=== PATIENT | female | born 1965 | race Caucasian/White ===

== ENCOUNTER 2023-04-28 12:19 | Outpatient (OUT) | payer MEDICARE, MEDICAID, SELFPAY ==
--- NOTE | 2023-04-28 13:03 | PM.CN ---
Consult Note: HPI Data of Consult Patient: known to practice within the last 3 years Requesting Physician: Veronique Laird NP Primary Care Provider: Non-Staff Physician, MD Consult Narrative Reason for consult: chronic low back and left knee pain Narrative: Stephanie Nichols a pleasant 57 year old female presents for evaluation of low back and bilateral SIJ pain, as well as left knee pain. Patient rating 5/10 pain today SAULO 46%. cc:: CC: Veronique Laird NP [facility] Medical History Exam Constitutional Documenting provider has reviewed patient's vital signs: yes Common normals: no apparent distress, oriented x3, healthy appearing, alert and well nourished General appearance: cooperative Nutritional appearance: obese HENMT Common normals: normocephalic, hearing grossly normal bilaterally and moist oral mucous membranes Head and scalp: normocephalic Eye Common normals: PERRL Pupil: PERRL Neck & C-Spine Common normals: full ROM General: normal visual inspection Cervical spine: cervical ROM normal Chest Common normals: inspection of chest normal Respiratory Common normals: normal respiratory effort, no retractions and no use of accessory muscles Back & Pelvis Common normals: straight leg raise negative bilaterally Lumbar spine/lower back: ROM limited, pain with ROM (positive bilateral facet loading, right worse than left), lumbar spinal tenderness and paraspinal muscle tenderness Sacroiliac joints: SI joint(s) abnormal (bilaterally positive BARBARA, gaenslens, yeoman) SI joint details: tender to palpation Neuro Common normals: oriented x3, CN's II-XII intact bilaterally, moves all extremities, no focal motor deficits, no sensory deficits noted and deep tendon reflexes 2+ bilaterally Sensorium/orientation: alert Motor exam: strength 5/5 throughout and no movement abnormalities noted Other: intermittent bilateral leg weakness and instability Psych Common normals: mental status grossly normal, thought process normal, cooperative, affect normal, speech normal and activity/motor behavior normal Speech: normal speech Thought process: normal thought process Assessment and Plan Assessment and Plan (1) Neuritis: Assessment and Plan: bilateral LCIH neuritis not interested in injections at this time, previously discussed and discussed today bilateral LCIH nerve blocks (2) Opioid use: Assessment and Plan: continue tramadol 50mg TID update UDS today (3) Encounter for medication monitoring: Assessment and Plan: update UDS today (4) Lumbar spondylosis: Assessment and Plan: positive facet loading bilaterally, chronic low back pain declining injection therapy at this time consider MRI in the future due to intermittent bilateral leg weakness and instability (5) Left knee pain: Assessment and Plan: declining genicular nerve blocks (6) Obesity (BMI 30-39.9): Assessment and Plan: The patient was counseled that proper dietary changes and consistent participation in a home exercise plan can lead to weight loss. Weight loss can help to improve functionality in patients with chronic pain.? patient going to [facility], PT, aquatherapy Plan UDS today discussed and declining facet blocks and LCIH nerve blocks start PT and aquatherapy at [facility] continue tramadol 50mg TID PRN pain continue care director and e-stim use continue gabapentin 600mg daily f/u 3 months
== END 2023-04-28 12:20 | disposition home or self-care (01) ==
PROVIDERS: Visit Provider Nurse Practitioner
DX: M79.2 Neuralgia and neuritis, unspecified (principal); Z79.891 Long term (current) use of opiate analgesic; Z51.81 Encounter for therapeutic drug level monitoring; M47.816 Spondylosis without myelopathy or radiculopathy, lumbar region; M25.562 Pain in left knee; E66.9 Obesity, unspecified; Z68.30 Body mass index [BMI] 30.0-30.9, adult
CPT/HCPCS: G0463

== ENCOUNTER 2023-07-14 13:03 | Outpatient (OUT) | payer MEDICARE, SELFPAY ==
--- NOTE | 2023-07-14 13:48 | PM.CN ---
Consult Note: HPI Data of Consult Patient: known to practice within the last 3 years Requesting Physician: Veronique Laird NP Primary Care Provider: SANDEE FIGUEROA Consult Narrative Narrative: Stephanie Nichols a pleasant 57 year old female presents for evaluation and management of chronic low back pain with bilateral leg weakness and INC. Patient fell on july 06 and has had pain in right hip and thigh since then as well as increase in low back pain and weakness. Today rating pain 5/10 in low back and right hip. cc:: CC: Veronique Laird NP Review of Systems ROS Status of ROS 10 or more systems reviewed and unremarkable except as noted in history and below Musculoskeletal Reports: back pain and joint pain [facility] Medical History Encounter for medication monitoring ?Z51.81 - Encounter for therapeutic drug level monitoring (ICD-10) Meds Home Medications and Allergies Home Medications Medication Instructions Recorded Confirmed Type VITAMIN D DAILY 04/28/23 History buspirone 10 mg tablet 10 mg PO BID 04/28/23 04/28/23 History gabapentin 600 mg tablet 600 mg PO DAILY 04/28/23 04/28/23 History levothyroxine 150 mcg tablet 150 mcg PO DAILY 04/28/23 04/28/23 History (Synthroid) lisinopril 10 mg tablet 10 mg PO DAILY 04/28/23 04/28/23 History multivitamin 1 tab PO DAILY 04/28/23 04/28/23 History tramadol 50 mg tablet 50 mg PO TID 04/28/23 04/28/23 History trazodone 50 mg tablet 50 mg PO DAILY 04/28/23 04/28/23 History vitamin B12 0.5 mg-folic acid 1 mg 1 tab PO DAILY 04/28/23 04/28/23 History tablet Allergies Allergy/AdvReac Type Severity Reaction Status Date / Time Latex, Natural Rubber Allergy Unknown Rash Verified 04/28/23 13:53 Penicillins Allergy Unknown Verified 04/28/23 13:53 Exam Constitutional Documenting provider has reviewed patient's vital signs: yes Common normals: no apparent distress, oriented x3, healthy appearing, alert and well nourished General appearance: cooperative Nutritional appearance: obese HENMT Common normals: normocephalic, hearing grossly normal bilaterally and moist oral mucous membranes Head and scalp: normocephalic Eye Common normals: PERRL Pupil: PERRL Neck & C-Spine Common normals: full ROM General: normal visual inspection Cervical spine: cervical ROM normal Chest Common normals: inspection of chest normal Respiratory Common normals: normal respiratory effort, no retractions and no use of accessory muscles Back & Pelvis Common normals: straight leg raise negative bilaterally Lumbar spine/lower back: ROM limited, pain with ROM (positive bilateral facet loading, right worse than left), lumbar spinal tenderness and paraspinal muscle tenderness Sacroiliac joints: SI joint(s) abnormal (bilaterally positive BARBARA, gaenslens, yeoman) SI joint details: tender to palpation Extremity Right lower extremity: hip joint (no pain with internal or external rotation. non tender over GTB and IT band) Other: bruising to right posterior thigh Neuro Common normals: oriented x3, CN's II-XII intact bilaterally, moves all extremities, no focal motor deficits, no sensory deficits noted and deep tendon reflexes 2+ bilaterally Sensorium/orientation: alert Motor exam: strength 5/5 throughout and no movement abnormalities noted Other: intermittent bilateral leg weakness and instability Psych Common normals: mental status grossly normal, thought process normal, cooperative, affect normal, speech normal and activity/motor behavior normal Speech: normal speech Thought process: normal thought process Assessment and Plan Assessment and Plan (1) Acute right hip pain: (2) Lumbar stenosis without neurogenic claudication: Assessment and Plan: consider MRI (3) Opioid use: (4) Neuritis: (5) Obesity (BMI 30-39.9): (6) Lumbar spondylosis: Plan continue current medication regimen start topical lidocain 3% cream to affected areas xray of right hip and lumbar spine with flexion and extension continue HEP as tolerated f/u 1 month
--- OUTSIDE RECORDS SUMMARY | 2023-08-24 14:53 | XMS_ITS | CCD ---
Author Name Unknown Address [address] [place] [address] [address] [place] [address] Organization [facility] Care Team Providers Care Senior Scientist Name Role Phone LUCIA .PATRIA Admitting Unavailable LAKSHMIPATHY ., NARNIKKO Consulting Dasia vailable [facility] Un[facility] il[facility] HALKER .PATRIA Attending Unavailable [facility] HENRIQUEZ ., DR LUNA Lindsay Admitting Unavailable HENRIQUEZ ., DR LUNA Lindsay Attending Unavailable YAÑEZ ., JUWAN Consulting Unavailable YAÑEZ ., JUWAN Consulting Unavailable HENRIQUEZ ., DR LUNA Lindsay Attending Unavailable [facility] Unava ilable HENRIQUEZ ., DR LUNA Lindsay Admitting Unavailable YAÑEZ ., JUWAN Consulting Unavailable [facility] Unava ilable HENRIQUEZ ., DR LUNA Lindsay Attending Unavailable HENRIQUEZ ., DR LUNA Lindsay Admitting Unavailable YAÑEZ ., JUWAN Consulting Unavailable [facility] Unava ilable HENRIQUEZ ., DR LUNA Lindsay Attending Unavailable HENRIQUEZ ., DR LUNA Lindsay Admitting Unavailable YAÑEZ ., JUWAN Consulting Unavailable [facility] Unava ilable HENRIQUEZ ., DR LUNA Lindsay Attending Unavailable HENRIQUEZ ., DR LUNA Lindsay Admitting Unavailable Allergies Allergy Classification Reported Allergen(s) Allergy Type Date of Onset Reaction(s) Facility (1 source) Latex Drug allergy (disorder) [facility] (1 source) Penicillin Drug Allergy [facility] Problems Active Problems Problem Classification Problem Date Documented Date Episodic/Chronic Osteoarthritis (4 sources) Unilateral primary osteoarthritis, left knee; Translations: [UNI PRIM OSTEOARTHRITIS LT KNEE] Onset: 01-22-2022 Chronic Other connective tissue disease (1 source) Other muscle spasm; Translations: [OTHER MUSCLE SPASM] Onset: 01-14-2023 Episodic Other nervous system disorders (1 source) Other specified mononeuropathies; Translations: [OTHER SPECIFIED MONONEUROPATHIES] Onset: 01-14-2023 Chronic Other nutritional; endocrine; and metabolic disorders (1 source) Obesity, unspecified; Translations: [OBESITY UNSPECIFIED] Onset: 02-20-2022 Chronic Spondylosis; intervertebral disc disorders; other back problems (5 sources) Other spondylosis with radiculopathy, lumbar region; Translations: [Sacroiliitis, not elsewhere classified] Onset: 02-19-2022 Chronic Unclassified (2 sources) LOW BACK PAIN, UNSPECIFIED; Translations: [LOW BACK PAIN, UNSPECIFIED] Onset: 01-14-2023 Past or Other Problems Problem Classification Problem Date Documented Date Episodic/Chronic Other connective tissue disease (1 source) Muscle wasting and atrophy, not elsewhere classified, unspecified site; Translations: [MUSCLE WASTING ATROPHY NEC UNS SITE] Onset: 02-20-2022 Episodic Other connective tissue disease (1 source) Trochanteric bursitis, left hip; Translations: [TROCHANTERIC BURSITIS LEFT HIP] Onset: 01-28-2022 Episodic Spondylosis; intervertebral disc disorders; other back problems (5 sources) Intervertebral disc disorders with radiculopathy, lumbar region; Translations: [IV DISC D/O W/RADICULOPATHY LUMB] Onset: 02-20-2022 Episodic Unclassified (1 source) LOW BACK PAIN, UNSPECIFIED; Translations: [LOW BACK PAIN, UNSPECIFIED] Onset: 01-08-2023 Results Test Name Value Interpretation Reference Range [facility] Physical Therapy Noteon 08-07 Physical Therapy Note [id number]#1.00[facility] Provider Orderson 08-20-2020 Provider Orders [id number]#1.00[facility] Medication Managementon 05-08 Medication Management [id number]#1.00[facility] Coding Summaryon 05-30-2020 Coding Summary CODING DATE: 020 [facility] STATUS: PAYOR: Workers Compensation ADMIT DX: REASON FOR VISIT DX: S43.422D Sprain of left rotator cuff capsule, subsequent encounter FINAL DX: PRINCIPAL: S43.422D Sprain of left rotator cuff capsule, subsequent encounter SECONDARY: PYMT PROC APC STAT DESCRIPTION DOCTOR NAME DATE NOTE: The code number assigned matches the documented diagnosis and / or procedure in the patient's chart. However, the narrative phrase printed from the coding software may appear abbreviated, or result in slightly different terminology. Coded By: Zahra Feliciano Date Saved: 05/30/2020 02:18 pm [facility] Provider Orderson 05-27-2020 Provider Orders [id number] MAGR Intraoperative Recordon 04-08-2020 MAGR Intraoperative Record MAGR Intra-Op Record Summary Primary Physician: Warren Holliday DO Finalized Date/Time: 04/08/20 08:06:39 Pt. Name: JOSE A SINCLAIR/Sex: 1965 FEMALE Med Rec #: [id number] Physician: Warren Holliday DO Financial #: [id number] Pt. Type: D Room/Bed: / Admit/Disch: 04/01/20 07:10:00 - 04/01/20 13:45:00 Institution: Case Times MAGR Entry 1 Patient In Room Time 04/01/20 10:11:00 Out Room Time 04/01/20 11:27:00 Anesthesia Start Time 04/01/20 10:08:00 Stop Time 04/01/20 11:32:00 Surgery Start Time 04/01/20 10:42:00 Stop Time 04/01/20 11:17:00 Last Modified By: Estrellita Sanchez RN 04/01/20 11:36:13 Case Attendance MAGR Entry 1 Entry 2 Entry 3 Case Attendee Warren Holliday RN, Deyvi Nguyen MD, DO Role Performed Surgeon - Primary Director Part Anesthesiologist of Record Time In 04/01/20 10:11:00 04/01/20 10:11:00 04/01/20 10:11:00 Time Out 04/01/20 11:27:00 04/01/20 11:27:00 04/01/20 11:27:00 Procedure Arthroscopy Arthroscopy Arthroscopy Shoulder(Left) Shoulder(Left) Shoulder(Left) Last Modified By: Daniel GAY, Estrellita Sanchez RN, Estrellita Sanchez RN, Estrellita Thomas 04/01/20 11:27:54 04/01/20 11:27:54 04/01/20 11:27:54 Entry 4 Entry 5 Entry 6 Case Attendee Quan CALLES, Anastasia Licona RN, Miguelangel Alonzo CST Role Performed Scrub Personnel Director Part Control Room Tender Time In 04/01/20 10:11:00 04/01/20 10:11:00 04/01/20 10:11:00 Time Out 04/01/20 11:27:00 04/01/20 11:27:00 04/01/20 11:27:00 Procedure Arthroscopy Arthroscopy Arthroscopy Shoulder(Left) Shoulder(Left) Shoulder(Left) Last Modified By: Daniel GAY, Estrellita Sanchez RN, Estrellita Sanchez RN, Estrellita Thomas 04/01/20 11:27:54 04/01/20 11:27:54 04/01/20 11:27:54 General Comments: Hernán Bronson Rep Surgical Procedures MAGR Pre-Care Text: A.20 Verifies operative procedure, surgical site, and laterality Im.150 Develops individualized plan of care Entry 1 Procedure Arthroscopy Shoulder Primary Procedure Yes Primary Surgeon Warren Holliday DO Surgeon Comment LEFT SHOULDER SCOPE Start 04/01/20 10:42:00 WITH ROTATOR CUFF REPAIR Stop 04/01/20 11:17:00 Anesthesia Type General Surgical Service Orthopedics Wound Class Clean Technique Details Closure Technique Primary Entire procedure No was performed via laparoscope or robotic assistance Last Modified By: Estrellita Sanchez RN 04/01/20 11:18:04 Post-Care Text: O.730 The patient's care is consistent with the individualized perioperative plan of care General Case Data MAGR Pre-Care Text: A.350.1 Classifies surgical wound Entry 1 Case Information OR MAGR OR 05 Case Level Level 4 Wound Class Clean Specialty Orthopedics ASA Class 2 Diagnosis Preop Diagnosis LEFT SHOULDER ROTATOR Postop Same As Preop Yes CUFF TEAR Postop Diagnosis LEFT SHOULDER ROTATOR CUFF TEAR Blunt or No Is the procedure No penetrating injury considered occured prior to Emergent/Urgent? the start of the procedure: Last Modified By: Estrellita Sanchez RN 04/01/20 10:43:16 Post-Care Text: O.760 Patient receives consistent and comparable care regardless of the setting Time Out MAGR Entry 1 Time out date/time 04/01/20 10:40:00 All team members Yes have introduced themselves by name and role Surgeon, Yes Surgeon reviews Yes anesthesia, nurse critical or confirm patient, unexpected steps, site, procedure operative duration, anticipated blood loss Anesthesia team Yes Nursing team Yes reviews any reviews sterility patient-specific (including concerns indicator results) and equipment issues/concerns Antibiotic Antibiotic Yes Administration Time 10:10 prophylaxis given within the last 60 minutes Is essential N/A imaging displayed? Last Modified By: Estrellita Sanchez RN 04/01/20 10:44:00 Patient Positioning MAGR Pre-Care Text: A.280 Identifies baseline musculoskeletal status Im.40 Positions the patient Im.80 Applies safety devices Entry 1 Procedure Arthroscopy Body Position Lateral Shoulder(Left) Left Arm Position Extended on padded arm Right Arm Position Extended board Left Leg Position Extended Right Leg Position Extended Feet Uncrossed? Yes Press Points Checked Yes Positioning Device Arm Boards, Arm Strap, Outcome Met (O.80) Yes Pillow, Safety Strap Last Modified By: Estrellita Sanchez RN 04/01/20 10:44:12 Post-Care Text: E.290 Evaluates musculoskeletal status O.80 Patient is free from signs and symptoms of injury related to positioning Skin Prep MAGR Pre-Care Text: A.30 Verifies allergies Im.270 Performs skin preparation Im.270.1 Implements protective measures to prevent skin and tissue injury due to chemical sources Entry 1 Skin Prep Syntegrity Prep Agents (Im.270) Chlorhexidine Gluconate Prep By Estrellita Sanchez RN and Alcohol Prep Area (Im.270) Shoulder, Arm, Hand Prep Area Details Left Skin Prep Agent Dry Yes Without Pooling Hair Removal Syntegrity Hair Removal Methods No hair removal performed Outcome Met (O.100) Yes Last Modified By: Estrellita Sanchez RN 04/01/20 09:56:56 Post-Care Text: E.10 Evaluates for signs and symptoms of physical injury to skin and tissue O.100 Patient is free from signs and symptoms of chemical injury Counts Verification MAGR Pre-Care Text: A.20 Verifies operative procedure, surgical site, and laterality A.20.2 Assesses the risk for unintended retained foreign body Im.20 Performs required counts Entry 1 Procedure Arthroscopy Shoulder(Left) Counts Verification Initial Counts Items included in Sponges, Sharps Initial Counts Manual the Initial Count Method Initial Counts Estrellita Sanchez RN, Initial Count Time 04/01/20 09:31:00 Performed By Anastasia Glass CST Counts Verification Final Counts Items Included in Sponges, Sharps Final Count Status Correct Final Count Final Counts Estrellita Sanchez RN, Final Count Time 04/01/20 11:11:00 Performed By Anastasia Glass CST Surgeon notified of Yes final counts status Outcome Met (O.20) Yes Last Modified By: Estrellita Sanchez RN 04/01/20 11:12:23 Post-Care Text: E.50 Evaluates results of the surgical count O.20 Patient is free from unintended retained foreign objects Patient Care Devices MAGR Pre-Care Text: A.200 Assesses risk for normothermia regulation A.40 Verifies presence of prosthetics or corrective devices Im.280 Implements thermoregulation measures Im.60 Uses supplies and equipment within safe parameters Entry 1 Entry 2 Equipment Type Bilateral pneumatic Heated forced air compression device Serial ?# [id number] Equipment Setting default 43 degrees celecius Last Modified By: Estrellita Sanchez RN, RN, Kristin N 04/01/20 09:59:19 04/01/20 09:59:19 Post-Care Text: E.10 Evaluates signs and symptoms of physical injury to skin and tissue O.700 Patient is free from signs and symptoms of injury caused by extraneous objects Medication Administration MAGR Pre-Care Text: A.210 Identifies physiological status Im.220 Administers prescribed medications Entry 1 Time Administered 04/01/20 08:05:00 Medication epinephrine 1mg/ml added to 1000ml NS Route of Admin IRRIG Dose 9 amp Volume 9 amp By Estrellita Sanchez RN Outcome Met (O.130) Yes Last Modified By: Estrellita Sanchez RN 04/08/20 08:06:32 Post-Care Text: E.20 Evaluates response to medications O.130 Patient receives appropriately administered medication(s) Implant Log MAGR Pre-Care Text: A.20 Verifies operative procedure, surgical site, and laterality Im.350 Records implants inserted during the operative or invasive procedure Entry 1 Entry 2 Procedure Arthroscopy Arthroscopy Shoulder(Left) Shoulder(Left) Implant Action Implant Implant Description Arthrex Surture Wagner Arthrex Suture Wagner Biocomposite 4.75 x 4.75 x 24.5mm 24.5mm Implant Information Implant/Explant 04/01/20 10:55:00 04/01/20 10:59:00 Date/Time Implanted/Explanted Warren Holliday James By: Rainer BREWSTER Rainer DO Size 4.75 x 24.5mm 4.75 x 24.5mm Marketer Arthrex Arthrex Catalog # REF [id number] REF [id number] Lot Number [id number] Expiration Date 05/06/21 05/06/21 Serial Number Device Identifier Human Readable TY Machine Readable TY MR Class Implant Usage Data Site Shoulder L Shoulder L Quantity 1 1 Reason for Explant Reason Not Retained Explant Disposition Cigar Bander Hand Sterility External Indicator Result Internal Indicator Results Outcome Met (O.30) Yes Yes Last Modified By: Estrellita Sanchez RN, RN, Kristin N 04/01/20 11:01:05 04/01/20 11:01:05 Post-Care Text: E.30 Evaluates verification process for correct patient, site, side and level surgery O.30 Patient's procedure is performed on the correct site, side, and level Dressing/Packing MAGR Pre-Care Text: A.350 Assesses susceptibility for infection Im.290 Administer care to wound sites Entry 1 Skin Prep Agent Yes Site Hand Removed Prior to Dressing? Dressing Item Details Dressing Item 4x4's, ABD (Im.290) Outcome Met Yes Last Modified By: Estrellita Sanchez RN 04/01/20 10:00:06 Post-Care Text: E.200 Evaluates progress of wound healing O.200 Patient's wound perfusion is consistent with or improved from baseline levels Departure from OR MAGR Entry 1 Present on Depart Oxygen Via Stretcher Post-op Destination PACU Skin DFO Condition Dry Description Condition Intact Description Report Given To Ana Maria Welsh RN Airway Maintenance Patient Status Stable Oxygen in Use? Yes Airway Device Simple mask Flow Rate 10 Last Modified By: sEtrellita Sanchez RN 04/01/20 11:36:41 Case Comments Finalized By: Estrellita Sanchez RN Document Signatures Signed By: Estrellita Sanchez RN 04/01/20 11:46 Estrellita Sanchez RN 04/01/20 11:39 Estrellita Sanchez RN 04/08/20 08:06 Unfinalized History Date/Time Username Reason for Unfinalizing Freetext Reason for Unfinalizing 04/01/20 11:45 JESSICA Modify Pick List 04/08/20 08:04 JESSICA Finish Documentation [facility] Coding Summaryon 04-02-2020 Coding Summary CODING DATE: 020 [facility] STATUS: Home PAYOR: Workers Compensation APC DESCRIPTION 5114 Level 4 Musculoskeletal Procedures ADMIT DX: REASON FOR VISIT DX: S46.012A Strain of muscle(s) and tendon(s) of the rotator cuff of left shoulder, initial encounter FINAL DX: PRINCIPAL: S46.012A Strain of muscle(s) and tendon(s) of the rotator cuff of left shoulder, initial encounter SECONDARY: S46.112A Strain of muscle, fascia and tendon of long head of biceps, left arm, initial encounter PYMT PROC APC STAT DESCRIPTION DOCTOR NAME DATE 13529 5114 J1 Arthroscopy, shoulder, 04/01/2020 surgical; with rotator cuff repair LT Left side (used to identify procedures performed on the left side of the body) NOTE: The code number assigned matches the documented diagnosis and / or procedure in the patient's chart. However, the narrative phrase printed from the coding software may appear abbreviated, or result in slightly different terminology. Revised Coded By: Gissel Blanton Revised Date Saved: 04/02/2020 02:55 pm [facility] Consent Formson 04-02-2020 Consent Forms [id number] Instructions [id number]#[facility] and Physical[facility] 04-02 History and Physical [id number]#[facility] Medication Management[facility] 03-07 Medication Management [id number]#1.00[facility] Telemetry Stripson 0 Telemetry Strips [id number]#[facility]2020 Anesthesia Note Patient: HILARY SINCLAIR Age: 54 years Sex: FEMALE : 1965 Associated Diagnoses: None Author: Deyvi Samuels MD Preoperative Information Anesthesia history: Patient history: No difficult intubation, No malignant hyperthermia. Family history: No malignant hyperthermia. Review of Systems Constitutional: Negative. Respiratory: Negative, No shortness of breath. Cardiovascular: No chest pain. Neurologic: Alert and oriented X4. Health Status Allergies: Allergic Reactions (All) Severity Not Documented Penicillin- Yeast infection. Current medications: Home Medications (8) Active DULoxetine 30 mg oral delayed release capsule 60 mg = 2 cap(s), PO, HS levothyroxine 137 mcg (0.137 mg) oral tablet 137 mcg = 1 tab(s), PO, Daily rOPINIRole 0.25 mg oral tablet 0.5 mg = 2 tab(s), PO, HS traZODone 50 mg oral tablet 50 mg = 1 tab(s), PRN, PO, Once a day (at bedtime) Vistaril 50 mg oral capsule 50 mg = 1 cap(s), PO, HS Vitamin D3 1000 intl units oral capsule 1,000 International_Unit = 1 cap(s), PO, Daily Xanax 0.25 mg oral tablet 0.25 mg = 1 tab(s), PRN, PO, BID Zoloft 50 mg oral tablet 50 mg = 1 tab(s), PO, Daily Problem list (past medical history): All Problems Anemia / SNOMED CT 543749909 / Confirmed Hypothyroid / SNOMED CT 80079345 / Confirmed Iron deficiency / SNOMED CT 79790717 / Confirmed Histories Family History: No family history items have been selected or recorded. Procedure history: Gastric bypass (8871662590). Rotator cuff (35204887). Comments: 03/12/2020 9:17 Obdulia Corbin RN right shoulder, biceps Social History Electronic Cigarette/Vaping Assessment Electronic Cigarette Use: Never. Alcohol Assessment Use: Never. Tobacco Assessment Never (less than 100 in lifetime) Tobacco Use:. Substance Abuse Assessment Substance use: Never. . Social & Psychosocial Habits Alcohol 03/12/2020 Alcohol Use: Never Substance Abuse 03/12/2020 Substance use: Never Tobacco 03/12/2020 Smoking tobacco use: Never (less than 100 in l Electronic Cigarette/Vaping 03/12/2020 Electronic Cigarette Use: Never . Physical Examination VS/Measurements Vital Signs (last 24 hrs) Last Charted Heart Rate Peripheral 67 bpm (APR 01 07:30) Resp Rate 16 br/min (APR 01:30) SBP H 149mmHg (APR 01:35) DBP 86 mmHg (APR 01:35) SpO2 97 % (APR 01:30) Airway: Mallampati classification: II (soft palate, fauces, uvula visible). Temporomandibular joint mobility: Good. Mouth: Adequate opening, Teeth ( very poor dentition with left upper central incisor piece that is very loose ). Neck: Full range of motion. Respiratory: Lungs are clear to auscultation. Cardiovascular: Regular rhythm. Neurologic: Alert, Oriented. Review / Management Laboratory Results Plan [place] [employer]hesiologists#(ASA) physical status classification: Class II. Anesthetic Preoperative Plan Anesthesia: General. , Regional (Interscalene Block, for post op pain control). Anesthetic plan, risks, benefits, and alternatives discussed with the patient and/or family. Patient verbalized understanding. [Electronically Signed on: 04/01/2020 09:45 EDT] Deyvi Samuels MD [Verified on: 04/01/2020 09:45 EDT] Deyvi Samuels MD [facility] Coding Summaryon 04-01-2020 Coding Summary CODING DATE: 020 [facility] STATUS: Home PAYOR: [employer] ADMIT DX: REASON FOR VISIT DX: R05 Cough FINAL DX: PRINCIPAL: R05 Cough SECONDARY: PYMT PROC APC STAT DESCRIPTION DOCTOR NAME DATE NOTE: The code number assigned matches the documented diagnosis and / or procedure in the patient's chart. However, the narrative phrase printed from the coding software may appear abbreviated, or result in slightly different terminology. Coded By: Zahra Feliciano Date Saved: 04/01/2020 11:03 am Normal [facility] Inpatient Patient Summaryon 04-01-2020 Inpatient [place] [address] Patient Discharge Instructions Name: YAHIR JOSE A K : 1965 Patient Address: [address] [place] [address] Primary Care Provider: Name: Kelly Bunch DO After you are discharged if you find you have any questions, please, call [phone] ext [phone] to speak to a nurse. Discharge Diagnosis: Internal derangement of left shoulder Prescription Information: If you have been given a prescription for narcotics, seek immediate medical attention if you have any difficulty breathing or any sudden status changes such as confusion and sleepiness. If you or anyone you know is experiencing suicidal thoughts, mental health, alcohol and/or drug addiction problems; contact the [facility] 29/03 Crisis Hotline -Text 4HIMC wc 029896. If you received any narcotics, sedation, or any other medication that causes drowsiness for the next 24 hours, unless otherwise directed: ? Do not drive a car. ? Do not operate machinery such as power tools, lawn mowers, drills, sewing machines, or stoves ? Avoid alcoholic beverages and drugs for allergies, nerves, or sleep ? Do not make important personal or business decisions or sign any legal documents [facility] would like to thank you for allowing us to assist you with your healthcare needs. The following includes patient education materials and information regarding your injury/illness. JOSE A SINCLAIR has been given the following list of follow-up instructions, prescriptions, and patient education materials: Follow-up Instructions With: Address: When: MAGALIS LIMON [address], [place] [address] Business (1) 04/09/2020 10:45 AM With: Address: When: Kelly [address] [place] [address] Business (1) Medications During the course of your visit, your medication list was updated with the most current information. The details of those changes are reflected below: Medications to Continue That Have Not Changed Other Medications acetaminophen-oxycodone (Percocet 5/325 oral tablet) 1 tab(s) Oral Every 6 hours as needed for pain. ALPRAZolam (Xanax 0.25 mg oral tablet) 1 tab(s) Oral 2 times a day as needed for anxiety. cholecalciferol (Vitamin D3 1000 intl units oral capsule) 1 cap(s) Oral every day. DULoxetine (DULoxetine 30 mg oral delayed release capsule) 2 cap(s) Oral At bedtime. (do not crush or chew). hydrOXYzine (Vistaril 50 mg oral capsule) 1 cap(s) Oral At bedtime. levothyroxine (levothyroxine 137 mcg (0.137 mg) oral tablet) 1 tab(s) Oral every day. rOPINIRole (rOPINIRole 0.25 mg oral tablet) 2 tab(s) Oral At bedtime. sertraline (Zoloft 50 mg oral tablet) 1 tab(s) Oral every day. traZODone (traZODone 50 mg oral tablet) 1 tab(s) Oral once a day (at bedtime) as needed sleep. It is important to always keep an active list of medications available so that you can share with other providers and manage your medications appropriately. As an additional courtesy, we are also providing you with your final active medications list that you can keep with you. acetaminophen-oxycodone (Percocet 5/325 oral tablet) 1 tab(s) Oral Every 6 hours as needed for pain., this is a home medication per Dr. Holliday on 04/01/2020 ALPRAZolam (Xanax 0.25 mg oral tablet) 1 tab(s) Oral 2 times a day as needed for anxiety. cholecalciferol (Vitamin D3 1000 intl units oral capsule) 1 cap(s) Oral every day. DULoxetine (DULoxetine 30 mg oral delayed release capsule) 2 cap(s) Oral At bedtime. (do not crush or chew). hydrOXYzine (Vistaril 50 mg oral capsule) 1 cap(s) Oral At bedtime. levothyroxine (levothyroxine 137 mcg (0.137 mg) oral tablet) 1 tab(s) Oral every day. rOPINIRole (rOPINIRole 0.25 mg oral tablet) 2 tab(s) Oral At bedtime. sertraline (Zoloft 50 mg oral tablet) 1 tab(s) Oral every day. traZODone (traZODone 50 mg oral tablet) 1 tab(s) Oral once a day (at bedtime) as needed sleep. Take only the medications listed above. Contact your doctor prior to taking any medications not on this list. Diet & Activity Patient Activity Level: Patient Diet: Regular Patient Activity Restrictions: Comment: Patient education materials, if any, will display below Return to Work was treated at our facility. Injury or illness was: ___Work-related. ___Not work-related. ___Undetermined if work-related. Return to work ? Employee may return to work on . ? Employee may return to modified work on . Work activity restrictions This person is not able to do the following activities: ___Bend ___Sit for a prolonged time ? This person should not sit for more than ____ hours at a time. ? This person should not sit for more than ____ hours during an 8-hour workday. ___Lift more than lb ___Squat ___ Stand for a prolonged time ? ___ This person should not stand for more than ____ hours at a time. ? ___ This person should not stand for more than ____ hours during an 8-hour workday. ___Climb ___Reach ___Push and pull with the ___ right hand ___ left hand ___ Walk ? ___ This person should not walk for more than ____ hours at a time. ? ___ This person should not walk for more than ____ hours during an 8-hour workday. ___ Drive or operate a motor vehicle at work ___ Grasp with the ___ right hand ___ left hand ___Other These restrictions are effective until or until a recheck appointment on . 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 Your employer should be aware of your condition and may be able to help with the necessary work activity restrictions. Contact your health care provider if: ? You wish to return to work sooner than the date that is listed above. ? You have problems that make it difficult for you to return at that time. This information is not intended to replace advice given to you by your health care provider. Make sure you discuss any questions you have with your health care provider. Document Released: 08/23/2006 Document Revised: 08/18/2018 Document Reviewed: 08/18/2018 [employer] Interactive Patient Education ? [address] GARCIA POST OPERATIVE SHOULDER INSTRUCTIONS SURGEONS WRITTEN INSTRUTCTIONS: -If you have been given a cryo cuff after surgery you should use it as much as possible for the first 24-48 hours. After that it is optional. TIP: Many patients prefer to use it a little longer because it helps reduce pain -You should wiggle your fingers frequently -Change your dressings in 1 day. If steri-strips have been applied DO NOT remove them. When the wound is clean and dry you may leave it open to air but again DO NOT remove any steri-strips that have been applied -You may shower in 1 day but do not let the water stream directly strike the wound -Do pendulum exercises for at least 10 minutes twice a day -If you have any problems or concerns, please call the office at [phone] -Follow up as scheduled Viruses or Bacteria What?s got you sick? Antibiotics only treat bacterial infections. Viral illnesses cannot be treated with antibiotics. When an antibiotic is not prescribed, ask your healthcare professional for tips on how to relieve symptoms and feel better. Usual Cause Illness Viruses Bacteria Antibiotic Needed Cold/Runny Nose NO Bronchitis/Chest Cold (in otherwise healthy children and adults) NO Whooping Cough Yes Flu NO Strep Throat Yes Sore Throat (except strep) NO Fluid in the middle ear (otitis media with effusion) NO Urinary Tract Infection Yes Antibiotics Aren?t Always the Answer www.cdc.gov/getsmart GET SMART Know When Antibiotics Work [place] Department of Health and Human Services Centers for Disease Control and Prevention May 2014 [facility] MAGR Intraoperative Recordon 04-01-2020 MAGR Intraoperative Record MAGR Intra-Op Record Summary Primary Physician: Deyvi Samuels MD Finalized Date/Time: 04/01/20 10:15:13 Pt. Name: JOSE A SINCLAIR/Sex: 1965 FEMALE Med Rec #: [id number] Physician: Warren Holliday DO Financial #: [id number] Pt. Type: D Room/Bed: / Admit/Disch: 04/01/20 07:10:00 - Institution: Case Times MAGR Entry 1 Patient In Room Time 04/01/20 09:50:00 Out Room Time 04/01/20 10:09:00 Anesthesia Start Time 04/01/20 09:52:00 Stop Time 04/01/20 10:05:00 Surgery Start Time 04/01/20 09:59:00 Stop Time 04/01/20 10:05:00 Last Modified By: Juany Guzman RN 04/01/20 10:11:53 Case Attendance MAGR Entry 1 Entry 2 Entry 3 Case Attendee Deyvi Samuels MD RN, Juany López RN Role Performed Surgeon - Primary Director Part Director Part Time In 04/01/20 09:50:00 04/01/20 09:50:00 04/01/20 09:50:00 Time Out 04/01/20 10:09:00 04/01/20 10:09:00 04/01/20 10:09:00 Procedure Interscalene Block(Left) Interscalene Block(Left) Interscalene Block(Left) Last Modified By: Juany Guzman RN, Margaret RN Klaehn, Margaret RN 04/01/20 10:12:14 04/01/20 10:12:14 04/01/20 10:12:14 Surgical Procedures MAGR Pre-Care Text: A.20 Verifies operative procedure, surgical site, and laterality Im.150 Develops individualized plan of care Entry 1 Procedure Interscalene Block Primary Procedure Yes Primary Surgeon Deyvi Samuels MD Modifiers Left Surgeon Comment SCALENE BLOCK PRIOR TO Start 04/01/20 09:59:00 LEFT SHOULDER SCOPE WITH ROTATOR CUFF REPAIR Stop 04/01/20 10:05:00 Anesthesia Type Regional Block Surgical Service Anesthesia Wound Class Clean Technique Details Closure Technique N/A Entire procedure No was performed via laparoscope or robotic assistance Last Modified By: Juany Guzman RN 04/01/20 10:11:44 Post-Care Text: O.730 The patient's care is consistent with the individualized perioperative plan of care General Case Data MAGR Pre-Care Text: A.350.1 Classifies surgical wound Entry 1 Case Information OR MAGR Proc Room Case Level None Wound Class Clean Specialty Anesthesia ASA Class 2 Diagnosis Preop Diagnosis SCALENE BLOCK PRIOR TO Postop Same As Preop Yes LEFT SHOULDER SCOPE WITH ROTATOR CUFF REPAIR Postop Diagnosis SCALENE BLOCK PRIOR TO LEFT SHOULDER SCOPE WITH ROTATOR CUFF REPAIR Blunt or No Is the procedure No penetrating injury considered occured prior to Emergent/Urgent? the start of the procedure: Last Modified By: Juany Guzman RN 04/01/20 10:12:43 Post-Care Text: O.760 Patient receives consistent and comparable care regardless of the setting Time Out MAGR Entry 1 Time out date/time 04/01/20 09:51:00 All team members Yes have introduced themselves by name and role Surgeon, Yes Surgeon reviews Yes anesthesia, nurse critical or confirm patient, unexpected steps, site, procedure operative duration, anticipated blood loss Anesthesia team Yes Nursing team Yes reviews any reviews sterility patient-specific (including concerns indicator results) and equipment issues/concerns Antibiotic Antibiotic N/A prophylaxis given within the last 60 minutes Is essential Yes imaging displayed? Last Modified By: Juany Guzman RN 04/01/20 09:58:10 Patient Positioning MAGR Pre-Care Text: A.280 Identifies baseline musculoskeletal status Im.40 Positions the patient Im.80 Applies safety devices Entry 1 Procedure Interscalene Block(Left) Body Position Supine Left Arm Position Resting at Side Right Arm Position Resting at Side Left Leg Position Extended Right Leg Position Extended Feet Uncrossed? Yes Press Points Checked Yes Outcome Met (O.80) Yes Last Modified By: Juany Guzman RN 04/01/20 09:59:04 Post-Care Text: E.290 Evaluates musculoskeletal status O.80 Patient is free from signs and symptoms of injury related to positioning Skin Prep MAGR Pre-Care Text: A.30 Verifies allergies Im.270 Performs skin preparation Im.270.1 Implements protective measures to prevent skin and tissue injury due to chemical sources Entry 1 Skin Prep Syntegrity Prep Agents (Im.270) Chlorhexidine Gluconate Prep By Deyvi Samuels MD and Alcohol Prep Area (Im.270) Shoulder, Neck Prep Area Details Left Skin Prep Agent Dry Yes Without Pooling Hair Removal Syntegrity Hair Removal Methods No hair removal performed Outcome Met (O.100) Yes Last Modified By: Juany Guzman RN 04/01/20 10:00:27 Post-Care Text: E.10 Evaluates for signs and symptoms of physical injury to skin and tissue O.100 Patient is free from signs and symptoms of chemical injury Departure from OR MAGR Entry 1 Present on Depart Oxygen Via Stretcher Post-op Destination Little Skin DFO Condition Dry Description Condition Intact Description Report Given To Zahra Licona RN Airway Maintenance Patient Status Stable Oxygen in Use? Yes Airway Device Nasal cannula Flow Rate 3 L/min Last Modified By: Juany Guzman RN 04/01/20 10:14:14 Case Comments Finalized By: Juany Guzman RN Document Signatures Signed By: Juany Guzman RN 04/01/20 [facility]R PACU Record [facility] Primary Physician: Warren Holliday DO Finalized Date/Time: 04/01/20 12:39:27 Pt. Name: JOSE A SINCLAIR/Sex: 1965 FEMALE Med Rec #: [id number] Physician: Warren Holliday DO Financial #: [id number] Pt. Type: D Room/Bed: / Admit/Disch: 04/01/20 07:10:00 - Institution: PACU Case Times MAGR Entry 1 In PACU I 04/01/20 11:25:00 Discharge from PACU 04/01/20 12:28:00 I Last Modified By: Juany Guzman RN 04/01/20 12:39:18 Finalized By: Juany Guzman RN Document Signatures Signed By: Juany Guzman RN 04/01/20 12:39 [facility] MAGR Postoperative Recordon 04-01-2020 MAGR Postoperative Record MAGR Phase II Record Summary Primary Physician: Warren Holliday DO Finalized Date/Time: 04/01/20 13:49:00 Pt. Name: JOSE A SINCLAIR/Sex: 1965 FEMALE Med Rec #: [id number] Physician: Warren Holliday DO Financial #: [id number] Pt. Type: D Room/Bed: / Admit/Disch: 04/01/20 07:10:00 - 04/01/20 13:45:00 Institution: Phase II Case Times MAGR Pre-Care Text: Patient is free from s/s of injury. Patient remains free from compromised physical state related to surgery or anesthesia. Patient comfort maintained. Patient/family verbalize understanding of discharge instructions. Entry 1 In PACU II 04/01/20 12:29:00 Discharge from PACU 04/01/20 13:45:00 II Last Modified By: Sade Herring RN 04/01/20 13:48:54 Post-Care Text: The patient remains free from s/s of injury. Patient's vital signs stable, circulation maintained, return to preop mental and physical status, opsite/dressing intact, minimal or absent nausea and vomiting, tolerates po intake. Patient verbalizes adequate pain control. Patient/family express understanding of discharge instructions. Finalized By: Sade Herring RN Document Signatures Signed By: Sade Herring RN 04/01/20 13:48 [facility]2020 MAGR Preoperative Record MAGR Pre-Op Record Summary Primary Physician: Warren Holliday DO Finalized Date/Time: 04/01/20 10:16:27 Pt. Name: JOSE A SINCLAIR Oliver Yadav./Sex: 1965 FEMALE Med Rec #: [id number] Physician: Warren Holliday DO Financial #: [id number] Pt. Type: D Room/Bed: / Admit/Disch: 04/01/20 07:10:00 - Institution: Pre-Op Case Times MAGR Pre-Care Text: Patient will be optimally prepared for surgery. Patient is free from s/s of injury. Provide information to patient/family related to plan of care. Verify patient allergies. Confirm identity and verify consent before the operative or invasive procedure. Entry 1 Patient Arrival Time 04/01/20 07:18:00 Preop Departure 04/01/20 10:09:00 Last Modified By: Juany Guzman RN 04/01/20 10:16:18 Post-Care Text: Patient is prepared mentally and physically and is ready for surgery. The patient remains free from s/s of injury. Patient/family express understanding of plan of care and participate in decisions affecting his or her perioperrative plan of care. Allergies documented appropriately. Patient identifiers and consent correct. General Comments: Patient arrives ambulatory to PSW. Pt deniesa xander recent cold/flu symptoms, SOB, sleep apnea, diabetes, CP, or pacemaker/defibrillator. Finalized By: Juany Guzman RN Document Signatures Signed By: Juany Guzman RN 04/01/20 10:16 Normal [facility] Operative Report - Surgeon/P chanda 04-01-2020 Operative Report - Surgeon/Physician Preoperative diagnosis: Internal derange ment left shoulder suspected cuff tear Postoperative diagnosis: Full-thickness tear rotator cuff Tear biceps with chronic appearance Procedure: Arthroscopic repair of rotator cuff left shoulder Surgeon: Vidya Holliday D.O. Anesthesia: General with a preoperative interscalene block Indications for surgery: Clinical findings suggestive of a tear of the rotator cuff with failure of conservative treatment and progression of symptoms Estimated blood loss: Scant Complications: None Findings: Full-thickness retracted tear of the rotator cuff. Absence of biceps tendon within the joint Procedure summary: Patient was given a general anesthetic she was positioned in the lateral decubitus position. The left shoulder was sterilely prepped and draped in usual fashion and a timeout was taken. A posterior portal was established. Upon in clinic entering the glenohumeral joint it was immediately apparent there was a full-thickness tear of the rotator cuff I established a portal of the lateral edge of the acromium in line with the defect in the rotator cuff. I placed a grasper on the labrum and noted the labrum to be intact but noted the long head of the biceps was absent from the joint and there was just a tiny bit of fraying left at its attachment site. The articular cartilage on the head of the humerus and in the glenoid had a grossly normal appearance I repositioned the scope into the subacromial space and took down the bursa. The cuff tear was readily visible from above. It was an irregular tear with fissuring and laminar components. I used a shaver to scuff up the footprint. I repaired the rotator cuff with a single margin convergence suture and then 2 inverted mattress #2 fiber tapes anchored with two 4.75 bio swivel locks. I then took the shoulder through range of motion and noted that there was no areas of obvious impingement. The undersurface of the acromium and the acromioclavicular joint did not have spurs or impingement detected Subacromial space was irrigated and evacuated and the portals were closed with nylon sutures. Sterile dressings were applied [Electronically Signed on: 04/01/2020 11:22 EDT] Warren Holliday DO [Verified on: 04/01/2020 11:22 EDT] Warren Holliday DO [facility] Patient Handouton 04-01-[address] GARCIA POST OPERATIVE SHOULDER INSTRUCTIONS SURGEONS WRITTEN INSTRUTCTIONS: -If you have been given a cryo cuff after surgery you should use it as much as possible for the first 24-48 hours. After that it is optional. TIP: Many patients prefer to use it a little longer because it helps reduce pain -You should wiggle your fingers frequently -Change your dressings in 1 day. If steri-strips have been applied DO NOT remove them. When the wound is clean and dry you may leave it open to air but again DO NOT remove any steri-strips that have been applied -You may shower in 1 day but do not let the water stream directly strike the wound -Do pendulum exercises for at least 10 minutes twice a day -If you have any problems or concerns, please call the office at [phone] -Follow up as scheduled Forms Return to Work was treated at our facility. Injury or illness was: ___Work-related. ___Not work-related. ___Undetermined if work-related. Return to work ? Employee may return to work on . ? Employee may return to modified work on . Work activity restrictions This person is not able to do the following activities: ___Bend ___Sit for a prolonged time ? This person should not sit for more than ____ hours at a time. ? This person should not sit for more than ____ hours during an 8-hour workday. ___Lift more than lb ___Squat ___ Stand for a prolonged time ? ___ This person should not stand for more than ____ hours at a time. ? ___ This person should not stand for more than ____ hours during an 8-hour workday. ___Climb ___Reach ___Push and pull with the ___ right hand ___ left hand ___ Walk ? ___ This person should not walk for more than ____ hours at a time. ? ___ This person should not walk for more than ____ hours during an 8-hour workday. ___ Drive or operate a motor vehicle at work ___ Grasp with the ___ right hand ___ left hand ___Other These restrictions are effective until or until a recheck appointment on . 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 Your employer should be aware of your condition and may be able to help with the necessary work activity restrictions. Contact your health care provider if: ? You wish to return to work sooner than the date that is listed above. ? You have problems that make it difficult for you to return at that time. This information is not intended to replace advice given to you by your health care provider. Make sure you discuss any questions you have with your health care provider. Document Released: 08/23/2006 Document Revised: 08/18/2018 Document Reviewed: 08/18/2018 [employer] Interactive Patient Education ? 2019 [employer] [facility] SARS-CoV-2 (COVID-19) PCRon 04-01-2020 COVID-19 PCR Not Detected Normal Not Detected [facility] Comment on above: Order Comment: Done In-House Result Comment: Resu lts Called To Shu in Surg By GAUDENCIO And Read Back For Confirmation On 04/01/2020 08:20:03 EDT. Performed By: #### 6 [id number] ####[facility] (DEFAULT)[address] [place], [place] [id number] Progress Note - Nurseon 03-07 Progress Note - Nurse Spoke with pt and informed her to be her e at 0715 and NPO after MN, she verbalizes understanding. [Electronically Signed on: 03/29/2020 10:42 EDT] Obdulia Barrow RN [Verified on: 03/29/2020 10:42 EDT] Obdulia Barrow RN [facility] Coding Summaryon 03-26-2020 Coding Summary CODING DATE: 020 [facility] STATUS: Home PAYOR: Workers Compensation APC DESCRIPTION 5733 Level 3 Minor Procedures ADMIT DX: REASON FOR VISIT DX: Z01.818 Encounter for other preprocedural examination FINAL DX: PRINCIPAL: Z01.818 Encounter for other preprocedural examination SECONDARY: PYMT PROC APC STAT DESCRIPTION DOCTOR NAME DATE NOTE: The code number assigned matches the documented diagnosis and / or procedure in the patient's chart. However, the narrative phrase printed from the coding software may appear abbreviated, or result in slightly different terminology. Coded By: Marilyn Montez Date Saved: 03/26/2020 02:33 pm [facility] Lab - Immunology/Serology Re sultson 03-25-2020 Lab - Immunology/Serology Results [id number][facility]-25-2020 Provider Orders [id number][facility] SARS-CoV-2 (COVID-19) PCRon 03-23-2020 COVID-19 PCR Not Detected Normal Not Detected [facility] Comment on above: Order Comment: Sent to [facility] Performed By: #### 6 [id number] ####[facility] (DEFAULT)[address] [place] [address] Provider Orderson 03-22-2020 Provider Orders [id number] - Nurseon Progress Note - Nurse chart reviewed per Dr Jones and cleared for surgery. no furthers orders received [Electronically Signed on: 03/14/2020 14:57 EDT] Sade Herring RN [Verified on: 03/14/2020 14:57 EDT] Sade Herring RN Normal [facility] .Auto Diff 03-12-2020 Auto Kidder % 7 % Normal 1-12 [facility] Comment on above: Performed By: #### 7 [id number], [id number] ####[facility] (DEFAULT)[address] [place] [address] 79451 Baso Abs# 0.1 x10 Normal 0.0-0.2 [facility] Comment on above: Performed By: #### 7 [id number], [id number] ####[facility] (DEFAULT)[address] [place] [address] 89458 Basophils/100 WBC (Bld) 1.5 % Normal 0.2-2.0 [facility] Comment on above: Performed By: #### 7 [id number], [id number] ####[facility] (DEFAULT)[address] [place] [address] 20580 Eos Abs# 0.6 x10 High 0.0-0.4 [facility] Comment on above: Performed By: #### 7 [id number], [id number] ####[facility] (DEFAULT)[address] [place] [address] 40696 Eosinophils/100 WBC (Bld) 11.6 % High 0.9-4.0 [facility] Comment on above: Performed By: #### 7 [id number], [id number] ####[facility] (DEFAULT)[address] [place] [address] 83981 Lymphocytes (Bld) [#/Vol] 0.8 x10 Low 1.3-2.9 [facility] Comment on above: Performed By: #### 7 [id number], [id number] ####[facility] (DEFAULT)[address] [place] [address] 94568 Lymphocytes/100 WBC (Bld) 16 % Normal 14-48 [facility] Comment on above: Performed By: #### 7 [id number], [id number] ####[facility] (DEFAULT)[address] [place] [address] 51581 Kidder Abs# 0.4 x10 Normal 0.0-0.8 [facility] Comment on above: Performed By: #### 7 [id number], [id number] ####[facility] (DEFAULT)[address] [place] [address] 08282 Neut Abs# 3.0 x10 Normal 1.5-9.2 [facility] Comment on above: Performed By: #### 7 [id number], [id number] ####[facility] (DEFAULT)[address] [place] [address] 44115 Neutrophils/100 WBC (Bld) 63 % Normal 44-88 [facility] Comment on above: Performed By: #### 7 [id number], [id number] ####[facility] (DEFAULT)[address] [place] [address] 16925 CBC w/ Auto Diffon 0 Erythrocyte distribution wid th (RBC) [Ratio] 13.3 % Normal 11.5-15.0 [facility] Comment on above: Performed By: #### 7 [id number], [id number] ####[facility] (DEFAULT)[address] [place] [address] Hematocrit (Bld) [Volume fraction] 41.8 % High 3 3.7-40.4 [facility] Comment on above: Performed By: #### 7 [id number], [id number] ####[facility] (DEFAULT)[address] [place] [address] Hemoglobin (Bld) [Mass/Vol] 14.4 g/dL Normal 11.3-15. 9 [facility] Comment on above: Performed By: #### 7 [id number], [id number] ####[facility] (DEFAULT)[address] [place] [address] 44036 Man Diff? Auto Normal [facility] Comment on above: Performed By: #### 7 [id number], [id number] ####[facility] (DEFAULT)[address] [place] [address] 39972 MCH (RBC) [Entitic mass] 30 pg Normal 24-34 [facility] Comment on above: Performed By: #### 7 [id number], [id number] ####[facility] (DEFAULT)[address] [place] [address] 94382 MCHC (RBC) [Mass/Vol] 34 g/dL Normal 26-37 [facility] Comment on above: Performed By: #### 7 [id number], [id number] ####[facility] (DEFAULT)[address] [place] [address] 44600 MCV (RBC) [Entitic vol] 86 fL Normal 81-100 [facility] Comment on above: Performed By: #### 7 [id number], [id number] ####[facility] (DEFAULT)[address] [place] [address] 08443 Platelet mean volume (Bld) [Entitic vol] 9.6 fL Normal 6.3-10.2 [facility] Comment on above: Performed By: #### 7 [id number], [id number] ####[facility] (DEFAULT)[address] [place] [address] 87412 Platelets (Bld) [#/Vol] 229 x10 Normal 138-427 M [facility] Comment on above: Performed By: #### 7 [id number], [id number] ####[facility] (DEFAULT)[address] [place] [address] 83296 RBC (Bld) [#/Vol] 4.85 x10 Normal 3.70-5.30 [facility] Comment on above: Performed By: #### 7 [id number], [id number] ####[facility] (DEFAULT)[address] [place] [address] 97402 WBC (Bld) [#/Vol] 4.8 x10 [facility] Comment on above: Performed By: #### 7 [id number], [id number] ####[facility] (DEFAULT)[address] [place] [address] 39877 Encounters Encounter Date Encounter Type Care Provider Facility Start: 01-08-2023 End: 01-09-2023 ambulatory PATRIA MYERS . Facility:[facility] Start: 12-03-2022 ambulatory JUWAN YAÑEZ . Facility:[facility] Start: 07-23-2022 End: 07-24-2022 ambulatory JUWAN YAÑEZ . Facility:[facility] Start: 02-19-2022 End: 02-20-2022 ambulatory JUWAN YAÑEZ . Facility:[facility] Start: 02-05-2022 ambulatory JUWAN YAÑEZ . Facility:[facility] Start: 01-22-2022 End: 01-23-2022 [facility] Facility:[facility] Payers Date Payer Category Payer Unknown [id number] 1965 Unknown [id number] 2.16.84 [id number] 1965 Unknown [id number] 2.16.84 [id number] 1965 Unknown [id number] 2.16.84 [id number] 1965 Unknown [id number] 2.16.84 [id number] 1965 Unknown [id number] 2.16.84 [id number] 1960 Unknown [id number] 1960 Unknown [id number] Consultation note 07-23-2022 Note Date & Type Note Facility 07-23-2022 Note CONSULTATION CONSULTATION DATE: 07/23/2022 HISTORY OF PRESENT ILLNESS: This 56-year-old female is returning to the clinic for a five month follow up for chronic lower back pain. She was last seen on 02/19/2022 which, at that time, she was started on Mobic 15 mg daily along with Pepto Bismol. Patient states she was unable to tolerate that due to gastric issues, so she is no longer on any NSAIDs. She was offered SI joint injections at that time, which she declined. She did do aquatics which did benefit her. Her current medications include gabapentin 600 mg daily per her PCP and tramadol 50 mg t.i.d. from our clinic. The patient feels the tramadol is beneficial to her. She has been seeing a chiropractor and has been receiving acupuncture treatments as well as adjustments and electrical stimulation. She is comfortable with this approach and prefers to continue with this mode of care. We will discontinue to medically manage her with tramadol at our clinic. Activities that aggravate her pain are ADLs, activity, sleep, changes in the weather and prolonged standing and walking. Patient's REVIEW OF SYSTEMS / PAST MEDICAL HISTORY / ALLERGIES and IMAGES have been reviewed and they are noted on the chart. PHYSICAL EXAM: VITAL SIGNS: Blood pressure 144/73, heart rate is 81. Temperature is 97.7. She is 5' tall, weighs 105 kg. GENERAL IMPRESSION: Pleasant, appropriate, no acute distress. Does ambulate with a quad cane. FOCUSED EXAM - BACK: Range of motion is functional in lateral rotation and flexion/extension. Paravertebral muscles are non-spasmodic. Mild reproduction of spinal axial pain along L3, L4 and L5 bilaterally, right greater than left upon compression. This does reproduce her pain symptomatology. Dudley's point is mildly tender bilaterally with referral pain to her left groin. MUSCULOSKELETAL: Motor is 4/5 bilaterally. She does have a stable, antalgic gait with her cane. NEUROLOGICALLY: Patchy hypoesthesia noted along left lower extremity diffusely to her ankle. Bilateral patellar reflexes are +1. DIAGNOSIS: Chronic lower back pain, lumbar radiculitis, lumbar degenerative disc disease and lumbar spondylosis. PLAN: We will continue to medically manage her with the tramadol 50 mg t.i.d. No refills are needed today. I did educate her with the use of a menthol heat rub in addition to a heat pad twice daily, along with stretches that were demonstrated. We will continue to follow the patient in three months' time, unless otherwise indicated. Patient is in agreement with this. [facility] Consultation note 02-19-2022 Note Date & Type Note Facility 02-19-2022 Note CONSULTATION CONSULTATION DATE: 02/19/2022 HISTORY OF PRESENT ILLNESS: This is a 56-year-old female, returning to the clinic for re-evaluation of lower back, buttock and bilateral knee pain. She was last seen on 01/22/2022 and, at that time, she received a left Durolane knee injection. She had 50% relief for three days. At that time, she also received a right hip bursa injection. Patient did have an x-ray of her hip and pelvis completed which showed bilateral degenerative SI joints. She also has degeneration of her pubis symphysis. Bilateral hip joints are preserved. Her pain is 5/10 today, described as achy and sharp. It increases with standing and walking, especially at the grocery store. Left side is greater than right. Housework, lifting, bending and ADLs worsen her pain. She does use head application but she feels it worsens her pain. Current medications include gabapentin 600 mg daily, tramadol 50 mg t.i.d., trazodone and a multivitamin regimen. 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 She is inquiring about NSAID treatment at this time. Patient's REVIEW OF SYSTEMS / PAST MEDICAL HISTORY / ALLERGIES and IMAGES have been reviewed and they are noted in the chart. PHYSICAL EXAM: VITAL SIGNS: Blood pressure 147/87, heart rate is 57. Temperature is 97.8. She is 5', weighs 110.1 kg. GENERAL APPEARANCE: Pleasant, appropriate, uncomfortable in the chair, but no acute distress. FOCUSED EXAM - BACK: Range of motion is guarded in lateral rotation and flexion/extension. Reproduction of spinal axial pain noted to L4-L5 bilaterally upon compression. This is concordant with facet arthropathy, lumbar spondylosis. Dudley's point is non-tender bilaterally, left greater than right with referral pain to hips and bilateral groin. This is concurrent with bilateral sacroiliitis. Yas's, compression and thigh thrust tests positive bilaterally. MUSCULOSKELETAL: Muscle atrophy noted to bilateral lower extremities. Patient ambulates with a cane in a slow, steady gait. NEUROLOGICALLY: Generalized neuropathy to bilateral feet and toes. IMPRESSION: Bilateral sacroiliitis, lumbar degenerative disc, muscle atrophy, lumbar radiculitis and obesity. PLAN: After discussing with the patient regarding NSAIDs, she will be started on Mobic 15 mg daily and was instructed to take it with Pepto Bismol for stomach protection. Patient was offered bilateral SI joint injections which she declines at this time and would rather take a more conservative approach. She will begin aquatics 2-3 times a week for 6-8 weeks for muscle strengthening. Patient agrees with this plan of care. She will be followed up in the clinic in three months' time unless otherwise indicated. [facility] Signed and Approved by: JUWAN YAÑEZ . 03/04/2022 16:24:00 [facility] Consultation note 01-22-2022 Note Date & Type Note Facility 01-22-2022 Note CONSULTATION CONSULTATION DATE: 01/22/2022 This is a 56-year-old female who arrives at the clinic today to receive a preauthorized left hip bursa injection and left knee Durolane injection. She rates her pain today as 5 out of 10, specifically to her knee and describes it as sharp and achy. She does have paresthesia to the toes on her left lower extremity. Activities that aggravate her pain are stairs, concrete pointer hours, physical activity, changes in the weather and prolonged standing and walking. Sitting, lying and rest decreases her pain. She currently does not use any heat or ice. Current medications include gabapentin 600 mg q. day, Tramadol 50 mg t. i.d., Trazadone and a multivitamin regimen. The patient denies any new vasomotor changes or radicular pain. REVIEW OF SYSTEMS, PAST MEDICAL HISTORY, ALLERGIES AND IMAGES: Have been reviewed and noted in the chart. PHYSICAL EXAM: VITAL SIGNS: Blood pressure 156/83, heart rate is 82, temperature is 97.8. Height is 5', weighs 112.3 kg. GENERAL APPEARANCE: Pleasant and appropriate, no acute distress, sitting in the chair. FOCUSED EXAM: Left hip Dudley's point is nontender to the left. No crepitus noted with range of motion and adduction/abduction and lateral extension of her left hip. Tenderness to left greater trochanteric bursa to palpation. Edematous palpated. MUSCULOSKELETAL: Motor is intact, 4 out of 5 bilaterally, left weaker than right. Left knee crepitus palpated, no effusion. Tenderness prominently to the medial aspect with no posterior tenderness. NEUROLOGICAL: Patchy hypesthesia with neuropathic pain to left lower extremities including last four toes. DIAGNOSIS: Left knee osteoarthritis, left greater trochanteric bursitis. PLAN: She will receive left knee Durolane injection in the office today and decision to move to the right is forthcoming. She will also receive a left greater trochanteric bursa injection. She is to maintain her current vitamin regimen and to continue using heat and Voltaren gel as directed. We will follow her up in 1-2 months. [facility] Signed and Approved by: JUWAN YAÑEZ . 01/26/2022 15:08:00 [facility] Consultation note 01-22-2022 Note Date & Type Note Facility 01-22-2022 Note CONSULTATION PROCEDURE DATE: 01/22/2022 PRE AND POSTOPERATIVE DIAGNOSIS: Left greater trochanteric bursitis. PROCEDURE: Left greater trochanteric bursa injection. Subsequent to obtaining full consent the patient was placed in the upright standing forward flexion. Alcohol prep was used to sterilize the site. A 22-guage spinal needle with 0.125% Marcaine and 40 mg of Kenalog was used and placed to rest inside the bursa. Medication was slowly injected. Negative heme. The patient tolerated the procedure well. [facility] Signed and Approved by: JUWAN YAÑEZ . 01/26/2022 15:08:00 [facility] Consultation note 01-22-2022 Note Date & Type Note Facility 01-22-2022 Note CONSULTATION PROCEDURE DATE: 01/22/2022 PRE AND POSTOPERATIVE DIAGNOSIS: Left knee osteoarthritis. PROCEDURE: Left knee Durolane injections. Subsequent to obtaining informed consent the patient was placed in an upright sitting position with knees dangling at a 90-degree angle. A 22-gauge, 1-1/2 inch needle was used for the Durolane injection. Alcohol prep was used to sterilize the site. The needle was placed to rest inside the knee joint. Durolane was injected slowly into the joint. The patient reported increased pain to the point of non-tolerance and the needle was withdrawn after 50% injected. The patient did not tolerate the procedure well. The patient up and ambulatory post-procedure with subsequent relief and improvement of the left knee. [facility] Signed and Approved by: JUWAN YAÑEZ . 01/26/2022 15:08:00 [facility] Summary Purpose Family History No Family History Records FoundNo Family History Records Found Advance Directives No Advanced Directives Records FoundNo Advanced Directives Records Found Hospital Course Note [facility] SURGERY Clinical Discharge Summary PERSON INFORMATION Name JOSE A SINCLAIR Age 54 Years 1965 Sex FEMALE Language Hebrew PCP Kelly Bunch DO Marital Status Med Service Ambulatory Surgery Acct# Arrival 04/01/2020 07:10:00 Visit Reason SURGERY - LEFT SHOULDER SCOPE WITH ROTATOR CUFF REPAIR Acuity LOS 026 02:33 Address: [address] [facility] [address] Comment: PROVIDER INFORMATION VITALS INFORMATION Vital Sign Triage Latest Temp Oral Temp Temporal Temp Intravascular Temp Axillary Temp Rectal 02 Sat 97 % 95 % Respiratory Rate Peripheral Pulse Rate Apical Heart Rate Blood Pressure / 87 mmHg / 76 mmHg Comment: MEDICAL INFORMATION Allergy Info: penicillin Prescriptions Given: acetaminophen-oxycodone (Percocet 5/325 oral tablet) 1 tab(s) Oral Every 6 hours as needed for pain., this is a home medication per Dr. Holliday on 04/01/2020 ALPRAZolam (Xanax 0.25 mg oral tablet) 1 tab(s) Oral 2 times a day as needed for anxie (more content not included)... Note Patient: JOSE A SINCLAIR MR N: Age: 54 years Sex: FEMALE : 1965 Associated Diagnoses: None Author: Deyvi Samuels MD Postoperative Information Post Operative Note: Operative Day. Anesthetic utilized: General. Health Status Allergies: Allergic Reactions (All) Severity Not Documented Penicillin- Yeast infection. Problem list (past medical history): All Problems Anemia / SNOMED CT 158290705 / Confirmed Hypothyroid / SNOMED CT 49122523 / Confirmed Iron deficiency / SNOMED CT 56550384 / Confirmed Physical Examination VS/Measurements Vital Signs (last 24 hrs) Last Charted Heart Rate Peripheral 69 bpm (APR 01 10:06) Resp Rate 16 br/min (APR 01 10:) SBP H 153mmHg (APR 01 10:06) DBP 82 mmHg (APR 01 10:) SpO2 99 % (APR 01:) Review / Management Condition: Stable. Assessment Anesthetic outcome No anesthetic complications noted. pt having discomfort in pacu. Block does not appear to be working well. Will treat with IV meds Plan Transfer/ Dis (more content not included)... Procedure Findings Note Patient: JOSE A SINCLAIR MR N: Age: 54 years Sex: FEMALE : 1965 Associated Diagnoses: None Author: Deyvi Samuels MD Postoperative Information Post Operative Note: Operative Day. Anesthetic utilized: General. Health Status Allergies: Allergic Reactions (All) Severity Not Documented Penicillin- Yeast infection. Problem list (past medical history): All Problems Anemia / SNOMED CT 386354953 / Confirmed Hypothyroid / SNOMED CT 17391133 / Confirmed Iron deficiency / SNOMED CT 99652225 / Confirmed Physical Examination VS/Measurements Vital Signs (last 24 hrs) Last Charted Heart Rate Peripheral 69 bpm (APR 01 10:) Resp Rate 16 br/min (APR 01:) SBP H 153mmHg (APR 01:) DBP 82 mmHg (APR 01:) SpO2 99 % (APR 01:) Review / Management Condition: Stable. Assessment Anesthetic outcome No anesthetic complications noted. pt having discomfort in pacu. Block does not appear to be working well. Will treat with IV meds Plan Transfer/ Dis (more content not included)... Additional Source Comments INFORMATION SOURCE (unrecogn ized section and content) DATE CREATED AUTHOR 08/28/2020 [facility] DATE CREATED AUTHOR AUTHOR'S ORGANIZ ATION 01/15/2023 [facility] FOR RECORDS PERTAINING TO PATIENTS WHO ARE OR HAVE BEEN ENROLLED IN A CHEMICAL DEPENDENCY/SUBSTANCEABUSE PROGRAM, SOME INFORMATION MAY BE OMITTED. This clinical summary was aggregated from multiple sources. Caution should be exercised in using it in the provision of clinical care. This summary normalizes information from multiple sources, and as a consequence, information in this document may materially change the coding, format and clinical context of patient data. In addition, data may be omitted in some cases. CLINICAL DECISIONS SHOULD BE BASED ON THE PRIMARY CLINICAL RECORDS. [employer] provides no warranty or guarantee of the accuracy or completeness of information in this document.
== END 2023-07-14 13:04 | disposition home or self-care (01) ==
PROVIDERS: Visit Provider Nurse Practitioner
DX: M25.551 Pain in right hip (principal); M48.061 Spinal stenosis, lumbar region without neurogenic claudication; Z79.891 Long term (current) use of opiate analgesic; M79.2 Neuralgia and neuritis, unspecified; E66.9 Obesity, unspecified; M47.816 Spondylosis without myelopathy or radiculopathy, lumbar region; Z68.30 Body mass index [BMI] 30.0-30.9, adult
CPT/HCPCS: G0463

== ENCOUNTER 2023-07-19 13:45 | Outpatient (OUT) | payer MEDICARE, SELFPAY ==
--- NOTE | 2023-07-19 13:53 | XR_ITS ---
The [place] [id number] Patient Name: JOSE A SINCLAIR MRN: [id number] date: 1965 Sex: F Assigned Patient Location: [facility] Current Patient Location: Accession/Order Number: [id number] Exam Date: 07/19/2023 14:02 Report Date: 07/20/2023 06:58 At the request of: KIMBERLY CABRERA Procedure: XR lumbar spine 6V w bending EXAMINATION: XR lumbar spine 6V w bending HISTORY: Right Hip Pain, Low Back Pain , chronic COMPARISON: No relevant comparison available. FINDINGS: BONES: Mild degenerative facet arthropathy L4-5, L5-S1; no disruption or abnormal widening. Normal height and alignment of vertebral bodies; no fracture, spondylolisthesis, or bone lesion. No change in alignment during flexion and extension. DISC SPACES: Moderate-marked narrowing L4-5, L5-S1. PARASPINOUS: Negative. No paraspinous abnormality is seen. OTHER: Negative. XR/XR lumbar spine 6V w bending IMPRESSION: 1. Moderate marked degenerative disc disease L4-5, L5-S1 with associated mild-moderate degenerative facet arthropathy. Consider MRI for further evaluation. Electronically authenticated by: JOSELINE LEONARD Date: 07/20/2023 06:58
--- NOTE | 2023-07-19 13:53 | XR_ITS ---
The [address] [address] Patient Name: JOSE A SINCLAIR MRN: [id number] date: 1965 Sex: F Assigned Patient Location: [facility] Current Patient Location: [facility] Accession/Order Number: [id number] Exam Date: 07/19/2023 14:02 Report Date: 07/19/2023 23:13 At the request of: KIMBERLY CABRERA Procedure: XR hip RT min 2V EXAM: XR hip RT min 2V HISTORY: Right hip pain COMPARISON: None. TECHNIQUE: 2 views FINDINGS: IMPRESSION: No osseous lesion, fracture, dislocation or subluxation. The right hip joint is unremarkable. No visualized joint effusion. Moderate degenerative changes of the pubic symphysis and mild degenerative changes of the visualized right sacroiliac joint. Small enthesophytes off the tendinous insertions. Electronically authenticated by: MAEVE RICHARDS Date: 07/19/2023 23:13
== END 2023-07-19 13:46 | disposition home or self-care (01) ==
LOC: RAD 13:48
PROVIDERS: Visit Provider Nurse Practitioner
DX: M25.551 Pain in right hip (principal); M54.50 Low back pain, unspecified; M51.36 Other intervertebral disc degeneration, lumbar region
CPT/HCPCS: 72114; 73502

== ENCOUNTER 2023-07-20 13:09 | Outpatient (OUT) | payer MEDICARE, MEDICAID, SELFPAY ==
--- NOTE | 2023-07-20 13:12 | XR_ITS ---
[address] [address] Patient Name: JOSE A SINCLAIR MRN: [id number] date: 1965 Sex: F Assigned Patient Location: [facility] Current Patient Location: [facility] Accession/Order Number: [id number] Exam Date: 07/20/2023 13:35 Report Date: 07/20/2023 14:26 At the request of: SANDEE FIGUEROA Procedure: XR DEXA axial skeleton EXAMINATION: XR DEXA axial skeleton HISTORY: Post Menopausal Z78.0 COMPARISON: Bone densitometry 11/15/2020 TECHNIQUE: Dual-energy X-ray absorptiometry (DXA) was performed. FINDINGS: SPINE ANALYSIS: Average bone mineral density is 1.447 g/cm2. T-score (standard deviation relative to young adult mean): 2.2 . +3.3% change since prior study. HIP ANALYSIS: Lowest bone mineral density is within the right femoral neck, 0.957 g/cm2. T-score (standard deviation relative to young adult mean): -0.6 . +7.3% change since prior study. XR/XR DEXA axial skeleton IMPRESSION: World Nick Organization Classification: Normal - Low Fracture Risk Electronically authenticated by: JOSELINE LEONARD Date: 07/20/2023 14:26
--- NOTE | 2023-07-20 13:12 | MM_ITS ---
Patient Name: JOSE A SINCLAIR MR#: [id number] : 1965 Exam Date: 07/20/2023 Ordering Doctor: SANDEE FIGUEROA RADIOLOGY REPORT PROCEDURE: MM TOMOSYNTHESIS SCREENING BI COMPARISON: None. INDICATIONS: Screening Calculator Name NCI Breast Cancer Risk Assessment Tool 5 Year Breast Cancer Risk 2.60% Lifetime Breast Cancer Risk 14.20% Personal Breast Cancer No Personal Ovarian Cancer No Treatments None Family Cancers Mother with breast cancer at age 40; Mother with ovarian cancer at age 76. LOCATION: [facility] BREAST COMPOSITION: Scattered areas fibroglandular density. FINDINGS: DIAGNOSTIC CATEGORY 0--INCOMPLETE: NEED ADDITIONAL IMAGING EVALUATION. The breasts are medium in size. Scattered benign-appearing microcalcifications. Benign-appearing bilateral axillary lymph nodes. RIGHT BREAST: Subcentimeter well-circumscribed nodule 12 o'clock anterior. Spot imaging and ultrasound recommended LEFT BREAST: Subcentimeter well-circumscribed nodule 6 o'clock anterior. Spot imaging and ultrasound recommend follow-up recommended RECOMMENDATIONS: ADDITIONAL MAMMOGRAPHIC VIEWS REQUIRED: BILATERAL BREASTS - spot compression ULTRASOUND: BILATERAL BREASTS PLEASE NOTE: A NORMAL MAMMOGRAM DOES NOT EXCLUDE THE POSSIBILITY OF BREAST CANCER. A CLINICALLY SUSPICIOUS PALPABLE LUMP SHOULD BE BIOPSIED. Dictated by: Etienne Garcia MD on 07/21/2023 at 07:51 Approved by: Etienne Garcia MD on 07/21/2023 at 07:54
== END 2023-07-20 13:10 | disposition home or self-care (01) ==
LOC: MAMMO 13:09
DX: Z78.0 Asymptomatic menopausal state (principal); Z12.31 Encounter for screening mammogram for malignant neoplasm of breast; Z80.3 Family history of malignant neoplasm of breast; Z80.41 Family history of malignant neoplasm of ovary; N63.25 Unspecified lump in the left breast, overlapping quadrants; N63.15 Unspecified lump in the right breast, overlapping quadrants
CPT/HCPCS: 77063; 77067; 77080

== ENCOUNTER 2023-09-09 10:06 | Outpatient (OUT) | payer MEDICARE, SELFPAY ==
--- OUTSIDE RECORDS SUMMARY | 2023-09-09 10:09 | XMS_ITS | CCD ---
Author Name Unknown Address [address] [place] [address] [address] [place] [address] Organization [facility] Care Team Providers Care Manager Web Name Role Phone LUCIA .PATRIA Admitting Unavailable LAKSHMIPATHY ., NARNIKKO Consulting Dasia vailable [facility] Unava il[facility] HALKER .PATRIA Attending Unavailable [facility] HENRIQUEZ ., DR LUNA Lindsay Admitting Unavailable HENRIQUEZ ., DR LUNA Lindsay Attending Unavailable YAÑEZ ., JUWAN Consulting Unavailable YAÑEZ ., JUWAN Consulting Unavailable HENRIQUEZ ., DR LUNA Lindsay Attending Unavailable [facility] Unava il[facility] HENRIQUEZ ., DR LUNA Lindsay Admitting Unavailable YAÑEZ ., JUWAN Consulting Unavailable [facility] Unava ilable HENRIQUEZ ., DR LUNA Lindsay Attending Unavailable HENRIQUEZ ., DR LUNA Lindsay Admitting Unavailable YAÑEZ ., JUWAN Consulting Unavailable [facility] Unava il[facility] HENRIQUEZ ., DR LUNA Lindsay Attending Unavailable HENRIQUEZ ., DR LUNA Lindsay Admitting Unavailable YAÑEZ ., JUWAN Consulting Unavailable [facility] Unava ilable HENRIQUEZ ., DR LUNA Lindsay Attending Unavailable HENRIQUEZ ., DR LUNA Lindsay Admitting Unavailable Allergies Allergy Classification Reported Allergen(s) Allergy Type Date of Onset Reaction(s) Facility (1 source) Latex Drug allergy (disorder) [facility] Repository (1 source) Penicillin Drug Allergy [facility] Problems Active Problems Problem Classification Problem [...] Results Test Name Value Interpretation Reference Range Facility Physical Therapy Noteon 08-07 Physical Therapy Note [id number]#1.00O [facility] Provider [place] 08-20-2020 Provider Orders [id number]#1.00O [facility] Medication Managementon 05-08 Medication Management [id number]#1.00O [facility] Coding Summaryon 05-30-2020 Coding Summary CODING DATE: [address] [place] [address] STATUS: PAYOR: Workers Compensation ADMIT DX: REASON [...] Zahra Feliciano Date Saved: 05/30/2020 02:18 pm [facility] Provider [place] 05-27-2020 Provider Orders [id number]#1.00O [facility] MAGR Intraoperative Recordon 04-08-2020 MAGR Intraoperative Record MAGR Intra-Op Record Summary Primary Physician: [place] Holliday DO Finalized Date/Time: 04/08/20 08:06:39 Pt. Name: JOSE A SINCLAIR/Sex: 1965 FEMALE Med Rec #: [id number] Physician: [place] Holliday DO Financial #: [id number] Pt. Type: D Room/Bed: / Admit/Disch: 04/01/20 [...] MD, DO Role Performed Surgeon - Primary Technical Maintenance Technician Anesthesiologist of Record Time In 04/01/20 10:11:00 [...] Miguelangel Alonzo CST Role Performed Scrub Personnel Technical Maintenance Technician Property Management Assistant Time In 04/01/20 10:11:00 04/01/20 10:11:00 04/01/20 [...] Implant Action Implant Implant Description Arthrex Surture [place] Arthrex Suture [place] Biocomposite 4.75 x 4.75 x 24.5mm 24.5mm Implant Information Implant/Explant 04/01/20 10:55:00 04/01/20 10:59:00 Date/Time Implanted/Explanted [place] Holliday James By: Rainer BREWSTER Rainer DO Size 4.75 x 24.5mm 4.75 x 24.5mm Claim Clinician Arthrex Arthrex Catalog # REF [id number] REF [id number] Lot Number [id number] Expiration Date 05/06/21 05/06/21 Serial Number Device Identifier Human Readable TY Machine Readable TY MR Class Implant Usage Data Site Shoulder L Shoulder L Quantity 1 1 Reason for Explant Reason Not Retained Explant Disposition 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 Sterility External Indicator Result Internal Indicator Results [...] mask Flow Rate 10 Last Modified By: Estrellita Sanchez RN 04/01/20 11:36:41 Case Comments Finalized By: Estrellita Sanchez RN Document Signatures Signed By: Estrellita Sanchez RN 04/01/20 11:46 Estrellita Sanchez RN 04/01/20 11:39 Estrellita Sanchez RN 04/08/20 08:06 Unfinalized History Date/Time Username Reason for Unfinalizing Freetext Reason for Unfinalizing 04/01/20 11:45 JESSICA Modify Pick List 04/08/20 08:04 JESSICA Finish Documentation [facility] Coding Summaryon 04-02-2020 Coding Summary CODING DATE: [address] [facility] STATUS: Home PAYOR: Workers Compensation APC [...] PROC APC STAT DESCRIPTION DOCTOR NAME DATE 72125 5114 J1 Arthroscopy, shoulder, 04/01/2020 surgical; with [...] Blanton Revised Date Saved: 04/02/2020 02:55 pm [facility] Consent Formson 04-02-2020 Consent Forms [id number] [facility] Discharge Instructionson Discharge Instructions [id number]#1.00O [facility] History and Physicalon 04-02 History and Physical [id number]#1.00O [facility] Medication Managementon 03-07 Medication Management [id number] [facility] Telemetry Stripson 0 Telemetry Strips [id number]#1.00O [facility] Anesthesia Noteon 04-01-2020 Anesthesia Note Patient: HILARY [...] history): All Problems Anemia / SNOMED CT 756060340 / Confirmed Hypothyroid / SNOMED CT 47585278 / Confirmed Iron deficiency / SNOMED CT 85185780 / Confirmed Histories Family History: No family history items have been selected or recorded. Procedure history: Gastric bypass (8553041617). Rotator cuff (20770448). Comments: 03/12/2020 9:17 Obdulia Corbin RN right [...] Oriented. Review / Management Laboratory Results Plan [place] [employer] Anesthesiologists#(ASA) physical status classification: Class II. Anesthetic Preoperative Plan Anesthesia: General. , Regional (Interscalene Block, for post op pain control). Anesthetic plan, risks, benefits, and alternatives discussed with the patient and/or family. Patient verbalized understanding. [Electronically Signed on: 04/01/2020 09:45 EDT] Deyvi Samuels MD [Verified on: 04/01/2020 09:45 EDT] Deyvi Samuels MD [facility] Coding Summaryon 04-01-2020 Coding Summary CODING DATE: [address] [facility] STATUS: Home PAYOR: Shady Salazar ADMIT DX: REASON FOR VISIT DX: [id number] [...] Feliciano Date Saved: 04/01/2020 11:[address] [facility] Inpatient Patient Summaryon 04-01-2020 [place] [address] Patient Discharge Instructions Name: JOSE A SINCLAIR : 1965 Patient Address: [address] [place] [address] Primary Care Provider: Name: Kelly Bunch DO After you are discharged if you find you have any questions, please, call [phone] ext [phone] to speak to a nurse. Discharge Diagnosis: Internal derangement of left shoulder Prescription Information: If you have been given a prescription for narcotics, seek immediate medical attention if you have any difficulty breathing or any sudden status changes such as confusion and sleepiness. If you or anyone you know is experiencing suicidal thoughts, mental health, alcohol and/or drug addiction problems; contact the [facility] 29/03 Crisis Hotline -Text 4HLSK pw 105005. If you received any narcotics, sedation, or [...] business decisions or sign any legal documents [facility] would like to thank you for allowing us to assist you with your healthcare needs. The following includes patient education materials and information regarding your injury/illness. JOSE A SINCLAIR has been given the following list of follow-up instructions, prescriptions, and patient education materials: Follow-up Instructions With: Address: When: MAGALIS LIMON [address] [facility], [place] [address] Business (1) 04/09/2020 10:45 AM With: Address: When: Kelly [address] [place] [address] Business (1) Medications During the course of [...] this Return to Work statement to your spring up supervisor at work as soon as possible. [...] 08/23/2006 Document Revised: 08/18/2018 Document Reviewed: 08/18/2018 [employer] Interactive Patient Education ? 2019 Elsearianna Henderson. [...] or concerns, please call the office at [phone] -Follow up as scheduled Viruses or Bacteria [...] for Disease Control and Prevention May 2014 [facility] MAGR Intraoperative Recordon 04-01-2020 MAGR Intraoperative Record MAGR Intra-Op Record Summary Primary Physician: Deyvi Samuels MD Finalized Date/Time: 04/01/20 10:15:13 Pt. Name: JOSE A SINCLAIR/Sex: 1965 FEMALE Med Rec #: [id number] Physician: [place] Holliday DO Financial #: [id number] Pt. Type: D Room/Bed: / Admit/Disch: 04/01/20 [...] López RN Role Performed Surgeon - Primary Technical Maintenance Technician Technical Maintenance Technician Time In 04/01/20 09:50:00 04/01/20 09:50:00 04/01/20 [...] Signed By: Juany Guzman RN 04/01/20 10:15 [facility] MAGR PACU Recordon 0 MAGR PACU Record MAGR PACU Record Summary Primary Physician: [place] Holliday DO Finalized Date/Time: 04/01/20 12:39:27 Pt. Name: JOSE A SINCLAIR/Sex: 1965 FEMALE Med Rec #: [id number] Physician: [place] Holliday DO Financial #: [id number] Pt. Type: D Room/Bed: / Admit/Disch: 04/01/20 07:10:00 - Institution: PACU Case Times MAGR Entry 1 In PACU I 04/01/20 11:25:00 Discharge from PACU 04/01/20 12:28:00 I Last Modified By: Juany Guzman RN 04/01/20 12:39:18 Finalized By: Juany Guzman RN Document Signatures Signed By: Juany Guzman RN 04/01/20 12:39 [facility] MAGR Postoperative Recordon 04-01-2020 MAGR Postoperative Record MAGR Phase II Record Summary Primary Physician: [place] Holliday DO Finalized Date/Time: 04/01/20 13:49:00 Pt. Name: JOSE A SINCLAIR/Sex: 1965 FEMALE Med Rec #: [id number] Physician: [place] Holliday DO Financial #: [id number] Pt. Type: D Room/Bed: / Admit/Disch: 04/01/20 [...] Signed By: Sade Herring RN 04/01/20 [facility]:48 [facility]-01-2020 MAGR Preoperative Record MAGR Pre-Op Record Summary Primary Physician: [place] Holliday DO Finalized Date/Time: 04/01/20 10:16:27 Pt. Name: JOSE A SINCLAIR Oliver Yadav./Sex: 1965 FEMALE Med Rec #: [id number] Physician: [place] Holliday DO Financial #: [id number] Pt. Type: D Room/Bed: / Admit/Disch: 04/01/20 [...] symptoms, SOB, sleep apnea, diabetes, CP, or pacemaker/defibrillator . Finalized By: Juany Guzman RN Document Signatures Signed By: Juany Guzman RN 04/01/20 10:[address] [facility] Operative Report - Surgeon/P chanda 04-01-2020 Operative Report - Surgeon/Physician Preoperative diagnosis: Internal derangement left shoulder suspected cuff tear Postoperative diagnosis: [...] on: 04/01/2020 11:22 EDT] [place] Holliday DO [facility] Patient Handouton 04-01-[address] GARCIA [...] or concerns, please call the office at [phone] -Follow up as scheduled Forms Return to [...] this Return to Work statement to your spring up supervisor at work as soon as possible. [...] 08/23/2006 Document Revised: 08/18/2018 Document Reviewed: 08/18/2018 [employer] Interactive Patient Education ? 2019 [employer] [facility] SARS-CoV-2 (COVID-19) PCRon 04-01-2020 COVID-19 PCR Not Detected Normal Not Detected [facility] Comment on above: Order Comment: Done In-House Result Comment: Resu lts Called To Shu in Surg By GAUDENCIO And Read Back For Confirmation On 04/01/2020 08:20:03 EDT. Performed By: #### 6 [id number] ####[facility] (DEFAULT)[address] [place] [address] Progress Note - Nurseon 03-07 Progress Note - Nurse Spoke with pt and informed her to be here at 0715 and NPO after MN, she verbalizes understanding. [Electronically Signed on: 03/29/2020 10:42 EDT] Obdulia Barrow RN [Verified on: 03/29/2020 10:42 EDT] Obdulia Barrow RN [facility] Coding Summaryon 03-26-2020 Coding Summary CODING DATE: [address] [facility] STATUS: Home PAYOR: Workers Compensation APC [...] Marilyn Montez Date Saved: 03/26/2020 02:33 pm [facility] Lab - Immunology/Serology Re sultson 03-25-2020 Lab - Immunology/Serology Results [id number]#1.00O [facility] Provider [place] 03-25-2020 Provider Orders [id number]#1.00O [facility] SARS-CoV-2 (COVID-19) PCRon 03-23-2020 COVID-19 PCR Not Detected Normal Not Detected [facility] Comment on above: Order Comment: Sent to [facility] Performed By: #### 6 [id number] ####[facility] (DEFAULT)[address] [place] [address] Provider [place] 03-22-2020 Provider Orders [id number]#1.00O [facility] Progress Note - Nurseon Progress Note - Nurse chart reviewed per Dr Jones and cleared for surgery. no furthers orders received [Electronically Signed on: 03/14/2020 14:57 EDT] Sade Herring RN [Verified on: 03/14/2020 14:57 EDT] Sade Herring RN Normal [facility] .Auto Diff 1on 03-12-2020 Auto Fergus % 7 % Normal 1-12 [facility] Comment on above: Performed By: #### 7 [id number], [id number] ####[facility] (DEFAULT)[address] [place] [address] Baso Abs# 0.1 x10 Normal 0.0-0.2 [facility] Comment on above: Performed By: #### 7 [id number], [id number] ####[facility] (DEFAULT)[address] [place] [address] 79216 Basophils/100 WBC (Bld) 1.5 % Normal 0.2-2.0 [facility] Comment on above: Performed By: #### 7 [id number], [id number] ####[facility] (DEFAULT)[address] [place] [address] Eos Abs# 0.6 x10 High 0.0-0.4 [facility] Comment on above: Performed By: #### 7 [id number], [id number] ####[facility] (DEFAULT)[address] [place] [address] 596[address] Eosinophils/100 WBC (Bld) 11.6 % High 0.9-4.0 [facility] Comment on above: Performed By: #### 7 [id number], [id number] ####[facility] (DEFAULT)[address] [place] [address] 98227 Lymphocytes (Bld) [#/Vol] 0.8 x10 Low 1.3-2.9 [facility] Comment on above: Performed By: #### 7 [id number], [id number] ####[facility] (DEFAULT)[address] [place] [address] 70534 Lymphocytes/100 WBC (Bld) 16 % Normal 14-48 [facility] Comment on above: Performed By: #### 7 [id number], [id number] ####[facility] (DEFAULT)[address] [place] [address] 50462 Fergus Abs# 0.4 x10 Normal 0.0-0.8 [facility] Comment on above: Performed By: #### 7 [id number], [id number] ####[facility] (DEFAULT)[address] [place] [address] 61714 Neut Abs# 3.0 x10 Normal 1.5-9.2 [facility] Comment on above: Performed By: #### 7 [id number], [id number] ####[facility] (DEFAULT)[address] [place] [address] Neutrophils/100 WBC (Bld) 63 % Normal 44-88 [facility] Comment on above: Performed By: #### 7 [id number], [id number] ####[facility] (DEFAULT)[address] [place] [address] CBC w/ Auto Diffon 0 Erythrocyte distribution width (RBC) [Ratio] 13.3 % Normal 11.5-15.0 [facility] Comment on above: Performed By: #### 7 [id number], [id number] ####[facility] (DEFAULT)[address] [place] [address] Hematocrit (Bld) [Volume fraction] 41.8 % High 33.7-40.4 [facility] Comment on above: Performed By: #### 7 972943, [id number] ####[facility] (DEFAULT)[address] [place] [address] Hemoglobin (Bld) [Mass/Vol] 14.4 g/dL Normal 11.3-15.9 [facility] Comment on above: Performed By: #### 7 [id number], [id number] ####[facility] (DEFAULT)[address] [place] [address] Man Diff? Auto Normal [facility] Comment on above: Performed By: #### 7 [id number], [id number] ####[facility] (DEFAULT)[address] [place] [address] 80634 MCH (RBC) [Entitic mass] 30 pg Normal 24-34 [facility] Comment on above: Performed By: #### 7 [id number], [id number] ####[facility] (DEFAULT)[address] [place] [address] 12220 MCHC (RBC) [Mass/Vol] 34 g/dL Normal 26-37 [facility] Comment on above: Performed By: #### 7 [id number], [id number] ####[facility] (DEFAULT)[address] [place] [address] 60530 MCV (RBC) [Entitic vol] 86 fL Normal 81-100 [facility] Comment on above: Performed By: #### 7 [id number], [id number] ####[facility] (DEFAULT)[address] [place] [address] 05486 Platelet mean volume (Bld) [Entitic vol] 9.6 fL Normal 6.3-10.2 [facility] Comment on above: Performed By: #### 7 [id number], [id number] ####[facility] (DEFAULT)[address] [place] [address] 62482 Platelets (Bld) [#/Vol] 229 x10 Normal 138-427 [facility] Comment on above: Performed By: #### 7 [id number], [id number] ####[facility] (DEFAULT)[address] [place] [address] 47318 RBC (Bld) [#/Vol] 4.85 x10 Normal 3.70-5.30 [facility] Comment on above: Performed By: #### 7 [id number], [id number] ####[facility] (DEFAULT)[address] [place] [address] 77572 WBC (Bld) [#/Vol] 4.8 x10 [facility] Comment on above: Performed By: #### 7 [id number], [id number] ####[facility] (DEFAULT)[address] [place] [address] Encounters Encounter Date Encounter Type Care Provider Facility Start: 01-08-2023 End: 01-09-2023 ambulatory PATRIA MYERS . Facility:[facility] Start: 12-03-2022 ambulatory JUWAN YAÑEZ . Facility:[facility] Start: 07-23-2022 End: 07-24-2022 ambulatory JUWAN YAÑEZ . Facility:[facility] Start: 02-19-2022 End: 02-20-2022 ambulatory JUWAN YAÑEZ . Facility:[facility] Start: 02-05-2022 ambulatory JUWAN YAÑEZ . Facility:[facility] Start: 01-22-2022 End: 01-23-2022 [facility] Facility:[facility] Payers Date Payer Category Payer Unknown [id number] 2.16.84 [id number] 1965 Unknown [id number] 2.16.84 [id number] 1965 Unknown [id number] 2.16.84 [id number] 1965 Unknown [id number] 2.16.84 [id number] 1965 Unknown [id number] 2.16.84 [id number] 1965 Unknown [id number] 2.16.84 [id number] 1960 Unknown [id number] 1960 Unknown [id number] Consultation note 07-23-2022 Note Date & Type [...] Patient is in agreement with this. [facility] Consultation note 02-19-2022 Note Date & Type [...] in three months' time unless otherwise indicated. [facility] Signed and Approved by: JUWAN YAÑEZ . 03/04/2022 16:24:00 [facility] Consultation note 01-22-2022 Note Date & Type [...] Activities that aggravate her pain are stairs, nike athlete hours, physical activity, changes in the weather [...] will follow her up in 1-2 months. [facility] Signed and Approved by: JUWAN YAÑEZ . 01/26/2022 15:08:00 [facility] Consultation note 01-22-2022 Note Date & Type [...] heme. The patient tolerated the procedure well. [facility] Signed and Approved by: JUWAN YAÑEZ . 01/26/2022 15:08:00 [facility] Consultation note 01-22-2022 Note Date & Type [...] relief and improvement of the left knee. [facility] Signed and Approved by: JUWAN YAÑEZ . 01/26/2022 15:08:00 [facility] Summary Purpose Family History No Family History Records FoundNo Family History Records Found Advance Directives No Advanced Directives Records FoundNo Advanced Directives Records Found Hospital Course Note [facility] SURGERY Clinical Discharge Summary PERSON INFORMATION Name JOSE A SINCLAIR Age 54 Years 1965 Sex FEMALE Language Scottish Kelly Raygoza DO Marital Status Med Service Ambulatory Surgery Acct# Arrival 04/01/2020 07:10:00 Visit Reason SURGERY - LEFT SHOULDER SCOPE WITH ROTATOR CUFF REPAIR Acuity LOS 026 02:33 Address: [facility] [address] Comment: PROVIDER INFORMATION VITALS INFORMATION Vital Sign [...] history): All Problems Anemia / SNOMED CT 025822707 / Confirmed Hypothyroid / SNOMED CT 79253116 / Confirmed Iron deficiency / SNOMED CT 87067661 / Confirmed Physical Examination VS/Measurements Vital Signs (last 24 hrs) Last Charted Heart Rate Peripheral 69 bpm (APR 01 10:06) Resp Rate 16 br/min (APR 01 10:06) SBP H 153mmHg (APR 01 10:06) DBP 82 mmHg (APR 01 10:06) SpO2 99 % (APR 01 10:) Review / Management Condition: Stable. Assessment Anesthetic [...] history): All Problems Anemia / SNOMED CT 263446393 / Confirmed Hypothyroid / SNOMED CT 81282008 / Confirmed Iron deficiency / SNOMED CT 27080573 / Confirmed Physical Examination VS/Measurements Vital Signs (last 24 hrs) Last Charted Heart Rate Peripheral 69 bpm (APR 01:) Resp Rate 16 br/min (APR 01:) SBP [...] section and content) DATE CREATED AUTHOR 08/28/2020 [facility] DATE CREATED AUTHOR AUTHOR'S ORGANIZ ATION 01/15/2023 [facility] FOR RECORDS PERTAINING TO PATIENTS WHO ARE [...] BE BASED ON THE PRIMARY CLINICAL RECORDS. [employer] [facility]. provides no warranty or guarantee of the accuracy or completeness of information in this document.
--- NOTE | 2023-09-09 10:27 | P.CN_ITS ---
Consult Note: HPI Data of Consult Patient: known to practice within the last 3 years Requesting Physician: Veronique Laird NP Primary Care Provider: SANDEE FIGUEROA Consult Narrative Reason for consult: f/u Narrative: Stephanie Nichols a pleasant 57 year old female presents for evaluation and management of chronic low back pain with bilateral leg weakness and NC. Pain today 5/10 in low back radiating into bilateral hips/thighs, as well as bilateral knee. Pain described as a constant ache with intermittent shooting pain and weakness to bilateral legs. Patient reports numbness/tingling/weakness worse in right leg than left. Patient underwent xrays from previous appointment which reveals arthritis and lumbar spondylosis in lumbar spine and mild to moderate OA in right hip. cc:: CC: Veronique Laird NP Review of Systems ROS Status of ROS 10 or more systems reviewed and unremark able except as noted in history and below Musculoskeletal Reports: back pain, extremity pain, joint pain and muscle weakness PFSH PFSH Medical History Encounter for medication monitoring ?Z51.81 - Encounter for therapeutic drug level monitoring (ICD-10) Meds Home Medications and Allergies Home Medications Medication Instructions Recorded Confirmed Type VITAMIN D DAILY 04/28/23 History buspirone 10 mg tablet 10 mg PO BID 04/28/23 04/28/23 History gabapentin 600 mg tablet 600 mg PO DAILY 04/28/23 04/28/23 History levothyroxine 150 mcg tablet 150 mcg PO DAILY 04/28/23 04/28/23 History (Synthroid) lisinopril 10 mg tablet 10 mg PO DAILY 04/28/23 04/28/23 History multivitamin 1 tab PO DAILY 04/28/23 04/28/23 History tramadol 50 mg tablet 50 mg PO TID 04/28/23 04/28/23 History trazodone 50 mg tablet 50 mg PO DAILY 04/28/23 04/28/23 History vitamin B12 0.5 mg-folic acid 1 mg 1 tab PO DAILY 04/28/23 04/28/23 History tablet lidocaine 4 % topical cream 1 applic topical BID #30 grams 07/14/23 Rx tramadol 50 mg tablet 50 mg PO TID PRN pain #90 tabs 07/14/23 Rx lidocaine 5 % topical cream 1 applic topical BID PRN pain #30 08/12/23 Rx grams Allergies Allergy/AdvReac Type Severity Reaction Status Date / Time Latex, Natural Rubber Allergy Unknown Rash Verified 04/28/23 13:53 Penicillins Allergy Unknown Verified 04/28/23 13:53 Exam Constitutional Documenting provider has reviewed patient's vital signs: yes Common normals: no apparent distress, oriented x3, healthy appearing, alert and well nourished General appearance: cooperative Nutritional appearance: obese HENMT Common normals: normocephalic, hearing grossly normal bilaterally and moist oral mucous membranes Head and scalp: normocephalic Eye Common normals: PERRL Pupil: PERRL Neck & C-Spine Common normals: full ROM General: normal visual inspection Cervical spine: cervical ROM normal Chest Common normals: inspection of chest normal Respiratory Common normals: normal respiratory effort, no retractions and no use of accessory muscles Back & Pelvis Common normals: straight leg raise negative bilaterally Lumbar spine/lower back: ROM limited, pain with ROM (positive bilateral facet loading, right worse than left), lumbar spinal tenderness and paraspinal muscle tenderness Sacroiliac joints: SI joint(s) abnormal (bilaterally positive BARBARA, gaenslens, yeoman) SI joint details: tender to palpation Other: weakness to BLE diminished sensation in right L3,4 dermatomal pattern Extremity Common normals: normal to inspection and full ROM Neuro Common normals: oriented x3, CN's II-XII intact bilaterally, moves all extremities, no focal motor deficits, no sensory deficits noted and deep tendon reflexes 2+ bilaterally Sensorium/orientation: alert Gait (neuro): antalgic Motor exam: no movement abnormalities noted and strength abnormal (4/5 in BLE) Other: intermittent bilateral leg weakness and instability Psych Common normals: mental status grossly normal, thought process normal, cooperative, affect normal, speech normal and activity/motor behavior normal Speech: normal speech Thought process: normal thought process Assessment and Plan Assessment and Plan (1) Lumbar stenosis without neurogenic claudication: (2) Lumbar spondylosis: (3) Bilateral primary osteoarthritis of knee: (4) Obesity (BMI 30-39.9): Assessment and Plan: The patient was counseled that proper dietary changes and consistent participation in a home exercise plan can lead to weight loss. Weight loss can help to improve functionality in patients with chronic pain.? (5) Opioid use: (6) Depression: Assessment and Plan: PHQ positive, hx of depression and currently on medication through PCP. Denies SI/SH. Continue to f/u with PCP Plan update MRI of lumbar spine due to weakness in BLE, diminished L3,4 sensation in RLE, chronic low back pain with radiculopathy and neurogenic claudication unrepsonsive to PT/HEP and medication therapy. Essential to obtain to discuss injection therapy vs surgical referral update xray of bilateral knees continue current medications f/u 1 month to review imaging
== END 2023-09-09 10:07 | disposition home or self-care (01) ==
PROVIDERS: Visit Provider Nurse Practitioner
DX: M48.062 Spinal stenosis, lumbar region with neurogenic claudication (principal); M47.816 Spondylosis without myelopathy or radiculopathy, lumbar region; M17.0 Bilateral primary osteoarthritis of knee; E66.9 Obesity, unspecified; Z68.30 Body mass index [BMI] 30.0-30.9, adult; Z79.891 Long term (current) use of opiate analgesic; F32.A Depression, unspecified
CPT/HCPCS: G0463

== ENCOUNTER 2023-10-07 12:22 | Outpatient (OUT) | payer MEDICARE, SELFPAY ==
--- OUTSIDE RECORDS SUMMARY | 2023-10-07 12:38 | XMS_ITS | CCD ---
Author Name Unknown Address [address] [place] [address] [address] [place] [address] Organization [facility] Care Team Providers Care Finish Specialist Name Role Phone LUCIA .PATRIA Admitting Unavailable LAKSHMIPATHY ., NARNIKKO Consulting Dasia vailable [facility] Un[facility] HALKER .PATRIA Attending Unavailable [facility] HENRIQUEZ ., DR LUNA Lindsay Admitting Unavailable HENRIQUEZ ., DR LUNA Lindsay Attending Unavailable YAÑEZ ., JUWAN Consulting Unavailable YAÑEZ ., JUWAN Consulting Unavailable HENRIQUEZ ., DR LUNA Lindsay Attending Unavailable [facility] HENRIQUEZ ., DR LUNA Lindsay Admitting Unavailable YAÑEZ ., JUWAN Consulting Unavailable [facility] HENRIQUEZ ., DR LUNA Lindsay Attending Unavailable HENRIQUEZ ., DR LUNA Lindsay Admitting Unavailable YAÑEZ ., JUWAN Consulting Unavailable [facility] Un[facility] il[facility] HENRIQUEZ ., DR LUNA Lindsay Attending Unavailable HENRIQUEZ ., DR LUNA Lindsay Admitting Unavailable YAÑEZ ., JUWAN Consulting Unavailable [facility] Un[facility] il[facility] HENRIQUEZ ., DR LUNA Lindsay Attending Unavailable HENRIQUEZ ., DR LUNA Lnidsay Admitting Unavailable Allergies Allergy Classification Reported Allergen(s) Allergy Type Date of Onset Reaction(s) Facility (1 source) Latex Drug allergy (disorder) [facility] Repository (1 source) Penicillin Drug Allergy [facility] Repository Problems Active Problems Problem Classification [...] Physical Therapy Noteon 08-07 Physical Therapy Note [id number] [facility] Provider [place] 08-20-2020 Provider Orders [id number]#1.00O [facility] Medication Managementon 05-08 Medication Management [id number]#1.00O [facility] Coding Summaryon 05-30-2020 Coding Summary CODING DATE: [address] [place] [address] STATUS: PAYOR: Workers Compensation ADMIT DX: REASON [...] Zahra Feliciano Date Saved: 05/30/2020 02:18 pm [facility] Provider [place] 05-27-2020 Provider Orders [id number] TGTIFF [facility] MAGR Intraoperative Recordon 04-08-2020 MAGR Intraoperative Record MAGR Intra-Op Record Summary Primary Physician: Warren Holliday DO Finalized Date/Time: 04/08/20 08:06:39 Pt. Name: JOSE A SINCLAIR/Sex: 1965 FEMALE Med Rec #: [id number] Physician: Warren Holliday DO Financial #: [id number] Pt. Type: D Room/Bed: / Admit/Disch: 04/01/20 [...] MD, DO Role Performed Surgeon - Primary Med Peds Anesthesiologist of Record Time In 04/01/20 10:11:00 04/01/20 10:11:00 04/01/20 10:11:00 Time Out 04/01/20 11:27:00 04/01/20 11:27:00 04/01/20 11:27:00 Procedure Arthroscopy Arthroscopy Arthroscopy Shoulder(Left) Shoulder(Left) Shoulder(Left) Last Modified By: Daniel GAY, Estrellita Sanchez RN, Estrellita Sanchez RN, Estrellita Thomas 04/01/20 11:27:54 04/01/20 11:27:54 04/01/20 11:27:54 Entry 4 Entry 5 Entry 6 Case Attendee Quan CALLES, Anastasia Licona RN, Miguelangel Aolnzo CST Role Performed Scrub Personnel Med Peds Personnel Associate Time In 04/01/20 10:11:00 04/01/20 10:11:00 04/01/20 [...] Implant Action Implant Implant Description Arthrex Surture Beardsley Arthrex Suture Beardsley Biocomposite 4.75 x 4.75 x 24.5mm 24.5mm Implant Information Implant/Explant 04/01/20 10:55:00 04/01/20 10:59:00 Date/Time Implanted/Explanted Warren Holliday James By: Rainer BREWSTER Rainer DO Size 4.75 x 24.5mm 4.75 x 24.5mm Dealer Support Technician Arthrex Arthrex Catalog # REF [id number] REF [id number] Lot Number [id number] Expiration Date 05/06/21 05/06/21 Serial Number Device Identifier Human Readable TY Machine Readable TY MR Class Implant Usage Data Site Shoulder L Shoulder L Quantity 1 1 Reason for Explant Reason Not Retained Explant Disposition Salt Manager Sterility External Indicator Result Internal Indicator Results [...] Pick List 04/08/20 08:04 JESSICA Finish Documentation [facility] Coding Summaryon 04-02-2020 Coding Summary CODING DATE: 020 [facility] STATUS: Home PAYOR: Workers Compensation APC [...] PROC APC STAT DESCRIPTION DOCTOR NAME DATE 98256 5114 J1 Arthroscopy, shoulder, 04/01/2020 surgical; with [...] Blanton Revised Date Saved: 04/02/2020 02:55 pm [facility] Consent Formson 04-02-2020 Consent Forms [id number] [facility] Discharge Instructionson Discharge Instructions [id number]#1.00O [facility] History and Physicalon 04-02 History and Physical [id number]#1.00O [facility] Medication Managementon 03-07 Medication Management [id number]#1.00O [facility] Telemetry Stripson 0 Telemetry Strips [id number]#1.00O [facility] Anesthesia Noteon 04-01-2020 Anesthesia Note [...] history): All Problems Anemia / SNOMED CT 508565367 / Confirmed Hypothyroid / SNOMED CT 67947887 / Confirmed Iron deficiency / SNOMED CT 48235331 / Confirmed Histories Family History: No family history items have been selected or recorded. Procedure history: Gastric bypass ([id number]). Rotator cuff (06114021). Comments: 03/12/2020 9:17 Obdulia Corbin RN right [...] Oriented. Review / Management Laboratory Results Plan [place] [employer] Anesthesiologists#(ASA) physical status classification: Class II. Anesthetic Preoperative Plan Anesthesia: General. , Regional (Interscalene Block, for post op pain control). Anesthetic plan, risks, benefits, and alternatives discussed with the patient and/or family. Patient verbalized understanding. [Electronically Signed on: 04/01/2020 09:45 EDT] Deyvi Samuels MD [Verified on: 04/01/2020 09:45 EDT] Deyvi Samuels MD [facility] Coding Summaryon 04-01-2020 Coding Summary CODING DATE: 020 [facility] STATUS: Home PAYOR: Shady Salazar ADMIT [...] Feliciano Date Saved: 04/01/2020 11:03 am Normal [facility] Inpatient Patient Summaryon 04-01-2020 In[place] [address] Patient Discharge Instructions Name: JOSE A SINCLAIR : 1965 Patient Address: [address] [place] [address] Primary Care Provider: Name: Kelly Bunch DO After you are discharged if you find you have any questions, please, call [phone] ext [phone] to speak to a nurse. Discharge Diagnosis: Internal derangement of left shoulder Prescription Information: If you have been given a prescription for narcotics, seek immediate medical attention if you have any difficulty breathing or any sudden status changes such as confusion and sleepiness. If you or anyone you know is experiencing suicidal thoughts, mental health, alcohol and/or drug addiction problems; contact the [facility] 29/03 Crisis Hotline -Text 4HKXJ oj 802244. If you received any narcotics, sedation, or [...] business decisions or sign any legal documents [facility] would like to thank you for allowing us to assist you with your healthcare needs. The following includes patient education materials and information regarding your injury/illness. 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 Your [...] 08/23/2006 Document Revised: 08/18/2018 Document Reviewed: 08/18/2018 [employer] Patient Education ? 2019 Elsearianna Henderson. [...] or concerns, please call the office at [phone] -Follow up as scheduled Viruses or Bacteria [...] for Disease Control and Prevention May 2014 [facility] MAGR Intraoperative Recordon 04-01-2020 MAGR Intraoperative Record MAGR Intra-Op Record Summary Primary Physician: Deyvi Samuels MD Finalized Date/Time: 04/01/20 10:15:13 Pt. Name: JOSE A SINCLAIR/Sex: 1965 FEMALE Med Rec #: [id number] Physician: Warren Holliday DO Financial #: [id number] Pt. Type: D Room/Bed: / Admit/Disch: 04/01/20 [...] López RN Role Performed Surgeon - Primary Med Peds Med Peds Time In 04/01/20 09:50:00 04/01/20 09:50:00 04/01/20 [...] Signed By: Juany Guzman RN 04/01/20 10:15 [facility] MAGR PACU Recordon 0 MAGR PACU Record MAGR PACU Record Summary Primary Physician: Warren Holliday DO Finalized Date/Time: 04/01/20 12:39:27 Pt. Name: JOSE A SINCLAIR/Sex: 1965 FEMALE Med Rec #: [id number] Physician: Warren Holliday DO Financial #: [id number] Pt. Type: D Room/Bed: / Admit/Disch: 04/01/20 07:10:00 - Institution: PACU Case Times MAGR Entry 1 In PACU I 04/01/20 11:25:00 Discharge from PACU 04/01/20 12:28:00 I Last Modified By: Juany Guzman RN 04/01/20 12:39:18 Finalized By: Juany Guzman RN Document Signatures Signed By: Juany Guzman RN 04/01/20 12:39 [facility] MAGR Postoperative Recordon 04-01-2020 MAGR Postoperative Record MAGR Phase II Record Summary Primary Physician: Warren Holliday DO Finalized Date/Time: 04/01/20 13:49:00 Pt. Name: JOSE A SINCLAIR/Sex: 1965 FEMALE Med Rec #: [id number] Physician: Warren Holliday DO Financial #: [id number] Pt. Type: D Room/Bed: / Admit/Disch: 04/01/20 [...] Signed By: Sade Herring RN 04/01/20 13:48 [facility] 04-01-2020 MAGR Preoperative Record MAGR Pre-Op Record Summary Primary Physician: Warren Holliday DO Finalized Date/Time: 04/01/20 10:16:27 Pt. Name: JOSE A SINCLAIR Oliver Yadav./Sex: 1965 FEMALE Med Rec #: [id number] Physician: Warren Holliday DO Financial #: [id number] Pt. Type: D Room/Bed: / Admit/Disch: 04/01/20 [...] By: Juany Guzman RN 04/01/20 10:16 Normal [facility] Operative Report - Surgeon/P chanda 04-01-2020 Operative [...] on: 04/01/2020 11:22 EDT] Warren Holliday DO [facility] Patient Handouton 04-01-[address] 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 Your [...] 08/23/2006 Document Revised: 08/18/2018 Document Reviewed: 08/18/2018 Else[employer] by [employer] Interactive Patient Education ? 2019 [employer] [facility] SARS-CoV-2 (COVID-19) PCRon 04-01-2020 COVID-19 PCR Not Detected Normal Not Detected [facility] Comment on above: Order Comment: Done In-House Result Comment: Resu lts Called To Shu in Surg By GAUDENCIO And Read Back For Confirmation On 04/01/2020 08:20:03 EDT. Performed By: #### 6 [id number] ####[facility] (DEFAULT)[address] [place] [address] Progress Note - Nurseon 03-07 Progress Note - Nurse Spoke with pt and informed her to be here at 0715 and NPO after MN, she verbalizes understanding. [Electronically Signed on: 03/29/2020 10:42 EDT] Obdulia Barrow RN [Verified on: 03/29/2020 10:42 EDT] Obdulia Barrow RN [facility] Coding Summaryon 03-26-2020 Coding Summary CODING DATE: 020 [facility] STATUS: Home PAYOR: Workers Compensation APC [...] Marilyn Montez Date Saved: 03/26/2020 02:33 pm [facility] Lab - Immunology/Serology Re sultson 03-25-2020 Lab - Immunology/Serology Results [id number] [facility] Provider [place] 03-25-2020 Provider Orders [id number]#1.00O [facility] SARS-CoV-2 (COVID-19) PCRon 03-23-2020 COVID-19 PCR Not Detected Normal Not Detected [facility] Comment on above: Order Comment: Sent to [facility] Performed By: #### 6 [id number] ####[facility] (DEFAULT)[address] [place] [address] Provider [place] 03-22-2020 Provider Orders [id number] [facility] Progress Note - Nurseon Progress Note - Nurse chart reviewed per Dr Jones and cleared for surgery. no furthers orders received [Electronically Signed on: 03/14/2020 14:57 EDT] Sade Herring RN [Verified on: 03/14/2020 14:57 EDT] Sade Herring RN Normal [facility] .Auto Diff 1on 03-12-2020 Auto Schleicher % 7 % Normal 1-12 [facility] Comment on above: Performed By: #### 7 [id number], [id number] ####[facility] (DEFAULT)[address] [place] [address] 06193 Baso Abs# 0.1 x10 Normal 0.0-0.2 [facility] Comment on above: Performed By: #### 7 [id number], [id number] ####[facility] (DEFAULT)[address] [place] [address] 84579 Basophils/100 WBC (Bld) 1.5 % Normal 0.2-2.0 [facility] Comment on above: Performed By: #### 7 [id number], [id number] ####[facility] (DEFAULT)[address] [place] [address] Eos Abs# 0.6 x10 High 0.0-0.4 [facility] Comment on above: Performed By: #### 7 [id number], [id number] ####[facility] (DEFAULT)[address] [place] [address] 22285 Eosinophils/100 WBC (Bld) 11.6 % High 0.9-4.0 [facility] Comment on above: Performed By: #### 7 [id number], [id number] ####[facility] (DEFAULT)[address] [place] [address] 86247 Lymphocytes (Bld) [#/Vol] 0.8 x10 Low 1.3-2.9 [facility] Comment on above: Performed By: #### 7 [id number], [id number] ####[facility] (DEFAULT)[address] [place] [address] 19863 Lymphocytes/100 WBC (Bld) 16 % Normal 14-48 [facility] Comment on above: Performed By: #### 7 [id number], [id number] ####[facility] (DEFAULT)[address] [place] [address] 59632 Schleicher Abs# 0.4 x10 Normal 0.0-0.8 [facility] Comment on above: Performed By: #### 7 [id number], [id number] ####[facility] (DEFAULT)[address] [place] [address] 09624 Neut Abs# 3.0 x10 Normal 1.5-9.2 [facility] Comment on above: Performed By: #### 7 [id number], [id number] ####[facility] (DEFAULT)[address] [place] [address] Neutrophils/100 WBC (Bld) 63 % Normal 44-88 [facility] Comment on above: Performed By: #### 7 [id number], [id number] ####[facility] (DEFAULT)[address] [place] [address] CBC w/ Auto Diffon 0 Erythrocyte distribution width (RBC) [Ratio] 13.3 % Normal 11.5-15.0 [facility] Comment on above: Performed By: #### 7 [id number], [id number] ####[facility] (DEFAULT)[address] [place] [address] Hematocrit (Bld) [Volume fraction] 41.8 % High 33.7-40.4 [facility] Comment on above: Performed By: #### 7 [id number], [id number] ####[facility] (DEFAULT)[address] [place] [address] Hemoglobin (Bld) [Mass/Vol] 14.4 g/dL Normal 11.3-15.9 [facility] Comment on above: Performed By: #### 7 [id number], [id number] ####[facility] (DEFAULT)[address] [place] [address] Man Diff? Auto Normal [facility] Comment on above: Performed By: #### 7 [id number], [id number] ####[facility] (DEFAULT)[address] [place] [address] 01921 MCH (RBC) [Entitic mass] 30 pg Normal 24-34 [facility] Comment on above: Performed By: #### 7 [id number], [id number] ####[facility] (DEFAULT)[address] [place] [address] 36586 MCHC (RBC) [Mass/Vol] 34 g/dL Normal 26-37 [facility] Comment on above: Performed By: #### 7 [id number], [id number] ####[facility] (DEFAULT)[address] [place] [address] 41183 MCV (RBC) [Entitic vol] 86 fL Normal 81-100 [facility] Comment on above: Performed By: #### 7 [id number], [id number] ####[facility] (DEFAULT)[address] [place] [address] 58368 Platelet mean volume (Bld) [Entitic vol] 9.6 fL Normal 6.3-10.2 [facility] Comment on above: Performed By: #### 7 [id number], [id number] ####[facility] (DEFAULT)[address] [place] [address] 28792 Platelets (Bld) [#/Vol] 229 x10 Normal 138-427 [facility] Comment on above: Performed By: #### 7 [id number], [id number] ####[facility] (DEFAULT)[address] [place] [address] 72037 RBC (Bld) [#/Vol] 4.85 x10 Normal 3.70-5.30 [facility] Comment on above: Performed By: #### 7 [id number], [id number] ####[facility] (DEFAULT)[address] [place] [address] 24870 WBC (Bld) [#/Vol] 4.8 x10 [facility] Comment on above: Performed By: #### 7 [id number], [id number] ####[facility] (DEFAULT)[address] [place] [address] 63019 Encounters Encounter Date Encounter Type Care Provider Facility Start: 01-08-2023 End: 01-09-2023 ambulatory PATRIA MYERS . Facility:[facility] Start: 12-03-2022 ambulatory JUWAN YAÑEZ . Facility:[facility] Start: 07-23-2022 End: 07-24-2022 ambulatory JUWAN YAÑEZ . Facility:[facility] Start: 02-19-2022 End: 02-20-2022 ambulatory JUWAN YAÑEZ . Facility:[facility] Start: 02-05-2022 ambulatory JUWAN YAÑEZ . Facility:[facility] Start: 01-22-2022 End: 01-23-2022 [facility] Facility:[facility] Payers Date Payer Category Payer Unknown [id number] 2.16.84 [id number] 1965 Unknown [id number] 2.16.84 [id number] 1965 Unknown [id number] 2.16.84 [id number] 1965 Unknown [id number] 2.16.84 [id number] 1965 Unknown [id number] 2.16.84 [id number] 1965 Unknown [id number] 2.16.84 [id number] 1960 Unknown [id number] 1960 Unknown [id number] Consultation note 07-23-2022 Note Date & Type [...] Patient is in agreement with this. [facility] Consultation note 02-19-2022 Note Date & [...] in three months' time unless otherwise indicated. [facility] Signed and Approved by: JUWAN YAÑEZ . 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 [facility] Signed and Approved by: JUWAN YAÑEZ . 01/26/2022 15:08:00 [facility] Consultation note 01-22-2022 Note Date & [...] heme. The patient tolerated the procedure well. [facility] Signed and Approved by: JUWAN YAÑEZ . 01/26/2022 15:08:00 [facility] Consultation note 01-22-2022 Note Date & Type [...] relief and improvement of the left knee. [facility] Signed and Approved by: JUWAN YAÑEZ . 01/26/2022 15:08:00 [facility] Summary Purpose Family History No Family History Records FoundNo Family History Records Found Advance Directives No Advanced Directives Records FoundNo Advanced Directives Records Found Hospital Course Note [facility] SURGERY Clinical Discharge Summary PERSON INFORMATION Name JOSE A SINCLAIR Age 54 Years 1965 Sex FEMALE Language Uzbek Kelly Raygoza DO Marital Status Med Service Ambulatory Surgery Acct# Arrival 04/01/2020 07:10:00 Visit Reason SURGERY - LEFT SHOULDER SCOPE WITH ROTATOR CUFF REPAIR Acuity LOS 026 02:33 Address: [facility] [address] Comment: PROVIDER INFORMATION VITALS INFORMATION Vital Sign [...] history): All Problems Anemia / SNOMED CT 485426211 / Confirmed Hypothyroid / SNOMED CT 10647114 / Confirmed Iron deficiency / SNOMED CT 67091115 / Confirmed Physical Examination VS/Measurements Vital Signs [...] history): All Problems Anemia / SNOMED CT 855417001 / Confirmed Hypothyroid / SNOMED CT 30958635 / Confirmed Iron deficiency / SNOMED CT 50757416 / Confirmed Physical Examination VS/Measurements Vital Signs [...] section and content) DATE CREATED AUTHOR 08/28/2020 [facility] l DATE CREATED AUTHOR AUTHOR'S ORGANIZ ATION 01/15/2023 [facility] FOR RECORDS PERTAINING TO PATIENTS WHO ARE [...] BE BASED ON THE PRIMARY CLINICAL RECORDS. [employer] [facility]. provides no warranty or guarantee of the accuracy or completeness of information in this document.
--- NOTE | 2023-10-07 12:42 | XR_ITS ---
The [address] [address] Patient Name: JOSE A SINCLAIR MRN: [id number] date: 1965 Sex: F Assigned Patient Location: MRI Current Patient Location: MRI Accession/Order Number: [id number] Exam Date: 10/07/2023 13:30 Report Date: 10/07/2023 14:59 At the request of: IKMBERLY CABRERA Procedure: XR knee ROBBY 4V EXAM: XR knee ROBBY 4V HISTORY: bilat knee osteoarthritis COMPARISON: None. TECHNIQUE: Routine views of the bilateral knees were obtained. FINDINGS: There is moderate bilateral medial compartment joint space narrowing. There is marginal tricompartmental spurring along with spurring of the tibial spines. There are bilateral small joint effusions. XR/XR knee ROBBY 4V IMPRESSION: Moderate bilateral knee joint osteoarthritis. Electronically authenticated by: NATHAN SEGURA Date: 10/07/2023 14:59
--- NOTE | 2023-10-07 12:43 | MR_ITS ---
[address] [address] Patient Name: JOSE A SINCLAIR MRN: [facility]:[id number] date: 1965 Sex: F Assigned Patient Location: MRI Current Patient Location: MRI Accession/Order Number: [id number] Exam Date: 10/07/2023 12:50 Report Date: 10/07/2023 13:44 At the request of: KIMBERLY CABRERA Procedure: MR lumbar spine wo con EXAM: MR lumbar spine wo con HISTORY: Lumbar stenosis COMPARISON: None. TECHNIQUE: [Multiplanar multisequence imaging of the lumbar spine was performed without intravenous contrast. FINDINGS: Alignment: No substantial subluxation. Vertebrae: Vertebral body heights are maintained. No marrow signal abnormalities to suggest neoplasm. Subcentimeter probable benign vertebral body hemangioma involving L4. Conus medullaris: Conus terminates in normal position at L1. There is prominence of the central and minimal canal of the distal spinal cord extending superiorly outside the [id number] terminating just proximal to the conus. This measures less than 1.5 mm. No mass within the [id number]. Degenerative changes: T12-L1: Minimal disc bulge. No substantial canal or foraminal stenosis. L1-L2: No substantial canal or foraminal stenosis. L2-L3: Disc desiccation without substantial disc height loss. No substantial canal or foraminal stenosis. L3-L4: Disc desiccation without substantial disc height loss. Minimal eccentric left disc bulge. Tiny central protrusion. No substantial canal or foraminal stenosis. L4-L5: Moderate anterior disc height loss. Diffuse disc bulge with left central protrusion. Minimal facet arthropathy. Mild canal stenosis. Moderate bilateral foraminal stenosis. L5-S1: Minimal disc bulge. Fatty degenerative endplate change surrounds the disc space with moderate anterior predominant disc height loss. Moderate to advanced right greater than left foraminal stenosis. Upper Sacrum: No focal lesion identified. Additional comments: Visualized soft tissues of the abdomen appear grossly unremarkable. MR/MR lumbar spine wo con IMPRESSION: 1. Prominence of central minimal canal and distal spinal cord measuring less than 1.5 mm in transverse diameter. 2. Mild degenerative changes of the lower lumbar spine as detailed above. There is moderate to advanced right greater than left foraminal stenosis at L5-S1 and moderate bilateral foraminal stenosis at L4-L5. Electronically authenticated by: DEMETRIO ROMO Date: 10/07/2023 13:44
== END 2023-10-07 12:23 | disposition home or self-care (01) ==
LOC: MRI 12:22
PROVIDERS: Visit Provider Nurse Practitioner
DX: R92.8 Other abnormal and inconclusive findings on diagnostic imaging of breast (principal); N63.41 Unspecified lump in right breast, subareolar; N63.20 Unspecified lump in the left breast, unspecified quadrant; M48.061 Spinal stenosis, lumbar region without neurogenic claudication; M17.0 Bilateral primary osteoarthritis of knee
CPT/HCPCS: 72148; 73564; 76642; 77066

== ENCOUNTER 2023-10-07 12:28 | Outpatient (OUT) | payer MEDICARE, SELFPAY ==
--- NOTE | 2023-10-07 12:47 | MM_ITS ---
Patient Name: JOSE A SINCLAIR MR#: [id number] : 1965 Exam Date: 10/07/2023 Ordering Doctor: SANDEE FIGUEROA RADIOLOGY REPORT PROCEDURE: MM DIAGNOSTIC MAMMO BI, 10/07/2023, 13:54 US BREAST BI LIMITED, 10/07/2023, 14:43 COMPARISON: MM TOMOSYNTHESIS SCREENING BI, 07/20/2023. INDICATIONS: abnormal mammogram of both breasts R92.8 Calculator Name NCI Breast Cancer Risk Assessment Tool 5 Year Breast Cancer Risk 2.70% Lifetime Breast Cancer Risk 13.90% Personal Breast Cancer No Personal Ovarian Cancer No Treatments None Family Cancers Mother with breast cancer at age 40; Mother with ovarian cancer at age 76. LOCATION: [facility] BREAST COMPOSITION: Scattered areas fibroglandular density. FINDINGS: DIAGNOSTIC CATEGORY 3--PROBABLY BENIGN FINDING. THE FOLLOWING FINDING(S) HAS A HIGH PROBABILITY OF A BENIGN ETIOLOGY: RIGHT BREAST: Spot magnification views demonstrate an 8 mm partially circumscribed mass within the subareolar region. Ultrasound evaluation demonstrates a 6 x 6 x 3 mm smoothly circumscribed hypoechoic mass at the 12 o'clock subareolar position. No appreciable internal blood flow on color Doppler. Follow-up mammography and ultrasound evaluation in 6 months is recommended to document stability. LEFT BREAST: Spot magnification views demonstrate and 8 mm partially circumscribed mass within the anterior breast slightly deeper than the subareolar region. No appreciable abnormal findings on today's ultrasound study. Follow-up mammography and ultrasound evaluation in 6 months is recommended to document stability. RECOMMENDATIONS: SHORT TERM FOLLOW-UP DIAGNOSTIC MAMMOGRAM BILATERAL BREASTS IN 6 MONTHS. SHORT TERM FOLLOW-UP ULTRASOUND BILATERAL BREASTS IN 6 MONTHS. PLEASE NOTE: A NORMAL MAMMOGRAM DOES NOT EXCLUDE THE POSSIBILITY OF BREAST CANCER. A CLINICALLY SUSPICIOUS PALPABLE LUMP SHOULD BE BIOPSIED. Dictated by: Vinicius Alexander M.D. on 10/07/2023 at 15:17 Approved by: Vinicius Alexander M.D. on 10/07/2023 at 15:26
--- OUTSIDE RECORDS SUMMARY | 2023-10-07 12:48 | XMS_ITS | CCD ---
Author Name Unknown Address [address] [place] [address] [address] [place] [address] Organization [facility] Care Team Providers Care Bee Keeper Name Role Phone LUCIA .PATRIA Admitting Unavailable LAKSHMIPATHY ., NARNIKKO Consulting Dasia vailable [facility] HALKER .PATRIA Attending Unavailable [facility] HENRIQUEZ ., DR LUNA Lindsay Admitting Unavailable HENRIQUEZ ., DR LUNA Lindsay Attending Unavailable YAEÑZ ., JUWAN Consulting Unavailable YAÑEZ ., JUWAN Consulting Unavailable HENRIQUEZ ., DR LUNA Lindsay Attending Unavailable [facility] HENIRQUEZ ., DR LUNA Lindsay Admitting Unavailable YAÑEZ ., JUWAN Consulting Unavailable [facility] HENRIQUEZ ., DR LUNA Lindsay Attending Unavailable HENRIQUEZ ., DR LUNA Lindsay Admitting Unavailable YAÑEZ ., JUWAN Consulting Unavailable [facility] HENRIQUEZ ., DR LUNA Lindsay Attending Unavailable HENRIQUEZ ., DR LUNA Lindsay Admitting Unavailable YAÑEZ ., JUWAN Consulting Unavailable [facility] HENRIQUEZ ., DR LUNA Lindsay Attending Unavailable HENRIQUEZ ., DR LUNA Lindsay Admitting Unavailable Allergies Allergy Classification Reported Allergen(s) Allergy Type Date of Onset Reaction(s) Facility (1 source) Latex Drug allergy (disorder) [facility] Repository (1 source) Penicillin Drug Allergy [facility] Repository Problems Active Problems Problem [...] Physical Therapy Noteon 08-07 Physical Therapy Note [id number] [facility] Provider [place] 08-20-2020 Provider Orders [id number]#[address]00[address] [facility] Medication Managementon 05-08 Medication Management [id number]#1.00O [facility] Coding Summaryon 05-30-2020 Coding Summary CODING DATE: [address] [place] [address] STATUS: PAYOR: Workers Compensation ADMIT DX: REASON [...] Zahra Feliciano Date Saved: 05/30/2020 02:18 pm [facility] Provider [place] 05-27-2020 Provider Orders [id number]#1.00O TGTIFF [facility] MAGR Intraoperative Recordon 04-08-2020 MAGR Intraoperative Record MAGR Intra-Op Record Summary Primary Physician: Warren Holliday DO Finalized Date/Time: 04/08/20 08:06:39 Pt. Name: JOSE A SINCLAIR/Sex: 1965 FEMALE Med Rec #: [id number] Physician: Warren Holliday DO Financial #: [id number] Pt. Type: D Room/Bed: / Admit/Disch: 04/01/20 [...] MD, DO Role Performed Surgeon - Primary Sciences Dean Anesthesiologist of Record Time In 04/01/20 10:11:00 [...] Miguelangel Alonzo CST Role Performed Scrub Personnel Sciences Dean Tank Refinisher Time In 04/01/20 10:11:00 04/01/20 10:11:00 04/01/20 [...] Implant Action Implant Implant Description Arthrex Surture [place] Arthrex Suture [place] Biocomposite 4.75 x 4.75 x 24.5mm 24.5mm Implant Information Implant/Explant 04/01/20 10:55:00 04/01/20 10:59:00 Date/Time Implanted/Explanted Warren Holliday James By: Rainer BREWSTER Rainer DO Size 4.75 x 24.5mm 4.75 x 24.5mm Farrowing Worker Arthrex Arthrex Catalog # REF [id number] REF [id number] Lot Number [id number] Expiration Date 05/06/21 05/06/21 Serial Number Device Identifier Human Readable TY Machine Readable TY MR Class Implant Usage Data Site Shoulder L Shoulder L Quantity 1 1 Reason for Explant Reason Not Retained Explant Disposition Shoe Repairer Helper Sterility External Indicator Result Internal Indicator Results [...] Pick List 04/08/20 08:04 JESSICA Finish Documentation [facility] Coding Summaryon 04-02-2020 Coding Summary CODING DATE: [address] [facility] STATUS: Home PAYOR: Workers Compensation APC [...] PROC APC STAT DESCRIPTION DOCTOR NAME DATE 42443 5114 J1 Arthroscopy, shoulder, 04/01/2020 surgical; with [...] Blanton Revised Date Saved: 04/02/2020 02:55 pm [facility] Consent Formson 04-02-2020 Consent Forms [id number] [facility] Discharge Instructionson Discharge Instructions [id number]#1.00O [facility] History and Physicalon 04-02 History and Physical [id number]#[address] [facility] Medication Managementon 03-07 Medication Management [id number]#1.00O [facility] Telemetry Stripson 0 Telemetry Strips [id number]#1.00O [facility] Anesthesia Noteon 04-01-2020 Anesthesia Note Patient: [...] history): All Problems Anemia / SNOMED CT 568899168 / Confirmed Hypothyroid / SNOMED CT 65405470 / Confirmed Iron deficiency / SNOMED CT 96805509 / Confirmed Histories Family History: No family history items have been selected or recorded. Procedure history: Gastric bypass (9045690671). Rotator cuff (66362549). Comments: 03/12/2020 9:17 Obdulia Corbin RN right [...] Oriented. Review / Management Laboratory Results Plan [place] [employer] Anesthesiologists#(ASA) physical status classification: Class II. Anesthetic Preoperative Plan Anesthesia: General. , Regional (Interscalene Block, for post op pain control). Anesthetic plan, risks, benefits, and alternatives discussed with the patient and/or family. Patient verbalized understanding. [Electronically Signed on: 04/01/2020 09:45 EDT] Deyvi Samuels MD [Verified on: 04/01/2020 09:45 EDT] Deyvi Samuels MD [facility] Coding Summaryon 04-01-2020 Coding Summary CODING DATE: [address] [facility] STATUS: Home PAYOR: Shady Salazar ADMIT [...] Feliciano Date Saved: 04/01/2020 11:03 am Normal [facility] Inpatient Patient Summaryon 04-01-2020 Inpatient [place] [address] Patient Discharge Instructions Name: JOSE A SINCLAIR : 1965 Patient Address: [address] [place] [address] Primary Care Provider: Name: Kelly Bunch DO After you are discharged if you find you have any questions, please, call [phone] ext [phone] to speak to a nurse. Discharge Diagnosis: Internal derangement of left shoulder Prescription Information: If you have been given a prescription for narcotics, seek immediate medical attention if you have any difficulty breathing or any sudden status changes such as confusion and sleepiness. If you or anyone you know is experiencing suicidal thoughts, mental health, alcohol and/or drug addiction problems; contact the [facility] 29/03 Crisis Hotline -Text 4HZSW xq 112145. If you received any narcotics, sedation, or [...] business decisions or sign any legal documents [facility] would like to thank you for allowing us to assist you with your healthcare needs. The following includes patient education materials and information regarding your injury/illness. 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 Your [...] 08/23/2006 Document Revised: 08/18/2018 Document Reviewed: 08/18/2018 [employer] Patient Education ? 2019 Elsearianna Henderson. [...] or concerns, please call the office at [phone] -Follow up as scheduled Viruses or Bacteria [...] for Disease Control and Prevention May 2014 [facility] MAGR Intraoperative Recordon 04-01-2020 MAGR Intraoperative Record MAGR Intra-Op Record Summary Primary Physician: Deyvi Samuels MD Finalized Date/Time: 04/01/20 10:15:13 Pt. Name: JOSE A SINCLAIR/Sex: 1965 FEMALE Med Rec #: [id number] Physician: Warren Holliday DO Financial #: [id number] Pt. Type: D Room/Bed: / Admit/Disch: 04/01/20 [...] López RN Role Performed Surgeon - Primary Sciences Dean Sciences Dean Time In 04/01/20 09:50:00 04/01/20 09:50:00 04/01/20 [...] Signed By: Juany Guzman RN 04/01/20 10:15 [facility] MAGR PACU Recordon 0 MAGR PACU Record MAGR PACU Record Summary Primary Physician: Warren Holliday DO Finalized Date/Time: 04/01/20 12:39:27 Pt. Name: JOSE A SINCLAIR/Sex: 1965 FEMALE Med Rec #: [id number] Physician: Warren Holliday DO Financial #: [id number] Pt. Type: D Room/Bed: / Admit/Disch: 04/01/20 07:10:00 - Institution: PACU Case Times MAGR Entry 1 In PACU I 04/01/20 11:25:00 Discharge from PACU 04/01/20 12:28:00 I Last Modified By: Juany Guzman RN 04/01/20 12:39:18 Finalized By: Juany Guzman RN Document Signatures Signed By: Juany Guzman RN 04/01/20 12:39 [facility] MAGR Postoperative Recordon 04-01-2020 MAGR Postoperative Record MAGR Phase II Record Summary Primary Physician: Warren Holliday DO Finalized Date/Time: 04/01/20 13:49:00 Pt. Name: JOSE A SINCLAIR/Sex: 1965 FEMALE Med Rec #: [id number] Physician: Warren Holliday DO Financial #: [id number] Pt. Type: D Room/Bed: / Admit/Disch: 04/01/20 [...] Signed By: Sade Herring RN 04/01/20 [facility]:48 [facility] 04-01-2020 MAGR Preoperative Record MAGR Pre-Op Record Summary Primary Physician: Warren Holliday DO Finalized Date/Time: 04/01/20 10:16:27 Pt. Name: JOSE A SINCLAIR Oliver Yadav./Sex: 1965 FEMALE Med Rec #: [id number] Physician: Warren Holliday DO Financial #: [id number] Pt. Type: D Room/Bed: / Admit/Disch: 04/01/20 [...] By: Juany Guzman RN 04/01/20 10:16 Normal [facility] Operative Report - Surgeon/P chanda 04-01-2020 [...] on: 04/01/2020 11:22 EDT] Warren Holliday DO [facility] Patient Handouton 04-01-[address] 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 Your [...] 08/23/2006 Document Revised: 08/18/2018 Document Reviewed: 08/18/2018 [employer] Interactive Patient Education ? 2019 [employer] [facility] SARS-CoV-2 (COVID-19) PCRon 04-01-2020 COVID-19 PCR Not Detected Normal Not Detected [facility] Comment on above: Order Comment: Done In-House Result Comment: Resu lts Called To Shu in Surg By GAUDENCIO And Read Back For Confirmation On 04/01/2020 08:20:03 EDT. Performed By: #### 6 [id number] ####[facility] (DEFAULT)[address] [place] [address] Progress Note - Nurseon 03-07 Progress Note - Nurse Spoke with pt and informed her to be here at 0715 and NPO after MN, she verbalizes understanding. [Electronically Signed on: 03/29/2020 10:42 EDT] Obdulia Barrow RN [Verified on: 03/29/2020 10:42 EDT] Obdulia Barrow RN [facility] Coding Summaryon 03-26-2020 Coding Summary CODING DATE: [address] [facility] STATUS: Home PAYOR: Workers Compensation APC [...] Marilyn Montez Date Saved: 03/26/2020 02:33 pm [facility] Lab - Immunology/Serology Re sultson 03-25-2020 Lab - Immunology/Serology Results [id number]#1.00O [facility] Provider [place] 03-25-2020 Provider Orders [id number]#[address]00O [facility] SARS-CoV-2 (COVID-19) PCRon 03-23-2020 COVID-19 PCR Not Detected Normal Not Detected [facility] Comment on above: Order Comment: Sent to [facility] Performed By: #### 6 [id number] ####[facility] (DEFAULT)[address] [place] [address] Provider [place] 03-22-2020 Provider Orders [id number] [facility] Progress Note - Nurseon Progress Note - Nurse chart reviewed per Dr Jones and cleared for surgery. no furthers orders received [Electronically Signed on: 03/14/2020 14:57 EDT] Sade Herring RN [Verified on: 03/14/2020 14:57 EDT] Sade Herring RN Normal [facility] .Auto Diff 1on 03-12-2020 Auto Alcorn % 7 % Normal 1-12 [facility] Comment on above: Performed By: #### 7 [id number], [id number] ####[facility] (DEFAULT)[address] [place] [address] 21602 Baso Abs# 0.1 x10 Normal 0.0-0.2 [facility] Comment on above: Performed By: #### 7 [id number], [id number] ####[facility] (DEFAULT)[address] [place] [address] 88921 Basophils/100 WBC (Bld) 1.5 % Normal 0.2-2.0 [facility] Comment on above: Performed By: #### 7 [id number], [id number] ####[facility] (DEFAULT)[address] [place] [address] Eos Abs# 0.6 x10 High 0.0-0.4 [facility] Comment on above: Performed By: #### 7 [id number], [id number] ####[facility] (DEFAULT)[address] [place] [address] 65903 Eosinophils/100 WBC (Bld) 11.6 % High 0.9-4.0 [facility] Comment on above: Performed By: #### 7 [id number], [id number] ####[facility] (DEFAULT)[address] [place] [address] 26434 Lymphocytes (Bld) [#/Vol] 0.8 x10 Low 1.3-2.9 [facility] Comment on above: Performed By: #### 7 [id number], [id number] ####[facility] (DEFAULT)[address] [place] [address] 27196 Lymphocytes/100 WBC (Bld) 16 % Normal 14-48 [facility] Comment on above: Performed By: #### 7 [id number], [id number] ####[facility] (DEFAULT)[address] [place] [address] 71121 Alcorn Abs# 0.4 x10 Normal 0.0-0.8 [facility] Comment on above: Performed By: #### 7 [id number], [id number] ####[facility] (DEFAULT)[address] [place] [address] 97609 Neut Abs# 3.0 x10 Normal 1.5-9.2 [facility] Comment on above: Performed By: #### 7 [id number], [id number] ####[facility] (DEFAULT)[address] [place] [address] Neutrophils/100 WBC (Bld) 63 % Normal 44-88 [facility] Comment on above: Performed By: #### 7 [id number], [id number] ####[facility] (DEFAULT)[address] [place] [address] CBC w/ Auto Diffon 0 Erythrocyte distribution width (RBC) [Ratio] 13.3 % Normal 11.5-15.0 [facility] Comment on above: Performed By: #### 7 [id number], [id number] ####[facility] (DEFAULT)[address] [place] [address] Hematocrit (Bld) [Volume fraction] 41.8 % High 33.7-40.4 [facility] Comment on above: Performed By: #### 7 [id number], [id number] ####[facility] (DEFAULT)[address] [place] [address] Hemoglobin (Bld) [Mass/Vol] 14.4 g/dL Normal 11.3-15.9 [facility] Comment on above: Performed By: #### 7 [id number], [id number] ####[facility] (DEFAULT)[address] [place] [address] Man Diff? Auto Normal [facility] Comment on above: Performed By: #### 7 [id number], [id number] ####[facility] (DEFAULT)[address] [place] [address] 49469 MCH (RBC) [Entitic mass] 30 pg Normal 24-34 [facility] Comment on above: Performed By: #### 7 [id number], [id number] ####[facility] (DEFAULT)[address] [place] [address] 46565 MCHC (RBC) [Mass/Vol] 34 g/dL Normal 26-37 [facility] Comment on above: Performed By: #### 7 [id number], [id number] ####[facility] (DEFAULT)[address] [place] [address] 21040 MCV (RBC) [Entitic vol] 86 fL Normal 81-100 [facility] Comment on above: Performed By: #### 7 [id number], [id number] ####[facility] (DEFAULT)[address] [place] [address] 49750 Platelet mean volume (Bld) [Entitic vol] 9.6 fL Normal 6.3-10.2 [facility] Comment on above: Performed By: #### 7 [id number], [id number] ####[facility] (DEFAULT)[address] [place] [address] 23050 Platelets (Bld) [#/Vol] 229 x10 Normal 138-427 [facility] Comment on above: Performed By: #### 7 514149, [id number] ####[facility] (DEFAULT)[address] [place] [address] 64905 RBC (Bld) [#/Vol] 4.85 x10 Normal 3.70-5.30 [facility] Comment on above: Performed By: #### 7 [id number], [id number] ####[facility] (DEFAULT)[address] [place] [address] 73101 WBC (Bld) [#/Vol] 4.8 x10 [facility] Comment on above: Performed By: #### 7 [id number], [id number] ####[facility] (DEFAULT)[address] [place] [address] 71193 Encounters Encounter Date Encounter Type Care Provider Facility Start: 01-08-2023 End: 01-09-2023 ambulatory PATRIA MYERS . Facility:[facility] Start: 12-03-2022 ambulatory JUWAN YAÑEZ . Facility:[facility] Start: 07-23-2022 End: 07-24-2022 ambulatory JUWAN YAÑEZ . Facility:[facility] Start: 02-19-2022 End: 02-20-2022 ambulatory JUWAN YAÑEZ . Facility:[facility] Start: 02-05-2022 ambulatory JUWAN YAÑEZ . Facility:[facility] Start: 01-22-2022 End: 01-23-2022 [facility] Facility:[facility] Payers Date Payer Category Payer Unknown [id number] 2.16.84 [id number] 1965 Unknown [id number] 2.16.84 [id number] 1965 Unknown [id number] 2.16.84 [id number] 1965 Unknown [id number] 2.16.84 [id number] 1965 Unknown [id number] 2.16.84 [id number] 1965 Unknown [id number] 2.16.84 [id number] 1960 Unknown [id number] 1960 Unknown [id number] Consultation note 07-23-2022 Note Date & Type [...] Patient is in agreement with this. [facility] Consultation note 02-19-2022 Note Date [...] in three months' time unless otherwise indicated. [facility] Signed and Approved by: JUWAN YAÑEZ . 03/04/2022 16:24:00 [facility] Consultation note 01-22-2022 Note Date [...] Activities that aggravate her pain are stairs, exchange consultant hours, physical activity, changes in the weather [...] will follow her up in 1-2 months. [facility] Signed and Approved by: JUWAN YAÑEZ . 01/26/2022 15:08:00 [facility] Consultation note 01-22-2022 Note Date [...] heme. The patient tolerated the procedure well. [facility] Signed and Approved by: JUWAN YAÑEZ . 01/26/2022 15:08:00 [facility] Consultation note 01-22-2022 Note Date [...] relief and improvement of the left knee. [facility] Signed and Approved by: JUWAN YAÑEZ . 01/26/2022 15:08:00 [facility] Summary Purpose Family History No Family History Records FoundNo Family History Records Found Advance Directives No Advanced Directives Records FoundNo Advanced Directives Records Found Hospital Course Note [facility] SURGERY Clinical Discharge Summary PERSON INFORMATION Name JOSE A SINCLAIR Age 54 Years 1965 Sex FEMALE Language Yoruba Kelly Raygoza DO Marital Status Med Service Ambulatory Surgery Acct# Arrival 04/01/2020 07:10:00 Visit Reason SURGERY - LEFT SHOULDER SCOPE WITH ROTATOR CUFF REPAIR Acuity LOS 026 02:33 Address[facility] [address] Comment: PROVIDER INFORMATION VITALS INFORMATION Vital Sign [...] history): All Problems Anemia / SNOMED CT 902137335 / Confirmed Hypothyroid / SNOMED CT 07295751 / Confirmed Iron deficiency / SNOMED CT 86632836 / Confirmed Physical Examination VS/Measurements Vital Signs [...] history): All Problems Anemia / SNOMED CT 570899231 / Confirmed Hypothyroid / SNOMED CT 43022227 / Confirmed Iron deficiency / SNOMED CT 34756415 / Confirmed Physical Examination VS/Measurements Vital Signs [...] section and content) DATE CREATED AUTHOR 08/28/2020 [facility] DATE CREATED AUTHOR AUTHOR'S ORGANIZ ATION 01/15/2023 [facility] FOR RECORDS PERTAINING TO PATIENTS WHO [...] BE BASED ON THE PRIMARY CLINICAL RECORDS. [employer] [facility]. provides no warranty or guarantee of the accuracy or completeness of information in this document.
== END 2023-10-07 12:29 | disposition home or self-care (01) ==
LOC: MAMMO 12:28
DX: R92.8 Other abnormal and inconclusive findings on diagnostic imaging of breast (principal); N63.41 Unspecified lump in right breast, subareolar
CPT/HCPCS: 76642; 77066

== ENCOUNTER 2023-11-03 13:21 | Outpatient (OUT) | payer MEDICARE, SELFPAY ==
--- NOTE | 2023-11-03 16:09 | P.CN_ITS ---
Consult Note: HPI Data of Consult Patient: known to practice within the last 3 years Requesting Physician: Veronique Laird NP Primary Care Provider: SANDEE FIGUEROA Consult Narrative Reason for consult: f/u Narrative: Stephanie Nichols a pleasant 58 year old female presents for evaluation and management of chronic low back and hip pain, pain today 7/10 increasing to 10/10 with activity, standing, walking, twisting, bending, decreased with massage/heat/ice. Patient reports numbness tingling weakness of right leg, pain following L4-S1 dermatomal pattern. Patient finds mild benefit to gabapentin, tramadol, and trazadone. Patient here to review lumbar MRI and bilateral knee xray. MRI consistent with lumbar stenosis with NC, lumbar radiculopathy, lumbar facet arthropathy, lx spondylosis. Bilateral knee xrays consistent with moderate OA. cc:: CC: Veronique Laird NP Review of Systems ROS Status of ROS 10 or more systems reviewed and unremark able except as noted in history and below Musculoskeletal Reports: back pain, extremity pain, joint pain and muscle weakness PFSH PFSH Medical History Encounter for medication monitoring ?Z51.81 - Encounter for therapeutic drug level monitoring (ICD-10) Meds Home Medications and Allergies Home Medications Medication Instructions Recorded Confirmed Type VITAMIN D DAILY 04/28/23 History buspirone 10 mg tablet 10 mg PO BID 04/28/23 04/28/23 History gabapentin 600 mg tablet 600 mg PO DAILY 04/28/23 04/28/23 History levothyroxine 150 mcg tablet 150 mcg PO DAILY 04/28/23 04/28/23 History (Synthroid) lisinopril 10 mg tablet 10 mg PO DAILY 04/28/23 04/28/23 History multivitamin 1 tab PO DAILY 04/28/23 04/28/23 History tramadol 50 mg tablet 50 mg PO TID 04/28/23 04/28/23 History trazodone 50 mg tablet 50 mg PO DAILY 04/28/23 04/28/23 History vitamin B12 0.5 mg-folic acid 1 mg 1 tab PO DAILY 04/28/23 04/28/23 History tablet lidocaine 4 % topical cream 1 applic topical BID #30 grams 07/14/23 Rx tramadol 50 mg tablet 50 mg PO TID PRN pain #90 tabs 07/14/23 Rx lidocaine 5 % topical cream 1 applic topical BID PRN pain #30 08/12/23 Rx grams tramadol 50 mg tablet 50 mg PO TID PRN pain #90 tabs 09/13/23 Rx tramadol 50 mg tablet 50 mg PO TID PRN pain #90 tabs 10/14/23 Rx Allergies Allergy/AdvReac Type Severity Reaction Status Date / Time Latex, Natural Rubber Allergy Unknown Rash Verified 04/28/23 13:53 Penicillins Allergy Unknown Verified 04/28/23 13:53 Exam Constitutional Documenting provider has reviewed patient's vital signs: yes Common normals: no apparent distress, oriented x3, healthy appearing, alert and well nourished General appearance: cooperative Nutritional appearance: obese HENMT Common normals: normocephalic, hearing grossly normal bilaterally and moist oral mucous membranes Head and scalp: normocephalic Eye Common normals: PERRL Pupil: PERRL Neck & C-Spine Common normals: full ROM General: normal visual inspection Cervical spine: cervical ROM normal Chest Common normals: inspection of chest normal Respiratory Common normals: normal respiratory effort, no retractions and no use of accessory muscles Back & Pelvis Common normals: straight leg raise negative bilaterally Lumbar spine/lower back: ROM limited, pain with ROM (positive bilateral facet loading, right worse than left), lumbar spinal tenderness and paraspinal muscle tenderness Sacroiliac joints: SI joint(s) abnormal (bilaterally positive BARBARA, gaenslens, yeoman) SI joint details: tender to palpation Other: weakness to BLE diminished sensation in right L4,5 dermatomal pattern Extremity Common normals: normal to inspection and full ROM Neuro Common normals: oriented x3, CN's II-XII intact bilaterally, moves all extremities, no focal motor deficits, no sensory deficits noted and deep tendon reflexes 2+ bilaterally Sensorium/orientation: alert Gait (neuro): antalgic Motor exam: no movement abnormalities noted and strength abnormal Other: intermittent bilateral leg weakness and instability Psych Common normals: mental status grossly normal, thought process normal, cooperative, affect normal, speech normal and activity/motor behavior normal Speech: normal speech Thought process: normal thought process Results Additional Findings Additional findings: I have checked an [place] report on this patient today and there are no aberrancies noted in the prescribing history.?? A drug screen was completed and reviewed within the last year, and if there has not been a drug screen completed we ordered one today to monitor higher risk, state monitored pain medication use. As part of providing excellent, safe, comprehensive care, the following was completed at our patient's visit: 1. A medication reconciliation and review to ensure accurate knowledge of current/active medications, including asking our patients to inform us about any [id number] medications or herbal remedies/nutritional supplements/alternative remedies. 2. A review to specifically ensure our patients have had annual screening for: elevated body mass index (BMI), tobacco use, screening for depression, and screening for unhealthy alcohol use. When screening is concerning, patients are provided with education and the specific recommendation to discuss the concerning health issue and treatment options with their primary care provider. Assessment and Plan Assessment and Plan (1) Lumbar stenosis without neurogenic claudication: (2) Bilateral primary osteoarthritis of knee: (3) Opioid use: Assessment and Plan: I feel these medications are improving the patient's quality of life and allow them to tolerate activities of daily living as well as participate in recreational activity.? The patient does not report intolerable side effects. The patient is NOT opioid naive and non-pharmacologic and non-opioid treatment has failed to significantly relieve the patient's pain and improve functionality. The patient has a diagnosis that is related to a somatic or vi sceral pain etiology. ? ?? I reviewed with the patient the potential risks and side effects with the use of? opioid medications including but not limited to respiratory depression,? sedation, and even . I verified the patient has access to naloxone should? these effects occur. I advised the patient to avoid the use of any other? sedation substances including alcohol, THC, and benzodiazepines while? taking opioid medications due to the risk of compounding side effects and? detrimental outcomes. I reviewed the CARDIOLOGY PHYSICIAN, pain treatment agreement, urine? drug screen, and opioid start talking forms. The patient was advised to let? their family know they had Naloxone in case they would need to administer? the medication.? ?? A drug screen was completed within the last year, and no aberrancies were noted regarding their use of controlled substances. The patient understands they are subject to the terms and conditions of the pain contract that they have signed. ? ?? I have checked an [place] report on this patient today and there are no aberrancies noted in the prescribing history.? The patient was advised that U.[place]. Food and Drug Administration (FDA) is warning that respiratory depression may occur in patients using gabapentin (Neurontin, Gralise, Horizant) or pregabalin (Lyrica, Lyrica CR) who have respiratory risk factors. These include the use of opioid pain medicines and other drugs that depress the central nervous system, and conditions such as chronic obstructive pulmonary disease (COPD) that reduce lung function. The elderly are also at higher risk.? (4) Lumbar spondylosis: Plan discussed ESIs and facet blocks working towards lumbar RFA. Patient would like to think over her options. Would recommend right L4-5 L5-S1 TFESI or L4-5 DILIP, in the future bilateral L4-5 L5-S1 facet medial branch block x2 working towards RFA. continue current medications, tolerating well without side effects f/u for injection therapy if patient calls, otherwise 3 months for medication management
== END 2023-11-03 13:22 | disposition home or self-care (01) ==
LOC: PM 13:23
PROVIDERS: Visit Provider Nurse Practitioner
DX: M48.061 Spinal stenosis, lumbar region without neurogenic claudication (principal); M17.0 Bilateral primary osteoarthritis of knee; Z79.891 Long term (current) use of opiate analgesic
CPT/HCPCS: G0463

== ENCOUNTER 2024-01-13 14:04 | Outpatient (OUT) | payer MEDICARE, SELFPAY ==
--- OUTSIDE RECORDS SUMMARY | 2024-01-13 14:26 | XMS_ITS | CCD ---
Author Organization [facility] Care Team Providers Care Department Chairperson Name Role Phone LUCIA .PATRIA Admitting Unavailable LAKSHMIPATHY ., NARENDRANATH Consulting Dasia vailable [facility] Unava il[facility] HALKER .PATRIA Attending Unavailable [facility] HENRIQUEZ ., DR LNUA Lindsay Admitting Unavailable HENRIQUEZ ., DR LUNA Lindsay Attending Unavailable YAÑEZ ., JUWAN Consulting Unavailable YAÑEZ ., JUWAN Consulting Unavailable HENRIQUEZ ., DR LUNA Lindsay Attending Unavailable [facility] Un[facility] il[facility] HENRIQUEZ ., DR LUNA Lindsay Admitting Unavailable YAÑEZ ., JUWAN Consulting Unavailable [facility] Un[facility] il[facility] HENRIQUEZ ., DR LUNA Lindsay Attending Unavailable HENRIQUEZ ., DR LUNA Lindsay Admitting Unavailable YAÑEZ ., JUWAN Consulting Unavailable [facility] Un[facility] il[facility] HENRIQUEZ ., DR LUNA Lindsay Attending Unavailable HENRIQUEZ ., DR LUNA Lindsay Admitting Unavailable YAÑEZ ., JUWAN Consulting Unavailable [facility] Unava il[facility] HENRIQUEZ ., DR LUNA Lindsay Attending Unavailable HENRIQUEZ ., DR LUNA Lindsay Admitting Unavailable Allergies Allergy Classification Reported Allergen(s) Allergy Type Date of Onset Reaction(s) Facility (1 source) Latex Drug allergy (disorder) [facility] Repository (1 source) Penicillin Drug Allergy [facility] Repository Problems Active Problems Problem Classification [...] Physical Therapy Noteon 08-07 Physical Therapy Note [id number]#1.[facility] Provider [place] 08-20-2020 Provider Orders [id number]#1.[facility] Medication Managementon 05-08 Medication Management [id number]#1.[facility] Coding Summaryon 05-30-2020 Coding Summary CODING DATE: 020 [facility] STATUS: PAYOR: Workers Compensation ADMIT DX: REASON [...] Zahra Feliciano Date Saved: 05/30/2020 02:18 pm [facility] Provider [place] 05-27-2020 Provider Orders [id number] TGTIFF [facility] MAGR Intraoperative Recordon 04-08-2020 MAGR Intraoperative Record MAGR Intra-Op Record Summary Primary Physician: Warren Holliday DO Finalized Date/Time: 04/08/20 08:06:39 Pt. Name: JOSE A SINCLAIR Oliver Yadav./Sex: 1965 FEMALE Med Rec #: [id number] Physician: Warren Holliday DO Financial #: [id number] Pt. Type: D Room/Bed: / Admit/Disch: 04/01/20 [...] MD, DO Role Performed Surgeon - Primary Spark Tester Anesthesiologist of Record Time In 04/01/20 10:11:00 [...] Miguelangel Alonzo CST Role Performed Scrub Personnel Spark Tester Electron Gun Assembler Time In 04/01/20 10:11:00 04/01/20 10:11:00 04/01/20 [...] Implant Action Implant Implant Description Arthrex Surture Bomoseen Arthrex Suture Bomoseen Biocomposite 4.75 x 4.75 x 24.5mm 24.5mm Implant Information Implant/Explant 04/01/20 10:55:00 04/01/20 10:59:00 Date/Time Implanted/Explanted Warren Holliday James By: Rainer BREWSTER Rainer DO Size 4.75 x 24.5mm 4.75 x 24.5mm Health Information Administrator Arthrex Arthrex Catalog # REF [id number] REF [id number] Lot Number [id number] Expiration Date 05/06/21 05/06/21 Serial Number Device Identifier Human Readable TY Machine Readable TY MR Class Implant Usage Data Site Shoulder L Shoulder L Quantity 1 1 Reason for Explant Reason Not Retained Explant Disposition Purchasing Buyer Sterility External Indicator Result Internal Indicator Results [...] Pick List 04/08/20 08:04 JESSICA Finish Documentation [facility] Coding Summaryon 04-02-2020 Coding Summary CODING DATE: 020 [facility] STATUS: Home PAYOR: Workers Compensation APC DESCRIPTION [...] PROC APC STAT DESCRIPTION DOCTOR NAME DATE 28085 5114 J1 Arthroscopy, shoulder, 04/01/2020 surgical; with [...] Blanton Revised Date Saved: 04/02/2020 02:55 pm [facility] Consent Formson 04-02-2020 Consent Forms [id number] Discharge Instructionson Discharge Instructions [id number] History and Physicalon 04-02 History and Physical [id number]#1.[facility] Medication Managementon 03-07 Medication Management [id number]#1.00[facility] Telemetry Stripson 0 Telemetry Strips [id number]#1.00O TGTIFF Normal [facility] Anesthesia Noteon 04-01-2020 Anesthesia Note Patient: [...] history): All Problems Anemia / SNOMED CT 676062546 / Confirmed Hypothyroid / SNOMED CT 01742224 / Confirmed Iron deficiency / SNOMED CT 40599019 / Confirmed Histories Family History: No family history items have been selected or recorded. Procedure history: Gastric bypass (0172089351). Rotator cuff (18832288). Comments: 03/12/2020 9:17 Obdulia Corbin RN right [...] Charted Heart Rate Peripheral 67 bpm (APR 01:30) Resp Rate 16 br/min (APR 01:) SBP H 149mmHg (APR 01:35) DBP 86 mmHg (APR 01:35) SpO2 97 % (APR 01:) Airway: Mallampati classification: II (soft palate, fauces, [...] on: 04/01/2020 09:45 EDT] Deyvi Samuels MD [facility] Coding Summaryon 04-01-2020 Coding Summary CODING DATE: 020 [facility] STATUS: Home PAYOR: [employer] ADMIT DX: [...] Feliciano Date Saved: 04/01/2020 11:03 am Normal [facility] Inpatient Patient Summaryon 04-01-2020 Inpatient Patient Summary [facility] [address] [place], [place] [id number] Patient Discharge Instructions Name: JOSE A SINCLAIR : 1965 Patient Address: [address] [place], [place] [address] Primary Care Provider: Name: Kelly Bunch DO After you are discharged if you find you have any questions, please, call [phone] ext [phone] to speak to a nurse. Discharge Diagnosis: Internal derangement of left shoulder Prescription Information: If you have been given a prescription for narcotics, seek immediate medical attention if you have any difficulty breathing or any sudden status changes such as confusion and sleepiness. If you or anyone you know is experiencing suicidal thoughts, mental health, alcohol and/or drug addiction problems; contact the [facility] 29/03 Crisis Hotline -Text 4HFUC cj 909456. If you received any narcotics, sedation, or [...] business decisions or sign any legal documents [facility] would like to thank you for allowing us to assist you with your healthcare needs. The following includes patient education materials and information regarding your injury/illness. 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 [...] 08/23/2006 Document Revised: 08/18/2018 Document Reviewed: 08/18/2018 Elsevier Interactive Patient Education ? [address] GARCIA POST OPERATIVE SHOULDER INSTRUCTIONS SURGEONS [...] or concerns, please call the office at [phone] -Follow up as scheduled Viruses or Bacteria [...] for Disease Control and Prevention May 2014 [facility] MAGR Intraoperative Recordon 04-01-2020 MAGR Intraoperative Record MAGR Intra-Op Record Summary Primary Physician: Deyvi Samuels MD Finalized Date/Time: 04/01/20 10:15:13 Pt. Name: JOSE A SINCLAIR/Sex: 1965 FEMALE Med Rec #: [id number] Physician: Warren Holliday DO Financial #: [id number] Pt. Type: D Room/Bed: / Admit/Disch: 04/01/20 [...] López RN Role Performed Surgeon - Primary Spark Tester Spark Tester Time In 04/01/20 09:50:00 04/01/20 09:50:00 04/01/20 [...] Description Condition Intact Description Report Given To Livan GAY, Zahra Airway Maintenance Patient Status Stable Oxygen in Use? Yes Airway Device Nasal cannula Flow Rate 3 L/min Last Modified By: Juany Guzman RN 04/01/20 10:14:14 Case Comments Finalized By: Juany Guzman RN Document Signatures Signed By: Juany Guzman RN 04/01/20 10:15 [facility] MAGR PACU Recordon 0 MAGR PACU Record MAGR PACU Record Summary Primary Physician: Warren Holliday DO Finalized Date/Time: 04/01/20 12:39:27 Pt. Name: JOSE A SINCLAIR/Sex: 1965 FEMALE Med Rec #: [id number] Physician: Warren Holliday DO Financial #: [id number] Pt. Type: D Room/Bed: / Admit/Disch: 04/01/20 07:10:00 - Institution: PACU Case Times MAGR Entry 1 In PACU I 04/01/20 11:25:00 Discharge from PACU 04/01/20 12:28:00 I Last Modified By: Juany Guzman RN 04/01/20 12:39:18 Finalized By: Juany Guzman RN Document Signatures Signed By: Juany Guzman RN 04/01/20 12:39 [facility] MAGR Postoperative Recordon 04-01-2020 MAGR Postoperative Record MAGR Phase II Record Summary Primary Physician: Warren Holliday DO Finalized Date/Time: 04/01/20 13:49:00 Pt. Name: JOSE A SINCLAIR/Sex: 1965 FEMALE Med Rec #: [id number] Physician: Warren Holliday DO Financial #: [id number] Pt. Type: D Room/Bed: / Admit/Disch: 04/01/20 [...] Signed By: Sade Herring RN 04/01/20 13:48 [facility] Preoperative Recordon 0 04-01-2020 MAGR Preoperative Record MAGR Pre-Op Record Summary Primary Physician: Warren Holliday DO Finalized Date/Time: 04/01/20 10:16:27 Pt. Name: JOSE A SINCLAIR Oliver Yadav./Sex: 1965 FEMALE Med Rec #: [id number] Physician: Warren Holliday DO Financial #: [id number] Pt. Type: D Room/Bed: / Admit/Disch: 04/01/20 [...] By: Juany Guzman RN 04/01/20 10:16 Normal [facility] Operative Report - Surgeon/P [email or web address] 04-01-2020 Operative Report - Surgeon/Physician Preoperative diagnosis: [...] on: 04/01/2020 11:22 EDT] Warren Holliday DO [facility] Patient Handouton 04-01-[address] 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 [...] 08/23/2006 Document Revised: 08/18/2018 Document Reviewed: 08/18/2018 ElseP[employer] Interactive Patient Education ? 2019 [employer] [facility] SARS-CoV-2 (COVID-19) PCRon 04-01-2020 COVID-19 PCR Not Detected Normal Not Detected [facility] Comment on above: Order Comment: Done In-House Result Comment: Resu lts Called To Shu in Surg By GAUDENCIO And Read Back For Confirmation On 04/01/2020 08:20:03 EDT. Performed By: #### 6 [id number] ####[facility] (DEFAULT)[address] [place] [address] Progress Note - Nurseon 03-07 Progress Note - Nurse Spoke with pt and informed her to be here at 0715 and NPO after MN, she verbalizes understanding. [Electronically Signed on: 03/29/2020 10:42 EDT] Obdulia Barrow RN [Verified on: 03/29/2020 10:42 EDT] Obdulia Barrow RN [facility] Coding Summaryon 03-26-2020 Coding Summary CODING DATE: 020 [facility] STATUS: Home PAYOR: Workers Compensation APC DESCRIPTION [...] Marilyn Montez Date Saved: 03/26/2020 02:33 pm Normal [facility] Lab - Immunology/Serology Re sultson 03-25-2020 Lab - Immunology/Serology Results [id number] Provider [place] 03-25-2020 Provider Orders [id number] SARS-CoV-2 (COVID-19) PCRon 03-23-2020 COVID-19 PCR Not Detected Normal Not Detected [facility] Comment on above: Order Comment: Sent to [facility] Performed By: #### 6 [id number] ####[facility] (DEFAULT)[address] [place] [address] Provider [place] 03-22-2020 Provider Orders [id number] [facility] Progress Note - Nurseon Progress Note - Nurse chart reviewed per Dr Jones and cleared for surgery. no furthers orders received [Electronically Signed on: 03/14/2020 14:57 EDT] Sade Herring RN [Verified on: 03/14/2020 14:57 EDT] Sade Herring RN [facility] .Auto Diff 1on 03-12-2020 Auto [place] % 7 % Normal -12 [facility] Comment on above: Performed By: #### 7 [id number], [id number] ####[facility] (DEFAULT)[address] [place] [address] Baso Abs# 0.1 x10 Normal 0.0-0.2 [facility] Comment on above: Performed By: #### 7 [id number], [id number] ####[facility] (DEFAULT)[address] [place] [address] Basophils/100 WBC (Bld) 1.5 % Normal 0.2-2.0 [facility] Comment on above: Performed By: #### 7 [id number], [id number] ####[facility] (DEFAULT)[address] [place] [address] Eos Abs# 0.6 x10 High 0.0-0.4 [facility] Comment on above: Performed By: #### 7 [id number], [id number] ####[facility] (DEFAULT)[address] [place] [address] Eosinophils/100 WBC (Bld) 11.6 % High 0.9-4.0 [facility] Comment on above: Performed By: #### 7 [id number], [id number] ####[facility] (DEFAULT)[address] [place] [address] Lymphocytes (Bld) [#/Vol] 0.8 x10 Low 1.3-2.9 [facility] Comment on above: Performed By: #### 7 [id number], [id number] ####[facility] (DEFAULT)[address] [place] [address] Lymphocytes/100 WBC (Bld) 16 % Normal 14-48 [facility] Comment on above: Performed By: #### 7 [id number], [id number] ####[facility] (DEFAULT)[address] [place] [address] [place] Abs# 0.4 x10 Normal 0.0-0.8 [facility] Comment on above: Performed By: #### 7 [id number], [id number] ####[facility] (DEFAULT)[address] [place] [address] Neut Abs# 3.0 x10 Normal 1.5-9.2 [facility] Comment on above: Performed By: #### 7 [id number], [id number] ####[facility] (DEFAULT)[address] [place] [address] Neutrophils/100 WBC (Bld) 63 % Normal 44-88 [facility] Comment on above: Performed By: #### 7 [id number], [id number] ####[facility] (DEFAULT)[address] [place] [address] CBC w/ Auto Diffon 0 Erythrocyte distribution width (RBC) [Ratio] 13.3 % Normal 11.5-15.0 [facility] Comment on above: Performed By: #### 7 [id number], [id number] ####[facility] (DEFAULT)[address] [place] [address] Hematocrit (Bld) [Volume fraction] 41.8 % High 33.7-40.4 [facility] Comment on above: Performed By: #### 7 [id number], [id number] ####[facility] (DEFAULT)[address] [place] [address] Hemoglobin (Bld) [Mass/Vol] 14.4 g/dL Normal 11.3-15.9 [facility] Comment on above: Performed By: #### 7 [id number], [id number] ####[facility] (DEFAULT)[address] [place] [address] Man Diff? Auto Normal [facility] Comment on above: Performed By: #### 7 [id number], [id number] ####[facility] (DEFAULT)[address] [place] [address] MCH (RBC) [Entitic mass] 30 pg Normal 24-34 [facility] Comment on above: Performed By: #### 7 [id number], [id number] ####[facility] (DEFAULT)[address] [place] [address] MCHC (RBC) [Mass/Vol] 34 g/dL Normal 26-37 [facility] Comment on above: Performed By: #### 7 [id number], [id number] ####[facility] (DEFAULT)[address] [place] [address] MCV (RBC) [Entitic vol] 86 fL Normal 81-100 [facility] Comment on above: Performed By: #### 7 [id number], [id number] ####[facility] (DEFAULT)[address] [place] [address] 16094 Platelet mean volume (Bld) [Entitic vol] 9.6 fL Normal 6.3-10.2 [facility] Comment on above: Performed By: #### 7 [id number], [id number] ####[facility] (DEFAULT)[address] [place] [address] 97[address] Platelets (Bld) [#/Vol] 229 x10 Normal 138-427 [facility] Comment on above: Performed By: #### 7 [id number], [id number] ####[facility] (DEFAULT)[address] [place] [address] 20044 RBC (Bld) [#/Vol] 4.85 x10 Normal 3.70-5.30 [facility] Comment on above: Performed By: #### 7 [id number], [id number] ####[facility] (DEFAULT)[address] [place] [address]18 WBC (Bld) [#/Vol] 4.8 x10 [facility] Comment on above: Performed By: #### 7 [id number], [id number] ####[facility] (DEFAULT)[address] [place] [address] Encounters Encounter Date Encounter Type Care Provider Facility Start: 01-08-2023 End: 01-09-2023 ambulatory PATRIA MYERS . Facility:[facility] Start: 12-03-2022 ambulatory JUWAN YAÑEZ . Facility:[facility] Start: 07-23-2022 End: 07-24-2022 ambulatory JUWAN YAÑEZ . Facility:[facility] Start: 02-19-2022 End: 02-20-2022 ambulatory JUWAN YAÑEZ . Facility:[facility] Start: 02-05-2022 ambulatory JUWAN YAÑEZ . Facility:[facility] Start: 01-22-2022 End: 01-23-2022 ambulatory [facility] Facility:[facility] Payers Date Payer Category Payer Unknown [id number] 2.16.84 [id number] 1965 Unknown [id number] 2.16.84 [id number] 1965 Unknown [id number] 2.16.84 [id number] 1965 Unknown [id number] 2.16.84 [id number] 1965 Unknown [id number] 2.16.84 [id number] 1965 Unknown [id number] 2.16.84 [id number] 1960 Unknown [id number] 1960 Unknown [id number] Consultation note 07-23-2022 Note Date & Type [...] Patient is in agreement with this. [facility] Consultation note 02-19-2022 Note Date & [...] in three months' time unless otherwise indicated. [facility] Signed and Approved by: JUWAN YAÑEZ . 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 [facility] Signed and Approved by: JUWAN YAÑEZ . 01/26/2022 15:08:00 [facility] Consultation note 01-22-2022 Note Date & [...] heme. The patient tolerated the procedure well. [facility] Signed and Approved by: JUWAN YAÑEZ . 01/26/2022 15:08:00 [facility] Consultation note 01-22-2022 Note Date [...] relief and improvement of the left knee. [facility] Signed and Approved by: JUWAN YAÑEZ . 01/26/2022 15:08:00 [facility] Summary Purpose Family History No Family History Records FoundNo Family History Records Found Advance Directives No Advanced Directives Records FoundNo Advanced Directives Records Found Hospital Course Note [facility] SURGERY Clinical Discharge Summary PERSON INFORMATION Name JOSE A SINCLAIR Age 54 Years 1965 Sex FEMALE Language Korean PCP Kelly Bunch DO Marital Status [facility] Service Ambulatory Surgery Acct# Arrival 04/01/2020 07:10:00 Visit Reason SURGERY - LEFT SHOULDER SCOPE WITH ROTATOR CUFF REPAIR Acuity LOS 026 02:33 Address: [address] [place], [place] [address] Comment: PROVIDER INFORMATION VITALS INFORMATION Vital Sign [...] history): All Problems Anemia / SNOMED CT 128086268 / Confirmed Hypothyroid / SNOMED CT 48904778 / Confirmed Iron deficiency / SNOMED CT 22563782 / Confirmed Physical Examination VS/Measurements Vital Signs (last 24 hrs) Last Charted Heart Rate Peripheral 69 bpm (APR 01 10:06) Resp Rate 16 br/min (APR 01 10:06) SBP H 153mmHg (APR 01 10:06) DBP 82 mmHg (APR 01 10:) SpO2 99 % (APR 01 10:) Review [...] history): All Problems Anemia / SNOMED CT 737324847 / Confirmed Hypothyroid / SNOMED CT 92124775 / Confirmed Iron deficiency / SNOMED CT 60732231 / Confirmed Physical Examination VS/Measurements Vital Signs (last 24 hrs) Last Charted Heart Rate Peripheral 69 bpm (APR 01 10:06) Resp Rate 16 br/min (APR 01 10:06) SBP H 153mmHg (APR 01 10:) DBP 82 mmHg (APR 01 10:) SpO2 99 % (APR 01 10:) Review / Management Condition: Stable. Assessment Anesthetic outcome No anesthetic complications noted. pt having discomfort in pacu. Block does not appear to be working well. Will treat with IV meds Plan Transfer/ Dis (more content not included)... Additional Source Comments INFORMATION SOURCE (unrecogn ized section and content) DATE CREATED AUTHOR 08/28/2020 [facility] DATE CREATED AUTHOR AUTHOR'S ORGANIZ ATION 01/15/[address] [facility] FOR RECORDS PERTAINING TO PATIENTS WHO [...] BE BASED ON THE PRIMARY CLINICAL RECORDS. [facility] [employer] provides no warranty or guarantee of the accuracy or completeness of information in this document.
--- NOTE | 2024-01-13 14:32 | P.CN_ITS ---
Consult Note: HPI Data of Consult Patient: known to practice within the last 3 years Requesting Physician: Veronique Laird NP Primary Care Provider: SANDEE FIGUEROA Consult Narrative Reason for consult: f/u Narrative: Stephanie Nichols a pleasant 58 year old female presents for evaluation and management of chronic low back and hip pain, pain today 4/10 increasing to 7/10 with activity, standing, walking, twisting, bending, decreased with massage/heat/ice. Patient reports numbness tingling weakness of right leg, pain following L4-S1 dermatomal pattern. Patient finds mild benefit to gabapentin, tramadol, and trazadone. Patient here to review lumbar MRI and bilateral knee xray. MRI consistent with lumbar stenosis with NC, lumbar radiculopathy, lumbar facet arthropathy, lx spondylosis. Bilateral knee xrays consistent with moderate OA. cc:: CC: Veronique Laird NP Review of Systems ROS Status of ROS 10 or more systems reviewed and unremark able except as noted in history and below Musculoskeletal Reports: back pain and extremity pain PFSH PFSH Medical History Encounter for medication monitoring ?Z51.81 - Encounter for therapeutic drug level monitoring (ICD-10) Meds Home Medications and Allergies Home Medications ?Medication ?Instructions ?Recorded ?Confirmed ?Type VITAMIN D DAILY 04/28/23 History buspirone 10 mg tablet 10 mg PO BID 04/28/23 04/28/23 History gabapentin 600 mg tablet 600 mg PO DAILY 04/28/23 04/28/23 History levothyroxine 150 mcg tablet 150 mcg PO DAILY 04/28/23 04/28/23 History (Synthroid) lisinopril 10 mg tablet 10 mg PO DAILY 04/28/23 04/28/23 History multivitamin 1 tab PO DAILY 04/28/23 04/28/23 History tramadol 50 mg tablet 50 mg PO TID 04/28/23 04/28/23 History trazodone 50 mg tablet 50 mg PO DAILY 04/28/23 04/28/23 History vitamin B12 0.5 mg-folic acid 1 mg 1 tab PO DAILY 04/28/23 04/28/23 History tablet lidocaine 4 % topical cream 1 applic topical BID #30 grams 07/14/23 Rx tramadol 50 mg tablet 50 mg PO TID PRN pain #90 tabs 07/14/23 Rx lidocaine 5 % topical cream 1 applic topical BID PRN pain #30 08/12/23 Rx grams tramadol 50 mg tablet 50 mg PO TID PRN pain #90 tabs 09/13/23 Rx tramadol 50 mg tablet 50 mg PO TID PRN pain #90 tabs 10/14/23 Rx tramadol 50 mg tablet 50 mg PO TID PRN pain #90 tabs 11/12/23 Rx tramadol 50 mg tablet 50 mg PO TID PRN pain #90 tabs 12/14/23 Rx Allergies Allergy/AdvReac Type Severity Reaction Status Date / Time Latex, Natural Rubber Allergy Unknown Rash Verified 04/28/23 13:53 Penicillins Allergy Unknown Verified 04/28/23 13:53 Exam Constitutional Documenting provider has reviewed patient's vital signs: yes Common normals: no apparent distress, oriented x3, healthy appearing, alert and well nourished General appearance: cooperative Nutritional appearance: obese HENMT Common normals: normocephalic, hearing grossly normal bilaterally and moist oral mucous membranes Head and scalp: normocephalic Eye Common normals: PERRL Pupil: PERRL Neck & C-Spine Common normals: full ROM General: normal visual inspection Cervical spine: cervical ROM normal Chest Common normals: inspection of chest normal Respiratory Common normals: normal respiratory effort, no retractions and no use of accessory muscles Back & Pelvis Common normals: straight leg raise negative bilaterally Lumbar spine/lower back: ROM limited, pain with ROM (positive bilateral facet loading, right worse than left), lumbar spinal tenderness and paraspinal muscle tenderness Sacroiliac joints: SI joint(s) abnormal (bilaterally positive BARBARA, gaenslens, yeoman) SI joint details: tender to palpation Other: weakness to BLE diminished sensation in right L4,5 dermatomal pattern Extremity Common normals: normal to inspection and full ROM Right lower extremity: knee joint Left lower extremity: knee joint Other: bilateral knees enlarged diameter Neuro Common normals: oriented x3, CN's II-XII intact bilaterally, moves all extremities, no focal motor deficits, no sensory deficits noted and deep tendon reflexes 2+ bilaterally Sensorium/orientation: alert Gait (neuro): antalgic Motor exam: strength 5/5 throughout and no movement abnormalities noted Other: intermittent bilateral leg weakness and instability Psych Common normals: mental status grossly normal, thought process normal, cooperative, affect normal, speech normal and activity/motor behavior normal Speech: normal speech Thought process: normal thought process Results Additional Findings Additional findings: If on a controlled substance or opioids, I have checked an [place] report on this patient and there are no aberrancies noted in the prescribing history.??If on a controlled substance or opioid a drug screen was completed and reviewed within the last year, and if there has not been a drug screen completed we ordered one today to monitor higher risk, state monitored pain medication use. As part of providing excellent, safe, comprehensive care, the following was completed at our patient's visit: 1. A medication reconciliation and review to ensure accurate knowledge of current/active medications, including asking our patients to inform us about any gcjl-ruy-cjbyosp medications or herbal remedies/nutritional supplements/alternative remedies. 2. A review to specifically ensure our patients have had annual screening for screening for depression, screening for tobacco use, and screening for unhealthy alcohol use. For concerning screenings had a discussion with the patient, provided patient education, and recommended follow-up with primary care provider when appropriate. If patient noted with a risk of falling, they received education on strength, gait, and balance training to prevent future risk of falling. Assessment and Plan Assessment and Plan (1) Lumbar stenosis without neurogenic claudication: (2) Bilateral primary osteoarthritis of knee: (3) Opioid use: Assessment and Plan: I feel these medications are improving the patient's quality of life and allow them to tolerate activities of daily living as well as participate in recreational activity.? The patient does not report intolerable side effects. The patient is NOT opioid naive and non-pharmacologic and non-opioid treatment has failed to significantly relieve the patient's pain and improve functionality. The patient has a diagnosis that is related to a somatic or visceral pain etiology. ? ?? I reviewed with the patient the potential risks and side effects with the use of? opioid medications including but not limited to respiratory depression,? sedation, and even . I verified the patient has access to naloxone should? these effects occur. I advised the patient to avoid the use of any other? sedation substances including alcohol, THC, and benzodiazepines while? taking opioid medications due to the risk of compounding side effects and? detrimental outcomes. I reviewed the PROGRAM DEVELOPMENT SPECIALIST, pain treatment agreement, urine? drug screen, and opioid start talking forms. The patient was advised to let? their family know they had Naloxone in case they would need to administer? the medication.? ?? A drug screen was completed within the last year, and no aberrancies were noted regarding their use of controlled substances. The patient understands they are subject to the terms and conditions of the pain contract that they have signed. ? ?? I have checked an [place]AR[place] report on this patient today and there are no aberrancies noted in the prescribing history.? The patient was advised that U.S. Food and Drug Administration (FDA) is warning that respiratory depression may occur in patients using gabapentin (Neurontin, Gralise, Horizant) or pregabalin (Lyrica, Lyrica CR) who have respiratory risk factors. These include the use of opioid pain medicines and other drugs that depress the central nervous system, and conditions such as chronic obstructive pulmonary disease (COPD) that reduce lung function. The elderly are also at higher risk.? (4) Lumbar spondylosis: (5) Myofascial pain: Plan continue current medications, tolerating well without side effects start baclofen 10mg TID PRN risks vs benefits and potential side effects discussed [employer] reviewed and signed pain well controlled, defer injection therapy f/u 3 months for medication management
== END 2024-01-13 14:05 | disposition home or self-care (01) ==
PROVIDERS: Visit Provider Nurse Practitioner
DX: M48.062 Spinal stenosis, lumbar region with neurogenic claudication (principal); M17.0 Bilateral primary osteoarthritis of knee; Z79.891 Long term (current) use of opiate analgesic; M47.816 Spondylosis without myelopathy or radiculopathy, lumbar region; M79.18 Myalgia, other site
CPT/HCPCS: G0463

== ENCOUNTER 2024-05-01 13:23 | Outpatient (OUT) | payer MEDICARE, SELFPAY ==
--- NOTE | 2024-05-01 13:25 | US_ITS ---
Patient Name: JOSE A SINCLAIR MR#: [id number] : 1965 Exam Date: 05/01/2024 Ordering Doctor: SANDEE FIGUEROA RADIOLOGY REPORT PROCEDURE: MM TOMOSYNTHESIS DIAGNOSTIC BI, 05/01/2024, 13:26 US BREAST BI LIMITED, 05/01/2024, 13:37 COMPARISON: US BREAST BI LIMITED, 10/07/2023. MM TOMOSYNTHESIS SCREENING BI, 07/20/2023. MM DIAGNOSTIC MAMMO BI, 10/07/2023. INDICATIONS: Abnormal Mammogram Calculator Name NCI Breast Cancer Risk Assessment Tool 5 Year Breast Cancer Risk 2.70% Lifetime Breast Cancer Risk 13.90% Personal Breast Cancer No Personal Ovarian Cancer No Treatments None Family Cancers Mother with breast cancer at age 40; Mother with ovarian cancer at age 76. LOCATION: [facility] BREAST COMPOSITION: There are scattered areas of fibroglandular density. FINDINGS: DIAGNOSTIC CATEGORY 2--BENIGN FINDING. NO CHANGE FROM COMPARISON. Scattered benign-appearing nodules are present. Scattered benign-appearing calcifications are present. Scattered benign-appearing lymph nodes are present. RIGHT BREAST: Stable retroareolar nodule. 6.2 x 3.1 x 6.3 mm oval nodule right 12:00, hypoechoic and stable from the prior exam. The lack of change favors a benign process. LEFT BREAST: No significant suspicious finding. RECOMMENDATIONS: ROUTINE MAMMOGRAM AND CLINICAL EVALUATION IN 12 MONTHS. PLEASE NOTE: A NORMAL MAMMOGRAM DOES NOT EXCLUDE THE POSSIBILITY OF BREAST CANCER. A CLINICALLY SUSPICIOUS PALPABLE LUMP SHOULD BE BIOPSIED. Dictated by: Etienne Garcia MD on 05/01/2024 at 13:57 Approved by: Etienne Garcia MD on 05/01/2024 at 14:01
--- OUTSIDE RECORDS SUMMARY | 2024-05-01 13:26 | XMS_ITS | CCD ---
Author Organization [facility] Care Team Providers Care Swatch Paster Name Role Phone LUCIA .PATRIA Admitting Unavailable LAKSHMIPATHY ., NARENDRANATH Consulting Dasia vailable [facility] Unava ilable HALKER ., PATRIA Attending Unavailable [facility] Unava ilable [...] HENRIQUEZ ., DR LUNA Lindsay Admitting Unavailable YUSUF WYMAN Attending Unavailable Allergies Allergy Classification Reported Allergen(s) Allergy Type Date of Onset Reaction(s) Facility (1 source) Latex Drug allergy (disorder) [facility] Repository (1 source) Penicillin Drug Allergy [facility] Repository Problems Active Problems Problem [...] Physical Therapy Noteon 08-07 Physical Therapy Note [id number]#1.00O [facility] Provider [place] 08-20-2020 Provider Orders [id number]#1.00O [facility] Medication Managementon 05-08 Medication Management [id number]#1.00O [facility] Coding Summaryon 05-30-2020 Coding Summary CODING DATE: 020 [facility] STATUS: PAYOR: Workers Compensation ADMIT DX: [...] Zahra Feliciano Date Saved: 05/30/2020 02:18 pm [facility] Provider Orderson 05-27-2020 Provider Orders [id number]#1.00O TGTIFF [facility] MAGR Intraoperative Recordon 04-08-2020 MAGR Intraoperative Record MAGR Intra-Op Record Summary Primary Physician: Warren Holliday DO Finalized Date/Time: 04/08/20 08:06:39 Pt. Name: JOSE A SINCLAIR/Sex: 1965 FEMALE Med Rec #: [id number] Physician: Warren Holliday DO Financial #: [id number] Pt. Type: D Room/Bed: / Admit/Disch: 04/01/20 [...] DO Role Performed Surgeon - Primary Director Of Sustainability Anesthesiologist of Record Time In 04/01/20 10:11:00 [...] Alonzo CST Role Performed Scrub Personnel Director Of Sustainability Psychiatric Secretary Time In 04/01/20 10:11:00 04/01/20 10:11:00 04/01/20 [...] Implant Action Implant Implant Description Arthrex Surture Tolar Arthrex Suture Tolar Biocomposite 4.75 x 4.75 x 24.5mm 24.5mm Implant Information Implant/Explant 04/01/20 10:55:00 04/01/20 10:59:00 Date/Time Implanted/Explanted Warren Holliday James By: Rainer BREWSTER Rainer DO Size 4.75 x 24.5mm 4.75 x 24.5mm Commercial Mortgage Broker Arthrex Arthrex Catalog # REF [id number] REF [id number] Lot Number [id number] Expiration Date 05/06/21 05/06/21 Serial Number Device Identifier Human Readable TY Machine Readable TY MR Class Implant Usage Data Site Shoulder L Shoulder L Quantity 1 1 Reason for Explant Reason Not Retained Explant Disposition Psych Nurse Sterility External Indicator Result Internal Indicator Results [...] Signed By: Estrellita Sanchez RN 04/01/20 11:46 Daniel GAY, Estrellita N 04/01/20 11:39 Daniel GAY, Estrellita N 04/08/20 08:06 Unfinalized History Date/Time Username Reason for Unfinalizing Freetext Reason for Unfinalizing 04/01/20 11:45 JESSICA Modify Pick List 04/08/20 08:04 JESSICA Finish Documentation [facility] Coding Summaryon 04-02-2020 Coding Summary CODING DATE: 020 [facility] STATUS: Home PAYOR: Workers Compensation APC [...] PROC APC STAT DESCRIPTION DOCTOR NAME DATE [id number] 5114 J1 Arthroscopy, shoulder, 04/01/2020 surgical; with [...] Blanton Revised Date Saved: 04/02/2020 02:55 pm [facility] Consent Formson 04-02-2020 Consent Forms [id number] [facility] Discharge Instructionson Discharge Instructions [id number]#1.00O [facility] History and Physicalon 04-02 History and Physical [id number]#1.00O [facility] Medication Managementon 03-07 Medication Management [id number]#1.00O [facility] Telemetry Stripson 0 Telemetry Strips [id number]#1.00O [facility] Anesthesia Noteon 04-01-2020 Anesthesia Note Patient: [...] history): All Problems Anemia / SNOMED CT 480257404 / Confirmed Hypothyroid / SNOMED CT 92085934 / Confirmed Iron deficiency / SNOMED CT 90955888 / Confirmed Histories Family History: No family history items have been selected or recorded. Procedure history: Gastric bypass (2552441669). Rotator cuff (97998047). Comments: 03/12/2020 9:17 EDT - Halblaub, Sidsel RN right shoulder, biceps Social History Electronic [...] Oriented. Review / Management Laboratory Results Plan [place] [employer] Anesthesiologists#(ASA) physical status classification: Class II. Anesthetic Preoperative Plan Anesthesia: General. , Regional (Interscalene Block, for post op pain control). Anesthetic plan, risks, benefits, and alternatives discussed with the patient and/or family. Patient verbalized understanding. [Electronically Signed on: 04/01/2020 09:45 EDT] Deyvi Samuels MD [Verified on: 04/01/2020 09:45 EDT] Deyvi Samuels MD [facility] Coding Summaryon 04-01-2020 Coding Summary CODING DATE: 020 [facility] STATUS: Home PAYOR: [employer] ADMIT DX: [...] Feliciano Date Saved: 04/01/2020 11:03 am Normal [facility] Inpatient Patient Summaryon 04-01-2020 Inpatient [place] [address] Patient Discharge Instructions Name: PRIETO SINCLAIRAngel Boyd : 1965 Patient Address: [address] [place] [address] Primary Care Provider: Name: Kelly Bunch DO After you are discharged if you find you have any questions, please, call [phone] ext [phone] to speak to a nurse. Discharge Diagnosis: Internal derangement of left shoulder Prescription Information: If you have been given a prescription for narcotics, seek immediate medical attention if you have any difficulty breathing or any sudden status changes such as confusion and sleepiness. If you or anyone you know is experiencing suicidal thoughts, mental health, alcohol and/or drug addiction problems; contact the [facility] 29/03 Crisis Hotline -text 4hope to 741741. If you received any narcotics, sedation, or [...] business decisions or sign any legal documents [facility] would like to thank you for allowing us to assist you with your healthcare needs. The following includes patient education materials and information regarding your injury/illness. 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 [...] 08/23/2006 Document Revised: 08/18/2018 Document Reviewed: 08/18/2018 [employer] Patient Education ? [address] GARCIA POST OPERATIVE SHOULDER INSTRUCTIONS [...] or concerns, please call the office at [phone] -Follow up as scheduled Viruses or Bacteria [...] for Disease Control and Prevention May 2014 [facility] MAGR Intraoperative Recordon 04-01-2020 MAGR Intraoperative Record MAGR Intra-Op Record Summary Primary Physician: Deyvi Samuels MD Finalized Date/Time: 04/01/20 10:15:13 Pt. Name: JOSE A SINCLAIR/Sex: 1965 FEMALE Med Rec #: [id number] Physician: Warren Holliday DO Financial #: [id number] Pt. Type: D Room/Bed: / Admit/Disch: 04/01/20 [...] RN Role Performed Surgeon - Primary Director Of Sustainability Director Of Sustainability Time In 04/01/20 09:50:00 04/01/20 09:50:00 04/01/20 [...] Signed By: Juany Guzman RN 04/01/20 10:15 [facility] MAGR PACU Recordon 0 MAGR PACU Record MAGR PACU Record Summary Primary Physician: Warren Holliday DO Finalized Date/Time: 04/01/20 12:39:27 Pt. Name: JOSE A SINCLAIR/Sex: 1965 FEMALE Med Rec #: [id number] Physician: Warren Holliday DO Financial #: [id number] Pt. Type: D Room/Bed: / Admit/Disch: 04/01/20 07:10:00 - Institution: PACU Case Times MAGR Entry 1 In PACU I 04/01/20 11:25:00 Discharge from PACU 04/01/20 12:28:00 I Last Modified By: Juany Guzman RN 04/01/20 12:39:18 Finalized By: Juany Guzman RN Document Signatures Signed By: Juany Guzman RN 04/01/20 12:39 [facility] MAGR Postoperative Recordon 04-01-2020 MAGR Postoperative Record MAGR Phase II Record Summary Primary Physician: Warren Holliday DO Finalized Date/Time: 04/01/20 13:49:00 Pt. Name: JOSE A SINCLAIR/Sex: 1965 FEMALE Med Rec #: [id number] Physician: Warren Holliday DO Financial #: [id number] Pt. Type: D Room/Bed: / Admit/Disch: 04/01/20 [...] Signed By: Sade Herring RN 04/01/20 13:48 [facility] MAGR Preoperative Recordon 0 04-01-2020 MAGR Preoperative Record MAGR Pre-Op Record Summary Primary Physician: Warren Holliday DO Finalized Date/Time: 04/01/20 10:16:27 Pt. Name: JOSE A SINCLAIR Oliver Yadav./Sex: 1965 FEMALE Med Rec #: [id number] Physician: Warren Holliday DO Financial #: [id number] Pt. Type: D Room/Bed: / Admit/Disch: 04/01/20 [...] By: Juany Guzman RN 04/01/20 10:16 Normal [facility] Operative Report - Surgeon/P chanda 04-01-2020 Operative [...] on: 04/01/2020 11:22 EDT] Warren Holliday DO [facility] Patient Handouton 04-01-[address] 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 [...] 08/23/2006 Document Revised: 08/18/2018 Document Reviewed: 08/18/2018 [employer] Interactive Patient Education ? 2019 [employer] [facility] SARS-CoV-2 (COVID-19) PCRon 04-01-2020 COVID-19 PCR Not Detected Normal Not Detected [facility] Comment on above: Order Comment: Done In-House Result Comment: Resu lts Called To Shu in Surg By GAUDENCIO And Read Back For Confirmation On 04/01/2020 08:20:03 EDT. Performed By: #### 6 [id number] ####[facility] (DEFAULT)[address] [place] [address] Progress Note - Nurseon 03-07 Progress Note - Nurse Spoke with pt and informed her to be here at 0715 and NPO after MN, she verbalizes understanding. [Electronically Signed on: 03/29/2020 10:42 EDT] Obdulia Barrow RN [Verified on: 03/29/2020 10:42 EDT] Obdulia Barrow RN [facility] Coding Summaryon 03-26-2020 Coding Summary CODING DATE: 020 [facility] STATUS: Home PAYOR: Workers Compensation APC [...] Marilyn Montez Date Saved: 03/26/2020 02:33 pm [facility] Lab - Immunology/Serology Re sultson 03-25-2020 Lab - Immunology/Serology Results [id number] [facility] Provider [place] 03-25-2020 Provider Orders [id number]#1.00O [facility] SARS-CoV-2 (COVID-19) PCRon 03-23-2020 COVID-19 PCR Not Detected Normal Not Detected [facility] Comment on above: Order Comment: Sent to [facility] Performed By: #### 6 [id number] ####[facility] (DEFAULT)[address] [place] [address] Provider [place] 03-22-2020 Provider Orders [id number]#1.00O [facility] Progress Note - Nurseon Progress Note - Nurse chart reviewed per Dr Jones and cleared for surgery. no furthers orders received [Electronically Signed on: 03/14/2020 14:57 EDT] Sade Herring RN [Verified on: 03/14/2020 14:57 EDT] Sade Herring RN [facility] .Auto Diff 03-12-2020 Auto [place] % 7 % Normal 1-12 [facility] Comment on above: Performed By: #### 7 [id number], [id number] ####[facility] (DEFAULT)[address] [place] [address] 13707 Baso Abs# 0.1 x10 Normal 0.0-0.2 [facility] Comment on above: Performed By: #### 7 [id number], [id number] ####[facility] (DEFAULT)[address] [place] [address] 90386 Basophils/100 WBC (Bld) 1.5 % Normal 0.2-2.0 [facility] Comment on above: Performed By: #### 7 [id number], [id number] ####[facility] (DEFAULT)[address] [place] [address] 05462 Eos Abs# 0.6 x10 High 0.0-0.4 [facility] Comment on above: Performed By: #### 7 [id number], [id number] ####[facility] (DEFAULT)[address] [place] [address] 06452 Eosinophils/100 WBC (Bld) 11.6 % High 0.9-4.0 [facility] Comment on above: Performed By: #### 7 [id number], [id number] ####[facility] (DEFAULT)[address] [place] [address] 96246 Lymphocytes (Bld) [#/Vol] 0.8 x10 Low 1.3-2.9 [facility] Comment on above: Performed By: #### 7 [id number], [id number] ####[facility] (DEFAULT)[address] [place] [address] 53462 Lymphocytes/100 WBC (Bld) 16 % Normal 14-48 [facility] Comment on above: Performed By: #### 7 [id number], [id number] ####[facility] (DEFAULT)[address] [place] [address] 25514 [place] Abs# 0.4 x10 Normal 0.0-0.8 [facility] Comment on above: Performed By: #### 7 [id number], [id number] ####[facility] (DEFAULT)[address] [place] [address] Neut Abs# 3.0 x10 Normal 1.5-9.2 [facility] Comment on above: Performed By: #### 7 [id number], [id number] ####[facility] (DEFAULT)[address] [place] [address] 22793 Neutrophils/100 WBC (Bld) 63 % Normal 44-88 [facility] Comment on above: Performed By: #### 7 [id number], [id number] ####[facility] (DEFAULT)[address] [place] [address] 01450 CBC w/ Auto Diffon 0 Erythrocyte distribution width (RBC) [Ratio] 13.3 % Normal 11.5-15.0 [facility] Comment on above: Performed By: #### 7 [id number], [id number] ####[facility] (DEFAULT)[address] [place] [address] Hematocrit (Bld) [Volume fraction] 41.8 % High 33.7-40.4 [facility] Comment on above: Performed By: #### 7 [id number], [id number] ####[facility] (DEFAULT)[address] [place] [address] Hemoglobin (Bld) [Mass/Vol] 14.4 g/dL Normal 11.3-15.9 [facility] Comment on above: Performed By: #### 7 [id number], [id number] ####[facility] (DEFAULT)[address] [place] [address] 26991 Man Diff? Auto Normal [facility] Comment on above: Performed By: #### 7 [id number], [id number] ####[facility] (DEFAULT)[address] [place] [address] 20677 MCH (RBC) [Entitic mass] 30 pg Normal 24-34 [facility] Comment on above: Performed By: #### 7 [id number], [id number] ####[facility] (DEFAULT)[address] [place] [address] 20757 MCHC (RBC) [Mass/Vol] 34 g/dL Normal 26-37 [facility] Comment on above: Performed By: #### 7 [id number], [id number] ####[facility] (DEFAULT)[address] [place] [address] 45734 MCV (RBC) [Entitic vol] 86 fL Normal 81-100 [facility] Comment on above: Performed By: #### 7 [id number], [id number] ####[facility] (DEFAULT)[address] [place] [address] 08465 Platelet mean volume (Bld) [Entitic vol] 9.6 fL Normal 6.3-10.2 [facility] Comment on above: Performed By: #### 7 [id number], [id number] ####[facility] (DEFAULT)[address] [place] [address] 40322 Platelets (Bld) [#/Vol] 229 x10 Normal 138-427 [facility] Comment on above: Performed By: #### 7 [id number], [id number] ####[facility] (DEFAULT)[address] [place] [address] 31190 RBC (Bld) [#/Vol] 4.85 x10 Normal 3.70-5.30 [facility] Comment on above: Performed By: #### 7 [id number], [id number] ####[facility] (DEFAULT)[address] [place] [address] 29753 WBC (Bld) [#/Vol] 4.8 x10 [facility] Comment on above: Performed By: #### 7 [id number], [id number] ####[facility] (DEFAULT)[address] [place] [address] Encounters Encounter Date Encounter Type Care Provider Facility Start: 02-02-2024 End: 02-02-2024 ambulatory YUSUF GARO Not Available Start: 01-08-2023 End: 01-09-2023 ambulatory PATRIA MYERS . Facility:[facility] Start: 12-03-2022 ambulatory JUWAN YAÑEZ . Facility:[facility] Start: 07-23-2022 End: 07-24-2022 ambulatory JUWAN YAÑEZ . Facility:[facility] Start: 02-19-2022 End: 02-20-2022 ambulatory JUWAN YAÑEZ . Facility:[facility] Start: 02-05-2022 ambulatory JUWAN YAÑEZ . Facility:[facility] Start: 01-22-2022 End: 01-23-2022 [facility] Facility:[facility] Payers Date Payer Category Payer Medicare [id number] 1965 Unknown [id number] 2.16.84 [id number] 1965 Unknown [id number] 2.16.84 [id number] 1965 Unknown [id number] 2.16.84 [id number] 1965 Unknown [id number] 2.16.84 [id number] 1965 Unknown [id number] 2.16.84 [id number] 1965 Unknown [id number] 2.16.84 [id number] 1965 Unknown [id number] 2.16.84 [id number] 1960 Unknown [id number] 1960 Unknown [id number] Consultation note 07-23-2022 Note Date & Type [...] Patient is in agreement with this. [facility] Consultation note 02-19-2022 Note Date [...] by: JUWAN YAÑEZ . 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 01/26/2022 15:08:00 [facility] Consultation note 01-22-2022 Note Date [...] heme. The patient tolerated the procedure well. IF Signed and Approved by: JUWAN YAÑEZ . 01/26/2022 15:08:00 [facility] Consultation note 01-22-2022 Note Date [...] relief and improvement of the left knee. IF Signed and Approved by: JUWAN YAÑEZ . 01/26/2022 15:08:00 [facility] Summary Purpose Family History No Family History Records FoundNo Family History Records FoundNo Family History Records Found Advance Directives No Advanced Directives Records FoundNo Advanced Directives Records FoundNo Advanced Directives Records Found Hospital Course Note [facility] SURGERY Clinical Discharge Summary PERSON INFORMATION Name JOSE A SINCLAIR Age 54 Years 1965 Sex FEMALE Language Faroese PCP Kelly Bunch DO Marital Status [facility] Service Ambulatory Surgery Acct# Arrival 04/01/2020 07:10:00 Visit Reason SURGERY - LEFT SHOULDER SCOPE WITH ROTATOR CUFF REPAIR Acuity LOS 026 02:33 Address: [address] [place] [address] Comment: PROVIDER INFORMATION VITALS INFORMATION Vital Sign [...] history): All Problems Anemia / SNOMED CT 221668854 / Confirmed Hypothyroid / SNOMED CT 72653991 / Confirmed Iron deficiency / SNOMED CT 74110452 / Confirmed Physical Examination VS/Measurements Vital Signs (last 24 hrs) Last Charted Heart Rate Peripheral 69 bpm (APR 01 10:06) Resp Rate 16 br/min (APR 01 10:06) SBP H 153mmHg (APR 01 10:06) DBP 82 mmHg (APR 01 10:06) SpO2 99 % (APR 01 10:06) Review / Management Condition: Stable. Assessment Anesthetic [...] history): All Problems Anemia / SNOMED CT 187191942 / Confirmed Hypothyroid / SNOMED CT 63820184 / Confirmed Iron deficiency / SNOMED CT 37538663 / Confirmed Physical Examination VS/Measurements Vital Signs (last 24 hrs) Last Charted Heart Rate Peripheral 69 bpm (APR 01 10:06) Resp Rate 16 br/min (APR 01:) SBP [...] and content) DATE CREATED AUTHOR 08/28/2020 [facility] DATE CREATED AUTHOR AUTHOR'S ORGANIZ ATION 01/15/2023 [facility] DATE CREATED AUTHOR AUTHOR'S ORGANIZ ATION 02/03/2024 [facility] FOR RECORDS PERTAINING TO PATIENTS WHO ARE [...] BE BASED ON THE PRIMARY CLINICAL RECORDS. [employer] provides no warranty or guarantee of the accuracy or completeness of information in this document.
== END 2024-05-01 13:24 | disposition home or self-care (01) ==
LOC: MAMMO 13:23
PROVIDERS: PCP Nurse Practitioner
DX: R92.8 Other abnormal and inconclusive findings on diagnostic imaging of breast (principal); Z80.3 Family history of malignant neoplasm of breast; Z80.41 Family history of malignant neoplasm of ovary
CPT/HCPCS: 76642; 77066; G0279

== ENCOUNTER 2024-05-03 12:50 | Outpatient (OUT) | payer MEDICARE, SELFPAY ==
--- NOTE | 2024-05-03 12:53 | PM.CN ---
Consult Note: HPI Data of Consult Patient: known to practice within the last 3 years Requesting Physician: Veronique Laird NP Primary Care Provider: Dinorah Schulte NP Consult Narrative Reason for consult: f/u Narrative: Stephanie Nichols a pleasant 58 year old female presents for evaluation and management of chronic low back and hip pain, pain today 3/10 increasing to 7/10 with activity, standing, walking, twisting, bending, decreased with massage/heat/ice. Patient finds moderate benefit to baclofen, gabapentin, tramadol, and trazadone. Previous lumbar MRI consistent with lumbar stenosis with NC, lumbar radiculopathy, lumbar facet arthropathy, lx spondylosis. Bilateral knee xrays consistent with moderate OA. Patient doing well since last visit, pain well controlled with current medication regimen without side effects. cc:: CC: Veronique Laird NP Review of Systems ROS Status of ROS 10 or more systems reviewed and unremarkable except as noted in history and below Musculoskeletal Reports: back pain and joint pain; Denies: neck pain or extremity pain [facility] Medical History Encounter for medication monitoring ?Z51.81 - Encounter for therapeutic drug level monitoring (ICD-10) Meds Home Medications and Allergies Home Medications ?Medication ?Instructions ?Recorded ?Confirmed ?Type VITAMIN D DAILY 04/28/23 History buspirone 10 mg tablet 10 mg PO BID 04/28/23 04/28/23 History gabapentin 600 mg tablet 600 mg PO DAILY 04/28/23 04/28/23 History levothyroxine 150 mcg tablet 150 mcg PO DAILY 04/28/23 04/28/23 History (Synthroid) lisinopril 10 mg tablet 10 mg PO DAILY 04/28/23 04/28/23 History multivitamin 1 tab PO DAILY 04/28/23 04/28/23 History tramadol 50 mg tablet 50 mg PO TID 04/28/23 04/28/23 History trazodone 50 mg tablet 50 mg PO DAILY 04/28/23 04/28/23 History vitamin B12 0.5 mg-folic acid 1 mg 1 tab PO DAILY 04/28/23 04/28/23 History tablet lidocaine 4 % topical cream 1 applic topical BID #30 grams 07/14/23 Rx lidocaine 5 % topical cream 1 applic topical BID PRN pain #30 08/12/23 Rx grams baclofen 10 mg tablet 10 mg PO TID #90 tabs 01/13/24 Rx tramadol 50 mg tablet 50 mg PO TID PRN pain #90 tabs 01/13/24 Rx tramadol 50 mg tablet 50 mg PO TID PRN pain #90 tabs 02/10/24 Rx tramadol 50 mg tablet 50 mg PO TID PRN pain #90 tabs 03/08/24 Rx Allergies Allergy/AdvReac Type Severity Reaction Status Date / Time Latex, Natural Rubber Allergy Unknown Rash Verified 04/28/23 13:53 Penicillins Allergy Unknown Verified 04/28/23 13:53 Exam Constitutional Documenting provider has reviewed patient's vital signs: yes Common normals: no apparent distress, oriented x3, healthy appearing, alert and well nourished General appearance: cooperative Nutritional appearance: obese HENMT Common normals: normocephalic, hearing grossly normal bilaterally and moist oral mucous membranes Head and scalp: normocephalic Eye Common normals: PERRL Pupil: PERRL Neck & C-Spine Common normals: full ROM General: normal visual inspection Cervical spine: cervical ROM normal Chest Common normals: inspection of chest normal Respiratory Common normals: normal respiratory effort, no retractions and no use of accessory muscles Back & Pelvis Common normals: straight leg raise negative bilaterally Lumbar spine/lower back: ROM limited, pain with ROM (positive bilateral facet loading, right worse than left), lumbar spinal tenderness and paraspinal muscle tenderness Sacroiliac joints: SI joint(s) abnormal (bilaterally positive BARBARA, gaenslens, yeoman) SI joint details: tender to palpation Other: weakness to BLE diminished sensation in right L4,5 dermatomal pattern Extremity Common normals: normal to inspection and full ROM Right lower extremity: knee joint Left lower extremity: knee joint Other: bilateral knees enlarged diameter Neuro Common normals: oriented x3, CN's II-XII intact bilaterally, moves all extremities, no focal motor deficits, no sensory deficits noted and deep tendon reflexes 2+ bilaterally Sensorium/orientation: alert Gait (neuro): antalgic Motor exam: strength 5/5 throughout and no movement abnormalities noted Other: intermittent bilateral leg weakness and instability Psych Common normals: mental status grossly normal, thought process normal, cooperative, affect normal, speech normal and activity/motor behavior normal Speech: normal speech Thought process: normal thought process Results Additional Findings Additional findings: If on a controlled substance or opioids, I have checked an [place] report on this patient and there are no aberrancies noted in the prescribing history.??If on a controlled substance or opioid a drug screen was completed and reviewed within the last year, and if there has not been a drug screen completed we ordered one today to monitor higher risk, state monitored pain medication use. As part of providing excellent, safe, comprehensive care, the following was completed at our patient's visit: 1. A medication reconciliation and review to ensure accurate knowledge of current/active medications, including asking our patients to inform us about any [id number] medications or herbal remedies/nutritional supplements/alternative remedies. 2. A review to specifically ensure our patients have had annual screening for screening for depression, screening for tobacco use, and screening for unhealthy alcohol use. For concerning screenings had a discussion with the patient, provided patient education, and recommended follow-up with primary care provider when appropriate. If patient noted with a risk of falling, they received education on strength, gait, and balance training to prevent future risk of falling. Assessment and Plan Assessment and Plan (1) Lumbar stenosis without neurogenic claudication: (2) Bilateral primary osteoarthritis of knee: (3) Chronic prescription opiate use: Assessment and Plan: I feel these medications are improving the patient's quality of life and allow them to tolerate activities of daily living as well as participate in recreational activity.? The patient does not report intolerable side effects. The patient is NOT opioid naive and non-pharmacologic and non-opioid treatment has failed to significantly relieve the patient's pain and improve functionality. The patient has a diagnosis that is related to a somatic or visceral pain etiology. ? ?? I reviewed with the patient the potential risks and side effects with the use of? opioid medications including but not limited to respiratory depression,? sedation, and even . I verified the patient has access to naloxone should? these effects occur. I advised the patient to avoid the use of any other? sedation substances including alcohol, THC, and benzodiazepines while? taking opioid medications due to the risk of compounding side effects and? detrimental outcomes. I reviewed the [employer], pain treatment agreement, urine? drug screen, and opioid start talking forms. The patient was advised to let? their family know they had Naloxone in case they would need to administer? the medication.? ?? A drug screen was completed within the last year, and no aberrancies were noted regarding their use of controlled substances. The patient understands they are subject to the terms and conditions of the pain contract that they have signed. ? ?? I have checked an [place] report on this patient today and there are no aberrancies noted in the prescribing history.? (4) Lumbar spondylosis: (5) Myofascial pain: Plan continue current medications, tolerating well without side effects pain well controlled, defer injection therapy narcan and UDS today f/u 3 months for medication management, sooner if needed
--- OUTSIDE RECORDS SUMMARY | 2024-05-03 13:05 | XMS_ITS | CCD ---
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 Name Role Phone LUCIA .PATRIA Admitting Unavailable LAKSHMIPATHY ., NARENDRANATH Consulting Dasia vailable [facility] Unava ilable HALKER ., PATRIA Attending Unavailable [facility] Unava ilable HENRIQUEZ ., DR LUNA Lindsay Admitting Unavailable HENRIQUEZ ., DR LUNA Lindsay Attending Unavailable YAÑEZ ., JUWAN Consulting Unavailable YAÑEZ ., JUWAN Consulting Unavailable HENRIQUEZ ., DR LUNA Lindsay Attending Unavailable [facility] Unava ilable HENRIQUEZ ., DR LUNA Lindsay Admitting Unavailable YAÑEZ ., JUWAN Consulting Unavailable [facility] Unava ilable HENRIQUEZ ., DR LUNA Lindsay Attending Unavailable HENRIQUEZ ., DR LUNA Lindsay Admitting Unavailable YAÑEZ ., JUWAN Consulting Unavailable [facility] Unava ilable HENRIQUEZ ., DR LUNA Lindsay Attending Unavailable HENRIQUEZ ., DR LUNA Lindsay Admitting Unavailable YAÑEZ ., JUWAN Consulting Unavailable [facility] Unava ilable HENRIQUEZ ., DR LUNA Lindsay Attending Unavailable HENRIQUEZ ., DR LUNA Lindsay Admitting Unavailable YUSUF WYMAN Attending Unavailable Allergies Allergy Classification Reported Allergen(s) Allergy Type Date of Onset Reaction(s) Facility (1 source) Latex Drug allergy (disorder) [facility] Repository (1 source) Penicillin Drug Allergy [facility] Repository Problems Active Problems Problem Classification Problem [...] Physical Therapy Noteon 08-07 Physical Therapy Note [id number]#1.00O [facility] Provider Orderson 08-20-2020 Provider Orders [id number]#1.00O [facility] Medication Managementon 05-08 Medication Management [id number]#1.00O [facility] Coding Summaryon 05-30-2020 Coding Summary CODING DATE: 020 [facility] STATUS: PAYOR: Workers Compensation ADMIT DX: [...] Zahra Feliciano Date Saved: 05/30/2020 02:18 pm [facility] Provider Orderson 05-27-2020 Provider Orders [id number]#1.00O TGTIFF [facility] MAGR Intraoperative Recordon 04-08-2020 MAGR Intraoperative Record MAGR Intra-Op Record Summary Primary Physician: Warren Holliday DO Finalized Date/Time: 04/08/20 08:06:39 Pt. Name: JOSE A SINCLAIR/Sex: 1965 FEMALE Med Rec #: [id number] Physician: Warren Holliday DO Financial #: [id number] Pt. Type: D Room/Bed: / Admit/Disch: 04/01/20 [...] MD, DO Role Performed Surgeon - Primary Credit Collections Rep Anesthesiologist of Record Time In 04/01/20 10:11:00 [...] Miguelangel Alonzo CST Role Performed Scrub Personnel Credit Collections Rep Pipe Bowl Paint Trimmer Time In 04/01/20 10:11:00 04/01/20 10:11:00 04/01/20 [...] Implant Action Implant Implant Description Arthrex Surture Huffman Arthrex Suture Huffman Biocomposite 4.75 x 4.75 x 24.5mm 24.5mm Implant Information Implant/Explant 04/01/20 10:55:00 04/01/20 10:59:00 Date/Time Implanted/Explanted Warren Holliday James By: Rainer BREWSTER Rainer DO Size 4.75 x 24.5mm 4.75 x 24.5mm Claims Correspondence Clerk Arthrex Arthrex Catalog # REF [id number] REF [id number] Lot Number [id number] Expiration Date 05/06/21 05/06/21 Serial Number Device Identifier Human Readable TY Machine Readable TY MR Class Implant Usage Data Site Shoulder L Shoulder L Quantity 1 1 Reason for Explant Reason Not Retained Explant 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 STATUS: Home PAYOR: Workers Compensation APC [...] PROC APC STAT DESCRIPTION DOCTOR NAME DATE 21104 5114 J1 Arthroscopy, shoulder, 04/01/2020 surgical; with [...] Blanton Revised Date Saved: 04/02/2020 02:55 pm [facility] Consent Formson 04-02-2020 Consent Forms [id number]#1.00O [facility] Discharge Instructionson Discharge Instructions [id number]#1.00O [facility] History and Physicalon 04-02 History and Physical [id number]#1.00O [facility] Medication Managementon 03-07 Medication Management [id number]#1.00O [facility] Telemetry Stripson 0 Telemetry Strips [id number]#1.00O [facility] Anesthesia Noteon 04-01-2020 Anesthesia Note Patient: HILARY [...] history): All Problems Anemia / SNOMED CT 006535528 / Confirmed Hypothyroid / SNOMED CT 86839661 / Confirmed Iron deficiency / SNOMED CT 77547738 / Confirmed Histories Family History: No family history items have been selected or recorded. Procedure history: Gastric bypass ([id number]). Rotator cuff (86187169). Comments: 03/12/2020 9:17 EDT - Halblaub, Sidsel [...] Oriented. Review / Management Laboratory Results Plan [place] [employer] Anesthesiologists#(ASA) physical status classification: Class II. Anesthetic Preoperative Plan Anesthesia: General. , Regional (Interscalene Block, for post op pain control). Anesthetic plan, risks, benefits, and alternatives discussed with the patient and/or family. Patient verbalized understanding. [Electronically Signed on: 04/01/2020 09:45 EDT] Deyvi Samuels MD [Verified on: 04/01/2020 09:45 EDT] Deyvi Samuels MD [facility] Coding Summaryon 04-01-2020 Coding Summary CODING DATE: [...] Saved: 04/01/2020 11:03 am Normal [facility] Inpatient Patient Summaryon 04-01-2020 [place] [address] Patient Discharge Instructions Name: PRIETO SINCLAIRAngel Boyd : 1965 Patient Address: [address] [place] [address] Primary Care Provider: Name: Kelly Bunch DO After you are discharged if you find you have any questions, please, call [phone] ext [phone] to speak to a nurse. Discharge Diagnosis: [...] problems; contact the [facility] 29/03 Crisis Hotline -text 4hope to 741741. [...] or sign any legal documents [facility] would like to thank you for allowing us to assist you with your healthcare needs. The following includes patient education materials and information regarding your injury/illness. 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 [...] 08/23/2006 Document Revised: 08/18/2018 Document Reviewed: 08/18/2018 [employer] Patient Education ? 2018 [employer] [...] or concerns, please call the office at [phone] -Follow up as scheduled Viruses or Bacteria [...] for Disease Control and Prevention May 2014 [facility] MAGR Intraoperative Recordon 04-01-2020 MAGR Intraoperative Record MAGR Intra-Op Record Summary Primary Physician: Deyvi Samuels MD Finalized Date/Time: 04/01/20 10:15:13 Pt. Name: JOSE A SINCLAIR/Sex: 1965 FEMALE Med Rec #: [id number] Physician: Warren Holliday DO Financial #: [id number] Pt. Type: D Room/Bed: / Admit/Disch: 04/01/20 [...] López RN Role Performed Surgeon - Primary Credit Collections Rep Credit Collections Rep Time In 04/01/20 09:50:00 04/01/20 09:50:00 04/01/20 [...] Signed By: Juany Guzman RN 04/01/20 10:15 [facility] MAGR PACU Recordon 0 MAGR PACU Record MAGR PACU Record Summary Primary Physician: Warren Holliday DO Finalized Date/Time: 04/01/20 12:39:27 Pt. Name: JOSE A SINCLAIR/Sex: 1965 FEMALE Med Rec #: [id number] Physician: Warren Holliday DO Financial #: [id number] Pt. Type: D Room/Bed: / Admit/Disch: 04/01/20 07:10:00 - Institution: PACU Case Times MAGR Entry 1 In PACU I 04/01/20 11:25:00 Discharge from PACU 04/01/20 12:28:00 I Last Modified By: Juany Guzman RN 04/01/20 12:39:18 Finalized By: Juany Guzman RN Document Signatures Signed By: Juany Guzman RN 04/01/20 12:39 [facility] MAGR Postoperative Recordon 04-01-2020 MAGR Postoperative Record MAGR Phase II Record Summary Primary Physician: Warren Holliday DO Finalized Date/Time: 04/01/20 13:49:00 Pt. Name: JOSE A SINCLAIR/Sex: 1965 FEMALE Med Rec #: [id number] Physician: Warren Holliday DO Financial #: [id number] Pt. Type: D Room/Bed: / Admit/Disch: 04/01/20 [...] Signed By: Sade Herring RN 04/01/20 13:48 [facility] MAGR Preoperative Recordon 0 04-01-2020 MAGR Preoperative Record MAGR Pre-Op Record Summary Primary Physician: Warren Holliday DO Finalized Date/Time: 04/01/20 10:16:27 Pt. Name: JOSE A SINCLAIR Oliver Yadav./Sex: 1965 FEMALE Med Rec #: [id number] Physician: Warren Holliday DO Financial #: [id number] Pt. Type: D Room/Bed: / Admit/Disch: 04/01/20 [...] Guzman RN 04/01/20 10:[address] [facility] Operative Report - Surgeon/P chanda 04-01-2020 [...] on: 04/01/2020 11:22 EDT] Warren Holliday DO [facility] Patient Handouton 04-01-[address] 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 [...] 08/23/2006 Document Revised: 08/18/2018 Document Reviewed: 08/18/2018 [employer] Interactive Patient Education ? 2019 [employer] [facility] SARS-CoV-2 (COVID-19) PCRon 04-01-2020 COVID-19 PCR Not Detected Normal Not Detected [facility] Comment on above: Order Comment: Done In-House Result Comment: Resu lts Called To Shu in Surg By GAUDENCIO And Read Back For Confirmation On 04/01/2020 08:20:03 EDT. Performed By: #### 6 [id number] ####[facility] (DEFAULT)[address] [place] [address] Progress Note - Nurseon 03-07 Progress Note - Nurse Spoke with pt and informed her to be here at 0715 and NPO after MN, she verbalizes understanding. [Electronically Signed on: 03/29/2020 10:42 EDT] Obdulia Barrow RN [Verified on: 03/29/2020 10:42 EDT] Obdulia Barrow RN [facility] Coding Summaryon 03-26-2020 Coding Summary CODING DATE: 020 [facility] STATUS: Home PAYOR: Workers Compensation APC [...] Marilyn Montez Date Saved: 03/26/2020 02:33 pm [facility] Lab - Immunology/Serology Re sultson 03-25-2020 Lab - Immunology/Serology Results [id number]#1.00O [facility] Provider Ord[place] 03-25-2020 Provider Orders [id number]#1.00O [facility] SARS-CoV-2 (COVID-19) PCRon 03-23-2020 COVID-19 PCR Not Detected Normal Not Detected [facility] Comment on above: Order Comment: Sent to [facility] Performed By: #### 6 [id number] ####[facility] (DEFAULT)[address] [place] [address] Provider Orderson 03-22-2020 Provider Orders [id number]#1.00O [facility] Progress Note - Nurseon Progress Note - Nurse chart reviewed per Dr Jones and cleared for surgery. no furthers orders received [Electronically Signed on: 03/14/2020 14:57 EDT] Sade Herring RN [Verified on: 03/14/2020 14:57 EDT] Sade Herring RN [facility] .Auto Diff 03-12-2020 Auto Drew % 7 % Normal 1-[address] [facility] Comment on above: Performed By: #### 7 [id number], [id number] ####[facility] (DEFAULT)[address] [place] [address] 87802 Baso Abs# 0.1 x10 Normal 0.0-0.[address] [facility] Comment on above: Performed By: #### 7 [id number], [id number] ####[facility] (DEFAULT)[address] [place] [address] 77120 Basophils/100 WBC (Bld) 1.5 % Normal 0.2-2.[address] [facility] Comment on above: Performed By: #### 7 [id number], [id number] ####[facility] (DEFAULT)[address] [place] [address] 56014 Eos Abs# 0.6 x10 High 0.0-0.[address] [facility] Comment on above: Performed By: #### 7 [id number], [id number] ####[facility] (DEFAULT)[address] [place] [address] 14065 Eosinophils/100 WBC (Bld) 11.6 % High 0.9-4.[address] [facility] Comment on above: Performed By: #### 7 [id number], [id number] ####[facility] (DEFAULT)[address] [place] [address] 70568 Lymphocytes (Bld) [#/Vol] 0.8 x10 Low 1.3-2.[address] [facility] Comment on above: Performed By: #### 7 [id number], [id number] ####[facility] (DEFAULT)[address] [place] [address] 80920 Lymphocytes/100 WBC (Bld) 16 % Normal 14-[address] [facility] Comment on above: Performed By: #### 7 [id number], [id number] ####[facility] (DEFAULT)[address] [place] [address] 81530 Drew Abs# 0.4 x10 Normal 0.0-0.[address] [facility] Comment on above: Performed By: #### 7 [id number], [id number] ####[facility] (DEFAULT)[address] [place] [address] Neut Abs# 3.0 x10 Normal 1.5-9.[address] [facility] Comment on above: Performed By: #### 7 [id number], [id number] ####[facility] (DEFAULT)[address] [place] [address] 55184 Neutrophils/100 WBC (Bld) 63 % Normal 44-[address] [facility] Comment on above: Performed By: #### 7 [id number], [id number] ####[facility] (DEFAULT)[address] [place] [address] 54868 CBC w/ Auto Diffon 0 Erythrocyte distribution width (RBC) [Ratio] 13.3 % Normal 11.5-15.[address] [facility] Comment on above: Performed By: #### 7 [id number], [id number] ####[facility] (DEFAULT)[address] [place] [address] Hematocrit (Bld) [Volume fraction] 41.8 % High 33.7-40.[address] [facility] Comment on above: Performed By: #### 7 [id number], [id number] ####[facility] (DEFAULT)[address] [place] [address] Hemoglobin (Bld) [Mass/Vol] 14.4 g/dL Normal 11.3-15.[address] [facility] Comment on above: Performed By: #### 7 [id number], [id number] ####[facility] (DEFAULT)[address] [place] [address] 29671 Man Diff? Auto Normal [facility] Comment on above: Performed By: #### 7 [id number], [id number] ####[facility] (DEFAULT)[address] [place] [address] 64390 MCH (RBC) [Entitic mass] 30 pg Normal 24-[address] [facility] Comment on above: Performed By: #### 7 [id number], [id number] ####[facility] (DEFAULT)[address] [place] [address] 74508 MCHC (RBC) [Mass/Vol] 34 g/dL Normal 26-[address] [facility] Comment on above: Performed By: #### 7 [id number], [id number] ####[facility] (DEFAULT)[address] [place] [address] 88185 MCV (RBC) [Entitic vol] 86 fL Normal 81-[address] [facility] Comment on above: Performed By: #### 7 [id number], [id number] ####[facility] (DEFAULT)[address] [place] [address] 01920 Platelet mean volume (Bld) [Entitic vol] 9.6 fL Normal 6.3-10.[address] [facility] Comment on above: Performed By: #### 7 [id number], [id number] ####[facility] (DEFAULT)[address] [place] [address] 05657 Platelets (Bld) [#/Vol] 229 x10 Normal 138-[address] [facility] Comment on above: Performed By: #### 7 [id number], [id number] ####[facility] (DEFAULT)[address] [place] [address] 64796 RBC (Bld) [#/Vol] 4.85 x10 Normal 3.70-5.30 [facility] Comment on above: Performed By: #### 7 [id number], [id number] ####[facility] (DEFAULT)[address] [place] [address] 65353 WBC (Bld) [#/Vol] 4.8 x10 [facility] Comment on above: Performed By: #### 7 [id number], [id number] ####[facility] (DEFAULT)[address] [place] [address] 79399 Encounters Encounter Date Encounter Type Care Provider [...] . Facility:H 1 Start: 01-22-2022 End: 01-23-2022 [facility] Facility:H1 Payers Date Payer Category Payer Medicare [id number] 1965 Unknown [id number] 2.16.84 [id number] 1965 Unknown [id number] 2.16.84 [id number] 1965 Unknown [id number] 2.16.84 [id number] 1965 Unknown [id number] 2.16.84 [id number] 1965 Unknown [id number] 2.16.84 [id number] 1965 Unknown [id number] 2.16.84 [id number] 1965 Unknown [id number] 2.16.84 [id number] 1960 Unknown [id number] 1960 Unknown [id number] Consultation note 07-23-2022 Note Date & Type [...] Patient is in agreement with this. [facility] Consultation note 02-19-2022 Note Date & Type [...] by: JUWAN YAÑEZ . 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 01/26/2022 15:08:00 [facility] Consultation note 01-22-2022 Note Date & Type [...] by: JUWAN YAÑEZ . 01/26/2022 15:08:00 [facility] Consultation note 01-22-2022 Note Date & Type [...] by: JUWAN YAÑEZ . 01/26/2022 15:08:00 [facility] Summary Purpose Family History No Family History Records FoundNo Family History Records FoundNo Family History Records Found Advance Directives No Advanced Directives Records FoundNo Advanced Directives Records FoundNo Advanced Directives Records Found Hospital Course Note [facility] SURGERY Clinical Discharge Summary PERSON INFORMATION Name JOSE A SINCLAIR Age 54 Years 1965 Sex FEMALE Language Albanian PCP Kelly Bunch DO Marital Status [facility] Service Ambulatory Surgery Acct# Arrival 04/01/2020 07:10:00 Visit Reason SURGERY - LEFT SHOULDER SCOPE WITH ROTATOR CUFF REPAIR Acuity LOS 026 02:33 Address: [address] [place] [address] Comment: PROVIDER INFORMATION VITALS INFORMATION Vital Sign [...] history): All Problems Anemia / SNOMED CT 408276458 / Confirmed Hypothyroid / SNOMED CT 55553380 / Confirmed Iron deficiency / SNOMED CT 59878714 / Confirmed Physical Examination VS/Measurements Vital Signs [...] history): All Problems Anemia / SNOMED CT 822756350 / Confirmed Hypothyroid / SNOMED CT 16949960 / Confirmed Iron deficiency / SNOMED CT 04677106 / Confirmed Physical Examination VS/Measurements Vital Signs [...] section and content) DATE CREATED AUTHOR 08/28/2020 [facility] DATE CREATED AUTHOR AUTHOR'S ORGANIZ ATION 01/15/2023 [facility] DATE CREATED AUTHOR AUTHOR'S ORGANIZ ATION 02/03/2024 [facility] [employer] [facility] FOR RECORDS PERTAINING TO PATIENTS WHO [...] BE BASED ON THE PRIMARY CLINICAL RECORDS. [employer] provides no warranty or guarantee of the accuracy or completeness of information in this document.
== END 2024-05-03 12:51 | disposition home or self-care (01) ==
PROVIDERS: PCP Nurse Practitioner; Visit Provider Nurse Practitioner
DX: M48.062 Spinal stenosis, lumbar region with neurogenic claudication (principal); M17.0 Bilateral primary osteoarthritis of knee; Z79.891 Long term (current) use of opiate analgesic; M47.816 Spondylosis without myelopathy or radiculopathy, lumbar region; M79.18 Myalgia, other site
CPT/HCPCS: G0463

== ENCOUNTER 2024-08-16 08:44 | Outpatient (OUT) | payer MEDICARE, SELFPAY ==
--- OUTSIDE RECORDS SUMMARY | 2024-08-16 08:50 | XMS_ITS | CCD ---
Author Organization [facility] Care Team Providers Care Nursing Home Aide Name Role Phone LUCIA .PATRIA Admitting Unavailable LAKSHMIPATHY ., NARENDRANATH Consulting Dasia vailable [facility] LUCIA .PATRIA Attending Unavailable [facility] HENRIQUEZ ., DR LUNA Lindsay Admitting Unavailable HENRIQUEZ ., DR LUNA Lindsay Attending Unavailable YAÑEZ ., JUWAN Consulting Unavailable YAÑEZ ., JUWAN Consulting Unavailable HENRIQUEZ ., DR LUNA Lindsay Attending Unavailable [facility] HENRIQUEZ ., DR LUNA Lindsay Admitting Unavailable YAÑEZ ., JUWAN Consulting Unavailable [facility] HENRIQUEZ ., DR LUNA Lindsay Attending Unavailable HENRIQUEZ ., DR LUNA Lindsay Admitting Unavailable YAÑEZ ., JUWAN Consulting Unavailable [facility] HENRIQUEZ ., DR LUNA Lindsay Attending Unavailable HENRIQUEZ ., DR LUNA Lindsay Admitting Unavailable YAÑEZ ., JUWAN Consulting Unavailable [facility] HENRIQUEZ ., DR LUNA Lindsay Attending Unavailable HENRIQUEZ ., DR LUNA Lindsay Admitting Unavailable DINORAH SCHULTE Referring Unavailable SERVICES, [facility] Paul Randall MD Primary Care Provider Franca SURVEILLANCE SENSOR OFFICER, Dinorah Unavailable DINORAH SCHULTE Attending Unavailable DINORAH SCHULTE Attending Unavailable Paul Randall MD Primary Care Provider [phone] Allergies Allergy Classification Reported Allergen(s) Allergy Type Date of Onset Reaction(s) Facility (1 source) Latex Drug allergy (disorder) [facility] (1 source) Penicillin Drug Allergy [facility] (5 sources) Fluconazole; Translations: [FLUCONAZOLE] Drug Allergy 4 Swelling, Rash [facility] (1 source) NSAIDs; Translations: [NSAIDS (NON-STEROIDAL ANTI-INFLAMMATO RY DRUG)] Propensity to adverse reactions to drug (disorder) 8 [facility] (5 sources) Penicillins; Translations: [PENICILLINS] Propensity to adverse reactions to drug (disorder) 4 Other, Rash [facility] (4 sources) Latex Propensity to adverse reactions 4 [facility] (4 sources) Other Propensity to adverse reactions 8 GI bleeding [facility] Medications Current Medications Medication Drug Class(es) Dates Sig (Normalized) Sig (Original) baclofen 10 mg oral tablet (4 sources) gamma-Aminobutyric Acid-ergic Agonist Start: 01-13-2024 take 1 tablet by mouth in the morning, then take 1 tablet by mouth in the evening, then take 1 tablet by mouth at bedtime baclofen (Lioresal) 10 MG tablet Take 10 mg by mouth in the morning and 10 mg in the evening and 10 mg before bedtime. 01/13/2024 Active busPIRone hydrochloride 15 mg oral tablet (6 sources) Start: 02-02-2024 End: 07-27-2024 take 1 tablet by mouth in the morning busPIRone (Buspar) 15 MG tablet Indications: Anxiety and depression (CMS/HCC) Take 1 tablet (15 mg) by mouth in the morning and 1 tablet (15 mg) before bedtime. 60 tablet 5 06/27/2024 Active cholecalciferol 0.125 mg oral tablet (3 sources) Vitamin D take 1 tablet by mouth once daily cholecalciferol (Vitamin D-3) 125 MCG (5000 UT) tablet Take 5,000 Units by mouth Daily Active diclofenac sodium 0.01 mg/mg topical gel (3 sources) Nonsteroidal Anti-inflammatory Drug End: 06-27-2024 diclofenac sodium 1 % gel Apply 2 g topically every 12 (twelve) hours if needed for pain 5% 06/27/2024 Discontinued (Therapy completed) doxycycline hyclate 100 mg oral capsule (3 sources) Tetracycline-class Drug Start: 12-01-2023 End: 06-27-2024 take 1 capsule by mouth once daily doxycycline (Vibramycin) 100 MG capsule Take 100 mg by mouth Daily 12/01/2023 06/27/2024 Discontinued (Therapy completed) FLUoxetine 10 mg oral capsule (6 sources) Serotonin Reuptake Inhibitor Start: 02-02-2024 End: 07-27-2024 take 1 capsule by mouth once daily FLUoxetine (PROzac) 10 MG capsule Indications: Anxiety and depression (CMS/HCC) Take 1 capsule (10 mg) by mouth Daily 30 capsule 5 06/27/2024 Active fluticasone propionate 0.05 mg/actuat metered dose nasal spray (4 sources) Corticosteroid Start: 02-02-2024 take 2 spray(s) nasal route once daily fluticasone (Flonase) 50 MCG/ACT nasal spray Indications: Environmental and seasonal allergies Administer 2 sprays into each nostril Daily 16 g 5 02/02/2024 Active gabapentin 300 mg oral capsule (6 sources) Anti-epileptic Agent Start: 06-27-2024 gabapentin (Neurontin) 300 MG capsule Indications: RLS (restless legs syndrome) , Mononeuropathy 1 pill in the am, and then 2 pills before bed 90 capsule 5 06/27/2024 Active Start: 06-27-2024 gabapentin (Ne urontin) 300 MG capsule Indications: RLS (restless legs syndrome) , Mononeuropathy 1 pill in the am, and then 2 pills before bed 90 capsule 5 06/27/2024 Active Start: 12-23-2023 End: 06-27-2024 take 2 capsules by mouth at bedtime, then take 1 capsule by mouth in the morning, then take 2 capsules by mouth at bedtime gabapentin (Neurontin) 300 MG capsule Take 300 mg by mouth in the morning and 300 mg in the evening and 300 mg before bedtime. 1 am, and 2 at bedtime ( taking 300mg in the morning and 600mg at bedtime). 12/23/2023 06/27/2024 Discontinued (Reorder) levothyroxine sodium 0.112 mg oral tablet (6 sources) l-Thyroxine Start: 02-02-2024 End: 07-27-2024 take 1 tablet by mouth before mealtime levothyroxine (Synthroid, Levoxyl) 112 MCG tablet Indications: Hypothyroidism (acquired) (CMS/HCC) Take 1 tablet (112 mcg) by mouth in the morning. Take before meals. 30 tablet 5 06/27/2024 Active lisinopril 10 mg oral tablet (6 sources) Angiotensin Converting Enzyme Inhibitor Start: 02-02-2024 End: 07-27-2024 take 1 tablet by mouth once daily lisinopril 10 MG tablet Indications: Primary hypertension (CMS/HCC) Take 1 tablet (10 mg) by mouth Daily 30 tablet 5 06/27/2024 Active Multiple Vitamin (Daily-Talita Multivitamin) tablet (4 sources) Start: 02-02-2024 take 1 tablet by mouth once daily Multiple Vitamin (Daily-Talita Multivitamin) tablet Indications: Iron deficiency anemia, unspecified iron deficiency anemia type , Vitamin deficiency Take 1 tablet by mouth Daily 30 tablet 5 02/02/2024 Active naloxone hydrochloride 40 mg/ml nasal spray (4 sources) Opioid Antagonist Start: 05-03-2024 naloxone (Narcan) 4 mg/0.1 mL nasal spray 05/03/2024 Active spironolactone 100 mg oral tablet (7 sources) Aldosterone Antagonist Start: 02-02-2024 End: 09-08-2024 take 1 tablet by mouth once daily spironolactone (Aldactone) 100 MG tablet Indications: Primary hypertension (CMS/HCC) Take 1 tablet (100 mg) by mouth Daily 30 tablet 5 08/09/2024 09/08/2024 Active traMADol hydrochloride 50 mg oral tablet (4 sources) Opioid Agonist take 1 tablet by mouth every eight hours traMADol (Ultram) 50 MG tablet Take 50 mg by mouth every 8 (eight) hours Pt takes 3 times daily Active traZODone hydrochloride 50 mg oral tablet (6 sources) Serotonin Reuptake Inhibitor Start: 02-02-2024 End: 07-27-2024 take 2 tablets by mouth at bedtime traZODone (Desyrel) 50 MG tablet Indications: Primary insomnia Take 2 tablets (100 mg) by mouth at bedtime 50mg-100mg at bedtime 60 tablet 5 06/27/2024 Active vitamin b12 1 mg oral tablet (4 sources) Vitamin B12 Start: 06-27-2024 End: 07-27-2024 take 1 tablet by mouth once daily cyanocobalamin (Vitamin B-12) 1000 MCG tablet Indications: Vitamin B12 Deficiency Take 1 tablet (1,000 mcg) by mouth Daily Take 1,000 mcg by mouth Daily 30 tablet 5 06/27/2024 07/27/2024 Active Problems Active Problems Problem Classification Problem Date Documented Date Episodic/Chronic Anxiety disorders (7 sources) Anxiety disorder, unspecified; Translations: [Mixed anxiety and depressive disorder] Onset: 02-02-2024 02-02-2024 Chronic Deficiency and other anemia (1 source) Iron deficiency anemia, unspecified; Translations: [Iron deficiency anemia, unspecified] Onset: 06-05-2024 Episodic Essential hypertension (8 sources) Essential (primary) hypertension; Translations: [Essential hypertension] Onset: 02-02-2024 02-02-2024 Chronic Miscellaneous mental health disorders (6 sources) Primary insomnia; Translations: [Primary insomnia] Onset: 02-02-2024 02-02-2024 Chronic Nutritional deficiencies (5 sources) Vitamin D deficiency; Translations: [Vitamin D deficiency, unspecified] Onset: 02-02-2024 06-27-2024 Chronic Nutritional deficiencies (7 sources) Vitamin deficiency, unspecified; Translations: [Vitamin deficiency] Onset: 02-02-2024 02-02-2024 Episodic Osteoarthritis (12 sources) Unilateral primary osteoarthritis, left knee; Translations: [Bilateral osteoarthritis of knees] Onset: 01-22-2022 Chronic Other connective tissue disease (1 source) Other muscle spasm; Translations: [OTHER MUSCLE SPASM] Onset: 01-14-2023 Episodic Other hereditary and degenerative nervous system conditions (5 sources) Restless legs; Translations: [Restless legs syndrome] Onset: 06-27-2024 06-27-2024 Chronic Other nervous system disorders (1 source) Other specified mononeuropathies; Translations: [OTHER SPECIFIED MONONEUROPATHIES] Onset: 01-14-2023 Chronic Other nervous system disorders (4 sources) Difficulty walking; Translations: [Difficulty in walking, not elsewhere classified] Onset: 02-02-2024 02-02-2024 Chronic Other nervous system disorders (2 sources) Mononeuropathy; Translations: [Mononeuropathy, unspecified] 06-27-2024 Chronic Other nervous system disorders (3 sources) Peripheral nerve disease ; Translations: [Polyneuropathy, unspecified] Onset: 06-27-2024 06-27-2024 Chronic Other non-traumatic joint disorders (4 sources) Joint pain; Translations: [Pain in unspecified joint] 02-15-2024 Episodic Other nutritional; endocrine; and metabolic disorders (1 source) Obesity, unspecified; Translations: [OBESITY UNSPECIFIED] Onset: 02-20-2022 Chronic Other nutritional; endocrine; and metabolic disorders (1 source) Morbid (severe) obesity due to excess calories; Translations: [Morbid (severe) obesity due to excess calories] Onset: 06-05-2024 Chronic Other nutritional; endocrine; and metabolic disorders (4 sources) Body mass index 40+ - severely obese; Translations: [Morbid (severe) obesity due to excess calories] Onset: 02-02-2024 02-02-2024 Chronic Other upper respiratory disease (4 sources) Allergic disposition; Translations: [Other allergic rhinitis] Onset: 02-02-2024 02-02-2024 Chronic Spondylosis; intervertebral disc disorders; other back problems (9 sources) Other spondylosis with radiculopathy, lumbar region; Translations: [Sacroiliitis, not elsewhere classified] Onset: 02-19-2022 Chronic Thyroid disorders (6 sources) Acquired hypothyroidism; Translations: [Hypothyroidism, unspecified] Onset: 02-02-2024 02-02-2024 Chronic Unclassified (2 sources) LOW BACK PAIN, UNSPECIFIED; Translations: [LOW BACK PAIN, UNSPECIFIED] Onset: 01-14-2023 Past or Other Problems Problem Classification Problem Date Documented Da te Episodic/Chronic Deficiency and other anemia (4 sources) Anemia; Translations: [Anemia, unspecified] Onset: 12-25-2013 02-02-2024 Episodic Mood disorders (4 sources) Mood disorders; Translations: [Depression, unspecified] Onset: 06-05-2024 06-27-2024 Other bone disease and musculoskeletal deformities (4 sources) Osteopenia; Translations: [Other specified disorders of bone density and structure, multiple sites] Onset: 02-04-2024 02-04-2024 Episodic Other connective tissue disease (1 source) Muscle wasting and atrophy, not elsewhere classified, unspecified site; Translations: [MUSCLE WASTING ATROPHY NEC UNS SITE] Onset: 02-20-2022 Episodic Other connective tissue disease (1 source) Trochanteric bursitis, left hip; Translations: [TROCHANTERIC BURSITIS LEFT HIP] Onset: 01-28-2022 Episodic Other connective tissue disease (4 sources) Tear of right rotator cuff; Translations: [Unspecified rotator cuff tear or rupture of right shoulder, not specified as traumatic] Onset: 02-02-2024 02-02-2024 Episodic Other screening for suspected conditions (not mental disorders or infectious disease) (4 sources) Mammography abnormal; Translations: [Other abnormal and inconclusive findings on diagnostic imaging of breast] Onset: 02-04-2024 02-04-2024 Episodic Spondylosis; intervertebral disc disorders; other back problems (13 sources) Intervertebral disc disorders with radiculopathy, lumbar region; Translations: [Spinal stenosis of lumbar region] Onset: 02-20-2022 Episodic Unclassified (1 source) LOW BACK PAIN, UNSPECIFIED; Translations: [LOW BACK PAIN, UNSPECIFIED] Onset: 01-08-2023 Results Test Name Value Interpretation Reference Range Facility CBC AND AUTO DIFFon 06-05-20 ABSOLUTE BASOPHIL 0.1 X10E9/L Normal 0.0-0.2 [facility] Comment on above: Performed By: #### C BCA, CMP, 2498-4, 76463-3, 3016-3, 2276-4, 2132-9, 36346-6 #### [facility] ([id number]) [address], [address] [place] [address] ABSOLUTE NEUTROPHIL 2.7 X10E9/L Normal 1.5-6.6 [facility] Comment on above: Performed By: #### C BCA, CMP, 2498-4, 14099-5, 3016-3, 2276-4, 2132-9, 40845-0 #### [facility] ([id number]) [address], [address] [place] [address] Basophils/100 WBC (Bld) 1.8 % Normal [facility] Comment on above: Performed By: #### C BCA, CMP, 2498-4, 91918-7, 3016-3, 2276-4, 2132-9, 49393-1 #### [facility] ([id number]) [address], [address] [place] [address] Eosinophils (Bld) [#/Vol] 0.2 10*3/uL Normal 0.0-0.4 [facility] Comment on above: Performed By: #### C BCA, CMP, 2498-4, 32440-5, 3016-3, 2276-4, 2132-9, 09819-3 #### [facility] ([id number]) [address], [address] [place] [address] Eosinophils/100 WBC (Bld) 4.0 % Normal [facility] Comment on above: Performed By: #### C BCA, CMP, 2498-4, 50864-8, 3016-3, 2276-4, 2132-9, 21777-2 #### [facility] ([id number]) [address], [address] [place] [address] Erythrocyte distribution width (RBC) [Ratio] 13.1 % Normal 11.5-15.0 [facility] Comment on above: Performed By: #### C BCA, CMP, 2498-4, 47917-5, 3016-3, 2276-4, 2132-9, 28509-2 #### [facility] ([id number]) [address], [address] [place] [address] Hematocrit (Bld) [Volume fraction] 39.6 % Normal 35-47 [facility] Comment on above: Performed By: #### C BCA, CMP, 2498-4, 19880-3, 3016-3, 2276-4, 2132-9, 14445-3 #### [facility] ([id number]) [address], [address] [place] [address] Hemoglobin (Bld) [Mass/Vol] 13.8 g/dL Normal 11.7-15.5 [facility] Comment on above: Performed By: #### C BCA, CMP, 2498-4, 02840-7, 3016-3, 2276-4, 2132-9, 88004-2 #### [facility] ([id number]) [address], [address] [place] [address] Lymphocytes (Bld) [#/Vol] 0.7 10*3/uL Low 1.0-3.5 [facility] Comment on above: Performed By: #### C BCA, CMP, 2498-4, 46641-3, 3016-3, 2276-4, 2132-9, 20129-7 #### [facility] ([id number]) [address], [address] [place] [address] Lymphocytes/100 WBC (Bld) 17.5 % Normal [facility] Comment on above: Performed By: #### C BCA, CMP, 2498-4, 48682-5, 3016-3, 2276-4, 2131-9, 56376-1 #### [facility] ([id number]) [address], [address] [place] [address] MCH (RBC) [Entitic mass] 31.0 pg Normal 27-34 [facility] Comment on above: Performed By: #### C BCA, CMP, 2498-4, 69765-3, 3016-3, 2276-4, 2131-9, 56983-7 #### [facility] ([id number]) [address], [address] [place] [address] MCHC (RBC) [Mass/Vol] 34.9 g/dL Normal 32-36 [facility] Comment on above: Performed By: #### C BCA, CMP, 2498-4, 67323-8, 3016-3, 2276-4, 2132-9, 27981-4 #### [facility] ([id number]) [address] [address] [place] [address] MCV (RBC) [Entitic vol] 89 fL Normal 80-100 [facility] Comment on above: Performed By: #### C BCA, CMP, 2498-4, 62707-1, 3016-3, 2276-4, 2132-9, 84321-2 #### [facility] ([id number]) [address], [address] [place] [address] Monocytes (Bld) [#/Vol] 0.2 10*3/uL Normal 0-0.9 [facility] Comment on above: Performed By: #### C BCA, CMP, 2498-4, 88894-3, 3016-3, 2276-4, 2131-9, 27233-5 #### [facility] ([id number]) [address], [address] [place] [address] Monocytes/100 WBC (Bld) 6.0 % Normal [facility] Comment on above: Performed By: #### C BCA, CMP, 2498-4, 26651-0, 3016-3, 2276-4, 2131-9, 56217-6 #### [facility] ([id number]) [address], [address] [place] [address] Neutrophils/100 WBC (Bld) 70.7 % Normal [facility] Comment on above: Performed By: #### C BCA, CMP, 2498-4, 57638-4, 3016-3, 2276-4, 2131-9, 68722-9 #### [facility] ([id number]) [address], [address] [place] [address] Platelet mean volume (Bld) [Entitic vol] 8.3 fL Normal 7-12 [facility] Comment on above: Performed By: #### C BCA, CMP, 2498-4, 01436-4, 3016-3, 2276-4, 2-9, 40260-8 #### [facility] ([id number]) [address], [address] [place] [address] Platelets (Bld) [#/Vol] 192 10*3/uL Normal 150-450 [facility] Comment on above: Performed By: #### C BCA, CMP, 2498-4, 28282-0, 3016-3, 2276-4, 2132-9, 66635-3 #### [facility] ([id number]) [address], [address] [place] [address] RBC COUNT 4.46 X10E12/L Normal 3.80-5.20 [facility] Comment on above: Performed By: #### C BCA, CMP, 2498-4, 79362-8, 3016-3, 2276-4, 2-9, 01857-1 #### [facility] ([id number]) [address], [address] [place] [address] WBC (Bld) [#/Vol] 3.8 10*3/uL Low 4.0-11.0 [facility] Comment on above: Performed By: #### C BCA, CMP, 2498-4, 17233-4, 3016-3, 2276-4, 2131-9, 13830-5 #### [facility] ([id number]) [address] [place] [address] COMPREHENSIVE METABOLIC PANE [place] 06-05-2024 Albumin [Mass/Vol] 4.2 g/dL Normal 3.2-5.3 [facility] Comment on above: Performed By: #### C BCA, CMP, 2498-4, 90968-6, 3016-3, 2276-4, 2-9, 65594-7 #### [facility] ([id number]) [address], [address] [place] [address] ALP [Catalytic activity/Vol] 79 U/L Normal 39-130 [facility] Comment on above: Performed By: #### C BCA, CMP, 2498-4, 43856-8, 3016-3, 2276-4, 2132-9, 87526-3 #### [facility] ([id number]) [address], [address] [place] [address] ALT [Catalytic activity/Vol] 17 U/L Normal 0-31 [facility] Comment on above: Performed By: #### C BCA, CMP, 2498-4, 36945-2, 3016-3, 2276-4, 2132-9, 40222-7 #### [facility] ([id number]) [address], [address] [place] [address] Anion gap [Moles/Vol] 10 mmol/L Normal 5-15 [facility] Comment on above: Performed By: #### C BCA, CMP, 2498-4, 32389-2, 3016-3, 2276-4, 2132-9, 66207-3 #### [facility] ([id number]) [address], [address] [place] [address] AST [Catalytic activity/Vol] 20 U/L Normal 0-41 [facility] Comment on above: Performed By: #### C BCA, CMP, 2498-4, 44181-0, 3016-3, 2276-4, 2132-9, 45165-8 #### [facility] ([id number]) [address], [address] [place] [address] Bilirubin [Mass/Vol] 0.6 mg/dL Normal 0.3-1.2 [facility] Comment on above: Performed By: #### C BCA, CMP, 2498-4, 63590-3, 3016-3, 2276-4, 2132-9, 48513-1 #### [facility] ([id number]) [address], [address] [place] [address] Calcium [Mass/Vol] 9.2 mg/dL Normal 8.5-10.5 [facility] Comment on above: Performed By: #### C BCA, CMP, 2498-4, 52745-7, 3016-3, 2276-4, 2132-9, 43811-8 #### [facility] ([id number]) [address], [address] [place] [address] Chloride [Moles/Vol] 105 mmol/L Normal 98-109 [facility] Comment on above: Performed By: #### C BCA, CMP, 2498-4, 20698-5, 3016-3, 2276-4, 2-9, 82603-9 #### [facility] ([id number]) [address], [address] [place] [address] CO2 [Moles/Vol] 23 mmol/L Normal 22-32 [facility] Comment on above: Performed By: #### C BCA, CMP, 2498-4, 47438-4, 3016-3, 2276-4, 2131-9, 09430-7 #### [facility] ([id number]) [address], [address] [place] [address] Creatinine [Mass/Vol] 0.95 mg/dL Normal 0.40-1.00 [facility] Comment on above: Result Comment: METH OD TRACEABLE TO IDMS STANDARD Performed By: #### C BCA, CMP, 2498-4, 95266-9, 3016-3, 2276-4, 2131-9, 43477-2 #### [facility] ([id number]) [address] [place] [address] GFR/1.73 sq M.predicted among non-blacks MDRD (S/P/Bld) [Vol rate/Area] 69 mL/min/{1.73_m2} Normal >59 [facility] Comment on above: Result Comment: Reported eGFR is based on the CKD-EPI 2020 equation that does not use a race coefficient. Performed By: #### C BCA, CMP, 2498-4, 39905-9, 3016-3, 2276-4, 2131-9, 80389-5 #### [facility] ([id number]) [address] [place] [address] Glucose [Mass/Vol] 90 mg/dL Normal 65-99 [facility] Comment on above: Performed By: #### C BCA, CMP, 2498-4, 11644-2, 3016-3, 2276-4, 2132-9, 92330-2 #### [facility] ([id number]) [address], [address] [place] [address] Potassium [Moles/Vol] 4.1 mmol/L Normal 3.5-5.0 [facility] Comment on above: Performed By: #### C BCA, CMP, 2498-4, 03512-5, 3016-3, 2276-4, 2-9, 53131-0 #### [facility] ([id number]) [address], [address] [place] [address] Protein [Mass/Vol] 7.1 g/dL Normal 6.0-8.0 [facility] Comment on above: Performed By: #### C BCA, CMP, 2498-4, 23126-4, 3016-3, 2276-4, 2131-9, 95280-6 #### [facility] ([id number]) [address], [address] [place] [address] Sodium [Moles/Vol] 138 mmol/L Normal 134-146 [facility] Comment on above: Performed By: #### C BCA, CMP, 2498-4, 10659-8, 3016-3, 2276-4, 2-9, 04717-9 #### [facility] ([id number]) [address] [place] [address] Urea nitrogen [Mass/Vol] 17 mg/dL Normal 5-23 [facility] Comment on above: Performed By: #### C BCA, CMP, 2498-4, 02801-6, 3016-3, 2276-4, 2132-9, 63409-4 #### [facility] ([id number]) [address], [address] [place] [address] FERRITINon 06-05-2024 Ferritin [Mass/Vol] 18 ng/mL Normal 11-307 [facility] Comment on above: Performed By: #### C BCA, CMP, 2498-4, 68139-1, 3016-3, 2276-4, 2-9, 78927-5 #### [facility] ([id number]) [address] [place] [address] IRONon 06-05-2024 Iron [Mass/Vol] 91 ug/dL Normal 50-170 [facility] Comment on above: Performed By: #### C BCA, CMP, 2498-4, 16718-3, 3016-3, 2276-4, 2131-9, 39604-7 #### [facility] ([id number]) [address], [address] [place] [address] Lipid 1996 panelon Cholesterol [Mass/Vol] 188 mg/dL Normal 150-200 [facility] Comment on above: Performed By: #### C BCA, CMP, 2498-4, 84628-7, 3016-3, 2276-4, 2131-9, 72912-0 #### [facility] ([id number]) [address], [address] [place] [address] Cholesterol in HDL [Mass/Vol] 58 mg/dL Normal >39 [facility] Comment on above: Result Comment: HDL <40 mg/dL - High Risk HDL > or = 40mg/dL- Desirable HDL >60 mg/dL - Negative Risk Performed By: #### C BCA, CMP, 2498-4, 19833-1, 3016-3, 2276-4, 2-9, 03593-6 #### [facility] ([id number]) [address], [address] [place] [address] Cholesterol in LDL [Mass/Vol] 113 mg/dL Normal <130 [facility] Comment on above: Result Comment: LDL <100 mg/dL - Desirable LDL >160 mg/dL - High Risk Performed By: #### C BCA, CMP, 2498-4, 57939-2, 3016-3, 2276-4, 2132-9, 61183-1 #### [facility] ([id number]) [address], [address] [place] [address] Cholesterol in VLDL [Mass/Vol] 17 mg/dL Normal 0-30 [facility] Comment on above: Performed By: #### C BCA, CMP, 2498-4, 77652-0, 3016-3, 2276-4, 2132-9, 03024-9 #### [facility] ([id number]) [address], [address] [place] [address] CHOLESTEROL:HDL 3.2 Normal 1.0-5.0 [facility] Comment on above: Performed By: #### C BCA, CMP, 2498-4, 35005-5, 3016-3, 2276-4, 2132-9, 84387-2 #### [facility] ([id number]) [address], [address] [place] [address] Triglyceride [Mass/Vol] 83 mg/dL Normal 27-150 [facility] Comment on above: Performed By: #### C BCA, CMP, 2498-4, 33697-2, 3016-3, 2276-4, 2132-9, 29953-4 #### [facility] ([id number]) [address], [address] [place] [address] TSH Qnon 06-05-2024 TSH 1.26 uIU/mL Normal 0.49-4.67 [facility] Comment on above: Performed By: #### C BCA, CMP, 2498-4, 21973-4, 3016-3, 2276-4, 2132-9, 31369-8 #### [facility] ([id number]) [address] [place] [address] VITAMIN B12on 06-05-2024 Cobalamin (Vitamin B12) [Mass/Vol] 272 pg/mL Normal 180-914 [facility] Comment on above: Performed By: #### C BCA, CMP, 2498-4, 26495-1, 3016-3, 2276-4, 2-9, 14123-3 #### [facility] ([id number]) [address] [place] [address] Vitamin D+Metabolites [Mass/ Vol]on 06-05-2024 VITAMIN D 25 HYD TOT 25.4 ng/mL Low 30-100 [facility] Comment on above: Result Comment: Vitamin D status 25 [place] Vitamin D Deficiency <20 ng/mL Insufficiency 20-29 ng/mL Sufficiency 30-100 ng/mL Toxicity >100 ng/mL NOTE: A pediatric reference range has not been established by the market intelligence consultant of this kit. The [place] [employer] recommends a Vitamin D level of = or >20ng/mL in infants and children. Performed By: #### C BCA, CMP, 2498-4, 71435-6, 3016-3, 2276-4, 2-9, 96885-7 #### [facility] ([id number]) [address], [address] [place] [address] Physical Therapy Noteon 08-07 Physical Therapy Note [id number]#1.0 0OTGTIFF [facility] Provider [place] 08-20-2020 Provider Orders [id number]#1.[address] [place] [address] Medication Managementon 05-08 Medication Management [id number]#1.[address] [place] [address] Coding Summaryon 05-30-2020 Coding Summary CODING DATE: 05/30/2020 [facility] STATUS: PAYOR: Workers Compensation ADMIT DX: REASON [...] [facility] Provider [place] 05-27-2020 Provider Orders [id number]#1.[address] [place] [address] MAGR Intraoperative Recordon 04-08-2020 MAGR Intraoperative Record MAGR Intra-Op Record Summary Primary Physician: Warren Holliday DO Finalized Date/Time: 04/08/20 08:06:39 Pt. Name: STEPHANIE SINCLAIR/Sex: 1965 FEMALE Med Rec #: [id number] Physician: Warren Holliday DO Financial #: [id number] Pt. Type: D Room/Bed: / Admit/Disch: 04/01/20 07:10:00 - 04/01/20 13:45:00 Institution: Case Times MAGR Entry 1 Patient In Room Time 04/01/20 10:11:00 Out Room Time 04/01/20 11:27:00 Anesthesia Start Time 04/01/20 10:08:00 Stop Time 04/01/20 11:32:00 Surgery Start Time 04/01/20 10:42:00 Stop Time 04/01/20 11:17:00 Last Modified By: Daniel GAY, Estrellita Thomas 04/01/20 11:36:13 Case Attendance MAGR Entry 1 Entry 2 Entry 3 Case Attendee Warren Holliday RN, Deyvi Nguyen MD, DO Role Performed Surgeon - Primary Gas Welding Equipment Mechanic Anesthesiologist of Record Time In 04/01/20 10:11:00 [...] Miguelangel Alonzo CST Role Performed Scrub Personnel Gas Welding Equipment Mechanic Home Mortgage Disclosure Act Specialist Time In 04/01/20 10:11:00 04/01/20 10:11:00 04/01/20 [...] Arthroscopy Shoulder Primary Procedure Yes Primary Surgeon aWrren Holliday DO Surgeon Comment LEFT SHOULDER SCOPE [...] Implant Action Implant Implant Description Arthrex Surture Clarita Arthrex Suture Clarita Biocomposite 4.75 x 4.75 x 24.5mm 24.5mm Implant Information Implant/Explant 04/01/20 10:55:00 04/01/20 10:59:00 Date/Time Implanted/Explanted Warren Holliday James By: Rainer BREWSTER Rainer DO Size 4.75 x 24.5mm 4.75 x 24.5mm Underwriting Account Representative Arthrex Arthrex Catalog # REF [id number] REF [id number] Lot Number [id number] Expiration Date 05/06/21 05/06/21 Serial Number Device Identifier Human Readable TY Machine Readable TY MR Class Implant Usage Data Site Shoulder L Shoulder L Quantity 1 1 Reason for Explant Reason Not Retained Explant Disposition Sound Recording Technician Sterility External Indicator Result Internal Indicator Results [...] Coding Summaryon 04-02-2020 Coding Summary CODING DATE: 04/02/2020 [facility] STATUS: Home PAYOR: Workers Compensation APC DESCRIPTION [...] PROC APC STAT DESCRIPTION DOCTOR NAME DATE 70246 5114 J1 Arthroscopy, shoulder, 04/01/2020 surgical; with [...] [facility] Consent Formson 04-02-2020 Consent Forms [id number]#1.0 0OTGTIFF [facility] Discharge Instructionson Discharge Instructions [id number]#1.[address] [place] [address] History and Physicalon 04-02 History and Physical [id number]#1.[address] [place] [address] Medication Managementon 03-07 Medication Management [id number]#1.[address] [place] [address] Telemetry Stripson 0 Telemetry Strips [id number]#1.[address] [place] [address] Anesthesia Noteon 04-01-2020 Anesthesia Note Patient: STEPHANIE SINCLAIR Age: 54 years Sex: FEMALE : [...] history): All Problems Anemia / SNOMED CT 275052095 / Confirmed Hypothyroid / SNOMED CT 22573270 / Confirmed Iron deficiency / SNOMED CT 55719146 / Confirmed Histories Family History: No family history items have been selected or recorded. Procedure history: Gastric bypass (5546094799). Rotator cuff (96688390). Comments: 03/12/2020 9:17 EDT - Obdulia Barrow RN right shoulder, biceps Social History Electronic [...] br/min (APR 01:30) SBP H 149mmHg (APR 01 07:35) DBP 86 mmHg (APR 01:35) SpO2 97 [...] Oriented. Review / Management Laboratory Results Plan [place] Society of Anesthesiologists#(ASA ) physical status classification: Class II. Anesthetic Preoperative Plan Anesthesia: General. , Regional (Interscalene Block, for post op pain control). Anesthetic plan, risks, benefits, and alternatives discussed with the patient and/or family. Patient verbalized understanding. [Electronically Signed on: 04/01/2020 09:45 EDT] Deyvi Samuels MD [Verified on: 04/01/2020 09:45 EDT] Deyvi Samuels MD [facility] Coding Summaryon 04-01-2020 Coding Summary CODING DATE: 04/01/2020 [facility] STATUS: Home PAYOR: [employer] ADMIT DX: [...] Zahra Feliciano Date Saved: 04/01/2020 11:03 am [facility] Inpatient Patient Summaryon 04-01-2020 [place] [address] Patient Discharge Instructions Name: STEPHANIE SINCLAIR : 1965 Patient Address: [address] [place] [address] Primary Care Provider: Name: Kelly Bunch DO After you are discharged if you find you have any questions, please, call [phone] ext [phone] to speak to a nurse. Discharge Diagnosis: Internal derangement of left shoulder Prescription Information: If you have been given a prescription for narcotics, seek immediate medical attention if you have any difficulty breathing or any sudden status changes such as confusion and sleepiness. If you or anyone you know is experiencing suicidal thoughts, mental health, alcohol and/or drug addiction problems; contact the [facility] 29/03 Crisis Hotline -Text 4HOPE bq 723865. If you received any narcotics, sedation, or [...] business decisions or sign any legal documents [facility] would like to thank you for allowing us to assist you with your healthcare needs. The following includes patient education materials and information regarding your injury/illness. STEPHANIE SINCLAIR has been given the following list of follow-up instructions, prescriptions, and patient education materials: Follow-up Instructions With: Address: When: MAGALIS LIMON [address], [place] [address] Business (1) 04/09/2020 10:45 AM With: Address: When: Kelly Alivia [address] [place] [address] [facility] (1) Medications During the course of your visit, your medication list was updated with the most current information. The details of those changes are reflected below: Medications to Continue That Have Not Changed Other Medications acetaminophen-oxycodon e (Percocet 5/325 oral tablet) 1 tab(s) Oral [...] list that you can keep with you. 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 [...] 08/23/2006 Document Revised: 08/18/2018 Document Reviewed: 08/18/2018 [employer] Interactive Patient Education ? [address] GARCIA POST OPERATIVE SHOULDER INSTRUCTIONS SURGEONS [...] or concerns, please call the office at [phone] -Follow up as scheduled Viruses or Bacteria [...] MD Finalized Date/Time: 04/01/20 10:15:13 Pt. Name: STEPHANIE SINCLAIR /Sex: 1965 FEMALE Med Rec #: [id number] Physician: Warren Holliday DO Financial #: [id number] Pt. Type: D Room/Bed: / Admit/Disch: 04/01/20 [...] López RN Role Performed Surgeon - Primary Gas Welding Equipment Mechanic Gas Welding Equipment Mechanic Time In 04/01/20 09:50:00 04/01/20 09:50:00 04/01/20 [...] DO Finalized Date/Time: 04/01/20 12:39:27 Pt. Name: YAHIR STEPHANIE Oliver Natarajan/Sex: 1965 FEMALE Med Rec #: [id number] Physician: Warren Holliday DO Financial #: [id number] Pt. Type: D Room/Bed: / Admit/Disch: 04/01/20 [...] DO Finalized Date/Time: 04/01/20 13:49:00 Pt. Name: YAHIRSTEPHANIE/Sex: 1965 FEMALE Med Rec #: [id number] Physician: Warren Holliday DO Financial #: [id number] Pt. Type: D Room/Bed: / Admit/Disch: 04/01/20 [...] Herring RN Document Signatures Signed By: Sade Herirng RN 04/01/20 13:48 [facility] Preoperative Recordon 0 04-01-2020 [facility] Preoperative Record MAGR Pre-Op Record Summary Primary Physician: Warren Holliday DO Finalized Date/Time: 04/01/20 10:16:27 Pt. Name: YAHIRSTEPHANIE/Sex: 1965 FEMALE Med Rec #: [id number] Physician: Warren Holliday DO Financial #: [id number] Pt. Type: D Room/Bed: / Admit/Disch: 04/01/20 [...] correct. General Comments: Patient arrives ambulatory to [facility]. Pt deniesa xander recent cold/flu symptoms, SOB, sleep apnea, diabetes, CP, or pacemaker/defibrillato r. 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 [...] 08/23/2006 Document Revised: 08/18/2018 Document Reviewed: 08/18/2018 [employer] Interactive Patient Education ? 2019 [employer] Normal [facility] SARS-CoV-2 (COVID-19) PCRon 04-01-2020 COVID-19 PCR Not Detected Normal Not Detected [facility] Comment on above: Order Comment: Done In-House Result Comment: Resu lts Called To Shu in Surg By GAUDENCIO And Read Back For Confirmation On 04/01/2020 08:20:03 EDT. Performed By: #### 6 [id number] ####[facility] (DEFAULT)[address] [place] [address] Progress Note - Nurseon 03-07 Progress Note - Nurse Spoke with pt and informed her to be here at 0715 and NPO after [place], she verbalizes understanding. [Electronically Signed on: 03/29/2020 10:42 EDT] Obdulia Barrow RN [Verified on: 03/29/2020 10:42 EDT] Obdulia Barrow RN [facility] Coding Summaryon 03-26-2020 Coding Summary CODING DATE: 03/26/2020 [facility] STATUS: Home PAYOR: Workers Compensation APC DESCRIPTION [...] Montez Date Saved: 03/26/2020 02:33 pm Normal [facility] - Immunology/Serology Re sultson 03-25-2020 Lab - Immunology/Serology Results [id number] [facility] [place] 03-25-2020 Provider Orders [id number]#1.0 [facility]-CoV-2 ([facility]-19) PCRon 03-23-2020 COVID-19 PCR Not Detected Normal Not Detected [facility] Comment on above: Order Comment: Sent to [facility] Performed By: #### 6 [id number] ####[facility] (DEFAULT)[address] [place] [address] Provider [place] 03-22-2020 Provider Orders [id number]#1.0 [facility] Progress Note - Nurseon Progress Note - Nurse chart reviewed per Dr Jones and cleared for surgery. no furthers orders received [Electronically Signed on: 03/14/2020 14:57 EDT] Sade Herring RN [Verified on: 03/14/2020 14:57 EDT] Sade Herring RN Normal [facility] .Auto Diff 1on 03-12-2020 Auto [place] % 7 % Normal 1-12 [facility] Comment on above: Performed By: #### 7 [id number], [id number] ####[facility] (DEFAULT)[address] [place] [address] Baso Abs# 0.1 x10 Normal 0.0-0.2 [facility] Comment on above: Performed By: #### 7 [id number], [id number] ####[facility] (DEFAULT)[address] [place] [address] Basophils/100 WBC (Bld) 1.5 % Normal 0.2-2.0 [facility] Comment on above: Performed By: #### 7 [id number], [id number] ####[facility] (DEFAULT)[address] [place] [address] Eos Abs# 0.6 x10 High 0.0-0.4 [facility] Comment on above: Performed By: #### 7 [id number], [id number] ####[facility] (DEFAULT)[address] [place] [address] Eosinophils/100 WBC (Bld) 11.6 % High 0.9-4.0 [facility] Comment on above: Performed By: #### 7 175556, [id number] ####[facility] (DEFAULT)[address] [place] [address] Lymphocytes (Bld) [#/Vol] 0.8 x10 Low 1.3-2.9 [facility] Comment on above: Performed By: #### 7 [id number], [id number] ####[facility] (DEFAULT)[address] [place] [address] Lymphocytes/100 WBC (Bld) 16 % Normal 14-48 [facility] Comment on above: Performed By: #### 7 [id number], [id number] ####[facility] (DEFAULT)[address] [place] [address] [place] Abs# 0.4 x10 Normal 0.0-0.8 [facility] Comment on above: Performed By: #### 7 [id number], [id number] ####[facility] (DEFAULT)[address] [place] [address] Neut Abs# 3.0 x10 Normal 1.5-9.2 [facility] Comment on above: Performed By: #### 7 [id number], [id number] ####[facility] (DEFAULT)[address] [place] [address] Neutrophils/100 WBC (Bld) 63 % Normal 44-88 [facility] Comment on above: Performed By: #### 7 473514, [id number] ####[facility] (DEFAULT)[address] [place] [address] CBC w/ Auto Diffon 0 Erythrocyte distribution width (RBC) [Ratio] 13.3 % Normal 11.5-15.0 [facility] Comment on above: Performed By: #### 7 [id number], [id number] ####[facility] (DEFAULT)[address] [place] [address] Hematocrit (Bld) [Volume fraction] 41.8 % High 33.7-40.4 [facility] Comment on above: Performed By: #### 7 [id number], [id number] ####[facility] (DEFAULT)[address] [place] [address] Hemoglobin (Bld) [Mass/Vol] 14.4 g/dL Normal 11.3-15.9 [facility] Comment on above: Performed By: #### 7 [id number], [id number] ####[facility] (DEFAULT)[address] [place] [address] Man Diff? Auto Normal [facility] Comment on above: Performed By: #### 7 [id number], [id number] ####[facility] (DEFAULT)[address] [place] [address] MCH (RBC) [Entitic mass] 30 pg Normal 24-34 [facility] Comment on above: Performed By: #### 7 [id number], [id number] ####[facility] (DEFAULT)[address] [place] [address] MCHC (RBC) [Mass/Vol] 34 g/dL Normal 26-37 [facility] Comment on above: Performed By: #### 7 [id number], [id number] ####[facility] (DEFAULT)[address] [place] [address] MCV (RBC) [Entitic vol] 86 fL Normal 81-100 [facility] Comment on above: Performed By: #### 7 [id number], [id number] ####[facility] (DEFAULT)[address] [place] [address] Platelet mean volume (Bld) [Entitic vol] 9.6 fL Normal 6.3-10.2 [facility] Comment on above: Performed By: #### 7 [id number], [id number] ####[facility] (DEFAULT)[address] [place] [address] Platelets (Bld) [#/Vol] 229 x10 Normal 138-427 [facility] Comment on above: Performed By: #### 7 [id number], [id number] ####[facility] (DEFAULT)[address] [place] [address] RBC (Bld) [#/Vol] 4.85 x10 Normal 3.70-5.30 [facility] Comment on above: Performed By: #### 7 [id number], [id number] ####[facility] (DEFAULT)[address] [place] [address] WBC (Bld) [#/Vol] 4.8 x10 [facility] Comment on above: Performed By: #### 7 [id number], [id number] ####[facility] (DEFAULT)[address] [place] [address] Vital Signs Date Time Vital Sign Value Performing Clinician Keaton dwyer 06-27-2024 09:54-0400 Body height 152.4 cm Dinorah Schulte SURVEILLANCE SENSOR OFFICER Work Phone: [facility] 06-27-2024 09:54-0400 Body mass index (BMI) [Ratio] 44.1 kg/m2 Dinorah Aguilarrojas SURVEILLANCE SENSOR OFFICER Work Phone: [facility] 06-27-2024 09:54-0400 Body temperature 98.1 [degF] Dinorah Franca SURVEILLANCE SENSOR OFFICER Work Phone: [facility] 06-27-2024 09:54-0400 Body weight 102.42 kg Dinorah Franca SURVEILLANCE SENSOR OFFICER Work Phone: [facility] 06-27-2024 09:54-0400 Diastolic blood pressure 76 mm[Hg] Dinorah Franca SURVEILLANCE SENSOR OFFICER Work Phone: [facility] 06-27-2024 09:54-0400 Heart rate 53 /min Dinorah Memoz SURVEILLANCE SENSOR OFFICER Work Phone: [facility] 06-27-2024 09:54-0400 Respiratory rate 20 /min Dinorah Memoz SURVEILLANCE SENSOR OFFICER Work Phone: [facility] 06-27-2024 09:54-0400 SaO2% (BldA) [Mass fraction] 96 % Dinorah Franca SURVEILLANCE SENSOR OFFICER Work Phone: [facility] 06-27-2024 09:54-0400 Systolic blood pressure 114 mm[Hg] Dinorah Franca SURVEILLANCE SENSOR OFFICER Work Phone: [facility] Encounters Encounter Date Encounter Type Care Provider Facility Start: 08-09-2024 End: 08-09-2024 Refill Dinorah Franca SURVEILLANCE SENSOR OFFICER Work Phone: [facility] Comment on above: Primary hypertension (CMS/HCC) Start: 06-27-2024 End: 06-27-2024 Bamboo flowsheet Dinorah Schulte SURVEILLANCE SENSOR OFFICER Work Phone: [facility] Start: 06-27-2024 End: 06-27-2024 Bamboo flowsheet Dinorahtoshia Schulte SURVEILLANCE SENSOR OFFICER Work Phone: [facility] Start: 06-27-2024 End: 06-27-2024 ambulatory DINORAH AGUILARSHAQDerian Not Available Start: 06-27-2024 End: 06-27-2024 Patient encounter procedure Dinorah Aguilarrojas SURVEILLANCE SENSOR OFFICER Work Phone: [facility] Comment on above: Encounter for subseq uent annual wellness visit (AWV) in Medicare patient (Primary Dx); Vitamin D deficiency; Vitamin B12 deficiency; Anxiety and depression (CMS/HCC); Hypothyroidism (acquired) (CMS/HCC); Primary hypertension (CMS/HCC); Primary insomnia; RLS (restless legs syndrome); Mononeuropathy Start: 06-05-2024 End: 06-05-2024 ambulatory DINORAH Al SCHULTE [facility] Start: 02-02-2024 End: 02-02-2024 ambulatory DINORAH FRANCA Not Available Start: 01-08-2023 End: 01-09-2023 ambulatory PATRIA MYERS . Facility:[facility] Start: 12-03-2022 ambulatory JUWAN YAÑEZ . Facility:[facility] Start: 07-23-2022 End: 07-24-2022 ambulatory JUWAN YAÑEZ . Facility:[facility] Start: 02-19-2022 End: 02-20-2022 ambulatory JUWAN YAÑEZ . Facility:[facility] Start: 02-05-2022 ambulatory JUWAN YÑAEZ . Facility:[facility] Start: 01-22-2022 End: 01-23-2022 ambulatory [facility] Facility:[facility] Procedures Date Procedure Procedure Detail Performing Clinician Start: 05-01-2024 Mammography Dinorah zabala SURVEILLANCE SENSOR OFFICER Work Phone: Plan of Treatment Date Care Activity Detail Author Start: 12-10-2026 Screening for malign ant neoplasm of colon [facility] Start: 06-27-2025 Medicare Annual Well ness (AWV) Medicare Annual Wellness (AWV) [facility] Start: 05-01-2025 Screening for malign ant neoplasm of breast Mammogram [facility] Start: 03-05-2025 Influenza vaccination Influenza Vacc ine (#1) [facility] Comment on above: Postponed from 05/07 (Patient Refused) Start: 09-26-2024 End: 09-26-2024 Patient encounter procedure 09/26/2024 9:40 AM EST Office Visit [facility] [address] [place] [id number] Dinorah Schulte NP [address] [place] [address] [facility] Start: 05-07-2024 Influenza vaccination Influenza Vacc ine (#1) [facility] Start: 1994 Screening for malign ant neoplasm of cervix [facility] Start: 1985 Screening for malign ant neoplasm of cervix Pap Smear [facility] Start: 1965 Medicare Annual Well ness (AWV) Medicare Annual Wellness (AWV) [facility] Start: 1965 Screening for malign ant neoplasm of colon [facility] Immunizations Immunization Date Immunization Notes Care Provider Fa cili 07-03-2020 Influenza, injectabl e, Madin Annette Canine Kidney, preservative free, quadrivalent Dinorah Schulte SURVEILLANCE SENSOR OFFICER Work Phone: [facility] 07-03-2020 influenza virus vacc ine, unspecified formulation Dinorah Schulte SURVEILLANCE SENSOR OFFICER Work Phone: [facility] 04-19-2019 tetanus toxoid, redu mariano diphtheria toxoid, and acellular pertussis vaccine, adsorbed Dinorah Schulte SURVEILLANCE SENSOR OFFICER Work Phone: [facility] Payers Date Payer Category Payer Medicare (Managed Care) [facility] MEDICARE [id number] 2023 Medicare [id number] 2023 Medicaid [place] [id number] 2023 Medicare MEDICARE [id number] 1965 Unknown [id number] 1965 Unknown [id number] 593 1965 Unknown [id number]. 593 1965 Unknown [id number]. 593 1965 Unknown [id number]. 593 1965 Unknown [id number] [id number]. 593 1965 Unknown [id number]. 1286 1965 Unknown [id number]. 1259 1965 Unknown [id number] 1259 1959 Unknown [id number] 1960 Unknown [id number] Social History Date Type Detail Facility Start: 02-02-2024 Tobacco smoking stat [facility] Ex-smoker [facility] End: 09-06-2008 History of tobacco use Current smoker [facility] End: 09-06-2008 History of tobacco use Cigarette Smoker [facility] Start: 02-02-2024 Tobacco use and exposure Smoke less tobacco non-user [facility] Start: 02-15-2024 End: 06-27-2024 Alcoholic beverage intake Ex-drinker (finding) [facility] Start: 02-02-2024 End: 06-27-2024 History of Social function [facility] Start: 02-02-2024 End: 06-27-2024 Tobacco use panel [facility] Start: 02-02-2024 Alcohol Comment caffine: soda 5 molly y [facility] Start: 1965 Sex assigned at Not on file [facility] Medical Equipment Procedure Code Equipment Code Equipment Original Text Equi pment Identifier Dates 1 each by Other route if needed History of Present illness Narrative 06-27-2024 Dinorah Schulte NP - 06/27/2024 10:32 AM Av Schulte NP - 06/27/2024 10:31 AM Av Schulte NP - 06/27/2024 10:31 AM Av Schulte NP - 06/27/2024 10:31 AM EDT Note Date & Type Note Facility 06-27-2024 History of Presen t illness Narrative Associated Problem(s): Encounter for subsequent annual wellness visit (AWV) in Medicare patient Reviewed Ht/Wt/BMI Recommend eye exam yearly Recommend dental exams twice a year Balance work/leisure activities Exercises is recommended most days of the week (appropriate as chronic conditions allow) Follow up yearly and prn Associated Problem(s): Anxiety and depression (CMS/HCC) Restart bettina ramirez in 3 months Associated Problem(s): Vitamin B12 deficiency Reviewed labs, cont supplement Associated Problem(s): Vitamin D deficiency Reviewed labs, cont supplement Associated Problem(s): Primary hypertension (CMS/HCC) At goal Associated Problem(s): Peripheral neuropathy Refill onelia Associated Problem(s): Primary insomnia Continue current meds Associated Problem(s): RLS (restless legs syndrome) OARRS reviewed Refill gabapentin Pain is alil more intense with the weather change, pt states it is hard for her to get around. Pt has been out of the onelia for a bit and has been having more pain, muscle spasms, and restless legs. Pt states that pain management had put her on baclofen which has helped with her back and muscle spasms in the legs. Images from the original note were not included. Stephanie Sinclair is a 58 y.o. female presents with chief complaint of No chief complaint on file. HPI: Diet: variety Activity: has a membership at the [employer] Concerns: anxiety Falls in the last year: no Still driving: yes Do you pay your bills: yes Any hearing problems: yes Any Vision problems: wear glasses Any Hospitalizations in the last year: none Specialist: Pain Mgmt, Eye doctor (my eye doctor silvio), dentist: no HCPOA/Living Will: no Concerns: none Anxiety: out prozac for about 2 weeks, and buspar 15mg BID. Panic attack, calista in stomach, racing heart, tremor/shaking. Would like a refill on fluoxetine. No SI/HI/hallucinations either. Pain mgmt for low back, hip and knee pain: they fill baclofen and tramadol. Wants a refill of gabapentin: takes for RLS, as well neuropathy in left foot. Has not had script for about a week. SUBJECTIVE: MEDICATIONS: Current Outpatient Medications Medication Instructions baclofen (LIORESAL) 10 mg, 3 times daily busPIRone (BUSPAR) 15 mg, Oral, 2 times daily cholecalciferol (VITAMIN D-3) 5,000 Units, Daily diclofenac sodium 2 g, Topical, Every 12 hours PRN, 5% FLUoxetine (PROZAC) 10 mg, Oral, Daily fluticasone (Flonase) 50 MCG/ACT nasal spray 2 sprays, Each Nostril, Daily gabapentin (NEURONTIN) 300 mg, 3 times daily glucose blood (True Metrix Blood Glucose Test) test strip 1 each, As needed levothyroxine (SYNTHROID, LEVOXYL) 112 mcg, Oral, Daily before breakfast lisinopril 10 mg, Oral, Daily Multiple Vitamin (Daily-Talita Multivitamin) tablet 1 tablet, Oral, Daily naloxone (Narcan) 4 mg/0.1 mL nasal spray spironolactone (ALDACTONE) 100 mg, Oral, Daily traMADol (ULTRAM) 50 mg, Every 8 hours traZODone (DESYREL) 100 mg, Oral, Nightly, 50mg-100mg at bedtime ALLERGIES: Allergies Allergen Reactions Latex Other GI bleeding Gastric bypass Diflucan [Fluconazole] Swelling and Rash Facial edema Penicillins Other and Rash Yeast infection, rash REVIEW OF SYMPTOMS: Review of Systems Constitutional: Negative for appetite change, chills and fever. HENT: Negative for congestion, ear pain and sore throat. Eyes: Negative for pain, discharge, redness and visual disturbance. Respiratory: Negative for cough, shortness of breath and wheezing. Cardiovascular: Negative for chest pain, palpitations and leg swelling. Gastrointestinal: Negative for abdominal pain, blood in stool, constipation, diarrhea, nausea and vomiting. Genitourinary: Negative for difficulty urinating, dysuria and frequency. Musculoskeletal: Positive for arthralgias and back pain. Negative for joint swelling and myalgias. Skin: Negative for rash and wound. Neurological: Positive for numbness. Negative for dizziness, tremors, seizures, syncope and headaches. Psychiatric/Behavioral: Negative for behavioral problems, self-injury and suicidal ideas. The patient is nervous/anxious. Hematological: Does not bruise/bleed easily. Endocrine: Negative for polydipsia, polyphagia and polyuria. Allergic/Immunologic: Negative for environmental allergies and food allergies. PAST MEDICAL HISTORY Past Medical History: Diagnosis Date Acute right hip pain Anxiety and depression (CMS/HCC) DDD (degenerative disc disease), lumbar Hearing impairment History of high blood pressure Hypothyroidism (CMS/HCC) Joint pain Lumbar foraminal stenosis Lumbar spondylosis Lumbar stenosis Neuritis Osteoarthritis Primary osteoarthritis of knees, bilateral Ringing in ears Past Surgical History: Procedure Laterality Date BARIATRIC SURGERY ROTATOR CUFF REPAIR Bilateral family history includes Cancer in her mother; Diabetes in her mother; Heart disease in her mother; Hypertension in her maternal grandmother. OBJECTIVE: Visit Vitals BP 114/76 (BP Location: Left arm, Patient Position: Sitting, BP Cuff Size: Adult) Pulse 53 Temp 98.1 F (Temporal) Resp 20 Ht 5' Wt 225 lb 12.8 oz SpO2 96% BMI 44.10 kg/m Smoking Status Former BSA 2.08 m Physical Exam Vitals and nursing note reviewed. Constitutional: General: She is not in acute distress. Appearance: Normal appearance. HENT: Head: Normocephalic and atraumatic. Right Ear: External ear normal. Left Ear: External ear normal. Nose: Nose normal. Mouth/Throat: Mouth: Mucous membranes are moist. Eyes: Extraocular Movements: Extraocular movements intact. Conjunctiva/sclera: Conjunctivae normal. Neck: Vascular: No carotid bruit. Cardiovascular: Rate and Rhythm: Normal rate and regular rhythm. Pulses: Normal pulses. Heart sounds: Normal heart sounds. Pulmonary: Effort: Pulmonary effort is normal. Breath sounds: Normal breath sounds. Musculoskeletal: General: Normal range of motion. Cervical back: Normal range of motion and neck supple. Lymphadenopathy: Cervical: No cervical adenopathy. Skin: General: Skin is warm and dry. Capillary Refill: Capillary refill takes 2 to 3 seconds. Findings: No rash. Neurological: General: No focal deficit present. Mental Status: She is alert and oriented to person, place, and time. Psychiatric: Mood and Affect: Mood normal. Behavior: Behavior normal. Thought Content: Thought content normal. Judgment: Judgment normal. ASSESSMENT AND PLAN: No follow-ups on file. documented in this encounter [facility] Consultation note 07-23-2022 Note Date & Type [...] is in agreement with this. [facility] Consultation note 02-19-2022 Note Date & [...] in three months' time unless otherwise indicated. [facility] Signed and Approved by: JUWAN YAÑEZ . 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 [facility] Signed and Approved by: JUWAN YAÑEZ . 01/26/2022 15:08:00 [facility] Consultation note 01-22-2022 Note Date & [...] heme. The patient tolerated the procedure well. [facility] Signed and Approved by: JUWAN YAÑEZ . 01/26/2022 15:08:00 [facility] Consultation note 01-22-2022 Note Date & [...] relief and improvement of the left knee. [facility] Signed and Approved by: JUWAN YAÑEZ . 01/26/2022 15:08:00 [facility] Evaluation note Note Date & Type Note Facility Evaluation note Diagnosis Anxiety and depression (CMS/HCC)- Primary Iron deficiency anemia, unspecified iron deficiency anemia type Vitamin deficiency Unspecified vitamin deficiency Primary hypertension (CMS/HCC) Unspecified essential hypertension Obesity, morbid, BMI 40.0-49.9 (CMS/HCC) Primary insomnia Persistent disorder of initiating or maintaining sleep Environmental and seasonal allergies Hypothyroidism (acquired) (CMS/HCC) Unspecified hypothyroidism Spinal stenosis of lumbar region, unspecified whether neurogenic claudication present Primary osteoarthritis of both knees Encounter for subsequent annual wellness visit (AWV) in Medicare patient- Primary Vitamin D deficiency Vitamin B12 deficiency Other B-complex deficiencies Anxiety and depression (CMS/HCC) Hypothyroidism (acquired) (CMS/HCC) Unspecified hypothyroidism Primary hypertension (CMS/HCC) Unspecified essential hypertension Primary insomnia Persistent disorder of initiating or maintaining sleep RLS (restless legs syndrome) Restless legs syndrome (RLS) Mononeuropathy Mononeuritis of unspecified site documented in this encounter [facility] Evaluation note Note Date & Type Note Facility Evaluation note Diagnosis Anxiety and depression (CMS/HCC)- Primary Iron deficiency anemia, unspecified iron deficiency anemia type Vitamin deficiency Unspecified vitamin deficiency Primary hypertension (CMS/HCC) Unspecified essential hypertension Obesity, morbid, BMI 40.0-49.9 ([facility]) Primary insomnia Persistent disorder of initiating or maintaining sleep Environmental and seasonal allergies Hypothyroidism (acquired) ([facility]) Unspecified hypothyroidism Spinal stenosis of lumbar region, unspecified whether neurogenic claudication present Primary osteoarthritis of both knees Encounter for subsequent annual wellness visit (AWV) in Medicare patient- Primary Vitamin D deficiency Vitamin B12 deficiency Other B-complex deficiencies Anxiety and depression ([facility]) Hypothyroidism (acquired) ([facility]) Unspecified hypothyroidism Primary hypertension ([facility]) Unspecified essential hypertension Primary insomnia Persistent disorder of initiating or maintaining sleep RLS (restless legs syndrome) Restless legs syndrome (RLS) Mononeuropathy Mononeuritis of unspecified site Primary hypertension ([facility]) Unspecified essential hypertension documented in this encounter [facility] Summary Purpose Family History No Family History Records FoundNo Family History Records FoundNo Family History Records FoundNo Family History Records Found Advance Directives No Advanced Directives Records FoundNo Advanced Directives Records FoundNo Advanced Directives Records FoundNo Advanced Directives Records Found Hospital Course Note [facility] Clinical Discharge Summary PERSON INFORMATION Name STEPHANIE SINCLAIR Age 54 Years 1965 Sex FEMALE Language German PCP Kelly Bunch DO Marital Status Med Service Ambulatory Surgery Acct# Arrival 04/01/2020 07:10:00 Visit Reason SURGERY - LEFT SHOULDER SCOPE WITH ROTATOR CUFF REPAIR Acuity [place] 026 02:33 Address: [address] [place] [address] Comment: PROVIDER INFORMATION VITALS INFORMATION Vital Sign [...] anxie (more content not included)... Note Patient: STEPHANIE SINCLAIR MR N: [id number] Age: 54 years Sex: FEMALE : 1965 Associated Diagnoses: None Author: Deyvi Samuels MD Postoperative Information Post Operative Note: Operative Day. Anesthetic utilized: General. Health Status Allergies: Allergic Reactions (All) Severity Not Documented Penicillin- Yeast infection. Problem list (past medical history): All Problems Anemia / SNOMED CT 365703412 / Confirmed Hypothyroid / SNOMED CT 67452936 / Confirmed Iron deficiency / SNOMED CT 23125505 / Confirmed Physical Examination VS/Measurements Vital Signs [...] content not included)... Procedure Findings Note Patient: STEPHANIE SINCLAIR MR N: [id number] Age: 54 years Sex: FEMALE : 1965 Associated Diagnoses: None Author: Deyvi Samuels MD Postoperative Information Post Operative Note: Operative Day. Anesthetic utilized: General. Health Status Allergies: Allergic Reactions (All) Severity Not Documented Penicillin- Yeast infection. Problem list (past medical history): All Problems Anemia / SNOMED CT 662676843 / Confirmed Hypothyroid / SNOMED CT 03001855 / Confirmed Iron deficiency / SNOMED CT 64108706 / Confirmed Physical Examination VS/Measurements Vital Signs (last 24 hrs) Last Charted Heart Rate Peripheral 69 bpm (APR 01 10:) Resp Rate 16 br/min (APR 01 10:) SBP H 153mmHg (APR 01 10:) DBP [...] content) DATE CREATED AUTHOR 08/28/[address] [facility] DATE CREATED AUTHOR AUTHOR'S ORGANIZ ATION 01/15/2023 [facility] DATE CREATED AUTHOR AUTHOR'S ORGANIZ ATION 06/07/2024 [facility] DATE CREATED AUTHOR AUTHOR'S ORGANIZ ATION 06/29/2024 [facility] Care Teams (unrecognized sec tion and content) Nursing Home Aide Relationship Specialty Start Date End Date Paul Randall MD [address] [place] [id number] PCP - General Family Medicine 02/02/24 Dinorah Schulte NP [address] [place] [id number] Nurse Practitioner Family Medicine 02/15/24 Nursing Home Aide Relationship Specialty Start Date End Date Paul Randall MD [address] [place] [id number] PCP - General Family Medicine 02/02/24 Dinorah Schulte NP [address] [place] [id number] Nurse Practitioner Family Medicine 02/15/24 Nursing Home Aide Relationship Specialty Start Date End Date Paul Randall MD [address] [place] [phone] PCP - General Family Medicine 07/06/24 Dinorah Schulte NP [address] [place] [id number] Nurse Practitioner Family Medicine 02/15/24 Reason for Visit (unrecogniz ed section and content) Reason Onset Date Comments Med Refill 08/09/2024 FOR RECORDS PERTAINING TO PATIENTS WHO ARE [...] BE BASED ON THE PRIMARY CLINICAL RECORDS. [employer] provides no warranty or guarantee of the accuracy or completeness of information in this document.
--- NOTE | 2024-08-16 08:57 | P.CN_ITS ---
Consult Note: HPI Data of Consult Patient: known to practice within the last 3 years Requesting Physician: Veronique Laird NP Primary Care Provider: Dinorah Schulte NP Consult Narrative Reason for consult: f/u Narrative: Stephanie Nichols a pleasant 58 year old female presents for evaluation and management of chronic low back and hip pain, pain today 4/10 increasing to 7/10 with activity, standing, walking, twisting, bending, decreased with massage/heat/ice. Patient finds moderate benefit to baclofen, gabapentin, tramadol, and trazadone. Previous lumbar MRI consistent with lumbar stenosis with NC, lumbar radiculopathy, lumbar facet arthropathy, lx spondylosis. Bilateral knee xrays consistent with moderate OA. cc:: CC: Veronique Laird NP Review of Systems ROS Status of ROS 10 or more systems reviewed and unremark able except as noted in history and below Musculoskeletal Reports: back pain, extremity pain and joint pain PFSH [facility] Medical History Encounter for medication monitoring ?Z51.81 - Encounter for therapeutic drug level monitoring (ICD-10) Meds Home Medications and Allergies Home Medications ?Medication ?Instructions ?Recorded ?Confirmed ?Type VITAMIN D DAILY 04/28/23 History buspirone 10 mg tablet 10 mg PO BID 04/28/23 04/28/23 History gabapentin 600 mg tablet 600 mg PO DAILY 04/28/23 04/28/23 History levothyroxine 150 mcg tablet 150 mcg PO DAILY 04/28/23 04/28/23 History (Synthroid) lisinopril 10 mg tablet 10 mg PO DAILY 04/28/23 04/28/23 History multivitamin 1 tab PO DAILY 04/28/23 04/28/23 History trazodone 50 mg tablet 50 mg PO DAILY 04/28/23 04/28/23 History vitamin B12 0.5 mg-folic acid 1 mg 1 tab PO DAILY 04/28/23 04/28/23 History tablet lidocaine 4 % topical cream 1 applic topical BID #30 grams 07/14/23 Rx lidocaine 5 % topical cream 1 applic topical BID PRN pain #30 08/12/23 Rx grams baclofen 10 mg tablet 10 mg PO TID #90 tabs 01/13/24 Rx tramadol 50 mg tablet 50 mg PO TID PRN pain #90 tabs 03/08/24 Rx naloxone 4 mg/actuation nasal 4 mg intranasal Q3M PRN opioid 05/03/24 Rx spray (Narcan) overdose #2 ea tramadol 50 mg tablet 50 mg PO TID PRN pain #90 tabs 05/12/24 Rx tramadol 50 mg tablet 50 mg PO TID PRN pain #90 tabs 06/09/24 Rx tramadol 50 mg tablet 50 mg PO TID PRN pain #90 tabs 07/12/24 Rx baclofen 10 mg tablet 10 mg PO TID PRN muscle spasm #90 08/14/24 Rx tabs tramadol 50 mg tablet 50 mg PO TID PRN pain #90 tabs 08/14/24 Rx Allergies Allergy/AdvReac Type Severity Reaction Status Date / Time Latex, Natural Rubber Allergy Unknown Rash Verified 04/28/23 13:53 Penicillins Allergy Unknown Verified 04/28/23 13:53 Exam Constitutional Documenting provider has reviewed patient's vital signs: yes Common normals: no apparent distress, oriented x3, healthy appearing, alert and well nourished General appearance: cooperative Nutritional appearance: obese HENMT Common normals: normocephalic, hearing grossly normal bilaterally and moist oral mucous membranes Head and scalp: normocephalic Eye Common normals: PERRL Pupil: PERRL Neck & C-Spine Common normals: full ROM General: normal visual inspection Cervical spine: cervical ROM normal Chest Common normals: inspection of chest normal Respiratory Common normals: normal respiratory effort, no retractions and no use of accessory muscles Back & Pelvis Common normals: straight leg raise negative bilaterally Lumbar spine/lower back: ROM limited, pain with ROM (positive bilateral facet loading, right worse than left), lumbar spinal tenderness and paraspinal muscle tenderness Sacroiliac joints: SI joint(s) abnormal (bilaterally positive BARBARA, gaenslens, yeoman) SI joint details: tender to palpation Other: weakness to BLE diminished sensation in right L4,5 dermatomal pattern Extremity Common normals: normal to inspection and full ROM Right lower extremity: knee joint Left lower extremity: knee joint Other: bilateral knees enlarged diameter Neuro Common normals: oriented x3, CN's II-XII intact bilaterally, moves all extremities, no focal motor deficits, no sensory deficits noted and deep tendon reflexes 2+ bilaterally Sensorium/orientation: alert Gait (neuro): antalgic Motor exam: strength 5/5 throughout and no movement abnormalities noted Other: intermittent bilateral leg weakness and instability Psych Common normals: mental status grossly normal, thought process normal, cooperative, affect normal, speech normal and activity/motor behavior normal Speech: normal speech Thought process: normal thought process Results Additional Findings Additional findings: If on a controlled substance or opioids, I have checked an OARRS report on this patient and there are no aberrancies noted in the prescribing history.??If on a controlled substance or opioid a drug screen was completed and reviewed within the last year, and if there has not been a drug screen completed we ordered one today to monitor higher risk, state monitored pain medication use. As part of providing excellent, safe, comprehensive care, the following was completed at our patient's visit: 1. A medication reconciliation and review to ensure accurate knowledge of current/active medications, including asking our patients to inform us about any [id number] medications or herbal remedies/nutritional supplements/alternative remedies. 2. A review to specifically ensure our patients have had annual screening for screening for depression, screening for tobacco use, and screening for unhealthy alcohol use. For concerning screenings had a discussion with the patient, provided patient education, and recommended follow-up with primary care provider when appropriate. If patient noted with a risk of falling, they received education on strength, gait, and balance training to prevent future risk of falling. Assessment and Plan Assessment and Plan (1) Lumbar stenosis without neurogenic claudication: (2) Bilateral primary osteoarthritis of knee: (3) Chronic prescription opiate use: Assessment and Plan: I feel these medications are improving the patient's quality of life and allow them to tolerate activities of daily living as well as participate in recreational activity.? The patient does not report intolerable side effects. The patient is NOT opioid naive and non-pharmacologic and non-opioid treatment has failed to significantly relieve the patient's pain and improve functionality. The patient has a diagnosis that is related to a somatic or visceral pain etiology. ? ?? I reviewed with the patient the potential risks and side effects with the use of? opioid medications including but not limited to respiratory depression,? sedation, and even . I verified the patient has access to naloxone should? these effects occur. I advised the patient to avoid the use of any other? sedation substances including alcohol, THC, and benzodiazepines while? taking opioid medications due to the risk of compounding side effects and? detrimental outcomes. I reviewed the [employer], pain treatment agreement, urine? drug screen, and opioid start talking forms. The patient was advised to let? their family know they had Naloxone in case they would need to administer? the medication.? ?? A drug screen was completed within the last year, and no aberrancies were noted regarding their use of controlled substances. The patient understands they are subject to the terms and conditions of the pain contract that they have signed. ? ?? I have checked an OARRS report on this patient today and there are no aberrancies noted in the prescribing history.? (4) Lumbar spondylosis: (5) Myofascial pain: (6) Generalized OA: Plan risks vs benefits discussed, we will talke over and increase gabapentin to 600mg TID continue tramadol 50mg TID PRN moderate to severe pain continue baclofen 10mg TID PRN pain/spasms continue trazodone 50mg daily continue HEP as tolerated declining interventional therapy f/u 6 weeks to assess medication changes
== END 2024-08-16 08:45 | disposition home or self-care (01) ==
LOC: PM 08:44
PROVIDERS: PCP Nurse Practitioner; Visit Provider Nurse Practitioner
DX: M48.062 Spinal stenosis, lumbar region with neurogenic claudication (principal); M17.0 Bilateral primary osteoarthritis of knee; Z79.891 Long term (current) use of opiate analgesic; M47.816 Spondylosis without myelopathy or radiculopathy, lumbar region; M79.18 Myalgia, other site
CPT/HCPCS: G0463

== ENCOUNTER 2024-11-30 13:04 | Outpatient (OUT) | payer MEDICARE, MEDICAID, SELFPAY ==
--- NOTE | 2024-11-30 13:35 | PM.CN ---
Consult Note: HPI Data of Consult Patient: known to practice within the last 3 years Requesting Physician: Veronique Laird NP Primary Care Provider: Dinorah Schulte NP Consult Narrative Reason for consult: f/u Narrative: Stephanie Nichols a pleasant 59 year old female presents for evaluation and management of chronic low back and hip pain, pain today 5-6/10 increasing to 7/10 with activity, standing, walking, twisting, bending, decreased with massage/heat/ice. Patient finds moderate benefit to baclofen, gabapentin, tramadol, and trazodone. Previous lumbar MRI consistent with lumbar stenosis with NC, lumbar radiculopathy, lumbar facet arthropathy, lx spondylosis. Bilateral knee xrays consistent with moderate OA. pt has previously declined interventional therapy as her pain is not bad enough and shes not ready. cc:: CC: Veronique Laird NP Review of Systems ROS Status of ROS 10 or more systems reviewed and unremarkable except as noted in history and below Musculoskeletal Reports: back pain, extremity pain and joint pain PFSH [facility] Medical History Encounter for medication monitoring ?Z51.81 - Encounter for therapeutic drug level monitoring (ICD-10) Meds Home Medications and Allergies Home Medications ?Medication ?Instructions ?Recorded ?Confirmed ?Type VITAMIN D DAILY 04/28/23 History buspirone 10 mg tablet 10 mg PO BID 04/28/23 04/28/23 History gabapentin 600 mg tablet 600 mg PO DAILY 04/28/23 04/28/23 History levothyroxine 150 mcg tablet 150 mcg PO DAILY 04/28/23 04/28/23 History (Synthroid) lisinopril 10 mg tablet 10 mg PO DAILY 04/28/23 04/28/23 History multivitamin 1 tab PO DAILY 04/28/23 04/28/23 History trazodone 50 mg tablet 50 mg PO DAILY 04/28/23 04/28/23 History vitamin B12 0.5 mg-folic acid 1 mg 1 tab PO DAILY 04/28/23 04/28/23 History tablet lidocaine 4 % topical cream 1 applic topical BID #30 grams 07/14/23 Rx lidocaine 5 % topical cream 1 applic topical BID PRN pain #30 08/12/23 Rx grams naloxone 4 mg/actuation nasal 4 mg intranasal Q3M PRN opioid 05/03/24 Rx spray (Narcan) overdose #2 ea tramadol 50 mg tablet 50 mg PO TID PRN pain #90 tabs 07/12/24 Rx baclofen 10 mg tablet 10 mg PO TID PRN muscle spasm #90 08/14/24 Rx tabs tramadol 50 mg tablet 50 mg PO TID PRN pain #90 tabs 11/15/24 Rx Allergies Allergy/AdvReac Type Severity Reaction Status Date / Time Latex, Natural Rubber Allergy Unknown Rash Verified 04/28/23 13:53 Penicillins Allergy Unknown Verified 04/28/23 13:53 Exam Constitutional Documenting provider has reviewed patient's vital signs: yes Common normals: no apparent distress, oriented x3, healthy appearing, alert and well nourished General appearance: cooperative Nutritional appearance: obese HENMT Common normals: normocephalic, hearing grossly normal bilaterally and moist oral mucous membranes Head and scalp: normocephalic Eye Common normals: PERRL Pupil: PERRL Neck & C-Spine Common normals: full ROM General: normal visual inspection Cervical spine: cervical ROM normal Chest Common normals: inspection of chest normal Respiratory Common normals: normal respiratory effort, no retractions and no use of accessory muscles Back & Pelvis Lumbar spine/lower back: ROM limited, pain with ROM (positive bilateral facet loading, right worse than left), lumbar spinal tenderness, paraspinal muscle tenderness and straight leg raise positive right Sacroiliac joints: SI joint(s) abnormal (bilaterally positive BARBARA, gaenslens, yeoman) SI joint details: tender to palpation Other: weakness to BLE diminished sensation in right L4,5 dermatomal pattern Extremity Common normals: normal to inspection and full ROM Right lower extremity: knee joint Left lower extremity: knee joint Other: bilateral knees enlarged diameter Neuro Common normals: oriented x3, CN's II-XII intact bilaterally, moves all extremities, no focal motor deficits, no sensory deficits noted and deep tendon reflexes 2+ bilaterally Sensorium/orientation: alert Gait (neuro): antalgic and assistive device used cane Motor exam: no movement abnormalities noted Other: intermittent bilateral leg weakness and instability Psych Common normals: mental status grossly normal, thought process normal, cooperative, affect normal, speech normal and activity/motor behavior normal Speech: normal speech Thought process: normal thought process Results Additional Findings Additional findings: If on a controlled substance or opioids, I have checked an [place] report on this patient and there are no aberrancies noted in the prescribing history.??If on a controlled substance or opioid a drug screen was completed and reviewed within the last year, and if there has not been a drug screen completed we ordered one today to monitor higher risk, state monitored pain medication use. As part of providing excellent, safe, comprehensive care, the following was completed at our patient's visit: 1. A medication reconciliation and review to ensure accurate knowledge of current/active medications, including asking our patients to inform us about any [id number] medications or herbal remedies/nutritional supplements/alternative remedies. 2. A review to specifically ensure our patients have had annual screening for screening for depression, screening for tobacco use, and screening for unhealthy alcohol use. For concerning screenings had a discussion with the patient, provided patient education, and recommended follow-up with primary care provider when appropriate. If patient noted with a risk of falling, they received education on strength, gait, and balance training to prevent future risk of falling. Assessment and Plan Assessment and Plan (1) Lumbar stenosis without neurogenic claudication: (2) Bilateral primary osteoarthritis of knee: (3) Chronic prescription opiate use: Assessment and Plan: I feel these medications are improving the patient's quality of life and allow them to tolerate activities of daily living as well as participate in recreational activity.? The patient does not report intolerable side effects. The patient is NOT opioid naive and non-pharmacologic and non-opioid treatment has failed to significantly relieve the patient's pain and improve functionality. The patient has a diagnosis that is related to a somatic or visceral pain etiology. ? ?? I reviewed with the patient the potential risks and side effects with the use of? opioid medications including but not limited to respiratory depression,? sedation, and even . I verified the patient has access to naloxone should? these effects occur. I advised the patient to avoid the use of any other? sedation substances including alcohol, THC, and benzodiazepines while? taking opioid medications due to the risk of compounding side effects and? detrimental outcomes. I reviewed the [employer], pain treatment agreement, urine? drug screen, and opioid start talking forms. The patient was advised to let? their family know they had Naloxone in case they would need to administer? the medication.? ?? A drug screen was completed within the last year, and no aberrancies were noted regarding their use of controlled substances. The patient understands they are subject to the terms and conditions of the pain contract that they have signed. ? ?? I have checked an [place]AR[place] report on this patient today and there are no aberrancies noted in the prescribing history.? (4) Lumbar spondylosis: (5) Myofascial pain: (6) Generalized OA: Plan increase gabapentin 600mg TID, risks vs benefits reviewed continue tramadol 50mg TID PRN moderate to severe pain continue baclofen 10mg TID PRN pain/spasms continue trazodone 50mg daily continue HEP as tolerated declining interventional therapy, does not feel her pain is severe enough to pursue injections and shes scared that if she starts doing them now they will not help her [facility] f/u 6 weeks to assess medication changes
== END 2024-11-30 13:05 | disposition home or self-care (01) ==
LOC: PM 13:05
PROVIDERS: PCP Nurse Practitioner; Visit Provider Nurse Practitioner
DX: M48.062 Spinal stenosis, lumbar region with neurogenic claudication (principal); M17.0 Bilateral primary osteoarthritis of knee; Z79.891 Long term (current) use of opiate analgesic; M47.816 Spondylosis without myelopathy or radiculopathy, lumbar region; M79.18 Myalgia, other site
CPT/HCPCS: G0463

== ENCOUNTER 2025-02-07 11:55 | Outpatient (OUT) | payer MEDICARE, MEDICAID, SELFPAY ==
--- OUTSIDE RECORDS SUMMARY | 2025-02-07 12:02 | XMS_ITS | CCD ---
Author Organization [facility] Care Team Providers Care Pantograph Watcher Name Role Phone LUCIA .PATRIA Admitting Unavailable LAKSHMIPATHY ., NARENDRANATH Consulting Dasia vailable [facility] LUCIA .PATRIA Attending Unavailable [facility] HENRIQUEZ ., DR LUNA Lindsay Admitting Unavailable HENRIQUEZ ., DR LUNA Lindsay Attending Unavailable YAÑEZ ., JUWAN Consulting Unavailable YAÑEZ ., JWUAN Consulting Unavailable HENRIQUEZ ., DR LUNA Lindsay Attending Unavailable [facility] HENRIQUEZ ., DR ULNA Lindsay Admitting Unavailable YAÑEZ ., JUWAN Consulting Unavailable [facility] HENRIQUEZ ., DR LUNA Lindsay Attending Unavailable HENRIQUEZ ., DR LUNA Lindsay Admitting Unavailable YAÑEZ ., JUWAN Consulting Unavailable [facility] HENRIQUEZ ., DR LUNA Lindsay Attending Unavailable HENRIQUEZ ., DR LUNA Lindsay Admitting Unavailable YAÑEZ ., JUWAN Consulting Unavailable [facility] HENRIQUEZ ., DR LUNA Lindsay Attending Unavailable HENRIQUEZ ., DR LUNA Lindsay Admitting Unavailable DINORAH SCHULTE Referring Unavailable SERVICES, [facility] Un[facility] Paul Randall MD Primary Care Provider [phone] Franca POPULATION HEALTH COACH, Dinorah Unavailable DINORAH SCHULTE Attending Unavailable DINORAH SCHULTE Attending Unavailable Paul Randall MD Primary Care Provider Kelly Bunch Primary Care Unavailable Warren Holliday Attending Unavail able Warren Hollidya Admitting Unavail able Allergies Allergy Classification Reported Allergen(s) Allergy Type Date of Onset Reaction(s) Facility (1 source) Latex Drug allergy (disorder) [facility] Repository (2 sources) Penicillin; Translations: [penicillin] Drug Allergy [facility] Repository (8 sources) Fluconazole; Translations: [FLUCONAZOLE] Drug Allergy 4 Swelling, Rash [facility] Repository (1 source) NSAIDs; Translations: [NSAIDS (NON-STEROIDAL ANTI-INFLAMMATO RY DRUG)] Propensity to adverse reactions to drug (disorder) 8 [facility] Repository (8 sources) Penicillins; Translations: [PENICILLINS] Propensity to adverse reactions to drug (disorder) 4 Other, Rash [facility] Repository (7 sources) Latex Propensity to adverse reactions 4 [facility] (7 sources) Other Propensity to adverse reactions 8 GI bleeding [facility] Healthcare Medications Current Medications Medication Drug Class(es) Dates Sig (Normalized) Sig (Original) baclofen 10 mg oral tablet (7 sources) gamma-Aminobutyric Acid-ergic Agonist Start: 01-13-2024 take 1 tablet by mouth in the morning, then take 1 tablet by mouth in the evening, then take 1 tablet by mouth at bedtime baclofen (Lioresal) 10 MG tablet Take 10 mg by mouth in the morning and 10 mg in the evening and 10 mg before bedtime. 01/13/2024 Active busPIRone hydrochloride 15 mg oral tablet (9 sources) Start: 02-02-2024 End: 07-27-2024 take 1 tablet by mouth in the morning busPIRone (Buspar) 15 MG tablet Indications: Anxiety and depression (CMS/HCC) Take 1 tablet (15 mg) by mouth in the morning and 1 tablet (15 mg) before bedtime. 60 tablet 5 06/27/2024 Active cholecalciferol 0.125 mg oral tablet (5 sources) Vitamin D take 1 tablet by mouth once daily cholecalciferol (Vitamin D-3) 125 MCG (5000 UT) tablet Take 5,000 Units by mouth Daily Active diclofenac sodium 0.01 mg/mg topical gel (4 sources) Nonsteroidal Anti-inflammatory Drug End: 06-27-2024 diclofenac sodium 1 % gel Apply 2 g topically every 12 (twelve) hours if needed for pain 5% 06/27/2024 Discontinued (Therapy completed) doxycycline hyclate 100 mg oral capsule (4 sources) Tetracycline-class Drug Start: 12-01-2023 End: 06-27-2024 take 1 capsule by mouth once daily doxycycline (Vibramycin) 100 MG capsule Take 100 mg by mouth Daily 12/01/2023 06/27/2024 Discontinued (Therapy completed) FLUoxetine 10 mg oral capsule (9 sources) Serotonin Reuptake Inhibitor Start: 02-02-2024 End: 07-27-2024 take 1 capsule by mouth once daily FLUoxetine (PROzac) 10 MG capsule Indications: Anxiety and depression (CMS/HCC) Take 1 capsule (10 mg) by mouth Daily 30 capsule 5 06/27/2024 Active fluticasone propionate 0.05 mg/actuat metered dose nasal spray (8 sources) Corticosteroid Start: 02-02-2024 End: 10-18-2024 take 2 spray(s) nasal route once daily fluticasone (Flonase) 50 MCG/ACT nasal spray Indications: Environmental and seasonal allergies Administer 2 sprays into each nostril Daily 16 g 5 09/18/2024 10/18/2024 Active gabapentin 300 mg oral capsule (9 sources) Anti-epileptic Agent Start: 06-27-2024 gabapentin (Neurontin) [...] (Reorder) levothyroxine sodium 0.112 mg oral tablet (10 sources) l-Thyroxine Start: 02-02-2024 End: 10-07-2024 take 1 tablet by mouth before mealtime levothyroxine (Synthroid, Levoxyl) 112 MCG tablet Indications: Hypothyroidism (acquired) (CMS/HCC) Take 1 tablet (112 mcg) by mouth in the morning. Take before meals. 30 tablet 1 09/07/2024 10/07/2024 Active lisinopril 10 mg oral tablet (10 sources) Angiotensin Converting Enzyme Inhibitor Start: 02-02-2024 End: 10-07-2024 take 1 tablet by mouth once daily lisinopril 10 MG tablet Indications: Primary hypertension (CMS/HCC) Take 1 tablet (10 mg) by mouth Daily 30 tablet 1 09/07/2024 10/07/2024 Active Multiple Vitamin (Daily-Tailta Multivitamin) tablet (7 sources) Start: 02-02-2024 take 1 tablet by mouth once daily Multiple Vitamin (Daily-Talita Multivitamin) tablet Indications: Iron deficiency anemia, unspecified iron deficiency anemia type , Vitamin deficiency Take 1 tablet by mouth Daily 30 tablet 5 02/02/2024 Active naloxone hydrochloride 40 mg/ml nasal spray (6 sources) Opioid Antagonist Start: 05-03-2024 naloxone (Narcan) 4 mg/0.1 mL nasal spray 05/03/2024 Active spironolactone 100 mg oral tablet (10 sources) Aldosterone Antagonist Start: 02-02-2024 End: 09-08-2024 take 1 tablet by mouth once daily spironolactone (Aldactone) 100 MG tablet Indications: Primary hypertension (CMS/HCC) Take 1 tablet (100 mg) by mouth Daily 30 tablet 5 08/09/2024 Active traMADol hydrochloride 50 mg oral tablet (7 sources) Opioid Agonist take 1 tablet by mouth every eight hours traMADol (Ultram) 50 MG tablet Take 50 mg by mouth every 8 (eight) hours Pt takes 3 times daily Active traZODone hydrochloride 50 mg oral tablet (9 sources) Serotonin Reuptake Inhibitor Start: 02-02-2024 End: [...] Problem Date Documented Date Episodic/Chronic Anxiety disorders (10 sources) Anxiety disorder, unspecified; Translations: [Mixed anxiety and depressive disorder] Onset: 02-02-2024 02-02-2024 Chronic Deficiency and other anemia (1 source) Iron deficiency anemia, unspecified; Translations: [Iron deficiency anemia, unspecified] Onset: 06-05-2024 Episodic Essential hypertension (12 sources) Essential (primary) hypertension; Translations: [Essential hypertension] Onset: 02-02-2024 02-02-2024 Chronic Miscellaneous mental health disorders (9 sources) Primary insomnia; Translations: [Primary insomnia] Onset: 02-02-2024 02-02-2024 Chronic Nutritional deficiencies (7 sources) Vitamin D deficiency; Translations: [Vitamin D deficiency, unspecified] Onset: 02-02-2024 06-27-2024 Chronic Nutritional deficiencies (10 sources) Vitamin deficiency, unspecified; Translations: [Vitamin deficiency] Onset: 02-02-2024 02-02-2024 Episodic Osteoarthritis (18 sources) Unilateral primary osteoarthritis, left knee; Translations: [Bilateral osteoarthritis of knees] Onset: 01-22-2022 Chronic Other connective tissue disease (1 source) Other muscle spasm; Translations: [OTHER MUSCLE SPASM] Onset: 01-14-2023 Episodic Other hereditary and degenerative nervous system conditions (7 sources) Restless legs; Translations: [Restless legs syndrome] Onset: 06-27-2024 06-27-2024 Chronic Other nervous system disorders (1 source) Other specified mononeuropathies; Translations: [OTHER SPECIFIED MONONEUROPATHIES] Onset: 01-14-2023 Chronic Other nervous system disorders (7 sources) Difficulty walking; Translations: [Difficulty in walking, not elsewhere classified] Onset: 02-02-2024 02-02-2024 Chronic Other nervous system disorders (2 sources) Mononeuropathy; Translations: [Mononeuropathy, unspecified] 06-27-2024 Chronic Other nervous system disorders (5 sources) Peripheral nerve disease ; Translations: [Polyneuropathy, unspecified] Onset: 06-27-2024 06-27-2024 Chronic Other non-traumatic joint disorders (7 sources) Joint pain; Translations: [Pain in unspecified joint] 02-15-2024 Episodic Other nutritional; endocrine; and metabolic disorders (1 source) Obesity, unspecified; Translations: [OBESITY UNSPECIFIED] Onset: 02-20-2022 Chronic Other nutritional; endocrine; and metabolic disorders (1 source) Morbid (severe) obesity due to excess calories; Translations: [Morbid (severe) obesity due to excess calories] Onset: 06-05-2024 Chronic Other nutritional; endocrine; and metabolic disorders (7 sources) Body mass index 40+ - severely obese; Translations: [Morbid (severe) obesity due to excess calories] Onset: 02-02-2024 02-02-2024 Chronic Other upper respiratory disease (8 sources) Allergic disposition; Translations: [Other allergic rhinitis] Onset: 02-02-2024 02-02-2024 Chronic Spondylosis; intervertebral disc disorders; other back problems (12 sources) Other spondylosis with radiculopathy, lumbar region; Translations: [Sacroiliitis, not elsewhere classified] Onset: 02-19-2022 Chronic Thyroid disorders (10 sources) Acquired hypothyroidism; Translations: [Hypothyroidism, unspecified] Onset: 02-02-2024 02-02-2024 Chronic Unclassified (2 sources) LOW BACK PAIN, UNSPECIFIED; Translations: [LOW BACK PAIN, UNSPECIFIED] Onset: 01-14-2023 Past or Other Problems Problem Classification Problem Date Documented Da te Episodic/Chronic Deficiency and other anemia (7 sources) Anemia; Translations: [Anemia, unspecified] Onset: 12-25-2013 02-02-2024 Episodic Mood disorders (6 sources) Mood disorders; Translations: [Depression, unspecified] Onset: 06-05-2024 06-27-2024 Other bone disease and musculoskeletal deformities (7 sources) Osteopenia; Translations: [Other specified disorders of [...] Onset: 01-28-2022 Episodic Other connective tissue disease (7 sources) Tear of right rotator cuff; Translations: [Unspecified rotator cuff tear or rupture of right shoulder, not specified as traumatic] Onset: 02-02-2024 02-02-2024 Episodic Other screening for suspected conditions (not mental disorders or infectious disease) (7 sources) Mammography abnormal; Translations: [Other abnormal and inconclusive findings on diagnostic imaging of breast] Onset: 02-04-2024 02-04-2024 Episodic Spondylosis; intervertebral disc disorders; other back problems (19 sources) Intervertebral disc disorders with radiculopathy, lumbar region; Translations: [Spinal stenosis of lumbar region] Onset: 02-20-2022 Episodic Unclassified (1 source) LOW BACK PAIN, UNSPECIFIED; Translations: [LOW BACK PAIN, UNSPECIFIED] Onset: 01-08-2023 Results Test Name Value Interpretation Reference Range Facil ity CBC AND AUTO DIFFon 06-05-20 24 ABSOLUTE BASOPHIL 0.1 X10E9/L Normal 0.0-0.2 [facility] Comment on above: Performed By: #### C BCA, CMP, 2498-4, 78590-2, 3016-3, 2276-4, 2132-9, 48478-5 #### [facility] ([id number]) [address], [address] [place] [address] ABSOLUTE NEUTROPHIL 2.7 X10E9/L Normal 1.5-6.6 [facility] Comment on above: Performed By: #### C BCA, CMP, 2498-4, 68390-7, 3016-3, 2276-4, 2132-9, 56562-4 #### [facility] ([id number]) [address], [address] [place] [address] Basophils/100 WBC (Bld) 1.8 % Normal [facility] Comment on above: Performed By: #### C BCA, CMP, 2498-4, 38544-7, 3016-3, 2276-4, 2132-9, 46643-8 #### [facility] ([id number]) [address], [address] [place] [address] Eosinophils (Bld) [#/Vol] 0.2 10*3/uL Normal 0.0-0.4 [facility] Comment on above: Performed By: #### C BCA, CMP, 2498-4, 74256-3, 3016-3, 2276-4, 2132-9, 75081-1 #### [facility] ([id number]) [address], [address] [place] [address] Eosinophils/100 WBC (Bld) 4.0 % Normal [facility] Comment on above: Performed By: #### C BCA, CMP, 2498-4, 35250-8, 3016-3, 2276-4, 2132-9, 76750-0 #### [facility] ([id number]) [address], [address] [place] [address] Erythrocyte distribution width (RBC) [Ratio] 13.1 % Normal 11.5-15.0 [facility] Comment on above: Performed By: #### C BCA, CMP, 2498-4, 51655-6, 3016-3, 2276-4, 2-9, 50511-7 #### [facility] ([id number]) [address], [address] [place] [address] Hematocrit (Bld) [Volume fraction] 39.6 % Normal 35-47 [facility] Comment on above: Performed By: #### C BCA, CMP, 2498-4, 43821-1, 3016-3, 2276-4, 2-9, 21353-8 #### [facility] ([id number]) [address], [address] [place] [address] Hemoglobin (Bld) [Mass/Vol] 13.8 g/dL Normal 11.7-15.5 [facility] Comment on above: Performed By: #### C BCA, CMP, 2498-4, 49924-7, 3016-3, 2276-4, 2132-9, 32015-4 #### [facility] ([id number]) [address], [address] [place] [address] Lymphocytes (Bld) [#/Vol] 0.7 10*3/uL Low 1.0-3.5 [facility] Comment on above: Performed By: #### C BCA, CMP, 2498-4, 82307-1, 3016-3, 2276-4, 2132-9, 61938-6 #### [facility] ([id number]) [address], [facility] [address] [place] [address] Lymphocytes/100 WBC (Bld) 17.5 % Normal [facility] Comment on above: Performed By: #### C BCA, CMP, 2498-4, 75058-4, 3016-3, 2276-4, 2131-9, 77024-2 #### [facility] ([id number]) [address] [address] [place] [address] MCH (RBC) [Entitic mass] 31.0 pg Normal 27-34 [facility] Comment on above: Performed By: #### C BCA, CMP, 2498-4, 74697-0, 3016-3, 2276-4, 2131-9, 74289-3 #### [facility] ([id number]) [address] [address] [place] [address] MCHC (RBC) [Mass/Vol] 34.9 g/dL Normal 32-36 [facility] Comment on above: Performed By: #### C BCA, CMP, 2498-4, 04846-6, 3016-3, 2276-4, 2132-9, 75566-8 #### [facility] ([id number]) [address] [address] [place] [address] MCV (RBC) [Entitic vol] 89 fL Normal 80-100 [facility] Comment on above: Performed By: #### C BCA, CMP, 2498-4, 24796-2, 3016-3, 2276-4, 2132-9, 37735-5 #### [facility] ([id number]) [address], [address] [place] [address] Monocytes (Bld) [#/Vol] 0.2 10*3/uL Normal 0-0.9 [facility] Comment on above: Performed By: #### C BCA, CMP, 2498-4, 87066-5, 3016-3, 2276-4, 2131-9, 90755-3 #### [facility] ([id number]) [address], [address] [place] [address] Monocytes/100 WBC (Bld) 6.0 % Normal [facility] Comment on above: Performed By: #### C BCA, CMP, 2498-4, 30584-2, 3016-3, 2276-4, 2131-9, 06864-9 #### [facility] ([id number]) [address], [address] [place] [address] Neutrophils/100 WBC (Bld) 70.7 % Normal [facility] Comment on above: Performed By: #### C BCA, CMP, 2498-4, 78542-5, 3016-3, 2276-4, 2131-9, 36800-3 #### [facility] ([id number]) [address], [address] [place] [address] Platelet mean volume (Bld) [Entitic vol] 8.3 fL Normal 7-12 [facility] Comment on above: Performed By: #### C BCA, CMP, 2498-4, 00170-5, 3016-3, 2276-4, 2131-9, 82378-0 #### [facility] ([id number]) [address], [address] [place] [address] Platelets (Bld) [#/Vol] 192 10*3/uL Normal 150-450 [facility] Comment on above: Performed By: #### C BCA, CMP, 2498-4, 28929-9, 3016-3, 2276-4, 2132-9, 93438-8 #### [facility] ([id number]) [address], [address] [place] [address] RBC COUNT 4.46 X10E12/L Normal 3.80-5.20 [facility] Comment on above: Performed By: #### C BCA, CMP, 2498-4, 82073-3, 3016-3, 2276-4, 2-9, 35673-5 #### [facility] ([id number]) [address], [address] [place] [address] WBC (Bld) [#/Vol] 3.8 10*3/uL Low 4.0-11.0 [facility] Comment on above: Performed By: #### C BCA, CMP, 2498-4, 32013-2, 3016-3, 2276-4, 2-9, 12908-9 #### [facility] ([id number]) [address], [address] [place] [address] CBC W Auto Differential pane l (Bld)on 06-05-2024 ABSOLUTE BASOPHIL 0.1 [facility] Comment on above: PERFORMED AT [facility] [address],[place] [address] Basophils/100 WBC (Bld) 1.8 % [facility] Eosinophils (Bld) [#/Vol] 0.2 10*3/uL [facility] Eosinophils/100 WBC (Bld) 4.0 % [facility] Erythrocyte distribution width (RBC) [Ratio] 13.1 % 11.5 - 15.0 % [facility] Hematocrit (Bld) [Volume fraction] 39.6 % 35 - 47 % [facility] Hemoglobin (Bld) [Mass/Vol] 13.8 g/dL 11.7 - 15.5 g/dL [facility] Interpretation and review of laboratory results Abnormal [facility] Lymphocytes (Bld) [#/Vol] 0.7 10*3/uL Low [facility] Lymphocytes/100 WBC (Bld) 17.5 % [facility] MCH (RBC) [Entitic mass] 31.0 pg 27 - 34 pg [facility] MCHC (RBC) [Mass/Vol] 34.9 g/dL 32 - 36 g/dL [facility] MCV (RBC) [Entitic vol] 89 fL 80 - 100 fL [facility] Monocytes (Bld) [#/Vol] 0.2 10*3/uL [facility] Monocytes/100 WBC (Bld) 6.0 % [facility] Neutrophils (Bld) [#/Vol] 2.7 10*3/uL [facility] Neutrophils/100 WBC (Bld) 70.7 % [facility] Platelet mean volume (Bld) [Entitic vol] 8.3 fL 7 - 12 fL [facility] Platelets (Bld) [#/Vol] 192 10*3/uL [facility] RBC (Bld) [#/Vol] 4.46 10*6/uL [facility] WBC corrected for nucl RBC Auto (Bld) [#/Vol] 3.8 Low [facility] COMPREHENSIVE METABOLIC PANE [place] 06-05-2024 Albumin [Mass/Vol] 4.2 g/dL Normal 3.2-5.3 [facility] Comment on above: Performed By: #### C BCA, CMP, 2498-4, 17792-0, 3016-3, 2276-4, 2132-9, 35399-7 #### [facility] ([id number]) [address], [address] [place] [address] ALP [Catalytic activity/Vol] 79 U/L Normal 39-130 [facility] Comment on above: Performed By: #### C BCA, CMP, 2498-4, 16113-3, 3016-3, 2276-4, 2132-9, 39870-3 #### [facility] ([id number]) [address] [place] [address] ALT [Catalytic activity/Vol] 17 U/L Normal 0-31 [facility] Comment on above: Performed By: #### C BCA, CMP, 2498-4, 84204-7, 3016-3, 2276-4, 2132-9, 94774-6 #### [facility] ([id number]) [address], [address] [place] [address] Anion gap [Moles/Vol] 10 mmol/L Normal 5-15 [facility] Comment on above: Performed By: #### C BCA, CMP, 2498-4, 67709-4, 3016-3, 2276-4, 2-9, 66692-7 #### [facility] ([id number]) [address], [address] [place] [address] AST [Catalytic activity/Vol] 20 U/L Normal 0-41 [facility] Comment on above: Performed By: #### C BCA, CMP, 2498-4, 91658-3, 3016-3, 2276-4, 2-9, 52641-6 #### [facility] ([id number]) [address], [address] [place] [address] Bilirubin [Mass/Vol] 0.6 mg/dL Normal 0.3-1.2 [facility] Comment on above: Performed By: #### C BCA, CMP, 2498-4, 76810-3, 3016-3, 2276-4, 2-9, 96480-7 #### [facility] ([id number]) [address], [address] [place] [address] Calcium [Mass/Vol] 9.2 mg/dL Normal 8.5-10.5 [facility] Comment on above: Performed By: #### C BCA, CMP, 2498-4, 62396-2, 3016-3, 2276-4, 2-9, 94029-7 #### [facility] ([id number]) [address], [address] [place] [address] Chloride [Moles/Vol] 105 mmol/L Normal 98-109 [facility] Comment on above: Performed By: #### C BCA, CMP, 2498-4, 30532-5, 3016-3, 2276-4, 2132-9, 82208-2 #### [facility] ([id number]) [address] [place] [address] CO2 [Moles/Vol] 23 mmol/L Normal 22-32 [facility] Comment on above: Performed By: #### C BCA, CMP, 2498-4, 10432-0, 3016-3, 2276-4, 2132-9, 01897-9 #### [facility] ([id number]) [address] [place] [address] Creatinine [Mass/Vol] 0.95 mg/dL Normal 0.40-1.00 [facility] Comment on above: Result Comment: METH OD TRACEABLE TO IDMS STANDARD Performed By: #### C BCA, CMP, 2498-4, 91129-8, 3016-3, 2276-4, 2-9, 81312-5 #### [facility] ([id number]) [address] [place] [address] GFR/1.73 sq M.predicted among non-blacks MDRD (S/P/Bld) [Vol rate/Area] 69 mL/min/{1.73_m2} Normal >59 [facility] Comment on above: Result Comment: Reported eGFR is based on the CKD-EPI 2020 equation that does not use a race coefficient. Performed By: #### C BCA, CMP, 2498-4, 66441-8, 3016-3, 2276-4, 2132-9, 12727-0 #### [facility] ([id number]) [address] [place] [address] Glucose [Mass/Vol] 90 mg/dL Normal 65-99 [facility] Comment on above: Performed By: #### C BCA, CMP, 2498-4, 15135-4, 3016-3, 2276-4, 2132-9, 68675-0 #### [facility] ([id number]) [address], [address] [place] [address] Potassium [Moles/Vol] 4.1 mmol/L Normal 3.5-5.0 [facility] Comment on above: Performed By: #### C BCA, CMP, 2498-4, 12455-4, 3016-3, 2276-4, 2131-9, 66913-7 #### [facility] ([id number]) [address], [address] [place] [address] Protein [Mass/Vol] 7.1 g/dL Normal 6.0-8.0 [facility] Comment on above: Performed By: #### C BCA, CMP, 2498-4, 29025-6, 3016-3, 2276-4, 2131-9, 54408-0 #### [facility] ([id number]) [address], [address] [place] [address] Sodium [Moles/Vol] 138 mmol/L Normal 134-146 [facility] Comment on above: Performed By: #### C BCA, CMP, 2498-4, 54912-0, 3016-3, 2276-4, 2131-9, 79232-4 #### [facility] ([id number]) [address], [address] [place] [address] Urea nitrogen [Mass/Vol] 17 mg/dL Normal 5-23 [facility] Comment on above: Performed By: #### C BCA, CMP, 2498-4, 40953-9, 3016-3, 2276-4, 2-9, 28097-9 #### [facility] ([id number]) [address], [address] [place] [address] FERRITINon 06-05-2024 Ferritin [Mass/Vol] 18 ng/mL Normal 11-307 [facility] Comment on above: Performed By: #### C BCA, CMP, 2498-4, 94600-9, 3016-3, 2276-4, 2-9, 47776-5 #### [facility] ([id number]) [address] [place] [address] IRONon 06-05-2024 Iron [Mass/Vol] 91 ug/dL Normal 50-170 [facility] Comment on above: Performed By: #### Naun BCA, CMP, 2498-4, 27864-7, 3016-3, 2276-4, 2131-9, 19209-8 #### [facility] ([id number]) [address] [place] [address] Lipid 1996 panelon Cholesterol [Mass/Vol] 188 mg/dL Normal 150-200 [facility] Comment on above: Performed By: #### Naun BCA, CMP, 2498-4, 71784-8, 3016-3, 2276-4, 2131-9, 28613-7 #### [facility] ([id number]) [address] [place] [address] Cholesterol in HDL [Mass/Vol] 58 mg/dL Normal >39 [facility] Comment on above: Result Comment: HDL <40 mg/dL - High Risk HDL > or = 40mg/dL- Desirable HDL >60 mg/dL - Negative Risk Performed By: #### C BCA, CMP, 2498-4, 82451-3, 3016-3, 2276-4, 2131-9, 21479-3 #### [facility] ([id number]) [address], [address] [place] [address] Cholesterol in LDL [Mass/Vol] 113 mg/dL Normal <130 [facility] Comment on above: Result Comment: LDL <100 mg/dL - Desirable LDL >160 mg/dL - High Risk Performed By: #### C BCA, CMP, 2498-4, 60986-9, 3016-3, 2276-4, 2132-9, 22227-8 #### [facility] ([id number]) [address], [address] [place] [address] Cholesterol in VLDL [Mass/Vol] 17 mg/dL Normal 0-30 [facility] Comment on above: Performed By: #### C BCA, CMP, 2498-4, 23928-7, 3016-3, 2276-4, 2132-9, 07588-0 #### [facility] ([id number]) [address], [address] [place] [address] CHOLESTEROL:HDL 3.2 Normal 1.0-5.0 [facility] Comment on above: Performed By: #### C BCA, CMP, 2498-4, 65902-1, 3016-3, 2276-4, 2132-9, 89691-7 #### [facility] ([id number]) [address], [address] [place] [address] Triglyceride [Mass/Vol] 83 mg/dL Normal 27-150 [facility] Comment on above: Performed By: #### C BCA, CMP, 2498-4, 69287-5, 3016-3, 2276-4, 2132-9, 17171-7 #### [facility] ([id number]) [address], [address] [place] [address] TSH Qnon 06-05-2023 TSH 1.26 uIU/mL Normal 0.49-4.67 [facility] Comment on above: Performed By: #### C BCA, CMP, 2498-4, 92985-4, 3016-3, 2276-4, 2132-9, 36980-1 #### [facility] ([id number]) [address] [place] [address] VITAMIN B12on 06-05-2024 Cobalamin (Vitamin B12) [Mass/Vol] 272 pg/mL Normal 180-914 [facility] Comment on above: Performed By: #### C FOZIA PADILLA, 2498-4, 23915-8, 3016-3, 6-4, 2132-05, 73961-2 #### [facility] ([id number]) [address] [place] [address] Vitamin D+Metabolites [Mass/ Vol]on 06-05-2024 VITAMIN D 25 HYD TOT 25.4 ng/mL Low 30-100 [facility] Comment on above: Result Comment: Vitamin D status 25 [place] Vitamin D Deficiency <20 ng/mL Insufficiency 20-29 ng/mL Sufficiency 30-100 ng/mL Toxicity >100 ng/mL NOTE: A pediatric reference range has not been established by the cistern room operator of this kit. The [place] [employer] recommends a Vitamin D level of = or >20ng/mL in infants and children. Performed By: #### C FOZIA PADILLA, 2498-4, 31833-6, 3016-3, 6-4, 2132-05, 04257-9 #### [facility] ([id number]) [address] [place] [address] Vital Signs Date Time Vital Sign Value Performing Clinician Jesusi reymundo 06-27-2024 09:54-0400 Body height 152.4 cm Dinorah Schulte POPULATION HEALTH COACH Work Phone: [facility] 06-27-2024 09:54-0400 Body mass index (BMI) [Ratio] 44.1 kg/m2 Dinorah Schulte POPULATION HEALTH COACH Work Phone: [facility] 06-27-2024 09:54-0400 Body temperature 98.1 [degF] Dinorah Jeffholz POPULATION HEALTH COACH Work Phone: [facility] 06-27-2024 09:54-0400 Body weight 102.42 kg Dinorah Aichholz POPULATION HEALTH COACH Work Phone: [facility] 06-27-2024 09:54-0400 Diastolic blood pressure 76 mm[Hg] Dinorah Aichholz POPULATION HEALTH COACH Work Phone: [facility] 06-27-2024 09:54-0400 Heart rate 53 /min Dinorah Aichholz POPULATION HEALTH COACH Work Phone: [facility] 06-27-2024 09:54-0400 Respiratory rate 20 /min Dinorah Aichholz POPULATION HEALTH COACH Work Phone: [facility] 06-27-2024 09:54-0400 SaO2% (BldA) [Mass fraction] 96 % Dinorah Aichholz POPULATION HEALTH COACH Work Phone: [facility] 06-27-2024 09:54-0400 Systolic blood pressure 114 mm[Hg] Dinorah Aichholz POPULATION HEALTH COACH Work Phone: [facility] Healthcare Encounters Encounter Date Encounter Type Care Provider Facility Start: 09-18-2024 End: 09-18-2024 Refill Dinorah Aichholz POPULATION HEALTH COACH Work Phone: [facility] Comment on above: Environmental and se asonal allergies Start: 09-07-2024 End: 09-07-2024 Refill Dinorah Aichholz POPULATION HEALTH COACH Work Phone: [facility] Comment on above: Hypothyroidism (acqu ired) (CMS/HCC); Primary hypertension (CMS/HCC) Start: 08-09-2024 End: 08-09-2024 Refill Dinorah Aichholz POPULATION HEALTH COACH Work Phone: [facility] Comment on above: Primary hypertension (CMS/HCC) Start: 06-27-2024 End: 06-27-2024 Bamboo flowsheet Dinorah Aichholz POPULATION HEALTH COACH Work Phone: [facility] Start: 06-27-2024 End: 06-27-2024 Bamboo flowsheet Dinorah Schulte POPULATION HEALTH COACH Work Phone: [facility] Start: 06-27-2024 End: 06-27-2024 ambulatory DINORAH FRANCA Not Available Start: 06-27-2024 End: 06-27-2024 Patient encounter procedure Dinorah Schulte POPULATION HEALTH COACH Work Phone: [facility] Comment on above: Encounter for subseq uent annual wellness visit (AWV) in Medicare patient (Primary Dx); Vitamin D deficiency; Vitamin B12 deficiency; Anxiety and depression (CMS/HCC); Hypothyroidism (acquired) (CMS/HCC); Primary hypertension (CMS/HCC); Primary insomnia; RLS (restless legs syndrome); Mononeuropathy Start: 06-05-2024 End: 06-05-2024 External Result Encounter Dinorah Schulte POPULATION HEALTH COACH Work Phone: [facility] Unsolicited Start: 06-05-2024 End: 06-05-2024 External Result Encounter Dinorah Schulte POPULATION HEALTH COACH Work Phone: [facility] Unsolicited Start: 06-05-2024 End: 06-05-2024 ambulatory DINORAH SCHULTE [facility] Start: 02-02-2024 End: 02-02-2024 ambulatory DINORAH SCHULTE Not Available Start: 01-08-2023 End: 01-09-2023 ambulatory PATRIA MYERS . Facility: Start: 12-03-2022 ambulatory JUWAN YAÑEZ . Facility:[facility] 1 Start: 07-23-2022 End: 07-24-2022 ambulatory JUWAN YAÑEZ . Facility:[facility] Start: 02-19-2022 End: 02-20-2022 ambulatory JUWAN YAÑEZ . Facility:[facility] Start: 02-05-2022 ambulatory JUWAN YAÑEZ . Facility: 1 Start: 01-22-2022 End: 01-23-2022 ambulatory [facility] Facility: Start: 08-20-2020 End: 08-20-2020 ambulatory [facility] Facility:[facility] Procedures Date Procedure Procedure Detail Performing Clinician Start: 06-05-2024 Complete blood count with white cell differential, automated Dinorah Schulte POPULATION HEALTH COACH Work Phone: Start: 05-01-2024 Mammography Dinorah zabala POPULATION HEALTH COACH Work Phone: Plan of Treatment Date Care Activity Detail Author Start: 12-10-2026 Screening for malign ant neoplasm of colon [facility] Healthcare Start: 06-27-2025 Medicare Annual Well ness (AWV) Medicare Annual Wellness (AWV) [facility] Start: 05-01-2025 Screening for malign ant neoplasm of breast Mammogram [facility] Start: 03-05-2025 Influenza vaccination Influenza Vacc ine (#1) [facility] Comment on above: Postponed from 05/07 (Patient Refused) Start: 09-26-2024 End: 09-26-2024 Patient encounter procedure 09/26/2024 9:40 AM EST Office Visit [facility] [address] [place] [phone] Dinorah Schulte, ARTIS [address] [place] [phone] [facility] Start: 05-07-2024 Influenza vaccination Influenza Vacc ine (#1) [facility] Start: 1994 Screening for malign ant neoplasm of cervix [facility] Start: 1985 Screening for malign ant neoplasm of cervix Pap Smear [facility] Start: 1964 Medicare Annual Well ness (AWV) Medicare Annual Wellness (AWV) [facility] Start: 1964 Screening for malign ant neoplasm of colon [facility] Immunizations Immunization Date Immunization Notes Care Provider Fa [facility] 07-03-2020 Influenza, injectabl e, Madin [place] Canine Kidney, preservative free, quadrivalent Dinorah Schulte POPULATION HEALTH COACH Work Phone: [facility] 07-03-2020 influenza virus vacc ine, unspecified formulation Dinorah Schulte POPULATION HEALTH COACH Work Phone: [facility] 04-19-2019 tetanus toxoid, redu mariano diphtheria toxoid, and acellular pertussis vaccine, adsorbed Dinorah Schulte NP Work Phone: [facility] Payers Date Payer Category Payer Medicare (Managed Care) [facility] [id number] 2023 Medicare [id number] 2023 Medicaid [id number] 2023 Medicare [id number] 2020 Unknown [id number] 2020 Unknown [id number] 1964 Unknown [id number] [id number]. 593 1964 Unknown [id number] 2.16.840.1.623053.3.579.2. 593 1964 Unknown [id number] 2.16.840.1.747562.3.579.2. 593 1964 Unknown [id number] 2.16.840.1.427869.3.579.2. 59 1964 Unknown [id number] 2.16.840.1.847457.3.579.2. 593 1964 Unknown [id number] 2.16.840.1.766834.3.579.2. 59 1964 Unknown [id number] 2.16.840.1.702363.3.579.2. 1286 1964 Unknown [id number] 2.16.840.1.616714.3.579.2. 1259 1964 Unknown [id number] 2.16.840.1.276526.3.579.2. 1259 1964 Unknown [id number] 2.16.840.1.261738.3.579.2. 718 1959 Unknown [id number] 1959 Unknown [id number] Social History Date Type Detail Facility Start: 02-02-2024 Tobacco smoking stat [facility] Ex-smoker [facility] End: 09-06-2008 History of tobacco use Current smoker [facility] End: 09-06-2008 History of tobacco use Cigarette Smoker [facility] Start: 02-02-2024 Tobacco use and exposure Smoke less tobacco non-user [facility] Start: 02-15-2024 End: 06-27-2024 Alcoholic beverage intake Ex-drinker (finding) [facility] Start: 02-02-2024 End: 06-27-2024 History of Social function [facility] Start: 02-02-2024 End: 06-27-2024 Tobacco use panel [facility] Start: 02-02-2024 Alcohol Comment caffine: soda 5 molly y [facility] Start: 1965 Sex assigned at Not [...] Associated Problem(s): Anxiety and depression (CMS/HCC) Restart ashley, fu in 3 months Associated Problem(s): Vitamin B12 [...] the original note were not included. Stephanie Nichols is a 58 y.o. female presents with chief complaint of No chief complaint on file. HPI: Diet: variety Activity: has a membership at the [employer] [facility] [employer] Concerns: anxiety Falls in the [...] follow-ups on file. documented in this encounter [facility] Consultation note 07-23-2022 Note Date & Type [...] Patient is in agreement with this. [facility] Consultation note 02-19-2022 Note Date [...] in three months' time unless otherwise indicated. [facility] Signed and Approved by: JUWAN YAÑEZ . 03/04/2022 16:24:00 [facility] Consultation note 01-22-2022 Note Date [...] Activities that aggravate her pain are stairs, engraver hours, physical activity, changes in the weather [...] will follow her up in 1-2 months. [facility] Signed and Approved by: JUWAN YAÑEZ . 01/26/2022 15:08:00 [facility] Consultation note 01-22-2022 Note Date [...] heme. The patient tolerated the procedure well. [facility] Signed and Approved by: JUWAN YAÑEZ . 01/26/2022 15:08:00 [facility] Consultation note 01-22-2022 Note Date [...] relief and improvement of the left knee. [facility] Signed and Approved by: JUWAN YAÑEZ . 01/26/2022 15:08:00 [facility] Evaluation note Note Date & Type Note Facility Evaluation note Diagnosis Anxiety and depression (CMS/HCC)- Primary Iron deficiency anemia, unspecified iron deficiency anemia type Vitamin deficiency Unspecified vitamin deficiency Primary hypertension (CMS/HCC) Unspecified essential hypertension Obesity, morbid, BMI 40.0-49.9 ([facility]/HCC) Primary insomnia Persistent disorder of initiating or [...] Facility Evaluation note Diagnosis Anxiety and depression ([facility]/HCC)- Primary Iron deficiency anemia, unspecified iron deficiency anemia type Vitamin deficiency Unspecified vitamin deficiency Primary hypertension ([facility]) Unspecified essential hypertension Obesity, morbid, BMI 40.0-49.9 ([facility]) Primary insomnia Persistent disorder of initiating or maintaining sleep Environmental and seasonal allergies Hypothyroidism (acquired) ([facility]) Unspecified hypothyroidism Spinal stenosis of lumbar region, unspecified whether neurogenic claudication present Primary osteoarthritis of both knees Encounter for subsequent annual wellness visit (AWV) in Medicare patient- Primary Vitamin D deficiency Vitamin B12 deficiency Other B-complex deficiencies Anxiety and depression ([facility]) Hypothyroidism (acquired) ([facility]) Unspecified hypothyroidism Primary hypertension ([facility]) Unspecified essential hypertension Primary insomnia Persistent disorder of initiating or maintaining sleep RLS (restless legs syndrome) Restless legs syndrome (RLS) Mononeuropathy Mononeuritis of unspecified site Primary hypertension ([facility]) Unspecified essential hypertension documented in this encounter [facility] Evaluation note Note Date & Type Note Facility Evaluation note Diagnosis Anxiety and depression ([facility])- Primary Iron deficiency anemia, unspecified iron deficiency anemia type Vitamin deficiency Unspecified vitamin deficiency Primary hypertension ([facility]) Unspecified essential hypertension Obesity, morbid, BMI 40.0-49.9 ([facility]) Primary insomnia Persistent disorder of initiating or maintaining sleep Environmental and seasonal allergies Hypothyroidism (acquired) ([facility]) Unspecified hypothyroidism Spinal stenosis of lumbar region, unspecified whether neurogenic claudication present Primary osteoarthritis of both knees Encounter for subsequent annual wellness visit (AWV) in Medicare patient- Primary Vitamin D deficiency Vitamin B12 deficiency Other B-complex deficiencies Anxiety and depression ([facility]) Hypothyroidism (acquired) ([facility]) Unspecified hypothyroidism Primary hypertension ([facility]) Unspecified essential hypertension Primary insomnia Persistent disorder of initiating or maintaining sleep RLS (restless legs syndrome) Restless legs syndrome (RLS) Mononeuropathy Mononeuritis of unspecified site Hypothyroidism (acquired) ([facility]) Unspecified hypothyroidism Primary hypertension ([facility]) Unspecified essential hypertension documented in this encounter [facility] Evaluation note Note Date & Type Note Facility Evaluation note Diagnosis Anxiety and depression ([facility])- Primary Iron deficiency anemia, unspecified iron deficiency anemia type Vitamin deficiency Unspecified vitamin deficiency Primary hypertension ([facility]/HCC) Unspecified essential hypertension Obesity, morbid, BMI 40.0-49.9 ([facility]) Primary insomnia Persistent disorder of initiating or maintaining sleep Environmental and seasonal allergies Hypothyroidism (acquired) ([facility]) Unspecified hypothyroidism Spinal stenosis of lumbar region, unspecified whether neurogenic claudication present Primary osteoarthritis of both knees Encounter for subsequent annual wellness visit (AWV) in Medicare patient- Primary Vitamin D deficiency Vitamin B12 deficiency Other B-complex deficiencies Anxiety and depression ([facility]/HCC) Hypothyroidism (acquired) ([facility]) Unspecified hypothyroidism Primary hypertension ([facility]) Unspecified essential hypertension Primary insomnia Persistent disorder of initiating or maintaining sleep RLS (restless legs syndrome) Restless legs syndrome (RLS) Mononeuropathy Mononeuritis of unspecified site Environmental and seasonal allergies documented in this encounter [facility] Summary Purpose Family History No Family History Records FoundNo Family History Records FoundNo Family History Records FoundNo Family History Records Found Advance Directives No Advanced Directives Records FoundNo Advanced Directives Records FoundNo Advanced Directives Records FoundNo Advanced Directives Records Found Additional Source Comments INFORMATION SOURCE (unrecogn ized section and content) DATE CREATED AUTHOR 01/15/2023 [facility] DATE CREATED AUTHOR AUTHOR'S ORGANIZ ATION 06/07/2024 [facility] DATE CREATED AUTHOR AUTHOR'S ORGANIZ ATION 06/29/2024 [facility] DATE CREATED AUTHOR AUTHOR'S ORGANIZ ATION 09/27/2024 [facility] Care Teams (unrecognized sec tion and content) Pantograph Watcher Relationship Specialty Start Date End Date Paul Randall MD [address] [place] [phone] PCP - General Family Medicine 02/02/24 Dinorah Schulte NP [address] [place] [phone] Nurse Practitioner Family Medicine 02/15/24 Pantograph Watcher Relationship Specialty Start Date End Date Paul Randall MD [address] [place] [phone] PCP - General Family Medicine 02/02/24 Dinorah Schulte NP [address] [place] [phone] Nurse Practitioner Family Medicine 02/15/24 Pantograph Watcher Relationship Specialty Start Date End Date Paul Randall MD [address] [place] [phone] PCP - General Family Medicine 07/06/24 Dinorah Schulte NP [address] [place] [phone] Nurse Practitioner Family Medicine 02/15/24 Pantograph Watcher Relationship Specialty Start Date End Date Paul Randall MD [address] [place] [phone] PCP - General Family Medicine 02/02/24 Dinorah Schulte NP [address] [place] [phone] Nurse Practitioner Family Medicine 02/15/24 Pantograph Watcher Relationship Specialty Start Date End Date Paul Randall MD [address] [place] [phone] PCP - General Family Medicine 07/06/24 Dinorah Schulte NP [address] [place] [phone] Nurse Practitioner Family Medicine 02/15/24 Reason for Visit (unrecogniz ed section and content) Reason Onset Date Comments Med Refill 08/09/2024 Reason Onset Date Comments Med Refill 09/07/2024 Reason Onset Date Comments Med Refill 09/18/2024 FOR RECORDS PERTAINING TO PATIENTS WHO ARE [...] BE BASED ON THE PRIMARY CLINICAL RECORDS. [employer] provides no warranty or guarantee of the accuracy or completeness of information in this document.
--- NOTE | 2025-02-07 12:41 | PM.CN ---
Consult Note: HPI Data of Consult Patient: known to practice within the last 3 years Requesting Physician: Veronique Laird NP Primary Care Provider: Dinorah Schulte NP Consult Narrative Reason for consult: f/u Narrative: Stephanie Nichols a pleasant 59 year old female presents for evaluation and management of chronic low back and hip pain, pain today 5-6/10 increasing to 8/10 with activity, standing, walking, twisting, bending, decreased with massage/heat/ice. Patient finds benefit to baclofen, gabapentin, tramadol, and trazodone. Previous lumbar MRI consistent with lumbar stenosis with NC, lumbar radiculopathy, lumbar facet arthropathy, lx spondylosis. Bilateral knee xrays consistent with moderate OA. pt has previously declined interventional therapy as her pain was tolerable with her medications, is now interested in discussing due to increased pain and decline in functional ability. cc:: CC: Veronique Laird NP Review of Systems ROS Status of ROS 10 or more systems reviewed and unremarkable except as noted in history and below Musculoskeletal Reports: back pain, extremity pain and joint pain [facility] Medical History Encounter for medication monitoring ?Z51.81 - Encounter for therapeutic drug level monitoring (ICD-10) Meds Home Medications and Allergies Home Medications ?Medication ?Instructions ?Recorded ?Confirmed ?Type VITAMIN D DAILY 04/28/23 History buspirone 10 mg tablet 10 mg PO BID 04/28/23 04/28/23 History gabapentin 600 mg tablet 600 mg PO DAILY 04/28/23 04/28/23 History levothyroxine 150 mcg tablet 150 mcg PO DAILY 04/28/23 04/28/23 History (Synthroid) lisinopril 10 mg tablet 10 mg PO DAILY 04/28/23 04/28/23 History multivitamin 1 tab PO DAILY 04/28/23 04/28/23 History trazodone 50 mg tablet 50 mg PO DAILY 04/28/23 04/28/23 History vitamin B12 0.5 mg-folic acid 1 mg 1 tab PO DAILY 04/28/23 04/28/23 History tablet lidocaine 4 % topical cream 1 applic topical BID #30 grams 07/14/23 Rx lidocaine 5 % topical cream 1 applic topical BID PRN pain #30 08/12/23 Rx grams naloxone 4 mg/actuation nasal 4 mg intranasal Q3M PRN opioid 05/03/24 Rx spray (Narcan) overdose #2 ea tramadol 50 mg tablet 50 mg PO TID PRN pain #90 tabs 07/12/24 Rx baclofen 10 mg tablet 10 mg PO TID PRN muscle spasm #90 08/14/24 Rx tabs tramadol 50 mg tablet 50 mg PO TID PRN pain #90 tabs 11/15/24 Rx baclofen 10 mg tablet 10 mg PO TID PRN muscle spasm #90 11/30/24 Rx tabs tramadol 50 mg tablet 50 mg PO TID PRN pain #90 tabs 11/30/24 Rx gabapentin 600 mg tablet 600 mg PO TID #90 tabs 12/18/24 Rx tramadol 50 mg tablet 50 mg PO TID PRN pain #90 tabs 12/25/24 Rx baclofen 10 mg tablet 10 mg PO TID #90 tabs 01/24/25 Rx gabapentin 600 mg tablet 600 mg PO TID #90 tabs 01/24/25 Rx tramadol 50 mg tablet 50 mg PO TID PRN pain #42 tabs 01/24/25 Rx tramadol 50 mg tablet 50 mg PO TID PRN pain #90 tabs 01/24/25 Rx Allergies Allergy/AdvReac Type Severity Reaction Status Date / Time Latex, Natural Rubber Allergy Unknown Rash Verified 04/28/23 13:53 Penicillins Allergy Unknown Verified 04/28/23 13:53 Exam Constitutional Documenting provider has reviewed patient's vital signs: yes Common normals: no apparent distress, oriented x3, healthy appearing, alert and well nourished General appearance: cooperative Nutritional appearance: obese HENFL Common normals: normocephalic, hearing grossly normal bilaterally and moist oral mucous membranes Head and scalp: normocephalic Eye Common normals: PERRL Pupil: PERRL Neck & C-Spine Common normals: full ROM General: normal visual inspection Cervical spine: cervical ROM normal Chest Common normals: inspection of chest normal Respiratory Common normals: normal respiratory effort, no retractions and no use of accessory muscles Back & Pelvis Lumbar spine/lower back: ROM limited, pain with ROM (positive bilateral facet loading, right worse than left), lumbar spinal tenderness, paraspinal muscle tenderness, straight leg raise positive right and straight leg raise positive left Sacroiliac joints: SI joint(s) abnormal (bilaterally positive BARBARA, gaenslens, yeoman) SI joint details: tender to palpation Other: weakness to BLE diminished sensation in bilateral L4,5,S1 Extremity Common normals: normal to inspection and full ROM Right lower extremity: knee joint Left lower extremity: knee joint Other: bilateral knees enlarged diameter Neuro Common normals: oriented x3, CN's II-XII intact bilaterally, moves all extremities, no focal motor deficits, no sensory deficits noted and deep tendon reflexes 2+ bilaterally Sensorium/orientation: alert Gait (neuro): antalgic and assistive device used cane Motor exam: no movement abnormalities noted Other: intermittent bilateral leg weakness and instability Psych Common normals: mental status grossly normal, thought process normal, cooperative, affect normal, speech normal and activity/motor behavior normal Speech: normal speech Thought process: normal thought process Results Additional Findings Additional findings: If on a controlled substance or opioids, I have checked an [place] report on this patient and there are no aberrancies noted in the prescribing history.??If on a controlled substance or opioid a drug screen was completed and reviewed within the last year, and if there has not been a drug screen completed we ordered one today to monitor higher risk, state monitored pain medication use. As part of providing excellent, safe, comprehensive care, the following was completed at our patient's visit: 1. A medication reconciliation and review to ensure accurate knowledge of current/active medications, including asking our patients to inform us about any [id number] medications or herbal remedies/nutritional supplements/alternative remedies. 2. A review to specifically ensure our patients have had annual screening for screening for depression, screening for tobacco use, and screening for unhealthy alcohol use. For concerning screenings had a discussion with the patient, provided patient education, and recommended follow-up with primary care provider when appropriate. If patient noted with a risk of falling, they received education on strength, gait, and balance training to prevent future risk of falling. Assessment and Plan Assessment and Plan (1) Lumbar stenosis without neurogenic claudication: Assessment and Plan: The patient has had over 3 months of moderate to severe low back pain with functional impairment and inadequate response to conservative care including NSAIDS (unless there are contraindication such as concurrent blood thinners), multiple oral or topical pain medications, and home exercise program/physical therapy.? Patient has completed >6 weeks of guided home exercise program and/or formal physical therapy program without relief of their symptoms.? I have reviewed the imaging of the lumbar spine and no red flags were identified.? The Oswestry Disability Index was completed, and the patient scored a 44%.? moderate to severe pain impacting ADLs, sitting, standing, walking, lifting, sleeping, social life, and travel We discussed the risks and benefits of the procedure with the patient, and we are NOT planning on using sedation as outlined in the guidelines from Medicare unless there is a documented reason that sedation would be strongly recommended.?? ?The procedure will be completed with fluoroscopic guidance.? (2) Bilateral primary osteoarthritis of knee: (3) Chronic prescription opiate use: Assessment and Plan: I feel these medications are improving the patient's quality of life and allow them to tolerate activities of daily living as well as participate in recreational activity.? The patient does not report intolerable side effects. The patient is NOT opioid naive and non-pharmacologic and non-opioid treatment has failed to significantly relieve the patient's pain and improve functionality. The patient has a diagnosis that is related to a somatic or visceral pain etiology. ? ?? I reviewed with the patient the potential risks and side effects with the use of? opioid medications including but not limited to respiratory depression,? sedation, and even . I verified the patient has access to naloxone should? these effects occur. I advised the patient to avoid the use of any other? sedation substances including alcohol, THC, and benzodiazepines while? taking opioid medications due to the risk of compounding side effects and? detrimental outcomes. I reviewed the [employer] MGR, pain treatment agreement, urine? drug screen, and opioid start talking forms. The patient was advised to let? their family know they had Naloxone in case they would need to administer? the medication.? ?? A drug screen was completed within the last year, and no aberrancies were noted regarding their use of controlled substances. The patient understands they are subject to the terms and conditions of the pain contract that they have signed. ? ?? I have checked an [place] report on this patient today and there are no aberrancies noted in the prescribing history.? (4) Lumbar spondylosis: (5) Myofascial pain: (6) Generalized OA: Plan bilateral L4-5 TFESI under fluoroscopy declining bilateral knee injections for pain/oa change gabapentin 600mg AM 300mg mid day 600mg HS, risks vs benefits reviewed continue tramadol 50mg TID PRN moderate to severe pain continue baclofen 10mg TID PRN pain/spasms continue trazodone 50mg daily continue HEP as tolerated f/u 2 weeks after injection
== END 2025-02-07 11:56 | disposition home or self-care (01) ==
PROVIDERS: PCP Nurse Practitioner; Visit Provider Nurse Practitioner
DX: M48.062 Spinal stenosis, lumbar region with neurogenic claudication (principal); Z79.891 Long term (current) use of opiate analgesic; M47.816 Spondylosis without myelopathy or radiculopathy, lumbar region; M79.18 Myalgia, other site; M17.0 Bilateral primary osteoarthritis of knee
CPT/HCPCS: G0463

== ENCOUNTER 2025-05-23 12:31 | Outpatient (OUT) | payer MEDICARE, SELFPAY ==
--- OUTSIDE RECORDS SUMMARY | 2025-05-23 12:35 | XMS_ITS | CCD ---
Author Organization [facility] Care Team Providers Care Corrections Specialist Name Role Phone LUCIA .PATRIA Admitting Unavailable LAKSHMIPATHY ., NARENDRANATH Consulting Dasia vailable [facility] Unava ilable LUCIA .PATRIA Attending Unavailable [facility] Unava ilable HENRIQUEZ ., DR LUNA Lindsay Admitting Unavailable HENRIQUEZ ., DR LUNA Lindsay Attending Unavailable YAÑEZ ., JUWAN Consulting Unavailable YAÑEZ ., JUWAN Consulting Unavailable HENRIQUEZ ., DR LUNA Lindsay Attending Unavailable [facility] Unava ilable HENRIQUEZ ., DR LUNA Lindsay Admitting Unavailable YAÑEZ ., JUWAN Consulting Unavailable [facility] Unava ilable HENRIQUEZ ., DR LUNA Lindsay Attending Unavailable HENRIQUEZ ., DR LUNA Lindsay Admitting Unavailable YAÑEZ ., JUWAN Consulting Unavailable [facility] Unava ilable HENRIQUEZ ., DR LNUA Lindsay Attending Unavailable HENRIQUEZ ., DR LUNA Lindsay Admitting Unavailable YAÑEZ ., JUWAN Consulting Unavailable [facility] Unava ilable HENRIQUEZ ., DR LUNA Lindsay Attending Unavailable HENRIQUEZ ., DR LUNA Lindsay Admitting Unavailable DINORAH SCHULTE Referring Unavailable SERVICES, [facility] Unava ilable Paul Randall MD Primary Care Provider Franca FISH HATCHERY MANAGER, Dinorah Unavailable DINORAH SCHULTE Attending Unavailable DINORAH SCHULTE Attending Unavailable Paul Randall MD Primary Care Provider Kelly Bunch Primary Care Unavailable Warren Holliday Attending Unavail able Warren Holliday Admitting Unavail able Allergies Allergy Classification Reported Allergen(s) Allergy Type Date of Onset Reaction(s) Facility (1 source) Latex Drug allergy (disorder) [facility] Repository (2 sources) Penicillin; Translations: [penicillin] Drug Allergy [facility] Repository (15 sources) Fluconazole; Translations: [FLUCONAZOLE] Drug Allergy 4 Swelling, Rash [facility] Repository (1 source) NSAIDs; Translations: [NSAIDS (NON-STEROIDAL ANTI-INFLAMMATO RY DRUG)] Propensity to adverse reactions to drug (disorder) 8 [facility] Repository (15 sources) Penicillins; Translations: [PENICILLINS] Propensity to adverse reactions to drug (disorder) 4 Other, Rash [facility] Repository (14 sources) Latex Propensity to adverse reactions 4 [facility] (14 sources) Other Propensity to adverse reactions 8 GI bleeding [facility] Medications Current Medications Medication Drug Class(es) Dates Sig (Normalized) Sig (Original) baclofen 10 mg oral tablet (14 sources) gamma-Aminobutyri c Acid-ergic Agonist Start: 01-13-2024 take 1 tablet by mouth in the morning, then take 1 tablet by mouth in the evening, then take 1 tablet by mouth at bedtime baclofen (Lioresal) 10 MG tablet Take 10 mg by mouth in the morning and 10 mg in the evening and 10 mg before bedtime. 01/13/2024 Active busPIRone hydrochloride 15 mg oral tablet (15 sources) Start: 02-02-2024 End: 07-27-2024 take 1 tablet by mouth in the morning busPIRone (Buspar) 15 MG tablet Indications: Anxiety and depression Take 1 tablet (15 mg) by mouth in the morning and 1 tablet (15 mg) before bedtime. 60 tablet 5 06/27/2024 Active cholecalciferol 0.125 mg oral tablet (12 sources) Vitamin D take 1 tablet by [...] hyclate 100 mg oral capsule (4 sources) Tetracycline-clas s Drug Start: 12-01-2023 End: 06-27-2024 take 1 capsule by mouth once daily doxycycline (Vibramycin) 100 MG capsule Take 100 mg by mouth Daily 12/01/2023 06/27/2024 Discontinued (Therapy completed) FLUoxetine 10 mg oral capsule (17 sources) Serotonin Reuptake Inhibitor Start: 12-26-2024 End: 05-10-2025 take 1 capsule by mouth once daily FLUoxetine (PROzac) 10 MG capsule Indications: Anxiety and depression Take 1 capsule (10 mg) by mouth Daily 30 capsule 04/10/2025 05/10/2025 Active Start: 02-02-2024 End: 07-27-2024 take 1 capsule by mouth once daily FLUoxetine (PROzac) 10 MG capsule Indications: Anxiety and depression (CMS/HCC) Take 1 capsule (10 mg) by mouth Daily 30 capsule 5 06/27/2024 Active fluticasone propionate 0.05 mg/actuat metered dose nasal spray (14 sources) Corticosteroid Start: 02-02-2024 End: 10-18-2024 take 2 spray(s) nasal route once daily fluticasone (Flonase) 50 MCG/ACT nasal spray Indications: Environmental and seasonal allergies Administer 2 sprays into each nostril Daily 16 g 5 09/18/2024 Active gabapentin 300 mg oral capsule (16 sources) Anti-epileptic Agent Start: 01-10-2025 gabapentin (Neurontin) 300 MG capsule Indications: RLS (restless legs syndrome) , Mononeuropathy 1 pill in the am, and then 2 pills before bed 90 capsule 2 01/10/2025 Active Start: 06-27-2024 gabapentin (Ne urontin) 300 [...] (Reorder) levothyroxine sodium 0.112 mg oral tablet (16 sources) l-Thyroxine Start: 02-02-2024 End: 10-07-2024 take 1 tablet by mouth before mealtime levothyroxine (Synthroid, Levoxyl) 112 MCG tablet Indications: Hypothyroidism (acquired) Take 1 tablet (112 mcg) by mouth in the morning. Take before meals. 30 tablet 1 09/07/2024 Active lisinopril 10 mg oral tablet (20 sources) Angiotensin Converting Enzyme Inhibitor Start: 02-02-2024 End: 05-15-2025 take 1 tablet by mouth once daily lisinopril 10 MG tablet Indications: Primary hypertension Take 1 tablet (10 mg) by mouth Daily 30 tablet 04/15/2025 05/15/2025 Active Multiple Vitamin (Daily-Talita Multivitamin) tablet (14 sources) Start: 02-02-2024 take 1 tablet by mouth once daily Multiple Vitamin (Daily-Talita Multivitamin) tablet Indications: Iron deficiency anemia, unspecified iron deficiency anemia type , Vitamin deficiency Take 1 tablet by mouth Daily 30 tablet 5 02/02/2024 Active naloxone hydrochloride 40 mg/ml nasal spray (13 sources) Opioid Antagonist Start: 05-03-2024 naloxone (Narcan) 4 mg/0.1 mL nasal spray 05/03/2024 Active spironolactone 100 mg oral tablet (16 sources) Aldosterone Antagonist Start: 02-02-2024 End: 09-08-2024 take 1 tablet by mouth once daily spironolactone (Aldactone) 100 MG tablet Indications: Primary hypertension Take 1 tablet (100 mg) by mouth Daily 30 tablet 5 08/09/2024 Active traMADol hydrochloride 50 mg oral tablet (14 sources) Opioid Agonist take 1 tablet by mouth every eight hours traMADol (Ultram) 50 MG tablet Take 50 mg by mouth every 8 (eight) hours Pt takes 3 times daily Active traZODone hydrochloride 50 mg oral tablet (17 sources) Serotonin Reuptake Inhibitor Start: 02-02-2024 End: 05-26-2025 take 2 tablets by mouth at bedtime traZODone (Desyrel) 50 MG tablet Indications: Primary insomnia Take 2 tablets (100 mg) by mouth at bedtime 50mg-100mg at bedtime 60 tablet 1 04/26/2025 05/26/2025 Active vitamin b12 1 mg oral tablet [...] Problem Date Documented Date Episodic/Chronic Anxiety disorders (18 sources) Anxiety disorder, unspecified; Translations: [Mixed anxiety and depressive disorder] Onset: 02-02-2024 02-02-2024 Chronic Deficiency and other anemia (1 source) Iron deficiency anemia, unspecified; Translations: [Iron deficiency anemia, unspecified] Onset: 06-05-2024 Episodic Essential hypertension (20 sources) Essential (primary) hypertension; Translations: [Essential hypertension] Onset: 02-02-2024 02-02-2024 Chronic Miscellaneous mental health disorders (18 sources) Primary insomnia; Translations: [Primary insomnia] Onset: 02-02-2024 02-02-2024 Chronic Nutritional deficiencies (14 sources) Vitamin D deficiency; Translations: [Vitamin D deficiency, unspecified] Onset: 02-02-2024 06-27-2024 Chronic Osteoarthritis (20 sources) Unilateral primary osteoarthritis, left knee; Translations: [Bilateral osteoarthritis of knees] Onset: 01-22-2022 Chronic Other connective tissue disease (1 source) Other muscle spasm; Translations: [OTHER MUSCLE SPASM] Onset: 01-14-2023 Episodic Other hereditary and degenerative nervous system conditions (14 sources) Restless legs; Translations: [Restless legs syndrome] Onset: 06-27-2024 06-27-2024 Chronic Other nervous system disorders (1 source) Other specified mononeuropathies; Translations: [OTHER SPECIFIED MONONEUROPATHIES] Onset: 01-14-2023 Chronic Other nervous system disorders (14 sources) Difficulty walking; Translations: [Difficulty in walking, not elsewhere classified] Onset: 02-02-2024 02-02-2024 Chronic Other nervous system disorders (2 sources) Mononeuropathy; Translations: [Mononeuropathy, unspecified] 06-27-2024 Chronic Other nervous system disorders (12 sources) Peripheral nerve disease ; Translations: [Polyneuropathy, unspecified] Onset: 06-27-2024 06-27-2024 Chronic Other non-traumatic joint disorders (14 sources) Joint pain; Translations: [Pain in unspecified joint] 02-15-2024 Episodic Other nutritional; endocrine; and metabolic disorders (1 source) Obesity, unspecified; Translations: [OBESITY UNSPECIFIED] Onset: 02-20-2022 Chronic Other nutritional; endocrine; and metabolic disorders (1 source) Morbid (severe) obesity due to excess calories; Translations: [Morbid (severe) obesity due to excess calories] Onset: 06-05-2024 Chronic Other nutritional; endocrine; and metabolic disorders (14 sources) Body mass index 40+ - severely obese; Translations: [Morbid (severe) obesity due to excess calories] Onset: 02-02-2024 02-02-2024 Chronic Other upper respiratory disease (15 sources) Allergic disposition; Translations: [Other allergic rhinitis] Onset: 02-02-2024 02-02-2024 Chronic Spondylosis; intervertebral disc disorders; other back problems (19 sources) Other spondylosis with radiculopathy, lumbar region; Translations: [Sacroiliitis, not elsewhere classified] Onset: 02-19-2022 Chronic Thyroid disorders (17 sources) Acquired hypothyroidism; Translations: [Hypothyroidism, unspecified] Onset: 02-02-2024 02-02-2024 Chronic Unclassified (2 sources) LOW BACK PAIN, UNSPECIFIED; Translations: [LOW BACK PAIN, UNSPECIFIED] Onset: 01-14-2023 Unclassified (7 sources) Patient on antidepressant monitoring plan Onset: 12-25-2024 12-25-2024 Past or Other Problems Problem Classification Problem Date Documented Da te Episodic/Chronic Deficiency and other anemia (14 sources) Anemia; Translations: [Anemia, unspecified] Onset: 12-25-2013 02-02-2024 Episodic Mood disorders (13 sources) Mood disorders; Translations: [Depression, unspecified] Onset: 06-05-2024 06-27-2024 Nutritional deficiencies (17 sources) Vitamin deficiency, unspecified; Translations: [Vitamin deficiency] Onset: 02-02-2024 02-02-2024 Episodic Other bone disease and musculoskeletal deformities (14 sources) Osteopenia; Translations: [Other specified disorders of [...] Onset: 01-28-2022 Episodic Other connective tissue disease (14 sources) Tear of right rotator cuff; Translations: [Unspecified rotator cuff tear or rupture of right shoulder, not specified as traumatic] Onset: 02-02-2024 02-02-2024 Episodic Other screening for suspected conditions (not mental disorders or infectious disease) (14 sources) Mammography abnormal; Translations: [Other abnormal and inconclusive findings on diagnostic imaging of breast] Onset: 02-04-2024 02-04-2024 Episodic Spondylosis; intervertebral disc disorders; other back problems (20 sources) Intervertebral disc disorders with radiculopathy, lumbar region; Translations: [Spinal stenosis of lumbar region] Onset: 02-20-2022 Episodic Unclassified (1 source) LOW BACK PAIN, UNSPECIFIED; Translations: [LOW BACK PAIN, UNSPECIFIED] Onset: 01-08-2023 Results Test Name Value Interpretation Reference Range Facil ity CBC AND AUTO DIFFon 06-05-20 24 ABSOLUTE BASOPHIL 0.1 X10E9/L Normal 0.0-0.2 [facility] Comment on above: Performed By: #### C BCA, CMP, 2498-4, 57346-4, 3016-3, 2276-4, 2132-9, 48597-7 #### [facility] ([id number]) [address] [place] [address] ABSOLUTE NEUTROPHIL 2.7 X10E9/L Normal 1.5-6.6 [facility] Comment on above: Performed By: #### C BCA, CMP, 2498-4, 57385-4, 3016-3, 2276-4, 2132-9, 93475-6 #### [facility] ([id number]) [address], [address] [place] [address] Basophils/100 WBC (Bld) 1.8 % Normal [facility] Comment on above: Performed By: #### C BCA, CMP, 2498-4, 17235-8, 3016-3, 2276-4, 2132-9, 00464-5 #### [facility] ([id number]) [address], [address] [place] [address] Eosinophils (Bld) [#/Vol] 0.2 10*3/uL Normal 0.0-0.4 [facility] Comment on above: Performed By: #### C BCA, CMP, 2498-4, 11172-4, 3016-3, 2276-4, 2-9, 27009-8 #### [facility] ([id number]) [address] [place] [address] Eosinophils/100 WBC (Bld) 4.0 % Normal [facility] Comment on above: Performed By: #### C BCA, CMP, 2498-4, 60044-6, 3016-3, 2276-4, 2-9, 12744-5 #### [facility] ([id number]) [address] [address] Erythrocyte distribution width (RBC) [Ratio] 13.1 % Normal 11.5-15.0 [facility] Comment on above: Performed By: #### C BCA, CMP, 2498-4, 18571-2, 3016-3, 2276-4, 2132-9, 98162-4 #### [facility] ([id number]) [address] [place] [address] Hematocrit (Bld) [Volume fraction] 39.6 % Normal 35-47 [facility] Comment on above: Performed By: #### C BCA, CMP, 2498-4, 72942-4, 3016-3, 2276-4, 2132-9, 76178-4 #### [facility] ([id number]) [address], [address] [place] [address] Hemoglobin (Bld) [Mass/Vol] 13.8 g/dL Normal 11.7-15.5 [facility] Comment on above: Performed By: #### C BCA, CMP, 2498-4, 48284-3, 3016-3, 2276-4, 2131-9, 03435-2 #### [facility] ([id number]) [address], [address] [place] [address] Lymphocytes (Bld) [#/Vol] 0.7 10*3/uL Low 1.0-3.5 [facility] Comment on above: Performed By: #### C BCA, CMP, 2498-4, 85972-0, 3016-3, 2276-4, 2131-9, 74648-8 #### [facility] ([id number]) [address], [address] [place] [address] Lymphocytes/100 WBC (Bld) 17.5 % Normal [facility] Comment on above: Performed By: #### C BCA, CMP, 2498-4, 79637-4, 3016-3, 2276-4, 2131-9, 22644-4 #### [facility] ([id number]) [address], [address] [place] [address] MCH (RBC) [Entitic mass] 31.0 pg Normal 27-34 [facility] Comment on above: Performed By: #### C BCA, CMP, 2498-4, 48103-4, 3016-3, 2276-4, 2131-9, 25013-6 #### [facility] ([id number]) [address], [address] [place] [address] MCHC (RBC) [Mass/Vol] 34.9 g/dL Normal 32-36 [facility] Comment on above: Performed By: #### C BCA, CMP, 2498-4, 09945-8, 3016-3, 2276-4, 2132-9, 93463-3 #### [facility] ([id number]) [address], [address] [place] [address] MCV (RBC) [Entitic vol] 89 fL Normal 80-100 [facility] Comment on above: Performed By: #### C BCA, CMP, 2498-4, 54011-1, 3016-3, 2276-4, 2132-9, 49107-1 #### [facility] ([id number]) [address], [address] [place] [address] Monocytes (Bld) [#/Vol] 0.2 10*3/uL Normal 0-0.9 [facility] Comment on above: Performed By: #### C BCA, CMP, 2498-4, 91960-2, 3016-3, 2276-4, 2-9, 42444-3 #### [facility] ([id number]) [address], [address] [place] [address] Monocytes/100 WBC (Bld) 6.0 % Normal [facility] Comment on above: Performed By: #### C BCA, CMP, 2498-4, 88952-9, 3016-3, 2276-4, 2132-9, 20508-2 #### [facility] ([id number]) [address], [address] [place] [address] Neutrophils/100 WBC (Bld) 70.7 % Normal [facility] Comment on above: Performed By: #### C BCA, CMP, 2498-4, 88187-0, 3016-3, 2276-4, 2132-9, 85276-7 #### [facility] ([id number]) [address], [address] [place] [address] Platelet mean volume (Bld) [Entitic vol] 8.3 fL Normal 7-12 [facility] Comment on above: Performed By: #### C BCA, CMP, 2498-4, 93451-4, 3016-3, 2276-4, 2132-9, 08690-0 #### [facility] ([id number]) [address], [address] [place] [address] Platelets (Bld) [#/Vol] 192 10*3/uL Normal 150-450 [facility] Comment on above: Performed By: #### C BCA, CMP, 2498-4, 23389-8, 3016-3, 2276-4, 2-9, 11097-7 #### [facility] ([id number]) [address], [address] [place] [address] RBC COUNT 4.46 X10E12/L Normal 3.80-5.20 [facility] Comment on above: Performed By: #### C BCA, CMP, 2498-4, 38949-1, 3016-3, 2276-4, 2-9, 68552-0 #### [facility] ([id number]) [address], [address] [place] [address] WBC (Bld) [#/Vol] 3.8 10*3/uL Low 4.0-11.0 [facility] Comment on above: Performed By: #### C BCA, CMP, 2498-4, 77052-2, 3016-3, 2276-4, 2-9, 25308-3 #### [facility] ([id number]) [address], [address] [place] [address] CBC W Auto Differential pane l (Bld)on 06-05-2024 ABSOLUTE BASOPHIL 0.1 [facility] Comment on above: PERFORMED AT [facility] [address],[place] [address] Basophils/100 WBC (Bld) 1.8 % [facility] Eosinophils (Bld) [#/Vol] 0.2 10*3/uL [facility] Eosinophils/100 WBC (Bld) 4.0 % [facility] Erythrocyte distribution width (RBC) [Ratio] 13.1 % 11.5 - 15.0 % [facility] Hematocrit (Bld) [Volume fraction] 39.6 % 35 - 47 % [facility] Hemoglobin (Bld) [Mass/Vol] 13.8 g/dL 11.7 - 15.5 g/dL [facility] Interpretation and review of laboratory results Abnormal [facility] Lymphocytes (Bld) [#/Vol] 0.7 10*3/uL Low [facility] Lymphocytes/100 WBC (Bld) 17.5 % [facility] MCH (RBC) [Entitic mass] 31.0 pg 27 - 34 pg [facility] MCHC (RBC) [Mass/Vol] 34.9 g/dL 32 - 36 g/dL [facility] MCV (RBC) [Entitic vol] 89 fL 80 - 100 fL [facility] Monocytes (Bld) [#/Vol] 0.2 10*3/uL [facility] Monocytes/100 WBC (Bld) 6.0 % [facility] Neutrophils (Bld) [#/Vol] 2.7 10*3/uL [facility] Neutrophils/100 WBC (Bld) 70.7 % [facility] Platelet mean volume (Bld) [Entitic vol] 8.3 fL 7 - 12 [facility]L [facility] [#/Vol] 192 10*3/uL [facility] RBC (Bld) [#/Vol] 4.46 10*6/uL [facility] WBC corrected for nucl RBC Auto (Bld) [#/Vol] 3.8 Low [facility] COMPREHENSIVE METABOLIC PANE [place] 06-05-2024 Albumin [Mass/Vol] 4.2 g/dL Normal 3.2-5.3 [facility] Comment on above: Performed By: #### C BCA, CMP, 2498-4, 02379-4, 3016-3, 2276-4, 2132-9, 70075-6 #### [facility] ([id number]) [address], [address] [place] [address] ALP [Catalytic activity/Vol] 79 U/L Normal 39-130 [facility] Comment on above: Performed By: #### C BCA, CMP, 2498-4, 30243-0, 3016-3, 2276-4, 2132-9, 80650-8 #### [facility] ([id number]) [address], [address] [place] [address] ALT [Catalytic activity/Vol] 17 U/L Normal 0-31 [facility] Comment on above: Performed By: #### C BCA, CMP, 2498-4, 15380-2, 3016-3, 2276-4, 2132-9, 22296-9 #### [facility] ([id number]) [address], [address] [place] [address] Anion gap [Moles/Vol] 10 mmol/L Normal 5-15 [facility] Comment on above: Performed By: #### C BCA, CMP, 2498-4, 79427-5, 3016-3, 2276-4, 2-9, 92655-7 #### [facility] ([id number]) [address], [address] [place] [address] AST [Catalytic activity/Vol] 20 U/L Normal 0-41 [facility] Comment on above: Performed By: #### C BCA, CMP, 2498-4, 51512-8, 3016-3, 2276-4, 2132-9, 63087-1 #### [facility] ([id number]) [address], [address] [place] [address] Bilirubin [Mass/Vol] 0.6 mg/dL Normal 0.3-1.2 [facility] Comment on above: Performed By: #### C BCA, CMP, 2498-4, 97895-6, 3016-3, 2276-4, 2132-9, 63916-3 #### [facility] ([id number]) [address], [address] [place] [address] Calcium [Mass/Vol] 9.2 mg/dL Normal 8.5-10.5 [facility] Comment on above: Performed By: #### C BCA, CMP, 2498-4, 83954-5, 3016-3, 2276-4, 2132-9, 53929-5 #### [facility] ([id number]) [address], [address] [place] [address] Chloride [Moles/Vol] 105 mmol/L Normal 98-109 [facility] Comment on above: Performed By: #### C BCA, CMP, 2498-4, 75096-4, 3016-3, 2276-4, 2-9, 19945-1 #### [facility] ([id number]) [address] [place] [address] CO2 [Moles/Vol] 23 mmol/L Normal 22-32 [facility] Comment on above: Performed By: #### C BCA, CMP, 2498-4, 57762-9, 3016-3, 2276-4, 2131-9, 82863-0 #### [facility] ([id number]) [address], [address] [place] [address] Creatinine [Mass/Vol] 0.95 mg/dL Normal 0.40-1.00 [facility] Comment on above: Result Comment: METH OD TRACEABLE TO IDMS STANDARD Performed By: #### C BCA, CMP, 2498-4, 61833-7, 3016-3, 2276-4, 2-9, 40541-5 #### [facility] ([id number]) [address], [address] [place] [address] GFR/1.73 sq M.predicted among non-blacks MDRD (S/P/Bld) [Vol rate/Area] 69 mL/min/{1.73_m2} Normal >59 [facility] Comment on above: Result Comment: Reported eGFR is based on the CKD-EPI 2020 equation that does not use a race coefficient. Performed By: #### C BCA, CMP, 2498-4, 24580-9, 3016-3, 2276-4, 2132-9, 02437-8 #### [facility] ([id number]) [address], [address] [place] [address] Glucose [Mass/Vol] 90 mg/dL Normal 65-99 [facility] Comment on above: Performed By: #### C BCA, CMP, 2498-4, 22643-8, 3016-3, 2276-4, 2132-9, 88010-0 #### [facility] ([id number]) [address], [address] [place] [address] Potassium [Moles/Vol] 4.1 mmol/L Normal 3.5-5.0 [facility] Comment on above: Performed By: #### C BCA, CMP, 2498-4, 56743-1, 3016-3, 2276-4, 2-9, 73315-2 #### [facility] ([id number]) [address], [address] [place] [address] Protein [Mass/Vol] 7.1 g/dL Normal 6.0-8.0 [facility] Comment on above: Performed By: #### C BCA, CMP, 2498-4, 73690-4, 3016-3, 2276-4, 2132-9, 13974-1 #### [facility] ([id number]) [address], [address] [place] [address] Sodium [Moles/Vol] 138 mmol/L Normal 134-146 [facility] Comment on above: Performed By: #### C BCA, CMP, 2498-4, 03661-5, 3016-3, 2276-4, 2132-9, 29803-9 #### [facility] ([id number]) [address], [address] [place] [address] Urea nitrogen [Mass/Vol] 17 mg/dL Normal 5-23 [facility] Comment on above: Performed By: #### C BCA, CMP, 2498-4, 73160-7, 3016-3, 2276-4, 2132-9, 45951-3 #### [facility] ([id number]) [address], [address] [place] [address] FERRITINon 06-05-2024 Ferritin [Mass/Vol] 18 ng/mL Normal 11-307 [facility] Comment on above: Performed By: #### C BCA, CMP, 2498-4, 03657-9, 3016-3, 2276-4, 2132-9, 27786-3 #### [facility] ([id number]) [address], [address] [place] [address] IRONon 06-05-2024 Iron [Mass/Vol] 91 ug/dL Normal 50-170 [facility] Comment on above: Performed By: #### C BCA, CMP, 2498-4, 72003-6, 3016-3, 2276-4, 2132-9, 75395-3 #### [facility] ([id number]) [address], [address] [place] [address] Lipid 1996 panelon Cholesterol [Mass/Vol] 188 mg/dL Normal 150-200 [facility] Comment on above: Performed By: #### C BCA, CMP, 2498-4, 16549-1, 3016-3, 2276-4, 2132-9, 06427-3 #### [facility] [facility] ([id number]) [address], [address] [place] [address] Cholesterol in HDL [Mass/Vol] 58 mg/dL Normal >39 [facility] Comment on above: Result Comment: HDL <40 mg/dL - High Risk HDL > or = 40mg/dL- Desirable HDL >60 mg/dL - Negative Risk Performed By: #### C BCA, CMP, 2498-4, 46990-8, 3016-3, 2276-4, 2132-9, 68291-6 #### [facility] ([id number]) [address], [address] [place] [address] Cholesterol in LDL [Mass/Vol] 113 mg/dL Normal <130 [facility] Comment on above: Result Comment: LDL <100 mg/dL - Desirable LDL >160 mg/dL - High Risk Performed By: #### C BCA, CMP, 2498-4, 37982-9, 3016-3, 2276-4, 2132-9, 36923-7 #### [facility] ([id number]) [address], [address] [place] [address] Cholesterol in VLDL [Mass/Vol] 17 mg/dL Normal 0-30 [facility] Comment on above: Performed By: #### C BCA, CMP, 2498-4, 95254-1, 3016-3, 2276-4, 2132-9, 36287-0 #### [facility] ([id number]) [address], [address] [place] [address] CHOLESTEROL:HDL 3.2 Normal 1.0-5.0 [facility] Comment on above: Performed By: #### C BCA, CMP, 2498-4, 64287-3, 3016-3, 2276-4, 2132-9, 02318-8 #### [facility] ([id number]) [address], [address] [place] [address] Triglyceride [Mass/Vol] 83 mg/dL Normal 27-150 [facility] Comment on above: Performed By: #### C BCA, CMP, 2498-4, 55511-6, 3016-3, 2276-4, 2131-9, 29369-7 #### [facility] ([id number]) [address], [address] [place] [address] TSH Qnon 06-05-2024 TSH 1.26 uIU/mL Normal 0.49-4.67 [facility] Comment on above: Performed By: #### C BCA, CMP, 2498-4, 02686-3, 3016-3, 6-4, 9, 11821-4 #### [facility] ([id number]) [address], [address] [place] [address] VITAMIN B12on 06-05-2024 Cobalamin (Vitamin B12) [Mass/Vol] 272 pg/mL Normal 180-914 [facility] Comment on above: Performed By: #### C BCA, CMP, 2498-4, 49023-7, 6-3, 6-4, 2132-05, 09257-8 #### [facility] ([id number]) [facility], [address] [place] [address] Vitamin D+Metabolites [Mass/ Vol]on 06-05-2024 VITAMIN D 25 HYD TOT 25.4 ng/mL Low 30-100 [facility] Comment on above: Result Comment: Vitamin D status 25 [place] Vitamin D Deficiency <20 ng/mL Insufficiency 20-29 ng/mL Sufficiency 30-100 ng/mL Toxicity >100 ng/mL NOTE: A pediatric reference range has not been established by the advertising analyst of this kit. The [place] [employer] recommends a Vitamin D level of = or >20ng/mL in infants and children. 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 Work Phone: [facility] 06-27-2024 09:54-0400 Body mass index (BMI) [Ratio] 44.1 kg/m2 Dinorah Aichholz FISH HATCHERY MANAGER Work Phone: [facility] 06-27-2024 09:54-0400 Body temperature 98.1 [degF] Dinorah Aichholz FISH HATCHERY MANAGER Work Phone: [facility] 06-27-2024 09:54-0400 Body weight 102.42 kg Dinorah Aichholz FISH HATCHERY MANAGER Work Phone: [facility] 06-27-2024 09:54-0400 Diastolic blood pressure 76 mm[Hg] Dinorah Aichholz FISH HATCHERY MANAGER Work Phone: [facility] 06-27-2024 09:54-0400 Heart rate 53 /min Dinorah Aichholz FISH HATCHERY MANAGER Work Phone: [facility] 06-27-2024 09:54-0400 Respiratory rate 20 /min Dinorah Aichholz FISH HATCHERY MANAGER Work Phone: [facility] 06-27-2024 09:54-0400 SaO2% (BldA) [Mass fraction] 96 % Dinorah Aichholz FISH HATCHERY MANAGER Work Phone: [facility] 06-27-2024 09:54-0400 Systolic blood pressure 114 mm[Hg] Dinorah Aichholz FISH HATCHERY MANAGER Work Phone: [facility] Encounters Encounter Date Encounter Type Care Provider Facility Start: 04-26-2025 End: 04-26-2025 Refill Dinorah Aichholz FISH HATCHERY MANAGER [facility] Phone[facility] Comment on above: Primary insomnia Start: 04-13-2025 End: 04-15-2025 Refill Dinorah Aichholz FISH HATCHERY MANAGER Work Phone: [facility] Comment on above: Primary hypertension Start: 04-12-2025 End: 04-13-2025 Refill Dinorah Aichholz FISH HATCHERY MANAGER Work Phone: [facility] Comment on above: Primary hypertension Start: 04-09-2025 End: 04-10-2025 Refill Dinorah Aichholz FISH HATCHERY MANAGER Work Phone: [facility] Comment on above: Primary hypertension Anxiety and depressi on Start: 04-06-2025 End: 04-07-2025 Refill Dinorah Aichholz FISH HATCHERY MANAGER Work Phone: [facility] Comment on above: Primary hypertension Start: 02-14-2025 End: 02-14-2025 Refill Dinorah Aichholz FISH HATCHERY MANAGER Work Phone: [facility] Comment on above: Primary insomnia Start: 09-18-2024 End: 09-18-2024 Refill Dinorah Aichholz FISH HATCHERY MANAGER Work Phone: [facility] Comment on above: Environmental and se asonal allergies Start: 09-07-2024 End: 09-07-2024 Refill Dinorah Aichholz FISH HATCHERY MANAGER Work Phone: [facility] Comment on above: Hypothyroidism (acqu ired) (CMS/HCC); Primary hypertension (CMS/HCC) Start: 08-09-2024 End: 08-09-2024 Refill Dinorah Aichholz FISH HATCHERY MANAGER Work Phone: [facility] Comment on above: Primary hypertension (CMS/HCC) Start: 06-27-2024 End: 06-27-2024 Bamboo flowsheet Dinorah Aichholz FISH HATCHERY MANAGER Work Phone: [facility] Start: 06-27-2024 End: 06-27-2024 Bamboo flowsheet Dinorah Aichholz FISH HATCHERY MANAGER Work Phone: [facility] Start: 06-27-2024 End: 06-27-2024 ambulatory DINORAH AICHHOLZ Not Available Start: 06-27-2024 End: 06-27-2024 Patient encounter procedure Dinorah Schulte FISH HATCHERY MANAGER Work Phone: [facility] Comment on above: Encounter for subseq uent annual wellness visit (AWV) in Medicare patient (Primary Dx); Vitamin D deficiency; Vitamin B12 deficiency; Anxiety and depression (CMS/HCC); Hypothyroidism (acquired) (CMS/HCC); Primary hypertension (CMS/HCC); Primary insomnia; RLS (restless legs syndrome); Mononeuropathy Start: 06-05-2024 End: 06-05-2024 External Result Encounter Dinorah Schulte FISH HATCHERY MANAGER Work Phone: [facility] Unsolicited Start: 06-05-2024 End: 06-05-2024 External Result Encounter Dinorah Schulte FISH HATCHERY MANAGER Work Phone: [facility] Unsolicited Start: 06-05-2024 End: 06-05-2024 ambulatory DINORAH SCHULTE [facility] Start: 02-02-2024 End: 02-02-2024 ambulatory DINORAH SCHULTE Not Available Start: 01-08-2023 End: 01-09-2023 ambulatory PATRIA MYERS . Facility:[facility] Start: 12-03-2022 ambulatory JUWAN YAÑEZ . Facility:[facility] Start: 07-23-2022 End: 07-24-2022 ambulatory JUWAN YAÑEZ . Facility:[facility] Start: 02-19-2022 End: 02-20-2022 ambulatory JUWAN YAÑEZ . Facility:[facility] Start: 02-05-2022 ambulatory JUWAN YAÑEZ . Facility:[facility] Start: 01-22-2022 End: 01-23-2022 ambulatory [facility] Facility:[facility] Start: 08-20-2020 End: 08-20-2020 ambulatory [facility] Facility:[facility] Procedures Date Procedure Procedure Detail Performing Clinician Start: 06-05-2024 Complete blood count with white cell differential, automated Dinorah Schulte FISH HATCHERY MANAGER Work Phone: Start: 05-01-2024 Mammography Dinorah zabala FISH HATCHERY MANAGER Work Phone: Plan of Treatment Date Care Activity Detail Author Start: 12-10-2026 Screening for malign ant neoplasm of colon [facility] Start: 06-27-2025 Medicare Annual Well ness (AWV) Medicare Annual Wellness (AWV) [facility] Start: 05-17-2025 End: 05-17-2025 Patient encounter procedure 05/17/2025 2:30 PM EDT Office Visit [facility] [address] [place] [phone] Dinorah Schulte NP [address] [place] [id number] [facility] Start: 05-07-2025 Influenza vaccination [facility] Start: 05-01-2025 Screening for malign ant neoplasm of breast Mammogram [facility] Start: 03-05-2025 Influenza vaccination Influenza Vacc ine (#1) [facility] Comment on above: Postponed from 05/07 (Patient Refused) Start: 09-26-2024 End: 09-26-2024 Patient encounter procedure 09/26/2024 9:40 AM EST Office Visit [facility] [address] [place] [phone] Dinorah Schulte NP [address] [place] [phone] [facility] Start: 05-07-2024 Influenza vaccination Influenza Vacc ine (#1) [facility] Start: 1994 Screening for malign ant neoplasm of cervix [facility] Start: 1985 Screening for malign ant neoplasm of cervix Pap Smear [facility] Start: 1964 Medicare Annual Well ness (AWV) Medicare Annual Wellness (AWV) [facility] Start: 1964 Screening for malign ant neoplasm of colon [facility] Immunizations Immunization Date Immunization Notes Care Provider Fa cility 07-03-2020 Influenza, injectabl e, Madin Annette Canine Kidney, preservative free, quadrivalent Dinorah Schulte NP Work Phone: [facility] 07-03-2020 influenza virus vacc ine, unspecified formulation Dinorah Schulte FISH HATCHERY MANAGER Work Phone: [facility] 04-19-2019 tetanus toxoid, redu mariano diphtheria toxoid, and acellular pertussis vaccine, adsorbed Dinorah Schulte FISH HATCHERY MANAGER Work Phone: [facility] Payers Date Payer Category Payer Medicare (Managed Care) [facility] MEDICARE [id number] 2023 Medicare [id number] 2023 Medicaid [id number] 2023 Medicare [id number] 2020 Unknown [id number] 2020 Unknown [id number] 1964 Unknown [id number] [id number]. 593 1964 Unknown [id number] .[id number]. 593 1964 Unknown [id number] .[id number]. 593 1964 Unknown [id number] 2.16.840.1.903804.3.579.2. 593 1964 Unknown [id number] 2.16.840.1.294774.3.579.2. 593 1964 Unknown [id number] 2.16.840.1.892696.3.579.2. 593 1964 Unknown [id number] 2.16.840.1.431324.3.579.2. 1286 1964 Unknown [id number] 2.16.840.1.850646.3.579.2. 1259 1964 Unknown [id number] 2.16.840.1.813984.3.579.2. 1259 1964 Unknown [id number] [id number]. 718 1959 Unknown [id number] 1959 Unknown [id number] Social History Date Type Detail Facility Start: 02-02-2024 Tobacco smoking stat [facility] Ex-smoker [facility] End: 09-06-2008 History of tobacco use Current smoker [facility] End: 09-06-2008 History of tobacco use Cigarette Smoker [facility] Start: 02-02-2024 Tobacco use and exposure Smoke less tobacco non-user [facility] Start: 02-15-2024 End: 06-27-2024 Alcoholic beverage intake Ex-drinker (finding) [facility] Start: 02-02-2024 End: 06-27-2024 History of Social function [facility] Start: 02-02-2024 End: 06-27-2024 Tobacco use panel [facility] Start: 02-02-2024 Alcohol Comment caffine: soda 5 molly y [facility] Start: 1965 Sex assigned at Not on file [facility] Medical Equipment Procedure Code Equipment Code Equipment Original Text Equi pment Identifier Dates 1 each by Other route if needed Clinical Notes 01-22-2022 to 04-07-2025 Telephone Encounter - Dinorah Schulte NP - 04/07/2025 2:14 PM EDTTelephone Encounter - Dinorah Schulte, ARTIS - 04/07/2025 2:14 PM EDTTelephone Encounter - Dinorah Schulte NP - 02/14/2025 1:10 PM EDT Note Date & Type Note Facility 04-07-2025 Telephone encount er Note Pt needs scheduled an appt and I will give 30 day supply of her bp meds, but she also needs to keep appt [place] [facility] 04-07-2025 Miscellaneous Notes Formattin g of this note might be different from the original. Pt needs scheduled an appt and I will give 30 day supply of her bp meds, but she also needs to keep appt [place] documented in this encounter [facility] 02-14-2025 Telephone encount er Note Needs a fu appt, has not been seen since 06/29 [place] [facility] 02-14-2025 Miscellaneous Notes Formattin g of this note might be different from the original. Needs a fu appt, has not been seen since 06/29 [place] documented in this encounter [facility] 06-27-2024 History of Presen t illness Narrative Associated Problem(s): Encounter for subsequent annual wellness visit (AWV) in Medicare patient Reviewed Ht/Wt/BMI Recommend eye exam yearly Recommend dental exams twice a year Balance work/leisure activities Exercises is recommended most days of the week (appropriate as chronic conditions allow) Follow up yearly and prn Associated Problem(s): Anxiety and depression (CMS/HCC) Restart prozac, fu in 3 months Associated Problem(s): Vitamin [...] variety Activity: has a membership at the [facility] for [employer] Mental [employer] Concerns: anxiety Falls in the [...] follow-ups on file. documented in this encounter [facility] 07-23-2022 Note CONSULTATION CONSULTATION DATE: 07/23/2022 HISTORY [...] Patient is in agreement with this. [facility] 02-19-2022 Note CONSULTATION CONSULTATION DATE: 02/19/2022 HISTORY [...] in three months' time unless otherwise indicated. [facility] Signed and Approved by: JUWAN YAÑEZ . 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 IF Signed and Approved by: JUWAN YAÑEZ . 01/26/2022 15:08:00 [facility] 01-22-2022 Note CONSULTATION PROCEDURE DATE: 01/22/2022 PRE [...] JUWAN YAÑEZ . 01/26/2022 15:08:00 [facility] 01-22-2022 Note CONSULTATION PROCEDURE DATE: 01/22/2022 PRE [...] relief and improvement of the left knee. [facility] Signed and Approved by: JUWAN YAÑEZ . 01/26/2022 15:08:00 [facility] Evaluation note Diagnosis Anxiety and depression (CMS/HCC)- [...] deficiencies Anxiety and depression (CMS/HCC) Hypothyroidism (acquired) ([facility]/HCC) Unspecified hypothyroidism Primary hypertension (CMS/HCC) Unspecified essential hypertension Primary insomnia Persistent disorder of initiating or maintaining sleep RLS (restless legs syndrome) Restless legs syndrome (RLS) Mononeuropathy Mononeuritis of unspecified site [facility] Diagnosis Anxiety and depression (CMS/HCC)- Primary Iron deficiency anemia, unspecified iron deficiency anemia type Vitamin deficiency Unspecified vitamin deficiency Primary hypertension (CMS/HCC) Unspecified essential hypertension Obesity, morbid, BMI 40.0-49.9 ([facility]) Primary insomnia Persistent disorder of initiating or [...] Mononeuropathy Mononeuritis of unspecified site Primary hypertension (CMS/HCC) Unspecified essential hypertension [facility] Diagnosis Anxiety and depression (CMS/[facility])- Primary Iron deficiency anemia, unspecified iron deficiency anemia type Vitamin deficiency Unspecified vitamin deficiency Primary hypertension ([facility]) Unspecified essential hypertension Obesity, morbid, BMI 40.0-49.9 ([facility]) Primary insomnia Persistent disorder of initiating or maintaining sleep Environmental and seasonal allergies Hypothyroidism (acquired) ([facility]) Unspecified hypothyroidism Spinal stenosis of lumbar region, unspecified whether neurogenic claudication present Primary osteoarthritis of both knees Encounter for subsequent annual wellness visit (AWV) in Medicare patient- Primary Vitamin D deficiency Vitamin B12 deficiency Other B-complex deficiencies Anxiety and depression ([facility]) Hypothyroidism (acquired) ([facility]) Unspecified hypothyroidism Primary hypertension ([facility]) Unspecified essential hypertension Primary insomnia Persistent disorder of initiating or maintaining sleep RLS (restless legs syndrome) Restless legs syndrome (RLS) Mononeuropathy Mononeuritis of unspecified site Hypothyroidism (acquired) ([facility]) Unspecified hypothyroidism Primary hypertension ([facility]) Unspecified essential hypertension [facility] Diagnosis Anxiety and depression ([facility])- Primary Iron deficiency anemia, unspecified iron deficiency anemia type Vitamin deficiency Unspecified vitamin deficiency Primary hypertension ([facility]) Unspecified essential hypertension Obesity, morbid, BMI 40.0-49.9 ([facility]) Primary insomnia Persistent disorder of initiating or maintaining sleep Environmental and seasonal allergies Hypothyroidism (acquired) ([facility]) Unspecified hypothyroidism Spinal stenosis of lumbar region, unspecified whether neurogenic claudication present Primary osteoarthritis of both knees Encounter for subsequent annual wellness visit (AWV) in Medicare patient- Primary Vitamin D deficiency Vitamin B12 deficiency Other B-complex deficiencies Anxiety and depression ([facility]) Hypothyroidism (acquired) ([facility]) Unspecified hypothyroidism Primary hypertension ([facility]) Unspecified essential hypertension Primary insomnia Persistent disorder of initiating or maintaining sleep RLS (restless legs syndrome) Restless legs syndrome (RLS) Mononeuropathy Mononeuritis of unspecified site Environmental and seasonal allergies documented [facility]* Diagnosis Anxiety and depression ([facility])- Primary Iron deficiency anemia, unspecified iron deficiency anemia type Vitamin deficiency Unspecified vitamin deficiency Primary hypertension ([facility]) Unspecified essential hypertension Obesity, morbid, BMI 40.0-49.9 ([facility]) Primary insomnia Persistent disorder of initiating or maintaining sleep Environmental and seasonal allergies Hypothyroidism (acquired) ([facility]) Unspecified hypothyroidism Spinal stenosis of lumbar region, unspecified whether neurogenic claudication present Primary osteoarthritis of both knees Encounter for subsequent annual wellness visit (AWV) in Medicare patient- Primary Vitamin D deficiency Vitamin B12 deficiency Other B-complex deficiencies Anxiety and depression ([facility]) Hypothyroidism (acquired) ([facility]) Unspecified hypothyroidism Primary hypertension ([facility]) Unspecified essential hypertension Primary insomnia Persistent disorder of initiating or maintaining sleep RLS (restless legs syndrome) Restless legs syndrome (RLS) Mononeuropathy Mononeuritis of unspecified site Primary insomnia Persistent disorder of initiating or maintaining sleep documented [facility] Diagnosis Anxiety and depression- Primary Iron deficiency anemia, unspecified iron deficiency anemia type Vitamin deficiency Unspecified vitamin deficiency Primary hypertension Unspecified essential hypertension Obesity, morbid, BMI 40.0-49.9 ([facility] Primary insomnia Persistent disorder of initiating or maintaining sleep Environmental and seasonal allergies Hypothyroidism (acquired) Unspecified hypothyroidism Spinal stenosis of lumbar region, unspecified whether neurogenic claudication present Primary osteoarthritis of both knees Encounter for subsequent annual wellness visit (AWV) in Medicare patient- Primary Vitamin D deficiency Vitamin B12 deficiency Other B-complex deficiencies Anxiety and depression Hypothyroidism (acquired) Unspecified hypothyroidism Primary hypertension Unspecified essential hypertension Primary insomnia Persistent disorder of initiating or maintaining sleep RLS (restless legs syndrome) Restless legs syndrome (RLS) Mononeuropathy Mononeuritis of unspecified site Primary hypertension Unspecified essential hypertension [facility] Diagnosis Anxiety and depression- Primary Iron deficiency anemia, unspecified iron deficiency anemia type Vitamin deficiency Unspecified vitamin deficiency Primary hypertension Unspecified essential hypertension Obesity, morbid, BMI 40.0-49.9 ([facility]) Primary insomnia Persistent disorder of initiating or maintaining sleep Environmental and seasonal allergies Hypothyroidism (acquired) Unspecified hypothyroidism Spinal stenosis of lumbar region, unspecified whether neurogenic claudication present Primary osteoarthritis of both knees Encounter for subsequent annual wellness visit (AWV) in Medicare patient- Primary Vitamin D deficiency Vitamin B12 deficiency Other B-complex deficiencies Anxiety and depression Hypothyroidism (acquired) Unspecified hypothyroidism Primary hypertension Unspecified essential hypertension Primary insomnia Persistent disorder of initiating or maintaining sleep RLS (restless legs syndrome) Restless legs syndrome (RLS) Mononeuropathy Mononeuritis of unspecified site Primary hypertension Unspecified essential hypertension [facility] Diagnosis Anxiety and depression- Primary Iron deficiency anemia, unspecified iron deficiency anemia type Vitamin deficiency Unspecified vitamin deficiency Primary hypertension Unspecified essential hypertension Obesity, morbid, BMI 40.0-49.9 ([facility]) Primary insomnia Persistent disorder of initiating or maintaining sleep Environmental and seasonal allergies Hypothyroidism (acquired) Unspecified hypothyroidism Spinal stenosis of lumbar region, unspecified whether neurogenic claudication present Primary osteoarthritis of both knees Encounter for subsequent annual wellness visit (AWV) in Medicare patient- Primary Vitamin D deficiency Vitamin B12 deficiency Other B-complex deficiencies Anxiety and depression Hypothyroidism (acquired) Unspecified hypothyroidism Primary hypertension Unspecified essential hypertension Primary insomnia Persistent disorder of initiating or maintaining sleep RLS (restless legs syndrome) Restless legs syndrome (RLS) Mononeuropathy Mononeuritis of unspecified site Anxiety and depression documented [facility] Diagnosis Anxiety and depression- Primary Iron deficiency anemia, unspecified iron deficiency anemia type Vitamin deficiency Unspecified vitamin deficiency Primary hypertension Unspecified essential hypertension Obesity, morbid, BMI 40.0-49.9 ([facility]) Primary insomnia Persistent disorder of initiating or maintaining sleep Environmental and seasonal allergies Hypothyroidism (acquired) Unspecified hypothyroidism Spinal stenosis of lumbar region, unspecified whether neurogenic claudication present Primary osteoarthritis of both knees Encounter for subsequent annual wellness visit (AWV) in Medicare patient- Primary Vitamin D deficiency Vitamin B12 deficiency Other B-complex deficiencies Anxiety and depression Hypothyroidism (acquired) Unspecified hypothyroidism Primary hypertension Unspecified essential hypertension Primary insomnia Persistent disorder of initiating or maintaining sleep RLS (restless legs syndrome) Restless legs syndrome (RLS) Mononeuropathy Mononeuritis of unspecified site Primary hypertension Unspecified essential hypertension documented in this encounter [facility] Diagnosis Anxiety and depression- Primary Iron deficiency anemia, unspecified iron deficiency anemia type Vitamin deficiency Unspecified vitamin deficiency Primary hypertension Unspecified essential hypertension Obesity, morbid, [place] 40.0[place]49.9 [place] [place] Primary insomnia Persistent disorder of initiating or maintaining sleep Environmental and seasonal allergies Hypothyroidism (acquired) Unspecified hypothyroidism Spinal stenosis of lumbar region, unspecified whether neurogenic claudication present Primary osteoarthritis of both knees Encounter for subsequent annual wellness visit (AWV) in Medicare patient- Primary Vitamin D deficiency Vitamin B12 deficiency Other B-complex deficiencies Anxiety and depression Hypothyroidism (acquired) Unspecified hypothyroidism Primary hypertension Unspecified essential hypertension Primary insomnia Persistent disorder of initiating or maintaining sleep RLS (restless legs syndrome) Restless legs syndrome (RLS) Mononeuropathy Mononeuritis of unspecified site Primary insomnia Persistent disorder of initiating or maintaining sleep documented in this encounter [facility] Summary Purpose Family History No Family History Records FoundNo Family History Records FoundNo Family History Records FoundNo Family History Records Found Advance Directives No Advanced Directives Records FoundNo Advanced Directives Records FoundNo Advanced Directives Records FoundNo Advanced Directives Records Found Additional Source Comments INFORMATION SOURCE (unrecogn ized section and content) DATE CREATED AUTHOR 01/15/2023 [facility] DATE CREATED AUTHOR AUTHOR'S ORGANIZ ATION 06/07/2024 [facility] DATE CREATED AUTHOR AUTHOR'S ORGANIZ ATION 06/29/2024 [facility] DATE CREATED AUTHOR AUTHOR'S ORGANIZ ATION 09/27/2024 [facility] Care Teams (unrecognized sec tion and content) Corrections Specialist Relationship Specialty Start Date End Date Paul Randall MD [address] [place] [phone] PCP - General Family Medicine 02/02/24 Dinorah Schulte NP [address] [place] [phone] Nurse Practitioner Family Medicine 02/15/24 Corrections Specialist Relationship Specialty Start Date End Date Paul Randall MD [address] [place] [phone] PCP - General Family Medicine 02/02/24 Dinorah Schulte NP [address] [place] [phone] Nurse Practitioner Family Medicine 02/15/24 Corrections Specialist Relationship Specialty Start Date End Date Palu Randall MD [address] [place] [phone] PCP - General Family Medicine 07/06/24 Dinorah Schulte NP [address] [place] [phone] Nurse Practitioner Family Medicine 02/15/24 Corrections Specialist Relationship Specialty Start Date End Date Paul Randall MD [address] [place] [phone] PCP - General Family Medicine 02/02/24 Dinorah Schulte NP [address] [place] [phone] Nurse Practitioner Family Medicine 02/15/24 Corrections Specialist Relationship Specialty Start Date End Date Paul Randall MD [address] [place] [phone] PCP - General Family Medicine 07/06/24 Dinorah Schulte NP [address] [place] [phone] Nurse Practitioner Family Medicine 02/15/24 Corrections Specialist Relationship Specialty Start Date End Date Paul Randall MD [address] [place] [phone] PCP - General Family Medicine 07/06/24 Dinorah Schulte NP [address] [place] [phone] Nurse Practitioner Family Medicine 02/15/24 Corrections Specialist Relationship Specialty Start Date End Date Paul Randall MD [address] [place] [phone] PCP - General Family Medicine 07/06/24 Dinorah Schulte NP [address] [place] [phone] Nurse Practitioner Family Medicine 02/15/24 Corrections Specialist Relationship Specialty Start Date End Date Paul Randall MD [address] [place] [phone] PCP - General Family Medicine 07/06/24 Dinorah Schulte NP [address] [place] [phone] Nurse Practitioner [facility] Medicine 02/15/24 Reason for Visit (unrecogniz ed section and content) Reason Onset Date Comments Med Refill 08/09/2024 Reason Onset Date Comments Med Refill 09/07/2024 Reason Onset Date Comments Med Refill 09/18/2024 Reason Onset Date Comments Med Refill 02/14/2025 Reason Onset Date Comments Med Refill 04/06/2025 Reason Onset Date Comments Med Refill 04/09/2025 Reason Onset Date Comments Med Refill 04/12/2025 Reason Onset Date Comments Med Refill 04/13/2025 Reason Onset Date Comments Med Refill 04/26/2025 FOR RECORDS PERTAINING TO PATIENTS WHO ARE [...] BE BASED ON THE PRIMARY CLINICAL RECORDS. [employer] [facility]. provides no warranty or guarantee of the accuracy or completeness of information in this document.
--- NOTE | 2025-05-23 12:43 | PM.CN ---
Consult Note: HPI Data of Consult Patient: known to practice within the last 3 years Requesting Physician: Veronique Laird NP Primary Care Provider: Dinorah Schulte NP Consult Narrative Reason for consult: f/u Narrative: Stephanie Nichols a pleasant 59 year old female presents for evaluation and management of chronic low back and hip pain, pain today 5-6/10 increasing to 8/10 with activity, standing, walking, twisting, bending, decreased with massage/heat/ice. Patient finds benefit to baclofen, gabapentin, tramadol, and trazodone. Previous lumbar MRI consistent with lumbar stenosis with NC, lumbar radiculopathy, lumbar facet arthropathy, lx spondylosis. Bilateral knee xrays consistent with moderate OA. Since last visit pt did not complete lumbar TFESI, relates this fo falls. Pt has an upcoming appointment with her PCP 06/07/25. cc:: CC: Veronique Laird NP Review of Systems ROS Status of ROS 10 or more systems reviewed and unremarkable except as noted in history and below Musculoskeletal Reports: back pain, extremity pain and joint pain [facility] Medical History Encounter for medication monitoring ?Z51.81 - Encounter for therapeutic drug level monitoring (ICD-10) Meds Home Medications and Allergies Home Medications ?Medication ?Instructions ?Recorded ?Confirmed ?Type VITAMIN D DAILY 04/28/23 History buspirone 10 mg tablet 10 mg PO BID 04/28/23 04/28/23 History levothyroxine 150 mcg tablet 150 mcg PO DAILY 04/28/23 04/28/23 History (Synthroid) lisinopril 10 mg tablet 10 mg PO DAILY 04/28/23 04/28/23 History multivitamin 1 tab PO DAILY 04/28/23 04/28/23 History trazodone 50 mg tablet 50 mg PO DAILY 04/28/23 04/28/23 History vitamin B12 0.5 mg-folic acid 1 mg 1 tab PO DAILY 04/28/23 04/28/23 History tablet lidocaine 4 % topical cream 1 applic topical BID #30 grams 07/14/23 Rx lidocaine 5 % topical cream 1 applic topical BID PRN pain #30 08/12/23 Rx grams naloxone 4 mg/actuation nasal 4 mg intranasal Q3M PRN opioid 08/28/24 Rx spray (Narcan) overdose #2 ea baclofen 10 mg tablet 10 mg PO TID PRN muscle spasm #90 11/30/24 Rx tabs tramadol 50 mg tablet 50 mg PO TID PRN pain #90 tabs 11/30/24 Rx gabapentin 600 mg tablet 600 mg PO TID #90 tabs 01/24/25 Rx tramadol 50 mg tablet 50 mg PO TID PRN pain #42 tabs 01/24/25 Rx tramadol 50 mg tablet 50 mg PO TID PRN pain #90 tabs 01/24/25 Rx tramadol 50 mg tablet 50 mg PO TID PRN pain #90 tabs 02/07/25 Rx tramadol 50 mg tablet 50 mg PO TID PRN pain #90 tabs 03/15/25 Rx tramadol 50 mg tablet 50 mg PO TID PRN pain #90 tabs 04/11/25 Rx Allergies Allergy/AdvReac Type Severity Reaction Status Date / Time Latex, Natural Rubber Allergy Unknown Rash Verified 04/28/23 13:53 Penicillins Allergy Unknown Verified 04/28/23 13:53 Exam Constitutional Documenting provider has reviewed patient's vital signs: yes Common normals: no apparent distress, oriented x3, healthy appearing, alert and well nourished General appearance: cooperative Nutritional appearance: obese HENMT Common normals: normocephalic, hearing grossly normal bilaterally and moist oral mucous membranes Head and scalp: normocephalic Eye Common normals: PERRL Pupil: PERRL Neck & C-Spine Common normals: full ROM General: normal visual inspection Cervical spine: cervical ROM normal Chest Common normals: inspection of chest normal Respiratory Common normals: normal respiratory effort, no retractions and no use of accessory muscles Back & Pelvis Lumbar spine/lower back: ROM limited, pain with ROM (positive bilateral facet loading), lumbar spinal tenderness, paraspinal muscle tenderness, straight leg raise positive right and straight leg raise positive left Sacroiliac joints: SI joint(s) abnormal (bilaterally positive BARBARA, gaenslens, yeoman) SI joint details: tender to palpation Other: weakness to BLE diminished sensation in bilateral L4,5,S1 Extremity Common normals: normal to inspection and full ROM Right lower extremity: knee joint Left lower extremity: knee joint Other: bilateral knees enlarged diameter Neuro Common normals: oriented x3, CN's II-XII intact bilaterally, moves all extremities, no focal motor deficits, no sensory deficits noted and deep tendon reflexes 2+ bilaterally Sensorium/orientation: alert Gait (neuro): antalgic Motor exam: no movement abnormalities noted Other: intermittent bilateral leg weakness and instability Psych Common normals: mental status grossly normal, thought process normal, cooperative, affect normal, speech normal and activity/motor behavior normal Speech: normal speech Thought process: normal thought process Results Additional Findings Additional findings: If on a controlled substance or opioids, I have checked an [place] report on this patient and there are no aberrancies noted in the prescribing history.??If on a controlled substance or opioid a drug screen was completed and reviewed within the last year, and if there has not been a drug screen completed we ordered one today to monitor higher risk, state monitored pain medication use. As part of providing excellent, safe, comprehensive care, the following was completed at our patient's visit: 1. A medication reconciliation and review to ensure accurate knowledge of current/active medications, including asking our patients to inform us about any [id number] medications or herbal remedies/nutritional supplements/alternative remedies. 2. A review to specifically ensure our patients have had annual screening for screening for depression, screening for tobacco use, and screening for unhealthy alcohol use. For concerning screenings had a discussion with the patient, provided patient education, and recommended follow-up with primary care provider when appropriate. If patient noted with a risk of falling, they received education on strength, gait, and balance training to prevent future risk of falling. Assessment and Plan Assessment and Plan (1) Lumbar stenosis without neurogenic claudication: Assessment and Plan: The patient has had over 3 months of moderate to severe low back pain with functional impairment and inadequate response to conservative care including NSAIDS (unless there are contraindication such as concurrent blood thinners), multiple oral or topical pain medications, and home exercise program/physical therapy.? Patient has completed >6 weeks of guided home exercise program and/or formal physical therapy program without relief of their symptoms.? I have reviewed the imaging of the lumbar spine and no red flags were identified.? The Oswestry Disability Index was completed, and the patient scored a 50%.? moderate to severe pain impacting ADLs, sitting, standing, walking, lifting, sleeping, social life, and travel (2) Bilateral primary osteoarthritis of knee: (3) Chronic prescription opiate use: Assessment and Plan: risks vs benefits reviewed. pt notes moderate pain relief for a few hours with improvement in standing, walking, ADLs without side effects. has failed to benefit from tylenol, motrin, baclofen in the past. (4) Lumbar spondylosis: (5) Myofascial pain: (6) Generalized OA: Plan bilateral L4-5 TFESI under fluoroscopy discussed, pt declining continue tramadol 50mg TID PRN moderate to severe pain continue baclofen 10mg TID PRN pain/spasms continue trazodone 50mg daily continue gabapentin 300mg TID through PCP continue HEP as tolerated f/u 1 month, will decrease tramadol as tolerated
== END 2025-05-23 12:32 | disposition home or self-care (01) ==
LOC: PM 12:31
PROVIDERS: PCP Nurse Practitioner; Visit Provider Nurse Practitioner
DX: M48.062 Spinal stenosis, lumbar region with neurogenic claudication (principal); M17.0 Bilateral primary osteoarthritis of knee; Z79.891 Long term (current) use of opiate analgesic; M47.816 Spondylosis without myelopathy or radiculopathy, lumbar region; M79.18 Myalgia, other site; M15.9 Polyosteoarthritis, unspecified
CPT/HCPCS: G0463

== ENCOUNTER 2025-08-01 09:43 | Outpatient (OUT) | payer MEDICARE, SELFPAY ==
--- OUTSIDE RECORDS SUMMARY | 2025-08-01 09:46 | XMS_ITS | CCD ---
Author Organization [facility] Care Team Providers Care Vice President Of Consulting Services Name Role Phone LUCIA .PATRIA Admitting Unavailable LAKSHMIPATHY ., NARENDRANATH Consulting Dasia vailable [facility] Unava il[facility] LUCIA .PATRIA Attending Unavailable [facility] Unava il[facility] HENRIQUEZ ., DR LUNA Lindsay Admitting Unavailable HENRIQUEZ ., DR LUNA Lindsay Attending Unavailable YAÑEZ ., JUWAN Consulting Unavailable YAÑEZ ., JUWAN Consulting Unavailable HENRIQUEZ ., DR LUNA Lindsay Attending Unavailable [facility] Unava il[facility] HENRIQUEZ ., DR LUNA Lindsay Admitting Unavailable YAÑEZ ., JUWAN Consulting Unavailable [facility] Unava il[facility] HENRIQUEZ ., DR LUNA Lindsay Attending Unavailable HENRIQUEZ ., DR LUNA Lindsay Admitting Unavailable YAÑEZ ., JUWAN Consulting Unavailable [facility] Unava il[facility] HENRIQUEZ ., DR LUNA Lindsay Attending Unavailable HENRIQUEZ ., DR LUNA Lindsay Admitting Unavailable YAÑEZ ., JUWAN Consulting Unavailable [facility] Unava il[facility] HENRIQUEZ ., DR LUNA Lindsay Attending Unavailable HENRIQUEZ ., DR LUNA Lindsay Admitting Unavailable DINORAH SCHULTE Referring Unavailable SERVICES, [facility] Unava ilable Paul Randall MD Primary Care Provider Dinorah Schulte NP Unavailable DINORAH SCHULTE Attending Unavailable DINORAH SCHULTE Attending Unavailable Paul Randall MD Primary Care Provider [phone] Kelly Bunch Primary Care Unavailable Warren Holliday Attending Unavail able Warren Holliday Admitting Unavail able Franca RN CIRCULATING-CDinorah Primary Care Provider [phone] Franca KERR, Dinorah Melendez Attending Provider Paul Randall MD Primary Care Provider [phone] Dinorah Schulte NP Unavailable Unallocated Tamara BERMUDEZ Provider Primary Care Provi shivam Paul Randall MD Primary Care Provider [phone] Allergies Allergy ClassificationReported Allergen(s)Allergy TypeDate of OnsetReaction(s) Facility (2 sources)LatexDrug allergy (disorder)69-59-0395Uehjewm ReactionThe [facility] (2 sources)Penicillin; Translations: [penicillin]Drug AllergyThe [facility] (18 sources)Fluconazole; Translations: [FLUCONAZOLE]Drug Vvbluqs59-73-7209 Swelling, [facility]Pro[facility] Repository (1 source)NSAIDs; Translations: [NSAIDS (NON-STEROIDAL ANTI-INFLAMMATORY DRUG)] Propensity to adverse reactions to drug (disorder)59-41-8545TakPxkpuf Repository (18 sources)Penicillins; Translations: [PENICILLINS]Propensity to adverse reactions to drug (disorder)04-28-1330Zoseu, RashProMedica Repository (16 sources)LatexPropensity to adverse koeozhvce98-42-2706[facility] (16 sources)OtherPropensity to adverse fgsjvlecg81-54-2709EU [facility] westNOC[facility] Medications Current Medications MedicationDrug Class(es)DatesSig (Normalized)Sig (Original)baclofen 10 mg oral tablet (17 sources)gamma-Aminobutyric Acid-ergic AgonistStart: 94-66-3534smqf 1 tablet by mouth three times dailyBaclofen 10 mg tablet Active 10 MG PO Three times daily May 17, 2025 12:00am Complies with drug therapybusPIRone hydrochloride 15 mg oral tablet (16 sources)Start: 72-67-3025pijh 1 tablet by mouth twice dailyBuspirone 15 mg tablet Active 15 MG PO Twice daily May 17, 2025 12:00am Complies with drug therapyStart: 02-02-2024 End: 40-46-2883aptb 1 tablet by mouth in the morningbusPIRone (Buspar) 15 MG tablet Indications: Anxiety and depression Take 1 tablet (15 mg) by mouth in the morning and 1 tablet (15 mg) before bedtime. 60 tablet 5 06/27/2024 Active cholecalciferol 0.125 mg oral capsule (13 sources)Vitamin DStart: 32-33-0814pedz 1 capsule by mouth once dailytake 1 tablet by mouth once dailycholecalciferol (Vitamin D-3) 125 MCG (5000 UT) tablet Take 5,000 Units by mouth Daily Activediclofenac sodium 0.01 mg/mg topical gel (4 sources)Nonsteroidal Anti-inflammatory Drug End: 84-28-7884knhzzckpsk sodium 1 % gel Apply 2 g topically every 12 (twelve) hours if needed for pain 5% 06/27/2024 Discontinued (Therapy completed) doxycycline hyclate 100 mg oral capsule (4 sources)Tetracycline-class DrugStart: 12-01-2023 End: 27-58-0896dxlv 1 capsule by mouth once dailydoxycycline (Vibramycin) 100 MG capsule Take 100 mg by mouth Daily 12/01/2023 06/27/2024 Discontinued (Therapy completed)FLUoxetine 10 mg oral capsule (18 sources)Serotonin Reuptake InhibitorStart: 12-26-2024 End: 38-93-5468pijt 1 capsule by mouth once dailyFluoxetine 10 mg capsule Active 10 MG PO Daily 90 0 May 09, 2025 12:00am Complies with drug therapy Start: 02-02-2024 End: 45-48-9271vwvc 1 capsule by mouth once dailyFLUoxetine (PROzac) 10 MG capsule Indications: Anxiety and depression (CMS/HCC) Take 1 capsule (10 mg) by mouth Daily 30 capsule 5 06/27/2024 Activefluticasone propionate 0.05 mg/actuat metered dose nasal spray (15 sources)CorticosteroidStart: 45-51-5517dusc 1 spray(s) nasal route once dailyFluticasone Propionate (Flonase Allergy Relief) 50 mcg/actuation spray,suspension Active 2 SPRAY INTRANASAL Daily May 17, 2025 12:00am administer into each nostril Complies with drug therapyStart: 02-02-2024 End: 65-61-0538zbvh 2 spray(s) nasal route once dailyfluticasone (Flonase) 50 MCG/ACT nasal spray Indications: Environmental and seasonal allergies Administer 2 sprays into each nostril Daily 16 g 5 09/18/2024 Activegabapentin 600 mg oral tablet (18 sources)Anti-epileptic AgentStart: 06-08-2170zsew 1 tablet by mouth three times dailyGabapentin 600 mg tablet Active 600 MG PO Three times daily 90 June 08, 2025 12:00am Peripheral neuropathy Spinal stenosis of lumbar region Polyneuropathy, unspecified Spinal stenosis, lumbar region without neurogenic claudication Complies with drug therapyStart: 05-17-2025 End: 57-02-3027sbgn 1 capsule by mouth twice daily in the morning, then take 2 capsules by mouth in the eveningGabapentin 300 mg capsule Discontinued 300 MG PO Twice daily May 17, 2025 12:00am June 08, 2025 6:37am 1 am, 2 in the pmStart: 30-54-9461ecardaatrn (Neurontin) 300 MG capsule Indications: RLS (restless legs syndrome) , Mononeuropathy 1 pill in the am, and then 2 pills before bed 90 capsule 2 01/10/2025 ActiveStart: 90-70-0315dortpenmqg (Neurontin) 300 MG capsule Indications: RLS (restless legs syndrome) , Mononeuropathy 1 p ill in the am, and then 2 pills before bed 90 capsule 5 06/27/2024 ActiveStart: 12-23-2023 End: 09-84-8300gsle 2 capsules by mouth at bedtime, then take 1 capsule by mouth in the morning, then take 2 capsules by mouth at bedtimegabapentin (Neurontin) 300 MG capsule Take 300 mg by mouth in the morning and 300 mg in the eveningand 300 mg before bedtime. 1 am, and 2 at bedtime ( taking 300mg in the morning and 600mg at bedtime). 12/23/2023 06/27/2024 Discontinued (Reorder)levothyroxine sodium 0.112 mg oral tablet (17 sources)l-ThyroxineStart: 82-48-6344qvkw 1 tablet by mouth once daily Levothyroxine 112 mcg tablet Active 112 MCG PO Daily 90 0 May 09, 2025 12:00am Hypothyroidism Hypothyroidism, unspecified Complies with drug therapy Start: 02-02-2024 End: 56-57-1940qyxt 1 tablet by mouth before mealtimelevothyroxine (Synthroid, Levoxyl) 112 MCG tablet Indications: Hypothyroidism (acquired) Take 1 tablet (112 mcg) by mouth in the morning. Take before meals. 30 tablet 1 09/07/2024 Activelisinopril 10 mg oral tablet (20 sources)Angiotensin Converting Enzyme InhibitorStart: 05-17-2025 End: 67-72-9337mbed 1 tablet by mouth once dailyLisinopril 10 mg tablet Active 10 MG PO Daily 30 0 June 11, 2025 12:43pm Hypertension Essential(primary) hypertension Complies with drug therapyStart: 02-02-2024 End: 63-31-6215wpkc 1 tablet by mouth once dailylisinopril 10 MG tablet Indications: Primary hypertension Take 1 tablet (10 mg) by mouth Daily 30 tablet 04/15/2025 05/15/2025 ActiveMultiple Vitamin (Daily-Talita Multivitamin) tablet (16 sources)Start: 34-80-5076pmjr 1 tablet by mouth once dailyMultiple Vitamin (Daily-Talita Multivitamin) tablet Indications: Iron deficiency anemia, unspecified iron deficiency anemia type , Vitamin deficiency Take 1 tablet by mouth Daily 30 tablet 5 02/02/2024ctiveMultivitamin,Tx-Minerals tablet (1 source)Start: 41-81-3702gmae 1 tablet by mouth once dailyMultivitamin,Tx- Minerals tablet Active 1 TAB PO Daily May 17, 2025 12:00am Complies with drug therapynaloxone hydrochloride 40 mg/ml nasal spray (14 sources)Opioid AntagonistStart: 01-14-2579Qteylnww 4 mg/actuation spray,non- aerosol Active 4 MG INTRANASAL Q2M as needed May 172:00am spray 1 dose into ONE nostril; alternate nostrils w each dose until help arrives Complies with drug therapyStart: 97-90-0229rxeifmml (Narcan) 4 mg/0.1 mL nasal spray 05/03/2024 Activespironolactone 100 mg oral tablet (17 sources)Aldosterone AntagonistStart: 69-40-2992enap 1 tablet by mouth once dailySpironolactone (Aldactone) 100 mg tablet Active 100 MG PO Daily May 17, 2025 12:00am Complies with drug therapyStart: 02-02-2024 End: 40-75-3516hfdr 1 tablet by mouth once dailyspironolactone (Aldactone) 100 MG tablet Indications: Primary hypertension Take 1 tablet (100 mg) by mouth Daily 30 tablet 5 08/09/2024 ActivetraMADol hydrochloride 50 mg oral tablet (17 sources)Opioid AgonistStart: 93-30-0801qwiq 1 tablet by mouth three times daily as neededTramadol 50 mg tablet Active 50 MG PO Three times daily as needed May 17, 2025 12:00am Complies with drug therapytake 1 tablet by mouth every eight hourstraMADol (Ultram) 50 MG tablet Take 50 mg by mouth every 8 (eight) hours Pt takes 3 times daily ActivetraZODone hydrochloride 50 mg oral tablet (18 sources)Serotonin Reuptake InhibitorStart: 02-02-2024 End: 88-93-5613qtil 2 tablets by mouth once dailyTrazodone 50 mg tablet Active 100 MG PO Daily May 17, 2025 12:00am Complies with drug therapyvitamin b12 1 mg oral tablet (4 sources)Vitamin E13Mvrfq: 06-27-2024 End: 44-99-4821rxgt 1 tablet by mouth once dailycyanocobalamin (Vitamin B-12) 1000 MCG tablet Indications: Vitamin B12 Deficiency Take 1 tablet (1,000 mcg) by mouth Daily Take 1,000 mcg by mouth Daily 30 tablet 5 06/27/2024 07/27/2024 Active Problems Active Problems Problem ClassificationProblemDateDocumented DateEpisodic/ChronicAnxiety disorders (20 sources)Anxiety disorder, unspecified; Translations: [Mixed anxiety and depressive disorder]Onset: 180870-16-4227DdcqgfvQifavbjkai and other anemia (1 source)Iron deficiency anemia, unspecified; Translations: [Iron deficiency anemia, unspecified]Onset: 63-70-5800JkunatkwVftjcjepa hypertension (20 sources)Essential (primary) hypertension; Translations: [Essential hypertension]Onset: 755003-95-0941HsrslslYhabiayekhtmj mental health disorders (20 sources)Primary insomnia; Translations: [Primary insomnia]Onset: 02-02-2024 40-55-2198UfvwvxlPpry disorders (2 sources)Major depressive disorder; Translations: [Major depressive disorder, single episode, unspecified]01-06-4389VesyvngMwbevknepsh deficiencies (17 sources)Vitamin D deficiency; Translations: [Vitamin D deficiency, unspecified]Onset: 002977-50-1127PljmmcmTlovajorblmnqu (20 sources)Unilateral primary osteoarthritis, left knee; Translations: [Bilateral osteoarthritis of knees]Onset: 40-03-7685DdtnmyfVuyqk connective tissue disease (1 source)Other muscle spasm; Translations: [OTHER MUSCLE SPASM]Onset: 97-04-4156JospywleLybbh hereditary and degenerative nervous system conditions (17 sources)Restless legs; Translations: [Restless legs syndrome]Onset: 484151-54-7645KryilwwZsknk nervous system disorders (1 source)Other specified mononeuropathies; Translations: [OTHER SPECIFIED MONONEUROPATHIES]Onset: 39-85-3144XkynnjoHmyhb nervous system disorders (17 sources)Difficulty walking; Translations: [Difficulty in walking, not elsewhere classified]Onset: 671557-25-0796HnzmfnrEtdih nervous system disorders (2 sources)Mononeuropathy; Translations: [Mononeuropathy, unspecified]06-27-2024 ChronicOther nervous system disorders (15 sources)Peripheral nerve disease ; Translations: [Polyneuropathy, unspecified]Onset: 281070-05-9063RshvnwpFtaas non-traumatic joint disorders (17 sources)Joint pain; Translations: [Pain in unspecified joint]02-15-2024 EpisodicOther nutritional; endocrine; and metabolic disorders (1 source)Obesity, unspecified; Translations: [OBESITY UNSPECIFIED]Onset: 68-19-3800VcfpmcvHaeqz nutritional; endocrine; and metabolic disorders (1 source)Morbid (severe) obesity due to excess calories; Translations: [Morbid (severe) obesity due to excess calories]Onset: 98-30-1025KfoodtpXqjec nutritional; endocrine; and metabolic disorders (16 sources)Body mass index 40+ - severely obese; Translations: [Morbid (severe) obesity due to excess calories]Onset: 500519-67-5765ZnzebchVgtcn nutritional; endocrine; and metabolic disorders (2 sources)Morbid obesity; Translations: [Morbid (severe) obesity due to excess calories]62-80-6756AhxupyeBteml upper respiratory disease (18 sources)Allergic disposition; Translations: [Other allergic rhinitis]Onset: 055315-07-7932YuyatjaYprdmohtfwg; intervertebral disc disorders; other back problems (20 sources)Other spondylosis with radiculopathy, lumbar region; Translations: [Sacroiliitis, not elsewhere classified]Onset: 01-55-2836WyfttlpUmvqjfz disorders (20 sources)Acquired hypothyroidism; Translations: [Hypothyroidism, unspecified] Onset: 136771-63-4061InubnnsIrjdsqrqlnze (2 sources)LOW BACK PAIN, UNSPECIFIED; Translations: [LOW BACK PAIN, UNSPECIFIED]Onset: 56-10-8419Wzpefjfklonb (7 sources)Patient on antidepressant monitoring planOnset: Unclassified (2 sources)Shoulder pain, eekec72-53-6892 Past or Other Problems Problem ClassificationProblemDateDocumented DateEpisodic/ChronicDeficiency and other anemia (17 sources)Anemia; Translations: [Anemia, unspecified]Onset: 12-25-2013 72-95-0571MuymhkrmKmgh disorders (13 sources)Mood disorders; Translations: [Depression, unspecified]Onset: 125147-03-3105Jtrbgbipmbf deficiencies (20 sources)Vitamin deficiency, unspecified; Translations: [Vitamin deficiency] Onset: 667640-60-3211JaddyrnmSwngf bone disease and musculoskeletal deformities (17 sources)Osteopenia; Translations: [Other specified disorders of bone density and structure, multiple sites]Onset: 081140-15-2684FayhkhrkEwvqv connective tissue disease (1 source)Muscle wasting and atrophy, not elsewhere classified, unspecified site; Translations: [MUSCLE WASTING ATROPHY NEC UNS SITE]Onset: 02-20-2022 EpisodicOther connective tissue disease (1 source)Trochanteric bursitis, left hip; Translations: [TROCHANTERIC BURSITIS LEFT HIP]Onset: 27-20-4322NehbuqtfNtfnr connective tissue disease (17 sources)Tear of right rotator cuff; Translations: [Unspecified rotator cuff tear or rupture of right shoulder, not specified as traumatic]Onset: 05-29-2024 85-27-9784HuddybtpYmvcg screening for suspected conditions (not mental disorders or infectious disease) (17 sources)Mammography abnormal; Translations: [Other abnormal and inconclusive findings on diagnostic imagingof breast]Onset: 102777-20-9186Leefgfuf Spondylosis; intervertebral disc disorders; other back problems (20 sources)Intervertebral disc disorders with radiculopathy, lumbar region; Translations: [Spinal stenosis of lumbar region]Onset: 97-85-1193Dybwjify Unclassified (1 source)LOW BACK PAIN, UNSPECIFIED; Translations: [LOW BACK PAIN, UNSPECIFIED] Onset: 01-08-2023 Results Test NameValueInterpretationReference RangeFacilityCBC AND AUTO DIFFon 57-56-1088SVEHWGJS BASOPHIL0.1 X10E9/LNormal0.0-0.2PThe [facility] Comment on above:Performed By: #### CBCA, CMP, 2498-4, 53744-1, 3016-3, 2276-4, 2131-9, 32472-3 #### [facility] ([id number]) [address] [place], [place] [address]ATRISZAD NEUTROPHIL2.7 X10E9/LNormal1.5-6.6[facility] - AndersonComment on above:Performed By: #### CBCA, CMP, 2498-4, 49148-5, 3016-3, 2276-4, 2132-9, 16771-6 #### [facility] ([id number]) [address], [address] [place], [place] [address]Oahmsmsbq/100 WBC (Bld)1.8 %NormalOur Lady of Mercy Hospital - Anderson Comment on above:Performed By: #### CBCA, CMP, 2498-4, 17720-8, 3016-3, 2276-4, 2132-9, 08009-0 #### [facility] ([id number]) [address], [address] [place], [place] [address]Ggphfzayuvy (Bld) [#/Vol]0.2 10*3/uLNormal0.0-0.4[facility] - AndersonComment on above:Performed By: #### CBCA, CMP, 2498-4, 72306-7, 3016-3, 2276-4, 2132-9, 23112-0 #### [facility] ([id number]) [address], [address] [place], [place] [address]Bhxdsaowfad/100 WBC (Bld)4.0 %NormalProNocona General Hospital Comment on above:Performed By: #### CBCA, CMP, 2498-4, 96740-9, 3016-3, 2276-4, 2132-9, 53452-7 #### [facility] ([id number]) [address], [address] [place], [place] [address]Tbartoxjjkg distribution width (RBC) [Ratio]13.1 %Normal 11.5-15.0ProNocona General HospitalComment on above:Performed By: #### CBCA, CMP, 2498-4, 63261-8, 3016-3, 2276-4, 2-9, 91378-9 #### [facility] ([id number]) [address], [address] [place], [place] [address]Qyswrcsxgi (Bld) [Volume fraction]39.6 %Jjquzx24-87NqbAwdgghNocona General HospitalComment on above:Performed By: #### CBCA, CMP, 2498-4, 87177-2, 3016-3, 2276-4, 2132-9, 02967-2 #### [facility] ([id number]) [address], [address] [place], [place] [address]Gcwdsewszc (Bld) [Mass/Vol]13.8 g/zKXpfnjw64.7-15.5PThe [facility]vue HospitalComment on above:Performed By: #### CBCA, CMP, 2498-4, 25565-4, 3016-3, 2276-4, 2132-9, 37897-3 #### [facility] ([id number]) [address], [address] [place], [place] [address]Seifioahztl (Bld) [#/Vol]0.7 10*3/uLLow1.0-3.5PThe [facility]vue HospitalComment on above:Performed By: #### CBCA, CMP, 2498-4, 23489-1, 3016-3, 2276-4, 2132-9, 18160-8 #### [facility] ([id number]) [address], [address] [place], [place] [address]Wvpdxqqowmj/100 WBC (Bld)17.5 %NormalOur Lady of Mercy Hospital - [facility] Comment on above:Performed By: #### CBCA, CMP, 2498-4, 92952-6, 3016-3, 2276-4, 2-9, 80017-3 #### [facility] ([id number]) [address], [address] [place], [place] [address]SNV (RBC) [Entitic mass]31.0 okGhwmqc16-08IbpYdiliaNocona General HospitalComment on above:Performed By: #### CBCA, CMP, 2498-4, 31205-6, 3016-3, 2276-4, 2-9, 10669-6 #### [facility] ([id number]) [address], [address] [place], [place] [address]JMVG (RBC) [Mass/Vol]34.9 g/iTXatbfj57-22XeiCgeufwNocona General HospitalComment on above:Performed By: #### CBCA, CMP, 2498-4, 40608-7, 3016-3, 2276-4, 2132-9, 46125-6 #### [facility] ([id number]) [address], [address] [place], [place] [address]CFA (RBC) [Entitic vol]89 hWYczizi85-230AisMjmgjn [facility]remont HospitalComment on above:Performed By: #### CBCA, CMP, 2498-4, 29954-5, 3016-3, 2276-4, 2132-9, 92726-6 #### [facility] ([id number]) [address], [address] [place] [address]Boideztxi (Bld) [#/Vol]0.2 10*3/uLNormal0-0.9[facility] - AndersonComment on above:Performed By: #### CBCA, CMP, 2498-4, 77237-1, 3016-3, 2276-4, 2132-9, 48289-7 #### [facility] ([id number]) [address], [address] [place], [place] [address]Dgjdxxidr/100 WBC (Bld)6.0 %NormalOur Lady of Mercy Hospital - [facility] Comment on above:Performed By: #### CBCA, CMP, 2498-4, 90177-8, 3016-3, 2276-4, 2132-9, 72792-5 #### [facility] ([id number]) [address], [address] [place], [place] [address]Khzvnlpcpno/100 WBC (Bld)70.7 %NormalOur Lady of Mercy Hospital - [facility] Comment on above:Performed By: #### CBCA, CMP, 2498-4, 90661-5, 3016-3, 2276-4, 2132-9, 39780-5 #### [facility] ([id number]) [address], [address] [place], [place] [address]Kndkznov mean volume (Bld) [Entitic vol]8.3 fLNormal7-12 [facility] - AndersonComment on above:Performed By: #### CBCA, CMP, 2498-4, 75450-7, 3016-3, 2276-4, 2132-9, 74370-0 #### [facility] ([id number]) [address], [address] [place], [place] [address]Pztiqofcs (Bld) [#/Vol]192 10*3/fQGicmpi897-414DdjEoksiv [facility] HospitalComment on above:Performed By: #### CBCA, CMP, 2498-4, 72464-3, 3016-3, 2276-4, 2132-9, 81110-9 #### [facility] ([id number]) [address], [address] [place], [place] [address]ZRP COUNT4.46 X10E12/LNormal3.80-5.20ProNocona General Hospital Comment on above:Performed By: #### CBCA, CMP, 2498-4, 80014-8, 3016-3, 2276-4, 2-9, 75177-3 #### [facility] ([id number]) [address], [address] [address]KMA (Bld) [#/Vol]3.8 10*3/uLLow4.0-11.0ProNocona General HospitalComment on above:Performed By: #### CBCA, CMP, 2498-4, 01276-5, 3016-3, 2276-4, 2-9, 60478-2 #### [facility] ([id number]) [address], [address] [place], [place] [address]RPF W Auto Differential panel (Bld)on 59-73-5092EHTKHTJF BASOPHIL0.1NOMS HealthcareComment on above:PERFORMED AT [facility] [address],[place], [place] [address]Ofndbijjm/100 WBC (Bld)1.8 %NOMS HealthcareEosinophils (Bld) [#/Vol]0.2 10*3/uLNOMS HealthcareEosinophils/100 WBC (Bld)4.0 %NOMS HealthcareErythrocyte distribution width (RBC) [Ratio]13.1 %11.5 - 15.0 %NOMS HealthcareHematocrit (Bld) [Volume fraction]39.6 %35 - 47 %NOMS HealthcareHemoglobin (Bld) [Mass/Vol]13.8 g/dL11.7 - 15.5 g/dLWashington County Memorial Hospital Interpretation and review of laboratory resultsAbnormEncompass Health [facility] Lymphocytes (Bld) [#/Vol]0.7 10*3/uLGolden Valley Memorial HospitalLymphocytes/100 WBC (Bld) 17.5 %[facility] HealthH (RBC) [Entitic mass]31.0 pg27 - 34 pgWashington County Memorial Hospital MCHC (RBC) [Mass/Vol]34.9 g/dL32 - 36 g/dLWashington County Memorial HospitalMCV (RBC) [Entitic vol] 89 fL80 - 100 fLWashington County Memorial HospitalMonocytes (Bld) [#/Vol]0.2 10*3/uLWashington County Memorial Hospital Monocytes/100 WBC (Bld)6.0 %[facility] HospitalNeutrophils (Bld) [#/Vol]2.7 10*3/uL [facility] HealthcareNeutrophils/100 WBC (Bld)70.7 %[facility] Memorial HospitalPlatelet mean volume (Bld) [Entitic vol]8.3 fL7 - 12 fLSPANISH FORK HOSPITAL HealthcarePlatelets (Bld) [#/Vol] 192 10*3/uLWashington County Memorial HospitalRBC (Bld) [#/Vol]4.46 10*6/uLWashington County Memorial HospitalWBC corrected for nucl RBC Auto (Bld) [#/Vol]3.8LowCritical access hospital COMPREHENSIVE METABOLIC PANELon 77-44-1165Ohtdtob [Mass/Vol]4.2 g/dLNormal 3.2-5.3Pro[facility] And Health CenterComment on above:Performed By: #### CBCA, CMP, 2498-4, 39705-8, 3016-3, 2276-4, 2131-9, 09306-4 #### [facility] ([id number]) [address] [place] [address], [address] [place], [place] [address]QLN [Catalytic activity/Vol]79 U/XNeoqeu16-625JsmSgthof West Valley Hospital And Health CenterComment on above:Performed By: #### CBCA, CMP, 2498-4, 03784-2, 3016-3, 2276-4, 2-9, 41772-5 #### [facility] ([id number]) [address], [address] [place] [address]IMA [Catalytic activity/Vol]17 U/LNormal0-31PThe [facility]vue HospitalComment on above:Performed By: #### CBCA, CMP, 2498-4, 07836-2, 3016-3, 2276-4, 2-9, 07610-9 #### [facility] ([id number]) [address], [address] [place] [address]Zbrbm gap [Moles/Vol]10 mmol/LNormal5-15[facility] - AndersonComment on above:Performed By: #### CBCA, CMP, 2498-4, 34988-4, 3016-3, 2276-4, 2131-9, 37325-6 #### [facility] ([id number]) [address], [address] [place] [address]LRJ [Catalytic activity/Vol]20 U/LNormal0-41ProNocona General HospitalComment on above:Performed By: #### CBCA, CMP, 2498-4, 16552-3, 3016-3, 2276-4, 2131-9, 93839-6 #### [facility] ([id number]) [address], [address] [place] [address]Gulmycugf [Mass/Vol]0.6 mg/dLNormal0.3-1.2PThe [facility]vue HospitalComment on above:Performed By: #### CBCA, CMP, 2498-4, 10602-0, 3016-3, 2276-4, 2-9, 96566-8 #### [facility] ([id number]) [address], [address] [place] [address]Hiymsma [Mass/Vol]9.2 mg/dLNormal8.5-10.5PThe Bellevue HospitalComment on above:Performed By: #### CBCA, CMP, 2498-4, 33223-2, 3016-3, 2276-4, 2131-9, 58973-0 #### [facility] ([id number]) [address] [facility], [address] [place], [place] [address]Owmbcgbp [Moles/Vol]105 mmol/PEwbunp17-106RteYxugqqOur Lady of Mercy Hospital - AndersonComment on above:Performed By: #### BASILIO, FOZIA, 2498-4, 80127-7, 3016-3, 2276-4, 2131-9, 27755-5 #### [facility] ([id number]) [address] [facility], [address] [place], [place] [address]JM0 [Moles/Vol]23 mmol/YTccvdq92-96QnhFurxokThe [facility] Comment on above:Performed By: #### BASILIO, FOZIA, 2498-4, 03582-9, 3016-3, 2276-4, 2131-9, 44481-2 #### [facility] ([id number]) [address] [facility], [address] [place], [place] [address]Wkajjlrhze [Mass/Vol]0.95 mg/dLNormal0.40-1.00[facility] - AndersonComment on above:Result Comment: METHOD TRACEABLE TO IDMS STANDARD Performed By: #### BASILIO, FOZIA, 2498-4, 64859-5, 3016-3, 2276-4, 2131-9, 38018-0 #### [facility] ([id number]) [address], [address] [place], [place] [address]XPO/1.73 sq M.predicted among non-blacks MDRD (S/P/Bld) [Vol rate/Area]69 mL/min/{1.73_m2}Normal>59[facility] - AndersonComment on above:Result Comment: Reported eGFR is based on the CKD-EPI 2020 equation that does not use a race coefficient.Performed By: #### BASILIO, CMP, 2498-4, 36424-9, 3016- 3, 2276-4, 2131-9, 57849-3 #### [facility] ([id number]) [address], [address] [place] [address]Dfnvcia [Mass/Vol]90 mg/gDTxzqya61-54GfvIjojilNocona General Hospital Comment on above:Performed By: #### FOZIA [place], 2498-4, 54301-0, 3016-3, 2276-4, 2131-9, 03233-4 #### [facility] ([id number]) [address], [address] [place] [address]Slhpkhqgb [Moles/Vol]4.1 mmol/LNormal3.5-5.0ProNocona General HospitalComment on above:Performed By: #### FOZIA [place], 2498-4, 15589-8, 3016-3, 2276-4, 2131-9, 72469-3 #### [facility] ([id number]) [address], [address] [place], [place] [address]Ddncvkt [Mass/Vol]7.1 g/dLNormal6.0-8.0ProNocona General HospitalComment on above:Performed By: #### FOZIA [place], 2498-4, 34272-8, 3016-3, 6-4, 2131-9, 92544-6 #### [facility] ([id number]) [address], [address] [place] [address]Zjghwa [Moles/Vol]138 mmol/MMhwqto122-025JkxDdcdfi [facility]remont HospitalComment on above:Performed By: #### BASILIO, CMP, 2498-4, 76680-8, 3016-3, 2276-4, 2131-9, 39844-3 #### [facility] ([id number]) [address], [address] [place], [place] [address]Hoqa nitrogen [Mass/Vol]17 mg/dLNormal5-23ProNocona General HospitalComment on above:Performed By: #### BASILIO CMP, 2498-4, 58249-7, 3016-3, 2276-4, 2-9, 10420-0 #### [facility] ([id number]) [address] [facility], [address] [place] [address]OTEVVQSOqe 29-11-0928Cubsdfnc [Mass/Vol]18 ng/qLIvrylv35-732 [facility] - AndersonComment on above:Performed By: #### CBCA, CMP, 2498-4, 13541-8, 3016-3, 2276-4, 2131-9, 13144-5 #### [facility] ([id number]) [address] [facility], [address] [place], [place] [address]ELNDvu 30-96-3222Bner [Mass/Vol]91 ug/kHEfeizb07-928UnbVlfgudOur Lady of Mercy Hospital - AndersonComment on above:Performed By: #### BELTRANA, CMP, 2498-4, 71092-0, 3016-3, 2276-4, 2131-9, 26402-8 #### [facility] ([id number]) [address] [facility], [address] [place], [place] [address]Nhxoi 1996 panelon 28-45-0498Nfhlbcdapar [Mass/Vol]188 mg/dL Zwfsvx256-279WlbYtpjmyOur Lady of Mercy Hospital - AndersonComment on above:Performed By: #### CBCA, CMP, 2498-4, 72471-6, 3016-3, 2276-4, 2131-9, 24185-2 #### [facility] ([id number]) [address] [facility], [address] [place], [place] [address]Viipfuzdjra in HDL [Mass/Vol]58 mg/dLNormal>39ProNocona General HospitalComment on above:Result Comment: HDL <40 mg/dL - High Risk HDL > or = 40mg/dL- Desirable HDL >60 mg/dL - Negative Risk Performed By: ###Tali [place], FOZIA, 2498- 4, 13376-2, 3016-3, 2276-4, 2131-9, 64282-4 #### [facility] ([id number]) [address], [address] [place], [place] [address]Nllkvcluvuc in LDL [Mass/Vol]113 mg/dLNormal<130ProNocona General HospitalComment on above:Result Comment: LDL <100 mg/dL - Desirable LDL >160 mg/dL - High Risk Performed By: #### FOZIA R[place], 2498- 4, 91141-0, 3016-3, 2276-4, 2131-9, 76973-2 #### [facility] ([id number]) [address], [address] [place], [place] [address]Zlwfddvvpmp in VLDL [Mass/Vol]17 mg/dLNormal0-30ProNocona General HospitalComment on above:Performed By: ###Tali R[place] CMP, 2498-4, 47636-5, 3016-3, 2276-4, 2131-9, 47844-3 #### [facility] ([id number]) [address], [address] [place], [place] [address]VNJQQGBVEXK:HDL3.5Vwyxya1.0-5.0ProNocona General HospitalComment on above:Performed By: ###Tali RICH[place] CMP, 2498-4, 98873-4, 3016-3, 2276-4, 2131-9, 59811-1 #### [facility] ([id number]) [address], [address] [place] [address]Bpuoqtjukazk [Mass/Vol]83 mg/bWDfcgtf33-358FpwYhhgcv [facility]remont HospitalComment on above:Performed By: #### FOZIA R[place], 2498-4, 67546-6, 3016-3, 2276-4, 2131-9, 11098-9 #### [facility] ([id number]) [address], [address] [place] [address]DPY Qnon 67-20-3453SRK1.26 uIU/mLNormal0.49-4.67ProNocona General HospitalComment on above:Performed By: #### BASILIO, FOZIA, 2498-4, 84121-4, 3016-3, 2276-4, 9, 53966-4 #### [facility] ([id number]) [address] [facility] [place] [address]CIZGTYO B12on 94-85-1343Tjannhirp (Vitamin B12) [Mass/Vol]272 pg/zRIwmlvm498-645KesZfdwyb [facility] And Health CenterComment on above:Performed By: #### FOZIA R[place], 2498-4, 81887-2, 3016-3, 6-4, 9, 09490-0 #### [facility] ([id number]) [address] [facility], [address] [place] [address]Fnepxlz D+Metabolites [Mass/Vol]on 64-29-8833KFWODFC D 25 HYD TOT25.4 ng/lOQhu44-931YnmLkytizNocona General HospitalComment on above:Result Comment: Vitamin D status 25 [place] Vitamin D Deficiency <20 ng/mL Insufficiency 20-29 ng/mL Sufficiency 30-100 ng/mL Toxicity >100 ng/mL NOTE: A pediatric reference range has not been established by the winder operator of this kit. The [place] [employer] recommends a Vitamin D level of = or >20ng/mL in infants and children.Performed By: #### BASILIO, CMP, 2498-4, 89640-2, 3016-3, 2276-4, 2131-9, 55105-4 #### [facility] ([id number]) [address] [facility], [address] [place], [place] [address]SC TOMOSYNTHESIS DIAGNOSTIC BIon 76-19-8510GuxOhiohealth [facility]heastern [facility] [address] [place] [address] Mammography Report Signed Patient: STEPHANIE SINCLAIR MR#: [id number] : 1965 Acct:[id number] Age/Sex: 58 / F ADM Date: 05/01/24 Loc: MAMMO Attending Dr: SANDEE FIGUEROA Ordering Physician: SANDEE FIGUEROA Results: Date of Service: 05/01/24 Follow Up: Procedure(s): MM tomosynthesis diagnostic BI Accession Number(s): [id number] cc: SANDEE FIGUEROA ; Dinorah Schulte NP Patient Name: STEPHANIE SINCLAIR MR#: [id number] : 1965 Exam Date: 05/01/2024 Ordering Doctor: SANDEE FIGUEROA RADIOLOGY REPORT PROCEDURE: MM TOMOSYNTHESIS DIAGNOSTIC BI, 05/01/2024, 13:26 US BREAST BI LIMITED, 05/01/2024, 13:37 COMPARISON: US BREAST BI LIMITED, 10/07/2023. MM TOMOSYNTHESIS SCREENING BI, 07/20/2023. MM DIAGNOSTIC MAMMO BI, 10/07/2023. INDICATIONS: Abnormal Mammogram Calculator Name NCI Breast Cancer Risk Assessment Tool 5 Year Breast Cancer Risk 2.70% Lifetime Breast Cancer Risk 13.90% Personal Breast Cancer No Personal Ovarian Cancer No Treatments None Family Cancers Mother with breast cancer at age 40; Mother with ovarian cancer at age 76. LOCATION: [facility] BREAST COMPOSITION: There are scattered areas of fibroglandular density. FINDINGS: DIAGNOSTIC CATEGORY 2--BENIGN FINDING. NO CHANGE FROM COMPARISON. Scattered benign-appearing nodules are present. Scattered benign-appearing calcifications are present. Scattered benign-appearing lymph nodes are present. RIGHT BREAST: Stable retroareolar nodule. 6.2 x 3.1 x 6.3 mm oval nodule right 12:00, hypoechoic and stable from the prior exam. The lack of change favors a benign process. LEFT BREAST: No significant suspicious finding. RECOMMENDATIONS: ROUTINE MAMMOGRAM AND CLINICAL EVALUATION IN 12 MONTHS. PLEASE NOTE: A NORMAL MAMMOGRAM DOES NOT EXCLUDE THE POSSIBILITY OF BREAST CANCER. A CLINICALLY SUSPICIOUS PALPABLE LUMP SHOULD BE BIOPSIED. Dictated by: Etienne Garcia MD on 05/01/2024 at 13:57 Approved by: Etienne Garcia MD on 05/01/2024 at 14:01 Dictated By: Etienne Garcia M.D. Signed By: 05/01/24 1402 DD/ 1401 TD/TT: Home Health Clinical Supervisor:TBHRadiology, Radiologist, - 05/01/2024 [place] [address] Mammography Report Signed Patient: STEPHANIE SINCLAIR MR#: [id number] : 1965 Acct:[id number] Age/Sex: 58 / F ADM Date: 05/01/24 Loc: MAMMO Attending Dr: SANDEE FIGUEROA Ordering Physician: SANDEE FIGUEROA Results: Date of Service: 05/01/24 Follow Up: Procedure(s): MM tomosynthesis diagnostic BI Accession Number(s): [id number] cc: SANDEE FIGUEROA ; Dinorah Schulte NP Patient Name: STEPHANIE SINCLAIR MR#: [id number] : 1965 Exam Date: 05/01/2024 Ordering Doctor: SANDEE FIGUEROA RADIOLOGY REPORT PROCEDURE: MM TOMOSYNTHESIS DIAGNOSTIC BI, 05/01/2024, 13:26 US BREAST BI LIMITED, 05/01/2024, 13:37 COMPARISON: US BREAST BI LIMITED, 10/07/2023. MM TOMOSYNTHESIS SCREENING BI, 07/20/2023. MM DIAGNOSTIC MAMMO BI, 10/07/2023. INDICATIONS: Abnormal Mammogram Calculator Name NCI Breast Cancer Risk Assessment Tool 5 Year Breast Cancer Risk 2.70% Lifetime Breast Cancer Risk 13.90% Personal Breast Cancer No Personal Ovarian Cancer No Treatments None Family Cancers Mother with breast cancer at age 40; Mother with ovarian cancer at age 76. LOCATION: [facility] BREAST COMPOSITION: There are scattered areas of fibroglandular density. FINDINGS: DIAGNOSTIC CATEGORY 2--BENIGN FINDING. NO CHANGE FROM COMPARISON. Scattered benign-appearing nodules are present. Scattered benign-appearing calcifications are present. Scattered benign-appearing lymph nodes are present. RIGHT BREAST: Stable retroareolar nodule. 6.2 x 3.1 x 6.3 mm oval nodule right 12:00, hypoechoic and stable from the prior exam. The lack of change favors a benign process. LEFT BREAST: No significant suspicious finding. RECOMMENDATIONS: ROUTINE MAMMOGRAM AND CLINICAL EVALUATION IN 12 MONTHS. PLEASE NOTE: A NORMAL MAMMOGRAM DOES NOT EXCLUDE THE POSSIBILITY OF BREAST CANCER. A CLINICALLY SUSPICIOUS PALPABLE LUMP SHOULD BE BIOPSIED. Dictated by: Etienne Garcia MD on 05/01/2024 at 13:57 Approved by: Etienne Garcia MD on 05/01/2024 at 14:01 Dictated By: Etienne Garcia M.D. Signed By: 05/01/24 1402 DD/ 1401 TD/TT: Home Health Clinical Supervisor: TAMARA DillMM TOMOSYNTHESIS DIAGNOSTIC BIOrdered By: Radiologist Radiology on 77-67-9668JMJB SPHARES Work Phone: No Panel Informationon 11-23-2509Vnpdwxufe Study observation (narrative)TAMARA DillUS BREAST BI LIMITEDon 67-57-95[place]Axtell, [place] [address] Ultrasound Report Signed Patient: STEPHANIE SINCLAIR MR#: [id number] : 1965 Acct:[id number] Age/Sex: 58 / F ADM Date: 05/01/24 Loc: MAMMO Attending Dr: SANDEE FIGUEROA Ordering Physician: SANDEE FIGUEROA Date of Service: 05/01/24 Procedure(s): US breast BI limited Accession Number(s): [id number] cc: SANDEE FIGUEROA ; Dinorah Schulte NP Patient Name: STEPHANIE SINCLAIR MR#: [id number] : 1965 Exam Date: 05/01/2024 Ordering Doctor: SANDEE FIGUEROA RADIOLOGY REPORT PROCEDURE: MM TOMOSYNTHESIS DIAGNOSTIC BI, 05/01/2024, 13:26 US BREAST BI LIMITED, 05/01/2024, 13:37 COMPARISON: US BREAST BI LIMITED, 10/07/2023. MM TOMOSYNTHESIS SCREENING BI, 07/20/2023. MM DIAGNOSTIC MAMMO BI, 10/07/2023. INDICATIONS: Abnormal Mammogram Calculator Name [facility] Breast Cancer Risk Assessment Tool 5 Year Breast Cancer Risk 2.70% Lifetime Breast Cancer Risk 13.90% Personal Breast Cancer No Personal Ovarian Cancer No Treatments None Family Cancers Mother with breast cancer at age 40; Mother with ovarian cancer at age 76. LOCATION: [facility] BREAST COMPOSITION: There are scattered areas of fibroglandular density. FINDINGS: DIAGNOSTIC CATEGORY 2--BENIGN FINDING. NO CHANGE FROM COMPARISON. Scattered benign-appearing nodules are present. Scattered benign-appearing calcifications are present. Scattered benign-appearing lymph nodes are present. RIGHT BREAST: Stable retroareolar nodule. 6.2 x 3.1 x 6.3 mm oval nodule right 12:00, hypoechoic and stable from the prior exam. The lack of change favors a benign process. LEFT BREAST: No significant suspicious finding. RECOMMENDATIONS: ROUTINE MAMMOGRAM AND CLINICAL EVALUATION IN 12 MONTHS. PLEASE NOTE: A NORMAL MAMMOGRAM DOES NOT EXCLUDE THE POSSIBILITY OF BREAST CANCER. A CLINICALLY SUSPICIOUS PALPABLE LUMP SHOULD BE BIOPSIED. Dictated by: Etienne Garcia MD on 05/01/2024 at 13:57 Approved by: Etienne Garcia MD on 05/01/2024 at 14:01 Dictated By: Etienne Garcia M.D. Signed By: 05/01/24 1403 DD/ 1401 TD/TT: Home Health Clinical Supervisor:TBHRadiology, Radiologist, - 05/01/2024 [place] [address] Ultrasound Report Signed Patient: STEPHANIE SINCLAIR MR#: [id number] : 1965 Acct:[id number] Age/Sex: 58 / F ADM Date: 05/01/24 Loc: MAMMO Attending Dr: SANDEE FIGUEROA Ordering Physician: SANDEE FIGUEROA Date of Service: 05/01/24 Procedure(s): US breast BI limited Accession Number(s): [id number] cc: SANDEE FIGUEROA ; Dinorah Schulte NP Patient Name: STEPHANIE SINCLAIR MR#: [id number] : 1965 Exam Date: 05/01/2024 Ordering Doctor: SANDEE FIGUEROA RADIOLOGY REPORT PROCEDURE: MM TOMOSYNTHESIS DIAGNOSTIC BI, 05/01/2024, 13:26 US BREAST BI LIMITED, 05/01/2024, 13:37 COMPARISON: US BREAST BI LIMITED, 10/07/2023. MM TOMOSYNTHESIS SCREENING BI, 07/20/2023. MM DIAGNOSTIC MAMMO BI, 10/07/2023. INDICATIONS: Abnormal Mammogram Calculator Name NCI Breast Cancer Risk Assessment Tool 5 Year Breast Cancer Risk 2.70% Lifetime Breast Cancer Risk 13.90% Personal Breast Cancer No Personal Ovarian Cancer No Treatments None Family Cancers Mother with breast cancer at age 40; Mother with ovarian cancer at age 76. LOCATION: [facility] BREAST COMPOSITION: There are scattered areas of fibroglandular density. FINDINGS: DIAGNOSTIC CATEGORY 2--BENIGN FINDING. NO CHANGE FROM COMPARISON. Scattered benign-appearing nodules are present. Scattered benign-appearing calcifications are present. Scattered benign-appearing lymph nodes are present. RIGHT BREAST: Stable retroareolar nodule. 6.2 x 3.1 x 6.3 mm oval nodule right 12:00, hypoechoic and stable from the prior exam. The lack of change favors a benign process. LEFT BREAST: No significant suspicious finding. RECOMMENDATIONS: ROUTINE MAMMOGRAM AND CLINICAL EVALUATION IN 12 MONTHS. PLEASE NOTE: A NORMAL MAMMOGRAM DOES NOT EXCLUDE THE POSSIBILITY OF BREAST CANCER. A CLINICALLY SUSPICIOUS PALPABLE LUMP SHOULD BE BIOPSIED. Dictated by: Etienne Garcia MD on 05/01/2024 at 13:57 Approved by: Etienne Garcia MD on 05/01/2024 at 14:01 Dictated By: Etienne Garcia M.D. Signed By: 05/01/24 1403 DD/ 1401 TD/TT: Home Health Clinical Supervisor: TAMARA Liu BREAST BI LIMITEDOrdered By: Radiologist Radiology on 86-76-3376VGPDWashington County Memorial Hospital Work Phone: Vital Signs Date TimeVital SignValuePerforming CrkraoleiCogfzjol29-24-3698 10:53-0400Body fipowcpomeb90.8 [degF]Dinorah Schulte RN CIRCULATING-C Work Phone: [facility]10-20-2025 10:53-0400 Body umnodo572.72 kgDinorah Schulte RN CIRCULATING-C Work Phone: [facility]10-20-2025 10:53-0400 Diastolic blood xlzhuhbo32 mm[Hg]Dinorah Aguilarholz RN CIRCULATING-C Work Phone: [phone]10-20-2025 10:53-0400 Heart rate63 /minLisa Aichholz RN CIRCULATING-C Work Phone: [phone]10-20-2025 10:53-0400 Respiratory rate16 /minLisa Aichholz RN CIRCULATING-C Work Phone: [phone] [place], [place] [address]0-20-2025 10:53-0400 SaO2% (BldA) [Mass fraction]97 %Dinorah Celestinehholz RN CIRCULATING-C Work Phone: [phone] [place], [place] [address]0-20-2025 10:53-0400 Systolic blood stiwkysv710 mm[Hg]Dinorah Aguilarholz RN CIRCULATING-C Work Phone: [phone] [place], [place] [address]0-22-2024 09:54-0400 Body axkjil262.4 Coyisa Celestinehholz RN CIRCULATING Work Phone: [phone] [place], [place] [address]Hvtmvbvksm71-80-0405 09:54-0400Body mass index (BMI) [Ratio]44.1 kg/m2Lisa Celestinehholz RN CIRCULATING Work Phone: [facility] HospitalIqbcwjtjom70-79-8516 09:54-0400Body temperature 98.1 [degF]Dinorah Celestinehholz RN CIRCULATING Work Phone: [phone] HospitalFdxwkotblr67-49-9416 09:54-0400Body apfeqg409.42 kgLisa Aichholz RN CIRCULATING Work Phone: [facility] HospitalQlurxsfdyj04-98-4710 09:54-0400Diastolic blood pxrugyhn83 mm[Hg]Dinorah Aichholz RN CIRCULATING Work Phone: [facility] HospitalPhiqzdtppu85-61-4725 09:54-0400Heart rate53 /min Dinorah Aichholz RN CIRCULATING Work Phone: [facility] HospitalFwmiaihfir06-02-3590 09:54-0400Respiratory rate20 /minLisa Aichholz RN CIRCULATING Work Phone: noms Yzmfbhuvgs84-54-6269 09:54-4427UtD3% (BldA) [Mass fraction]96 %Dinorah Aguilarrojas RN CIRCULATING Work Phone: [facility] Colxxiizcf91-16-9169 09:54-0400Systolic blood ozvcaukt770 mm[Hg]Dinorah Aguilarrojas RN CIRCULATING Work Phone: [facility] Encounters Encounter DateEncounter TypeCare ProviderFacilityStart: 06-25-2025 End: 89-54-4006jcvmdvbjdvKign J Aichholz RN CIRCULATING-C Work Phone: [facility] ClydeStart: 06-25-2025 End: 89-63-0704Wcdvcaq encounter procedureLisa Al Schulte RN CIRCULATING-C-[facility] Work Phone: Start: 10-87-2114Qcjbfmo encounter procedureLisa Aguilarholz RN CIRCULATING-C Work Phone: [facility] Hospitaltart: 04-26-2025 End: 89-33-2312TwplnhYcot Aichholz RN CIRCULATING Work Phone: [facility] CWM FMComment on above:Primary insomniaStart: 04-13-2025 End: 17-69-5190IvjarpDesq Celestinehholz RN CIRCULATING Work Phone: [facility] CWM FMComment on above:Primary hypertensionStart: 04-12-2025 End: 38-49-2243QfbdzuIhkx Celestinehholz RN CIRCULATING Work Phone: [facility] CWM FMComment on above:Primary hypertensionStart: 04-09-2025 End: 23-24-1564VajkscNkjr Aichholz RN CIRCULATING Work Phone: [facility] CWM FMComment on above:Primary hypertension Anxiety and depressionStart: 04-06-2025 End: 14-91-9534CgtsykNuvi Aichholz RN CIRCULATING Work Phone: [facility] C[facility] FMComment on above:Primary hypertensionStart: 02-14-2025 End: 19-00-9803EdrnltEkgd Aichholz RN CIRCULATING Work Phone: [facility] CWM FMComment on above:Primary insomniaStart: 09-18-2024 End: 66-34-9333LfovofHzvj Aichholz RN CIRCULATING Work Phone: [facility] CWM FMComment on above:Environmental and seasonal allergiesStart: 09-07-2024 End: 36-45-6868ObrkdkGjbu Aichholz RN CIRCULATING Work Phone: [facility] CWM FMComment on above:Hypothyroidism (acquired) (CMS/HCC); Primary hypertension (CMS/HCC)Start: 08-09-2024 End: 05-21-0465GoxspgRdse Aichholz RN CIRCULATING Work Phone: [facility] CWM FMComment on above:Primary hypertension (CMS/HCC)Start: 06-27-2024 End: 98-67-9133Wgvvun flowsheetLisa Aichholz RN CIRCULATING Work Phone: [facility] CWM FMStart: 06-27-2024 End: 14-97-3697Smavdt flowsheetLisa Aichholz RN CIRCULATING Work Phone: [facility] CWM FMStart: 06-27-2024 End: 46-46-9099cfvsqlagwoYZHW AICHHOLZNot AvailableStart: 06-27-2024 End: 07-10-1801Oqjktpa encounter procedureLisa Aichholz RN CIRCULATING Work Phone: [facility] CWM FMComment on above:Encounter for subsequent annual wellness visit (AWV) in Medicare patient (Primary Dx); Vitamin D deficiency; Vitamin B12 deficiency; Anxiety and depression (CMS/HCC); Hypothyroidism (acquired) (CMS/HCC); Primary hypertension (CMS/HCC); Primary insomnia; RLS (restless legs syndrome); MononeuropathyStart: 06-05-2024 End: 70-31-2290Wgptkxpx Result EncounterLisa Aichholz RN CIRCULATING Work Phone: [facility] External Department UnsolicitedStart: 06-05-2024 End: 74-26-2706Ogcvvgmu Result EncounterLisa Franca RN CIRCULATING Work Phone: [facility] External Department UnsolicitedStart: 06-05-2024 End: 29-85-8650skqbehucnrATXL CELESTINEROJASSalem City Hospital HospitalStart: 05-01-2024 End: 31-23-0855Cqovdnope Result EncounterGeneric External Data ProviderNOMS External Department UnsolicitedStart: 05-01-2024 End: 86-07-4692Wknfukqbh Result EncounterGeneric External Data ProviderNOAL External Department UnsolicitedStart: 02-02-2024 End: 06-27-0290kmqrfflnozCHJV AICHHOLZNot AvailableStart: 01-08-2023 End: 37-50-9661mtdnlfglduUZYAOSY HALKER .Facility:A4Wyejq: 09-49-5950fisuqqoxqq JUWAN YAÑEZ .Facility:I8Psmdu: 07-23-2022 End: 17-26-5407dtqzfctyryCVNK YAÑEZ .Facility:R3Ixyiz: 02-19-2022 End: 46-45-2051qgxgugvyiwEWXP YAÑEZ .Facility:S6Aknwm: 32-46-2804yyherctlvhZICE YAÑEZ .Facility:J8Khjbq: 01-22-2022 End: 17-90-0811nkvptlxafqACOHEM PARTNERS COMMUNITYFacility:S4Zjake: 08-20-2020 End: 98-80-7554uygrbjeyanQrpha RumschlagFacility:[facility] Procedures DateProcedureProcedure DetailPerforming ClinicianStart: 82-10-4028Yqymeydg blood count with white cell differential, automatedJazmyne Franca RN CIRCULATING Work Phone: Start: 06-81-3249EB TOMOSYNTHESIS DIAGNOSTIC BIGeneric External Data ProviderStart: 78-18-6988DP BREAST BI LIMITEDGeneric External Data ProviderStart: 39-55-8458KjnuujsigubGrgf Franca RN CIRCULATING Work Phone: Plan of Treatment DateCare ActivityDetailAuthorStart: 13-54-7540Bcryxjizq for malignant neoplasm of colonNOMS HealthcareStart: 10-22-2025Medicare Annual Wellness (AWV)Medicare Annual Wellness (AWV)NOM HealthcareStart: 05-17-2025 End: 37-73-3919Jmzydak encounter ekgjdqqye74/11/2025 2:30 PM EDT Office Visit [facility] [address] [place] [address] Dinorah Schulte, ARTIS [address] [place] [address] [facility] FMStart: 88-19-9272Ubpfnxxit vaccinationNOMS HealthcareStart: 13-55-3630Spdgpeskb for malignant neoplasm of breastMammogram NOM HealthcareStart: 60-68-8978Jzyhqmidi vaccinationInfluenza Vaccine (#1)[facility] HealthcareComment on above:Postponed from 05/07/2024 (Patient Refused)Start: 09-26-2024 End: 44-95-7331Lgmogod encounter osugdrjao86/21/2025 9:40 AM EST Office Visit [facility] [address] [place] [address] Dinorah Schulte, ARTIS [address] [place] [address] [facility] FMStart: 62-04-5091Ulcuvzvih vaccinationInfluenza Vaccine (#1)NOM HealthcareStart: 49-25-7736Rtlfyjtsh for malignant neoplasm of cervixNOMS HealthcareStart: 80-18-4642Daqmrlnsx for malignant neoplasm of cervix Pap SmearNOMS HealthcareStart: 01-27-1965Medicare Annual Wellness (AWV)Medicare Annual Wellness (AWV)NOM HealthcareStart: 08-46-6664Uvnypdylh for malignant neoplasm of colonNOMS HealthcareComprehensive metabolic 2000 panel - Serum or PlasmaUniversity Hospitals Geauga Medical CenterMG Breast - bilateral ScreeningUniversity Hospitals Geauga Medical CenterXR Knee - bilateral 2 [facility] Lumbar spine 2 or 3 [facility] Immunizations Immunization DateImmunizationNotesCare FhndbgfkVxtceuir32-51-7004Mvddloqbt, injectable, Madin Annette Canine Kidney, preservative free, quadrivalentLisa Aichholz RN CIRCULATING Work Phone: [phone] NorthQngugarvan40-95-1176qdoqdjymn virus vaccine, unspecified formulationLisa Aichholz RN CIRCULATING Work Phone: [phone] NorthUnmtdiktie07-87-8304tmtzwba toxoid, reduced diphtheria toxoid, and acellular pertussis vaccine, adsorbedLisa Aichholz RN CIRCULATING Work Phone: [facility] Payers DatePayer CategoryPayerPolicy [id number] (Managed Care)[employer] MEDICARE [id number] [id number] [id number] [id number]50.163032.54818-38-3265Hpujeii [id number] 10.22.840.1.650571.3.57[id number] 2.16.840.1.098613.3.57[id number] 2.16.840.1.236612.3.57[id number] 2.16.840.1.998456.3.57[id number] 2.16.840.1.661252.3.57[id number] 2.16840.1.258104.3.57[id number] [id number]-D01-JE24 Social History DateTypeDetailFacilityStart: 37-09-2094Bsxaxbk smoking status NHISEx-smokerNOMS Healthcare End: 65-08-4530Qkmnlup of tobacco useCurrent smokerNOMS Healthcare End: 74-36-6839Qvxoqir of tobacco useCigarette SmokerNOMS HealthcareStart: 09-49-8402Tyajxgv use and exposureSmokeless tobacco non-userNOMS Healthcare Start: 02-15-2024 End: 46-99-0266Imuzruvuu beverage intakeEx-drinker (finding)[facility] Start: 02-02-2024 End: 86-37-2766Dyllcdd of Social functionNOMS HealthcareStart: 02-02-2024 End: 66-01-7777Xmivgjs use [facility]Start: 96-97-1735Rzdhhly Comment caffine: soda 5 dailyWashington County Memorial HospitalStart: 70-15-0330Mqe assigned at birthNot on [facility] smoking status NHISUnknown if ever smokedPaulding County Hospital Work Phone: SexFemale (finding)[facility] Start: 51-17-3169Aii Assigned At [facility] Start: 07-52-7659DrpMcipkyJLAL Healthcare Medical Equipment Procedure CodeEquipment CodeEquipment Original TextEquipment IdentifierDates1 each by Other route if needed Functional Status KgghLlinqrambzKhhiweNmqfuprf75-88-5973Siu difficult have these problems made it for you to do your work, take care of things at home, or get along with other people?Not difficult at all 06/27/2024 10:35 AM EDT Jacquelin Zaragoza MA Not difficult at [facility] HospitalUcimwtkgje77-32-6217Gmrswnn Health Questionnaire 2 item (PHQ-2) [Reported]Critical access hospital Clinical Notes 01-22-2022 to 04-07-2025 Note Date & WuelCwvaXideazgt61-59-5636 Telephone encounter Note* Telephone Encounter - Dinorah Schulte NP - 04/07/2025 2:14 PM EDT Pt needs scheduled an appt and I will give 30 day supply of her bp meds, but she also needs to keepappt [place] [facility] HospitalEwaqflypxr08-08-6025 Miscellaneous Notes* Telephone Encounter - Dinorah Schulte NP - 04/07/2025 2:14 PM EDT Pt needs scheduled an appt and I will give 30 day supply of her bp meds, but she also needs to keepappt [place] documented in this encounterWashington County Memorial HospitalEaeuzpicbv02-73-7675 Telephone encounter Note* Telephone Encounter - Dinorah Schulte NP - 02/14/2025 1:10 PM EDT Needs a fu appt, has not been seen since 06/29 [place] [facility] HospitalWrirznkarl00-04-4292 Miscellaneous Notes* Telephone Encounter - Dinorah Schulte NP - 02/14/2025 1:10 PM EDT Needs a fu appt, has not been seen since 06/29 [place] documented in this encounterWashington County Memorial HospitalFzislwezmh58-39-8317 History of Present illness Narrative* Dinorah Schulte NP - 06/27/2024 10:32 AM EDTAssociated Problem(s): Encounter for subsequent annual wellness visit (AWV) in Medicare patient Reviewed Ht/Wt/BMI Recommend eye exam yearly Recommend dental exams twice a year Balance work/leisure activities Exercises is recommended most days of the week (appropriate as chronic conditions allow) Follow up yearly and prn * Dinorah Schulte NP - 06/27/2024 10:31 AM EDTAssociated Problem(s): Anxiety and depression (CMS/HCC) Restart prozac, fu in 3 months * Dinorah Schulte NP - 06/27/2024 10:31 AM EDTAssociated Problem(s): Vitamin B12 deficiency Reviewed labs, cont supplement * Dinorah Schulte NP - 06/27/2024 10:31 AM EDTAssociated Problem(s): Vitamin D deficiency Reviewed labs, cont supplement * Dinorah Schulte NP - 06/27/2024 10:30 AM EDTAssociated Problem(s): Primary hypertension (CMS/HCC) At goal * Dinorah Schulte NP - 06/27/2024 10:30 AM EDTAssociated Problem(s): Peripheral neuropathy Refill onelia * Dinorah Schulte NP - 06/27/2024 10:30 AM EDTAssociated Problem(s): Primary insomnia Continue current meds * Dinorah Schulte NP - 06/27/2024 10:30 AM EDTAssociated Problem(s): RLS (restless legs syndrome) OARRS reviewed Refill gabapentin * JACQUELIN ZARAGOZA - 06/27/2024 9:40 AM EDT Pain is alil more intense with the weather change, pt states it is hard for her to get around. Pt has been out of the onelia for a bit and has been having more pain, muscle spasms, and restless legs. Pt states that pain management had put her on baclofen which has helped with her back and muscle spasms in the legs. * Dinorah Schulte NP - 06/27/2024 9:40 AM EDT Images from the original note were not included. Stephanie Sinclair is a 58 y.o. female presents with chief complaint of No chief complaint on file. HPI: Diet: variety Activity: has a membership at the [employer] [facility] [employer] [facility] Concerns: anxiety Falls in the [...] 15mg BID. Panic attack, calista in stomach, racingheart, tremor/shaking. Would like a refill on fluoxetine. [...] No follow-ups on file. documented in this encounterWashington County Memorial HospitalNfxedaxudi95-40-3006 NoteCONSULTATION CONSULTATION DATE: 07/23/2022 HISTORY OF PRESENT ILLNESS: [...] otherwise indicated. Patient is in agreement with this.[facility] CenterYbdwiyhb00-53-1301 NoteCONSULTATION CONSULTATION DATE: 02/19/2022 HISTORY OF PRESENT ILLNESS: [...] in three months' time unless otherwise indicated. [facility] Signed and Approved by: JUWAN YAÑEZ . 03/04/2022 16:24:00[facility]05-19-2022 NoteCONSULTATION CONSULTATION DATE: 01/22/2022 This is a 56-year-old [...] Activities that aggravate her pain are stairs, hospice chaplain hours, physical activity, changes in the weather [...] will follow her up in 1-2 months. [facility] Signed and Approved by: JUWAN YAÑEZ . 01/26/2022 15:08:00[facility]05-19-2022 NoteCONSULTATION PROCEDURE DATE: 01/22/2022 PRE AND POSTOPERATIVE DIAGNOSIS: [...] heme. The patient tolerated the procedure well. [facility] Signed and Approved by: JUWAN YAÑEZ . 01/26/2022 15:08:00[facility]05-19-2022 NoteCONSULTATION PROCEDURE DATE: 01/22/2022 PRE AND POSTOPERATIVE DIAGNOSIS: [...] relief and improvement of the left knee. [facility] Signed and Approved by: JUWAN YAÑEZ . 01/26/2022 15:08:00[facility]* Diagnosis Anxiety and depression (CMS/HCC)- Primary Iron deficiency anemia, unspecified iron deficiency anemia type Vitamin deficiency Unspecified vitamin deficiency Primary hypertension (CMS/HCC) Unspecified essential hypertension Obesity, morbid, BMI 40.0-49.9 ([facility]) Primary insomnia Persistent disorder of initiating or maintaining sleep Environmental and seasonal allergies Hypothyroidism (acquired) ([facility]) Unspecified hypothyroidism Spinal stenosis of lumbar region, [...] Unspecified essential hypertension Obesity, morbid, BMI 40.0-49.9 ([facility]/HCC) Primary insomnia Persistent disorder of initiating or maintaining sleep Environmental and seasonal allergies Hypothyroidism (acquired) (CMS/HCC) Unspecified hypothyroidism Spinal stenosis of lumbar region, unspecified whether neurogenic claudication present Primary osteoarthritis of both knees Encounter for subsequent annual wellness visit (AWV) in Medicare patient- Primary Vitamin D deficiency Vitamin B12 deficiency Other B-complex deficiencies Anxiety and depression ([facility]/HCC) Hypothyroidism (acquired) ([facility]) Unspecified hypothyroidism Primary hypertension ([facility]) Unspecified essential hypertension Primary insomnia Persistent disorder of initiating or maintaining sleep RLS (restless legs syndrome) Restless legs syndrome (RLS) Mononeuropathy Mononeuritis of unspecified site Primary hypertension ([facility]) Unspecified essential hypertension documented in this encounter [facility]* Diagnosis Anxiety and depression ([facility])- Primary Iron deficiency anemia, unspecified iron deficiency anemia type Vitamin deficiency Unspecified vitamin deficiency Primary hypertension ([facility]) Unspecified essential hypertension Obesity, morbid, BMI 40.0-49.9 ([facility]) Primary insomnia Persistent disorder of initiating or maintaining sleep Environmental and seasonal allergies Hypothyroidism (acquired) ([facility]) Unspecified hypothyroidism Spinal stenosis of lumbar region, unspecified whether neurogenic claudication present Primary osteoarthritis of both knees Encounter for subsequent annual wellness visit (AWV) in Medicare patient- Primary Vitamin D deficiency Vitamin B12 deficiency Other B-complex deficiencies Anxiety and depression ([facility]) Hypothyroidism (acquired) ([facility]) Unspecified hypothyroidism Primary hypertension ([facility]) Unspecified essential hypertension Primary insomnia Persistent disorder of initiating or maintaining sleep RLS (restless legs syndrome) Restless legs syndrome (RLS) Mononeuropathy Mononeuritis of unspecified site Hypothyroidism (acquired) ([facility]) Unspecified hypothyroidism Primary hypertension ([facility]) Unspecified essential hypertension documented in this encounter [facility]* Diagnosis Anxiety and depression ([facility])- Primary Iron deficiency anemia, unspecified iron deficiency anemia type Vitamin deficiency Unspecified vitamin deficiency Primary hypertension ([facility]) Unspecified essential hypertension Obesity, morbid, BMI 40.0-49.9 ([facility]) Primary insomnia Persistent disorder of initiating or maintaining sleep Environmental and seasonal allergies Hypothyroidism (acquired) ([facility]) Unspecified hypothyroidism Spinal stenosis of lumbar region, unspecified whether neurogenic claudication present Primary osteoarthritis of both knees Encounter for subsequent annual wellness visit (AWV) in Medicare patient- Primary Vitamin D deficiency Vitamin B12 deficiency Other B-complex deficiencies Anxiety and depression ([facility]) Hypothyroidism (acquired) ([facility]) Unspecified hypothyroidism Primary hypertension ([facility]) Unspecified essential hypertension Primary insomnia Persistent disorder of initiating or maintaining sleep RLS (restless legs syndrome) Restless legs syndrome (RLS) Mononeuropathy Mononeuritis of unspecified site Environmental and seasonal allergies documented in this encounter [facility]* Diagnosis Anxiety and depression ([facility])- Primary Iron deficiency anemia, unspecified iron deficiency anemia type Vitamin deficiency Unspecified vitamin deficiency Primary hypertension ([facility]) Unspecified essential hypertension Obesity, morbid, BMI 40.0-49.9 ([facility]) Primary insomnia Persistent disorder of initiating or maintaining sleep Environmental and seasonal allergies Hypothyroidism (acquired) ([facility]) Unspecified hypothyroidism Spinal stenosis of lumbar region, unspecified whether neurogenic claudication present Primary osteoarthritis of both knees Encounter for subsequent annual wellness visit (AWV) in Medicare patient- Primary Vitamin D deficiency Vitamin B12 deficiency Other B-complex deficiencies Anxiety and depression ([facility]) Hypothyroidism (acquired) ([facility]) Unspecified hypothyroidism Primary hypertension ([facility]) Unspecified essential hypertension Primary insomnia Persistent disorder [...] hypertension Obesity, morbid, BMI 40.0-49.9 [place] Primary insomnia Persistent disorder of initiating or [...] hypertension Obesity, morbid, BMI 40.0-49.9 ([facility] Primary insomnia Persistent disorder of initiating or [...] hypertension Obesity, morbid, BMI 40.0-49.9 ([facility] Primary insomnia Persistent disorder of initiating or [...] hypertension Obesity, morbid, BMI 40.0-49.9 ([facility] Primary insomnia Persistent disorder of initiating or [...] Unspecified essential hypertension Obesity, morbid, BMI 40.0-49.9 ([facility]) Primary insomnia Persistent disorder of initiating or [...] in this encounter [facility]* Diagnosis Onset Date Resolution Status Admit Date Encounter for subsequent annual wellness visit (AWV) in Medicare patient acuteOctober 2024 10:36amEssential hypertensionacuteOctober 2024 10:36amGAD (generalized anxiety disorder)acuteOctober 2024 10:36am HypothyroidismacuteOctober 2024 10:36amMajor depression, chronicacute June 25, 2025 10:36amMorbid obesity due to excess caloriesacuteOctober 2024 10:36amShoulder pain, rightacuteOctober 2024 10:36am [facility] Work Phone: Reason for referral (narrative)No reason for referral information availablePaulding County Hospital Work Phone: Summary Purpose Family History No Family History Records FoundNo Family History Records FoundNo Family History Records FoundNo Family History Records Found Advance Directives Advance Directive Response Recorded Date/ Time Advance Directives No May 9:08am Chief Complaint and Reason for Visit Chief Complaint Admit Date medicare wellness June 25, 2025 1 0:36am Reason for Visit Admit Date Encounter for subsequent amilcar ual wellness visit (AWV) in Medicare patient June 25, 2025 10:36am Essential hypertension June 25 10:36am KAVITHA (generalized anxiety disorder) Octob er 2024 10:36am Hypothyroidism June 25, 2025 1 0:36am Major depression, chronic June 25, 2025 10:36am Morbid obesity due to excess calories Oc tober 2024 10:36am Shoulder pain, right June 25, 2025 10:36am Additional Source Comments INFORMATION SOURCE (unrecogn ized section and content) DATE CREATED AUTHOR 01/15/2023 [facility] DATE CREATED AUTHOR AUTHOR'S ORGANIZ ATION 06/07/2024 [facility] DATE CREATED AUTHOR AUTHOR'S ORGANIZ ATION 06/29/2024 [facility] DATE CREATED AUTHOR AUTHOR'S ORGANIZ ATION 09/27/2024 [facility] Care Teams (unrecognized sec tion and content) Team MemberRelationshipSpecialtyStart DateEnd Date Paul Randall MD [address] [place] [phone] PCP - GeneralFamily Medicine02/02/24 Dinorah Schulte NP [address] [place] [phone] Nurse PractitionerFamily Medicine02/15/24Team MemberRelationshipSpecialtyStart DateEnd Date Paul Randall MD [address] [place] [phone] PCP - GeneralFamily Medicine02/02/24 Dinorah Schulte NP [address] [place] [address] Nurse PractitionerFamily Medicine02/15/24Team MemberRelationshipSpecialtyStart DateEnd Date Paul Randall MD [address] [place] [phone] PCP - GeneralFamily Auzrsmza36/31/24 Dinorah Schulte NP [address] [place] [address] [facility]02/15/24Team MemberRelationshipSpecialtyStart DateEnd Date Paul Randall MD [address] [place] [address] [facility] - [facility]/02/24 Dinorah Schulte NP [address] [place] [address] Nurse [facility]02/15/24Team MemberRelationshipSpecialtyStart DateEnd Date Paul Randall MD [address] [place] [address] PCP - [facility]07/06/24 Dinorah Schulte NP [address] [place] [address] Nurse Pract[facility]02/15/24Team MemberRelationshipSpecialtyStart DateEnd Date Paul Randall MD [address] [place] [address] PCP - [facility]07/06/24 Dinorah Schulte NP [address] [place] [address] Nurse [facility]02/15/24Team MemberRelationshipSpecialtyStart DateEnd Date Paul Randall MD [address] [place] [address] PCP - GeneralFamily Nywskfmb70/31/24 Dinorah Schulte NP [address] [place] [address] Nurse Pract[facility]02/15/24Team MemberRelationshipSpecialtyStart DateEnd Date Paul Randall MD [address] [place] [phone] PCP - [facility] Majbppbq35/31/24 Dinorah Schulte NP [address] [place] [phone] Nurse Pract[facility]erL[facility]02/15/24 Team Status: Active Member Role/Relationship Status Dates Dinorah Schulte NP-C Primary Care Provider Active Team Status: Inactive Member Role/Relationship Status Dates Dinorah Schulte NP-C Primary Care Provider Active Start: June 25, 2025 End: June 25, 2025Dinorah Schulte NP-CAttending ProviderActiveStart: June 25, 2025 End: June 25, 2025Team MemberRelationshipSpecialtyStart DateEnd Date aPul Randall MD PCP - GeneralFamily Medicine02/01/2410 Unallocated, Tamara Cai MD [address] [place] [address] PCP - GeneralFamily Gxxxasme22/22/ Paul Randall MD PCP - GeneralFamily Pkjpagaa31/31/24 Dinorah Schulte NP Nurse PractitionerFamily Medicine02/15/24 Reason for Visit (unrecogniz ed section and content) ReasonOnset DateCommentsMed [id number] DateCommentsMed Refill 09/07/2024ReasonOnset DateCommentsMed Bttojo8009/18/2024ReasonOnset DateComments Med Sqysux6702/14/2025ReasonOnset DateCommentsMed Mlxkjj8804/06/2025ReasonOnset Date CommentsMed Dbsclc0204/09/2025ReasonOnset DateCommentsMed Zzeviu5304/12/2025Reason Onset DateCommentsMed Wfggeb1604/13/2025ReasonOnset DateCommentsMed Refill 04/26/2025 Goals (unrecognized section and content) Goals may be documented in a n alternate section FOR RECORDS PERTAINING TO PATIENTS WHO ARE [...] BE BASED ON THE PRIMARY CLINICAL RECORDS. [employer] [facility] provides no warranty or guarantee of the accuracy or completeness of information in this document.
--- NOTE | 2025-08-01 10:08 | PM.CN ---
Consult Note: HPI Data of Consult Patient: known to practice within the last 3 years Consult date: 08/01/25 Requesting Physician: Veronique Laird NP Primary Care Provider: Dinorah Schulte NP Consult Narrative Reason for consult: low back pain Narrative: Stephanie Nichols a pleasant 59 year old female presents for evaluation and management of chronic low back and hip pain, pain today 5/10 increasing to 8/10 with activity, standing, walking, twisting, bending, decreased with massage/heat/ice. Patient finds benefit to baclofen, gabapentin, tramadol, and trazodone. Previous lumbar MRI consistent with lumbar stenosis with NC, lumbar radiculopathy, lumbar facet arthropathy, lx spondylosis. Bilateral knee xrays consistent with moderate OA. Since last visit patient has completed updated lumbar xray, bilateral knee xrays, and right shoulder xray without available results. She has an upcoming appointment with orthopedics for knee pain and shouledr pain. patient interested in discussing an updated MRI and interventional therapy as shes ready to move foward with interventional therapy which was previously cancelled or postponed by the patient. cc:: CC: Veronique Laird NP Review of Systems ROS Musculoskeletal Reports: back pain and joint pain [facility] Medical History Encounter for medication monitoring ?Z51.81 - Encounter for therapeutic drug level monitoring (ICD-10) Meds Home Medications and Allergies Home Medications ?Medication ?Instructions ?Recorded ?Confirmed ?Type VITAMIN D DAILY 04/28/23 History buspirone 10 mg tablet 10 mg PO BID 04/28/23 04/28/23 History levothyroxine 150 mcg tablet 150 mcg PO DAILY 04/28/23 04/28/23 History (Synthroid) lisinopril 10 mg tablet 10 mg PO DAILY 04/28/23 04/28/23 History multivitamin 1 tab PO DAILY 04/28/23 04/28/23 History trazodone 50 mg tablet 50 mg PO DAILY 04/28/23 04/28/23 History vitamin B12 0.5 mg-folic acid 1 mg 1 tab PO DAILY 04/28/23 04/28/23 History tablet lidocaine 4 % topical cream 1 applic topical BID #30 grams 07/14/23 Rx lidocaine 5 % topical cream 1 applic topical BID PRN pain #30 08/12/23 Rx grams naloxone 4 mg/actuation nasal 4 mg intranasal Q3M PRN opioid 05/03/24 Rx spray (Narcan) overdose #2 ea baclofen 10 mg tablet 10 mg PO TID PRN muscle spasm #90 11/30/24 Rx tabs gabapentin 600 mg tablet 600 mg PO TID #90 tabs 01/24/25 Rx tramadol 50 mg tablet 50 mg PO TID PRN pain #90 tabs 05/23/25 Rx tramadol 50 mg tablet 50 mg PO TID PRN pain #90 tabs 06/19/25 Rx tramadol 50 mg tablet 50 mg PO TID PRN pain #90 tabs 07/23/25 Rx Allergies Allergy/AdvReac Type Severity Reaction Status Date / Time Latex, Natural Rubber Allergy Unknown Rash Verified 04/28/23 13:53 Penicillins Allergy Unknown Verified 04/28/23 13:53 Exam Constitutional Documenting provider has reviewed patient's vital signs: yes Common normals: no apparent distress, oriented x3 and alert General appearance: cooperative Nutritional appearance: obese HENMT Common normals: normocephalic, hearing grossly normal bilaterally and moist oral mucous membranes Head and scalp: normocephalic Eye Common normals: PERRL Pupil: PERRL Neck & C-Spine Common normals: full ROM General: normal visual inspection Cervical spine: cervical ROM normal Chest Common normals: inspection of chest normal Respiratory Common normals: normal respiratory effort, no retractions and no use of accessory muscles Back & Pelvis Lumbar spine/lower back: ROM limited, pain with ROM (positive bilateral facet loading), lumbar spinal tenderness, paraspinal muscle tenderness, straight leg raise positive right and straight leg raise positive left Sacroiliac joints: SI joint(s) abnormal (bilaterally positive BARBARA, gaenslens, yeoman) SI joint details: tender to palpation Other: weakness to BLE diminished sensation in bilateral L4,5,S1 Extremity Common normals: normal to inspection and full ROM Right lower extremity: knee joint Left lower extremity: knee joint Other: bilateral knees enlarged diameter Neuro Common normals: oriented x3 Sensorium/orientation: alert Gait (neuro): antalgic Motor exam: no movement abnormalities noted Other: intermittent bilateral leg weakness and instability Psych Common normals: mental status grossly normal, thought process normal, cooperative, affect normal, speech normal and activity/motor behavior normal Speech: normal speech Thought process: normal thought process Results Additional Findings Additional findings: If on a controlled substance or opioids, I have checked an [place] report on this patient and there are no aberrancies noted in the prescribing history.??If on a controlled substance or opioid a drug screen was completed and reviewed within the last year, and if there has not been a drug screen completed we ordered one today to monitor higher risk, state monitored pain medication use. As part of providing excellent, safe, comprehensive care, the following was completed at our patient's visit: 1. A medication reconciliation and review to ensure accurate knowledge of current/active medications, including asking our patients to inform us about any [id number] medications or herbal remedies/nutritional supplements/alternative remedies. 2. A review to specifically ensure our patients have had annual screening for screening for depression, screening for tobacco use, and screening for unhealthy alcohol use. For concerning screenings had a discussion with the patient, provided patient education, and recommended follow-up with primary care provider when appropriate. If patient noted with a risk of falling, they received education on strength, gait, and balance training to prevent future risk of falling. Portions of this note may have been carried over from the previous visit and updated as appropriate. Please note this office utilizes paper charting in addition to the electronic medical record. A list of current medications, vitals, and PMH is available there as the clinical staff outside of myself do not have access to [employer] charting during the clinic day operations. As part of providing quality comprehensive care the current medications, vitals, and PMH were reviewed in the paper chart. Assessment and Plan Assessment and Plan (1) Lumbar stenosis without neurogenic claudication: (2) Degenerative disc disease (DDD) of lumbar region with discogenic back pain and leg pain: (3) Lumbar spondylosis: (4) Chronic prescription opiate use: Assessment and Plan: patient notes moderate pain relief for 4 hours without side effects I feel these medications are improving the patient's quality of life and allow them to tolerate activities of daily living as well as participate in recreational activity.? The patient does not report intolerable side effects. The patient is NOT opioid naive and non-pharmacologic and non-opioid treatment has failed to significantly relieve the patient's pain and improve functionality. The patient has a diagnosis that is related to a somatic or visceral pain etiology. ? ?? I reviewed with the patient the potential risks and side effects with the use of? opioid medications including but not limited to respiratory depression,? sedation, and even . Within the last 12 months I have verified the patient has access to naloxone should? these effects occur. The patient was advised to let? their family know they had Naloxone in case they would need to administer? the medication. I advised the patient to avoid the use of any other? sedation substances including alcohol, THC, and benzodiazepines while? taking opioid medications due to the risk of compounding side effects and? detrimental outcomes. within the last 12 months I have reviewed the [employer], pain treatment agreement and urine drug screen.? ?? A drug screen was completed within the last year, and no aberrancies were noted regarding their use of controlled substances. The patient understands they are subject to the terms and conditions of the pain contract that they have signed. ? ?? I have checked an OARRS report on this patient today and there are no aberrancies noted in the prescribing history.? (5) Bilateral primary osteoarthritis of knee: (6) Generalized OA: Plan The patient has had over 3 months of moderate to severe bilateral knee, bilateral low back, BLE pain with functional impairment and inadequate response to conservative care including NSAIDS (unless there are contraindication such as concurrent blood thinners), multiple oral or topical pain medications, and home exercise program/physical therapy.? Patient has completed >6 weeks of guided home exercise program and/or formal physical therapy program without relief of their symptoms.? I have reviewed the imaging of the lumbar spine and no red flags were identified.? Prior lumbar MRI consistent with multilevel ddd, stenosis, facet arthropathy The Oswestry Disability Index was completed, and the patient scored a 50%.? update lumbar mri without contrast to assess low back pain, lumbar ddd with low back and BLE pain, lumbar stenosis with NC in consideration of interventional therapy vs NS consultation continue tramadol 50mg TID PRN moderate to severe pain 90 tabs to last 30 days continue baclofen 10mg tid prn pain/spasms continue HEP as tolerated continue f/u with orthopedics for knee pain/oa and right shoulder OA f/u after MRI complete
== END 2025-08-01 09:44 | disposition home or self-care (01) ==
LOC: PM 09:43
PROVIDERS: PCP Nurse Practitioner; Visit Provider Nurse Practitioner
DX: M48.062 Spinal stenosis, lumbar region with neurogenic claudication (principal); M51.362 Other intervertebral disc degeneration, lumbar region with discogenic back pain and lower extremity pain; M47.816 Spondylosis without myelopathy or radiculopathy, lumbar region; Z79.891 Long term (current) use of opiate analgesic; M17.0 Bilateral primary osteoarthritis of knee
CPT/HCPCS: G0463